=== PATIENT | female | born 1955 | race Caucasian/White ===

== ENCOUNTER → 2020-11-06 15:40 | Outpatient (CLI) | payer OTHER, SELFPAY ==
--- NOTE | 2020-11-06 15:43 | BI_ITS ---
MAMMOGRAPHY - BILATERAL SCREENING REASON FOR EXAM: Female, 65 years old. Routine annual screening examination. PERTINENT HISTORY: Non-contributory. TECHNIQUE: Digital bilateral breast jose (3D mammographic acquisition) in the CC and MLO projections. 2-D mediolateral oblique (MLO) and craniocaudad (CC) views of both breasts were obtained. CAD: Full Field Digital Mammography with Computer Added Detection was performed. COMPARISON: Comparison is made with prior outside examination dated 12/03/2019. FINDINGS: Breast Composition: There are scattered areas of fibroglandular density. There are no dominant masses or suspicious calcifications. No other significant abnormalities are identified. There has been no significant change since the prior study. BI/SCREEN MAMM (CAD) W/JOSE BILAT IMPRESSION: Stable bilateral screening mammogram. Yearly follow-up mammogram recommended. (A) ASSESSMENT CATEGORY: BIRADS Category 1: Negative. A letter regarding these results will be sent to the patient by the facility within 30 days. Approximately 10% of breast cancers are not detected by mammography. A normal mammogram should not delay biopsy of a clinically suspicious abnormality. [id number] Electronically Signed: Mario Paulino, at 13:51 EST , Service support ,
== END ==
PROVIDERS: PCP Family Medicine; Referring Provider Family Medicine; Visit Provider Family Medicine
DX: Z12.31 Encounter for screening mammogram for malignant neoplasm of breast (principal)
CPT/HCPCS: 77063; 77067

== ENCOUNTER → 2020-11-13 13:23 | Outpatient (CLI) | payer OTHER, SELFPAY ==
[2020-11-13 15:48] LABS: Absolute Lymphocyte Count 1.86 X10^3/uL (0.83-4.51); Absolute Neutrophil Count 6.1 X10^3/uL (2.0-7.7); Basophil# 0.06 X10^3/uL; Basophil% 0.7 % (0-1); Eosinophil# 0.23 X10^3/uL; Eosinophils% 2.6 % (0-5); Hematocrit 39.8 % (37-47); Hemoglobin 13.3 g/dL (12.0-15.0); Lymphocyte # 1.86 X10^3/ul (4.0); Lymphocyte % 21.2 % (19-41); Mean Corp Hgb Conc 33.4 g/dL (32-36); Mean Corpuscular Hgb 31.1 pg (27.0-32.0); Mean Corpuscular Volume 93.2 fL (81-99); Mean Platelet Vol. 10.5 fl (6.2-12.0); Monocyte# 0.46 X10^3/uL; Monocyte% 5.2 % (0-10); NRBC Flagged by Analyzer 0 % (0-5); Neutrophil # 6.08 X10^3/uL (2.7-7.7); Neutrophil % 69.3 % (47-70); Platelet Count 228 K/mm3 (150-450); RBC Distribution Width CV 13.2 % (11.6-14.6); RBC Distribution Width SD 43.7 fl (35.1-43.9); Red Blood Count 4.27 M/mm3 (4.2-5.4); White Blood Count 8.8 K/mm3 (4.4-11.0)
[2020-11-13 16:24] LABS: ALB/GLOB Ratio 0.9 RATIO (0.9-2.4); AST(SGOT) 13 U/L (15-37); Alanine Aminotransfer ALT/SGPT 28 U/L (13-56); Albumin, Serum 3.6 g/dL (3.2-5.0); Alkaline Phosphatase 129 U/L (45-117); Anion Gap 5 (5-15); BUN 10 mg/dL (7-18); BUN/Creat Ratio 11.6 RATIO (10-20); Calcium,Total 9.3 mg/dL (8.5-10.1); Chloride 104 mmol/L (98-107); Creatinine, Serum 0.86 mg/dL (0.55-1.02); EST Glomerular Filtration Rate 70 mL/min (>60); Est Glom Filt Rate - Afr Amer 85 mL/min (>60); Free T3 2.1 pg/mL (2.18-3.98); Globulin 4.1 g/dL (2.2-4.2); Glucose 158 mg/dL (74-106); Potassium 3.8 mmol/L (3.5-5.1); Protein, Total 7.7 g/dL (6.4-8.2); Sodium Level 138 mmol/L (136-145); T4 Free Direct 1.56 ng/dL (0.76-1.46); Thyroid Stim Hormone (TSH) 1.39 uIU/mL (0.358-3.74)
== END ==
PROVIDERS: PCP Family Medicine; Visit Provider Family Medicine
DX: E11.9 Type 2 diabetes mellitus without complications (principal); I10 Essential (primary) hypertension; E03.9 Hypothyroidism, unspecified
CPT/HCPCS: 36415; 80053; 84439; 84443; 84481; 85025

== ENCOUNTER → 2021-01-25 09:32 | Outpatient (CLI) | payer OTHER, SELFPAY ==
[2020-12-28 08:31] VITALS: BMI 49.4
[2021-01-25 12:03] LABS: Absolute Lymphocyte Count 1.39 X10^3/uL (0.83-4.51); Absolute Neutrophil Count 6.9 X10^3/uL (2.0-7.7); Basophil# 0.05 X10^3/uL; Basophil% 0.5 % (0-1); Eosinophil# 0.16 X10^3/uL; Eosinophils% 1.7 % (0-5); Hematocrit 42.5 % (37-47); Hemoglobin 13.3 g/dL (12.0-15.0); Lymphocyte # 1.39 X10^3/ul (4.0); Lymphocyte % 15.1 % (19-41); Mean Corp Hgb Conc 31.3 g/dL (32-36); Mean Corpuscular Hgb 28.7 pg (27.0-32.0); Mean Corpuscular Volume 91.6 fL (81-99); Mean Platelet Vol. 10.7 fl (6.2-12.0); Monocyte# 0.57 X10^3/uL; Monocyte% 6.2 % (0-10); NRBC Flagged by Analyzer 0 % (0-5); Neutrophil # 6.93 X10^3/uL (2.7-7.7); Neutrophil % 75.6 % (47-70); Platelet Count 256 K/mm3 (150-450); RBC Distribution Width CV 13.6 % (11.6-14.6); RBC Distribution Width SD 46.1 fl (35.1-43.9); Red Blood Count 4.64 M/mm3 (4.2-5.4); White Blood Count 9.2 K/mm3 (4.4-11.0)
[2021-01-25 12:37] LABS: ALB/GLOB Ratio 0.8 RATIO (0.9-2.4); AST(SGOT) 15 U/L (15-37); Alanine Aminotransfer ALT/SGPT 28 U/L (13-56); Albumin, Serum 3.5 g/dL (3.2-5.0); Alkaline Phosphatase 131 U/L (45-117); Anion Gap 4 (5-15); BUN 12 mg/dL (7-18); BUN/Creat Ratio 13.9 RATIO (10-20); Calcium,Total 9.3 mg/dL (8.5-10.1); Chloride 105 mmol/L (98-107); Creatinine, Serum 0.86 mg/dL (0.55-1.02); EST Glomerular Filtration Rate 70 mL/min (>60); Est Glom Filt Rate - Afr Amer 84 mL/min (>60); Globulin 4.2 g/dL (2.2-4.2); Glucose 95 mg/dL (74-106); Protein, Total 7.7 g/dL (6.4-8.2); Sodium Level 140 mmol/L (136-145); T4 Free Direct 1.36 ng/dL (0.76-1.46); Thyroid Stim Hormone (TSH) 1.23 uIU/mL (0.358-3.74)
== END ==
PROVIDERS: PCP Family Medicine; Visit Provider Family Medicine
DX: E03.9 Hypothyroidism, unspecified (principal); I10 Essential (primary) hypertension; E11.9 Type 2 diabetes mellitus without complications
CPT/HCPCS: 36415; 80053; 84439; 84443; 84481; 85025

== ENCOUNTER 2021-01-25 10:55 | Outpatient (RCR) | payer OTHER, SELFPAY ==
[2020-12-28 08:31] VITALS: BMI 49.4
[2021-01-25] MEDS: COVID-19 VACC, MRNA(PFIZER)/PF 30 MCG/0.3 ML SYRINGE IM (08:46)
[2021-02-15] MEDS: COVID-19 VACC, MRNA(PFIZER)/PF 30 MCG/0.3 ML SYRINGE IM (08:28)
== END 2021-01-25 23:59 ==
LOC: IMMUN 10:55
PROVIDERS: PCP Family Medicine; Visit Provider Family Medicine
DX: Z23 Encounter for immunization (principal)
CPT/HCPCS: 0001A; 0002A

== ENCOUNTER → 2021-11-15 10:42 | Outpatient (CLI) | payer MEDICARE, SELFPAY ==
--- NOTE | 2021-11-15 10:45 | BI_ITS ---
MAMMOGRAPHY - BILATERAL SCREENING REASON FOR EXAM: Female, 66 years old. Routine annual screening examination. PERTINENT HISTORY: Non-contributory. TECHNIQUE: Digital bilateral breast jose (3D mammographic acquisition) in the CC and MLO projections. 2-D mediolateral oblique (MLO) and craniocaudad (CC) views of both breasts were obtained. CAD: Full Field Digital Mammography with Computer Added Detection was performed. COMPARISON: Comparison is made with prior examination of 11/06/2020. FINDINGS: Breast Composition: There are scattered areas of fibroglandular density. There are no dominant masses or suspicious calcifications. Stable small benign-appearing bilateral axillary lymph nodes. No other significant abnormalities are identified. There has been no significant change since the prior study. BI/SCRN MAMM (CAD)W/JOSE BILAT IMPRESSION: Stable bilateral screening mammogram. Yearly follow-up mammogram recommended. (A) ASSESSMENT CATEGORY: BIRADS Category 2: Benign. A letter regarding these results will be sent to the patient by the facility within 30 days. Approximately 10% of breast cancers are not detected by mammography. A normal mammogram should not delay biopsy of a clinically suspicious abnormality. [id number] Electronically Signed: Mario Paulino MD at 11:27 EST , Service support ,
== END ==
PROVIDERS: PCP Family Medicine; Referring Provider Family Medicine; Visit Provider Family Medicine
DX: Z12.31 Encounter for screening mammogram for malignant neoplasm of breast (principal)
CPT/HCPCS: 77063; 77067

== ENCOUNTER 2022-05-16 06:25 | Day surgery (SDC) | payer MEDICARE, SELFPAY ==
[2022-05-16 06:53] VITALS: BP 119/64; PULSE 83; RESP 18; TEMP 36.4; O2SAT 100; BMI 45.1
[2022-05-16] MEDS: Lactated Ringers 1,000 ML 15 ML IV (07:01)
--- NOTE | 2022-05-16 07:11 | H&P.OPEN ---
[facility] - General General Date of Service: 05/16/22 Chief Complaint: Colon surveillance with history of polyps HPI Narrative PARAMJIT ESPINOZA, is a 67 F who presents to the endoscopy suite for open access surveillance colonoscopy. Patient has a history of colonic polyps with her last colonoscopy in 2018. She is unable to state exactly how many were found at that time. She denies any interval change in her bowel habits. She specifically denies any change in caliber, increasing constipation, or observation of blood/tarry stools. She confirms that there is no use of blood thinners. Patient does have a family history of colon cancer in her maternal grandmother. She estimates that her grandmother was diagnosed with colon cancer in her 80s. She also relates that her father had a duodenal ulcer, but is unable to provide further detail as he passed in his mid 50s. Patient has a history of very infrequent reflux episodes. She estimates these occur only 3-4 times a year and she will take Prilosec for a week around the time that they occur with instantaneous relief. Lastly patient's only prior surgical history is a gallbladder. [facility] Medical History (Updated 05/16/22 @ 07:[address] Toan Ignacio MD) Arthritis Back pain Cervical stenosis of spine COVID CPAP (continuous positive airway pressure) dependence Depression Diabetes mellitus Dietary restriction H/O hyperthyroidism Heartburn High cholesterol History of diverticulitis History of hiatal hernia History of stress test HTN (hypertension) hx of gallbladder removal Hx of transesophageal echocardiography (CHIOMA) for monitoring Hypertension Loss of hearing Post-menopausal Restless legs Syncope Thyroid nodule Wears glasses Home Medications amlodipine 5 mg tablet 5 mg PO DAILY 12/28/20 [History Last Taken 05/16/22 05:30] aspirin 81 mg chewable tablet 81 mg PO DAILY 12/28/20 [History Last Taken Unknown] cholecalciferol (vitamin D3) 50 mcg (2,000 unit) capsule 50 mcg PO DAILY 12/28/20 [History Last Taken Unknown] duloxetine 60 mg capsule,delayed release 60 mg PO DAILY 12/28/20 [History Last Taken 05/16/22 05:30] fluticasone propionate 50 mcg/actuation nasal spray,suspension (Allergy Relief (fluticasone)) 2 spray intranasal PRN PRN ALLERGIES 12/28/20 [History Last Taken Unknown] glimepiride 4 mg tablet 4 mg PO QHS 12/28/20 [History Last Taken Unknown] levothyroxine 150 mcg capsule 150 mcg PO DAILY 12/28/20 [History Last Taken 05/16/22 05:30] pravastatin 40 mg tablet 40 mg PO DAILY 12/28/20 [History Last Taken Unknown] semaglutide 1 mg/dose (2 mg/1.5 mL) subcutaneous pen injector (Ozempic) 1 mg subcut TH 12/28/20 [History Last Taken Unknown] losartan 50 mg tablet 50 mg PO DAILY 05/13/22 [History Last Taken 05/16/22 05:30] Allergy/AdvReac Type Severity Reaction Status Date / Time diltiazem [From Cardizem] Allergy Severe FLUSHING Verified 05/16/22 06:51 Penicillins AdvReac Severe issues Verified 05/16/22 06:51 with colon CHAN Inhibitors AdvReac COUGH Verified 05/16/22 06:51 Surgical History (Updated 05/13/22 @ 12:53 by Beatriz Horowitz) Hx of colonoscopy Hx of total knee arthroplasty Hx of tubal ligation Social History Smoking Status: Never smoker Past Medical/Surgical History Planned Operation Planned Operative Procedure/s: CSCOPE OA Previous Hospitalizations/Surgeries HX Hospitalizations: No Any Problems With Anesthesia: No You/Your Family Experience Fever (Hyperthermia) With Anes: No Cholinesterase deficiency: No Cardiovascular Hx Heart Attack: No Hx Hypertension: Yes (CONTROLLED WITH MEDS) Respiratory Hx Chronic Obstructive Pulmonary Disease (COPD): No Hx Asthma: No Hx Emphysema: No Hx Sleep Apnea: Yes CPAP: Yes BIPAP: No Hx Respiratory Tract Infection/Cold (presently): No Result (for STOP score): Positive Smoking Status: Never smoker Neurological Hx Seizures: No Does patient have nerve stimulator: No Reproduction : No Miscellaneous Recent Exposure to Contagious Disease: No Allergies diltiazem [From Cardizem] Allergy (Severe, Verified 05/16/22 06:51) FLUSHING Penicillins Adverse Reaction (Severe, Verified 05/16/22 06:51) issues with colon CHAN Inhibitors Adverse Reaction (Verified 05/16/22 06:51) COUGH Discharge Is Pt Admitted From a Retirement, or a Senior Living: No After D/C, Where Do you Plan to Go: Return Home Vital Signs Vital Signs Vital Signs: 05/16/22 06:52 05/16/22 06:53 Temperature 97.6 F L Temperature Source Temporal Pulse Rate 83 Respiratory Rate 18 Respiratory Pattern Normal Blood Pressure 119/64 Blood Pressure Mean 82 Blood Pressure Source Monitor Blood Pressure Position Semi-Fowlers Blood Pressure Location Left Arm Pulse Ox 100 Oxygen Delivery Method Room Air Weight Weight: 246 lb 9.6 oz Body Mass Index (BMI) 45.1 Physical Exam Const alert, oriented x3 and no apparent distress General Appearance: cooperative GI GI Narrative: Soft, nondistended, nontender x4 quadrants Inspection: central obesity Assessment & Plan Assessment/Plan (1) History of colon polyps: PLAN: Is a 67-year-old female who presents for surveillance colonoscopy after she is found to have colon polyps on a prior endoscopy in 2018. She has unable to provide further details as to how many or what type of polyp. She does deny any interval change to her bowel habits and confirms the history provided from her open access screening. Lastly she confirms that her prep proceeded uneventfully and her output is now a clear yellow. With these responses and exam we will plan to proceed with colonoscopy under local MAC as previously scheduled. Surgery Risks - Colonoscopy Risks Include but are not Limited To: Risks include but are not limited to: Bleeding, perforation requiring further surgery, inability to complete colonoscopy requiring barium enema.
--- NOTE | 2022-05-16 07:30 | COLBX_PTH ---
PATIENT: PARAMJIT ESPINOZA LOC: EN U#:[id number] AGE/SX: 67/F ROOM: RE05/16/[address]: Dr. Toan Ignacio MD : 1955 BED: DIS: 05/16/2022 SPEC #: [id number] RECD: 05/16/22 12:38 STATUS: HAYDEE LETTY #: [id number] TAYLOR: 05/16/22 07:[address]: Toan Ignacio DEPT: SURGICAL PATHOLOGY RECD BY: Nancy Porter ENTERED: 05/16/22 13:24 SP TYPE: COLON BX OTHR DR: Dr. Susanna Coulter MD Tissues: Ascending colon Procedures: Surgery Specimen Level IV HEADER OPERATION: Colonoscopy ? open access (MAC), polypectomy PRE-OP DIAGNOSIS: History of colon polyps TISSUE SUBMITTED: Ascending polyp MICROSCOPIC DIAGNOSIS Ascending colon polyp, polypectomy: Tubular adenoma. SJ:elicia 05/17/2022 MICROSCOPIC DESCRIPTION Slides are reviewed. GROSS DESCRIPTION Received in fixative is one container labeled with the patient's name and designated ascending polyp. The specimen consists of a zimmer-pink polyp measuring 0.4 x 0.4 x 0.2 cm. The specimen is totally submitted in one cassette. / SJ:elicia 05/16/2022 TC:1 CPT: 69684
[2022-05-16 08:00] LABS: Bedside Glucose 114 mg/dL (74-106)
[2022-05-16 08:05] VITALS: BP 119/64; BP 135/70; PULSE 81; RESP 16; TEMP 36.5; O2SAT 96
--- NOTE | 2022-05-16 08:07 | OP.COLON_ITS ---
Patient Name: Janet Ortiz Procedure Date: 05/16/2022 7:19 AM Date of : 1955 Age: 67 Procedure: Colonoscopy Indications: High risk colon cancer surveillance: Personal history of colonic polyps, Family history of colon cancer in a distant relative Providers: Toan Ignacio MD Medicines: See the Anesthesia note for documentation of the administered medications Patient Profile: Last Colonoscopy: more than 3 years ago. Refer to note in patient chart for documentation of history and physical. Complications: No immediate complications. Estimated blood loss: Minimal. Procedure: Pre-Anesthesia Assessment: - The heart rate, respiratory rate, oxygen saturations, blood pressure, adequacy of pulmonary ventilation, and response to care were monitored throughout the procedure. After I obtained informed consent, the scope was passed under direct vision. Throughout the procedure, the patient's blood pressure, pulse, and oxygen saturations were monitored continuously. The Colonoscope was introduced through the anus and advanced to the cecum, identified by appendiceal orifice and ileocecal valve. The colonoscopy was performed without difficulty. The patient tolerated the procedure fairly well. The quality of the bowel preparation was good. The appendiceal orifice was photographed. Scope In: 7:30:53 AM Scope Withdrawal Time 0 hours 17 minutes 4 seconds Scope Out: 7:58:00 AM Total Procedure Duration Time 0 hours 27 minutes 7 seconds Findings: A 7 mm, non-bleeding polyp was found in the ascending colon. The polyp was semi-sessile. The polyp was removed with a hot snare. Resection and retrieval were complete. Estimated blood loss was minimal. Skin tags were found on perianal exam. Multiple medium-mouthed diverticula were found in the sigmoid colon. No biopsies or other specimens were collected for this exam. No additional abnormalities were found on retroflexion. Impression: - One 7 mm, non-bleeding polyp in the ascending colon, removed with a hot snare. Resected and retrieved. - Perianal skin tags found on perianal exam. - Diverticulosis in the sigmoid colon. No specimens collected. Recommendation: - Discharge patient to home (via wheelchair). - High fiber diet today. - Continue present medications. - Await pathology results. - Repeat colonoscopy date to be determined after pending pathology results are reviewed for surveillance based on pathology results. - Telephone my office for pathology results in 1 week. Procedure Code(s): --- Professional --- 26697, Colonoscopy, flexible; with removal of tumor(s), polyp(s), or other lesion(s) by snare technique Diagnosis Code(s): --- Professional --- Z86.010, Personal history of colonic polyps D12.2, Benign neoplasm of ascending colon K64.4, Residual hemorrhoidal skin tags Z80.0, Family history of malignant neoplasm of digestive organs K57.30, Diverticulosis of large intestine without perforation or abscess without bleeding CPT copyright 2017 [employer]. All rights reserved. The codes documented in this report are preliminary and upon category development analyst review may be revised to meet current compliance requirements. Toan Ignacio MD 05/16/2022 8:07:26 AM This report has been signed electronically. Number of Addenda: 0 Note Initiated On: 05/16/2022 7:19 AM
--- NOTE | 2022-05-16 08:08 | OP.CCLET_ITS ---
05/16/2022 Susanna Coulter [facility] [address] [place] [address] Re : Colonoscopy procedure for Janet Ortiz Dear Dr. Coulter This procedure was performed on April. My impressions and recommendations are as follows: Impressions : - One 7 mm, non-bleeding polyp in the ascending colon, removed with a hot snare. Resected and retrieved. - Perianal skin tags found on perianal exam. - Diverticulosis in the sigmoid colon. No specimens collected. Recommendations : - Discharge patient to home (via wheelchair). - High fiber diet today. - Continue present medications. - Await pathology results. - Repeat colonoscopy date to be determined after pending pathology results are reviewed for surveillance based on pathology results. - Telephone my office for pathology results in 1 week. My findings are described in the full procedure note, which is enclosed. If I can be of further assistance, please feel free to contact me at Doctor phone number(s): , Work: . Sincerely, Toan Ignacio MD 05/16/2022 8:07:26 AM This report has been signed electronically.
[2022-05-16 08:10] VITALS: BP 119/64; BP 147/66; PULSE 79; RESP 16; O2SAT 97
[2022-05-16 08:15] VITALS: BP 119/64; BP 136/63; PULSE 76; RESP 18; O2SAT 98
[2022-05-16 08:20] VITALS: BP 119/64; BP 144/74; PULSE 79; RESP 18; TEMP 36.5; O2SAT 98
[2022-05-16 08:28] VITALS: BP 119/64
== END 2022-05-16 08:34 | disposition home or self-care (01) ==
LOC: EN 06:26 → AC 06:28
PROVIDERS: PCP Family Medicine; Referring Provider Family Medicine; Visit Provider Surgery
PROC: 0DJD8ZZ Inspection of Lower Intestinal Tract, Via Natural or Artificial Opening Endoscopic (ICD-10-PCS; CPT 45378; principal; 2022-05-16 07:25)
DX: Z12.11 Encounter for screening for malignant neoplasm of colon (principal); D12.2 Benign neoplasm of ascending colon; K64.4 Residual hemorrhoidal skin tags; K57.30 Diverticulosis of large intestine without perforation or abscess without bleeding; E11.9 Type 2 diabetes mellitus without complications; I10 Essential (primary) hypertension; E78.00 Pure hypercholesterolemia, unspecified; Z79.82 Long term (current) use of aspirin; Z79.84 Long term (current) use of oral hypoglycemic drugs; Z79.890 Hormone replacement therapy; Z79.899 Other long term (current) drug therapy; Z86.010 Personal history of colon polyps; Z80.0 Family history of malignant neoplasm of digestive organs
CPT/HCPCS: 45385; 82962; 88305; J7120

== ENCOUNTER → 2022-09-20 | Outpatient (CLI) | payer MEDICARE, SELFPAY ==
[2022-09-20 12:12] LABS: Absolute Lymphocyte Count 1.54 X10^3/uL (0.83-4.51); Absolute Neutrophil Count 7.1 X10^3/uL (2.0-7.7); Basophil# 0.07 X10^3/uL; Basophil% 0.7 % (0-1); Eosinophils% 2.1 % (0-5); Hematocrit 39.5 % (37-47); Hemoglobin 13.3 g/dL (12.0-15.0); Lymphocyte # 1.54 X10^3/ul (0.83-4.51); Lymphocyte % 16.1 % (19-41); Mean Corp Hgb Conc 33.7 g/dL (32-36); Mean Corpuscular Hgb 30.9 pg (27.0-32.0); Mean Corpuscular Volume 91.9 fL (81-99); Mean Platelet Vol. 10.8 fl (6.2-12.0); Monocyte# 0.57 X10^3/uL; Monocyte% 5.9 % (0-10); NRBC Flagged by Analyzer 0 % (0-5); Neutrophil # 7.13 X10^3/uL (2.7-7.7); Neutrophil % 74.4 % (47-70); Platelet Count 237 K/mm3 (150-450); RBC Distribution Width CV 13.3 % (11.6-14.6); RBC Distribution Width SD 44.9 fl (35.1-43.9); White Blood Count 9.6 K/mm3 (4.4-11.0)
[2022-09-20 12:16] LABS: ALB/GLOB Ratio 0.9 RATIO (0.9-2.4); AST(SGOT) 16 U/L (15-37); Alanine Aminotransfer ALT/SGPT 27 U/L (13-56); Albumin, Serum 3.5 g/dL (3.2-5.0); Alkaline Phosphatase 121 U/L (45-117); Anion Gap 5 (5-15); BUN 12 mg/dL (7-18); Calcium,Total 9.6 mg/dL (8.5-10.1); Chloride 103 mmol/L (98-107); Cholesterol 160 mg/dL (200); EST Glomerular Filtration Rate 76 mL/min (>60); Est Glom Filt Rate - Afr Amer 92 mL/min (>60); Glucose 119 mg/dL (74-106); High Density Lipoprotein 59 mg/dL; Potassium 4.2 mmol/L (3.5-5.1); Protein, Total 7.5 g/dL (6.4-8.2); Sodium Level 138 mmol/L (136-145); Triglycerides 106 mg/dL; Very Low Density Lipoprotein 21 mg/dL (5-40)
== END | disposition home or self-care (01) ==
LOC: BFHLAB 09:19
PROVIDERS: PCP Family Medicine; Visit Provider Family Medicine
DX: I10 Essential (primary) hypertension (principal); E11.9 Type 2 diabetes mellitus without complications
CPT/HCPCS: 36415; 80053; 80061; 85025

== ENCOUNTER → 2022-11-19 | Outpatient (CLI) | payer MEDICARE, SELFPAY ==
--- NOTE | 2022-11-19 16:27 | BI_ITS ---
MAMMOGRAPHY - BILATERAL SCREENING REASON FOR EXAM: Female, 67 years old. Routine annual screening examination. PERTINENT HISTORY: Non-contributory. TECHNIQUE: Digital bilateral breast jose (3D mammographic acquisition) in the CC and MLO projections. 2-D mediolateral oblique (MLO) and craniocaudad (CC) views of both breasts were obtained. CAD: Full Field Digital Mammography with Computer Added Detection was performed. COMPARISON: Mammogram from 11/15/2021, 08/07/2020. FINDINGS: Breast Composition: There are scattered areas of fibroglandular density. There are no dominant masses or suspicious calcifications. Stable benign-appearing bilateral axillary lymph nodes. No other significant abnormalities are identified. There has been no significant change since the prior study. BI/SCRN MAMM (CAD)W/JOSE BILAT IMPRESSION: Stable bilateral screening mammogram. Yearly follow-up mammogram recommended. (A) ASSESSMENT CATEGORY: BIRADS Category 2: Benign. A letter regarding these results will be sent to the patient by the facility within 30 days. Approximately 10% of breast cancers are not detected by mammography. A normal mammogram should not delay biopsy of a clinically suspicious abnormality. Electronically Signed: Pérez Altamirano, at 16:14 EST ,
== END | disposition home or self-care (01) ==
LOC: OPBI 16:25
PROVIDERS: PCP Family Medicine; Visit Provider Family Medicine
DX: Z12.31 Encounter for screening mammogram for malignant neoplasm of breast (principal)
CPT/HCPCS: 77063; 77067

== ENCOUNTER → 2023-02-19 | Outpatient (CLI) | payer MEDICARE, SELFPAY ==
[2023-02-19 12:37] LABS: Absolute Lymphocyte Count 1.69 X10^3/uL (0.83-4.51); Absolute Neutrophil Count 6.7 X10^3/uL (2.0-7.7); Basophil# 0.07 X10^3/uL; Basophil% 0.8 % (0-1); Eosinophil# 0.21 X10^3/uL; Eosinophils% 2.3 % (0-5); Hematocrit 40.8 % (37-47); Hemoglobin 13.5 g/dL (12.0-15.0); Lymphocyte # 1.69 X10^3/ul (0.83-4.51); Lymphocyte % 18.3 % (19-41); Mean Corp Hgb Conc 33.1 g/dL (32-36); Mean Corpuscular Hgb 30.4 pg (27.0-32.0); Mean Corpuscular Volume 91.9 fL (81-99); Mean Platelet Vol. 11.2 fl (6.2-12.0); Monocyte# 0.55 X10^3/uL; NRBC Flagged by Analyzer 0 % (0-5); Neutrophil # 6.65 X10^3/uL (2.7-7.7); Neutrophil % 72.1 % (47-70); Platelet Count 253 K/mm3 (150-450); RBC Distribution Width CV 12.8 % (11.6-14.6); RBC Distribution Width SD 43.4 fl (35.1-43.9); Red Blood Count 4.44 M/mm3 (4.2-5.4); White Blood Count 9.2 K/mm3 (4.4-11.0)
[2023-02-19 13:02] LABS: ALB/GLOB Ratio 0.9 RATIO (0.9-2.4); AST(SGOT) 20 U/L (15-37); Alanine Aminotransfer ALT/SGPT 34 U/L (13-56); Albumin, Serum 3.6 g/dL (3.2-5.0); Alkaline Phosphatase 113 U/L (45-117); Anion Gap 8 (5-15); BUN 11 mg/dL (7-18); BUN/Creat Ratio 12.8 RATIO (10-20); Calcium,Total 9.3 mg/dL (8.5-10.1); Chloride 101 mmol/L (98-107); Cholesterol 138 mg/dL (200); Creatinine, Serum 0.86 mg/dL (0.55-1.02); EST Glomerular Filtration Rate 70 mL/min (>60); Est Glom Filt Rate - Afr Amer 84 mL/min (>60); Globulin 3.9 g/dL (2.2-4.2); Glucose 119 mg/dL (74-106); High Density Lipoprotein 55 mg/dL; Potassium 3.6 mmol/L (3.5-5.1); Protein, Total 7.5 g/dL (6.4-8.2); Sodium Level 138 mmol/L (136-145); Thyroid Stim Hormone (TSH) 1.44 uIU/mL (0.358-3.74); Triglycerides 106 mg/dL; Very Low Density Lipoprotein 21 mg/dL (5-40)
[2023-02-19 13:06] LABS: Microalbumin:Creatinine Ratio 10.5 mg/g CRE (<30 mg/g CRE)
[2023-02-19 13:24] LABS: Hemoglobin A1c 6.1 % (3.8-5.6)
== END | disposition home or self-care (01) ==
PROVIDERS: PCP Family Medicine; Referring Provider Family Medicine; Visit Provider Family Medicine
DX: I10 Essential (primary) hypertension (principal); E11.9 Type 2 diabetes mellitus without complications; E03.9 Hypothyroidism, unspecified
CPT/HCPCS: 36415; 80053; 80061; 82043; 82570; 83036; 84443; 85025

== ENCOUNTER → 2023-11-21 | Outpatient (CLI) | payer MEDICARE, SELFPAY ==
--- NOTE | 2023-11-21 10:40 | BI_ITS ---
MAMMOGRAPHY - BILATERAL SCREENING 3-D TOMOSYNTHESIS REASON FOR EXAM: Female, 68 years old. Routine annual screening mammogram. PERTINENT HISTORY: No significant family history. TECHNIQUE: 2-D mammograms and 3-D Tomosynthesis of the breast (s) were performed. CAD was performed. COMPARISON: November 19, 2022, November 15, 2021 FINDINGS: The breast composition is almost entirely fat. Stable normal lymph nodes and benign calcifications. No dominant masses, suspicious microcalcifications, asymmetries, skin thickening or nipple retraction BI/SCRN MAMM (CAD)W/JOSE BILAT IMPRESSION: No interval change and no mammographic signs of malignancy. Routine yearly mammogram recommended. ASSESSMENT CATEGORY: BIRADS Category 2: Benign. A letter regarding these results will be sent to the patient by the facility within 30 days. FOLLOW UP RECOMMENDATION: Yearly follow up mammogram recommended. (A) Approximately 10% of breast cancers are not detected by mammography. A normal mammogram should not delay biopsy of a clinically suspicious abnormality. Electronically Signed: Alfredo Winston MD at 14:14 EST ,
--- OUTSIDE RECORDS SUMMARY | 2023-11-21 11:14 | XMS RPT_ITS | CCD ---
Author Name Unknown Address [address] [place] [id number] Organization [facility] Care Team Providers Care Lens Gauger Name Role Phone Arnold Frances N Unavailable Unavailable Razo, Rashida Unavailable Unavailable Problems Active Problems Problem Classification Problem Date Documented Da te Episodic/Chronic Unclassified (1 source) Unknown / UNK(Unknown) Onset: 10-31-2017 Past or Other Problems Problem Classification Problem Date Documented Da te Episodic/Chronic Unclassified (1 source) COUGH,SORE THROAT Onset: 10-31-2017 Results Test Name Value Interpretation Reference Range Facil ity Encounters Encounter Date Encounter Type Care Provider Facility Start: 11-15-2017 Ambulatory Rashida Razo Facility :[facility] Start: 10-31-2017 Ambulatory Arnold Frances Facility:[facility] Payers Date Payer Category Payer Unknown [id number] Progress note 01-17-2022 Note Date & Type Note Facility 01-17-2022 Note HNO ID: [id number] Author: Eula Chaparro APRN.PARTS IDENTIFIER Service: ? Author Type: Nurse Practitioner Type: Progress Notes Filed: 01/17/2022 2:01 PM Note Text: Janet Ortiz is a 66 year old female who presents for problem visit Vaginal burning. HPI: Vaginal burning x 2 weeks. Used Monistat x 3 days then symptoms returned a couple of days after finishing treatment. Unsure of discharge due to incontinence. Wears incontinence pad during daytime hours. Diabetes - Last A1c 6.5 2 months ago. Does not check blood sugars unless she feels low. On glymiperide and Ozempic - is rationing Ozempic for vacation so she has not had it for the past 2 weeks. OB History No obstetric history on file. 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 No past surgical history on file. No family history on file. Social History Tobacco Use - Smoking status: Never Smoker - Smokeless tobacco: Never Used Substance Use Topics - Alcohol use: No - Drug use: No Current Outpatient Medications Medication Sig - levothyroxine 150 mcg cap Take by mouth. - amLODIPine (NORVASC) 5 mg tablet Take by mouth. - Cholecalciferol, Vitamin D3, 50 mcg (2,000 unit) cap Take by mouth. - fluticasone (FLONASE) 50 mcg/actuation nasal spray Use in the nose. - glimepiride (AMARYL) 4 mg tablet - losartan (COZAAR) 50 mg tablet - omeprazole (PRILOSEC) 20 mg capsule Take by mouth. - pravastatin (PRAVACHOL) 40 mg tablet Take by mouth. - OZEMPIC 0.25 mg or 0.5 mg(2 mg/1.5 mL) pen injector inject 0.5 milligram subcutaneously every week as directed - duloxetine hcl(CYMBALTA 60 MG CAP) Take one(1) capsule daily. - ASPIRIN 81 MG CHEWABLE TAB - ATENOLOL 50 MG TAB one in am and 1/2 at hs - levothyroxine sodium(SYNTHROID 50 MCG TAB) Take one(1) tablet daily. - ezetimibe/simvastatin(VYTORIN 10-10 10 MG-10 MG TAB) 1/2 tab daily - XANAX 0.5MG TABLET as necessary No current facility-administered medications for this visit. Allergies As of Date: 01/17/2022 Allergen Noted Reaction DILTIAZEM 06/10/2003 PENICILLINS 06/10/2003 Fully Assessed 01/17/2022 REVIEW OF SYSTEMS Abdomen: No bloating, early satiety, indigestion, or increased flatulence. No abdominal pain, nausea, vomiting, diarrhea, or constipation. Bladder: No dysuria, gross hematuria, urinary frequency, urinary urgency. +SI Allergies and current medication updated:Yes EXAM: BP 114/70 Wt 255 lb 9.6 oz (115.9kg) LMP 06/16/2009 GENERAL: pleasant, female in no apparent distress CHEST: Normal inspiratory effort PELVIC: external genitalia normal, normal Bartholin's glands, urethra, Hennessey's glands, no vulvar lesions, no cervical lesions, scant white discharge present, normal appearing perineal body and perianal region. Inner vulva erythematous and swollen NEURO: alert and oriented x3,exam grossly non-focal ASSESSMENT/PLAN: 1. Vaginal burning - ICD9: 625.8, ICD10: N94.9 (primary diagnosis) - suspect resolving vaginal yeast infection. - BACT/JAE VAG GRAM STAIN - CLOTRIMAZOLE-BETAMETHASONE 1 %-0.05 % TOPICAL CREAM Monistat 7 or generic - a applicator full at bedtime every other night or 1/2 applicator every night x 2 weeks. 2. Vulvar burning - ICD9: 625.9, ICD10: N94.89 - yeast vs dermatitis - BACT/JAE VAG GRAM STAIN - CLOTRIMAZOLE-BETAMETHASONE 1 %-0.05 % TOPICAL CREAM - Use only hypoallergenic incontinence products. - Use Aquaphor to protect the skin. - Vulvar hygiene instructions Will notify of results. Follow- up as needed. Pt to call PCP and inform her of urine >1000 glucose result. Eula Chaparro APRN.PARTS IDENTIFIER Medical Decision Making: Problems: Low: Acute, uncomplicated illness or injury Moderate: 1+ chronic illnesses with change Data: Unique test(s) ordered: 1 Risk: Moderate: Drug management Medical Decision Making Level: 4 - Moderate [facility] Summary Purpose Family History No Family History Records FoundNo Family History Records Found Advance Directives No Advanced Directives Records FoundNo Advanced Directives Records Found Additional Source Comments INFORMATION SOURCE (unrecogn ized section and content) DATE CREATED AUTHOR AUTHOR'S ORGANIZ ATION 02/15/2022 [facility] FOR RECORDS PERTAINING TO PATIENTS WHO ARE OR HAVE BEEN ENROLLED IN A CHEMICAL DEPENDENCY/SUBSTANCEABUSE PROGRAM, SOME INFORMATION MAY BE OMITTED. This clinical summary was aggregated from multiple sources. Caution should be exercised in using it in the provision of clinical care. This summary normalizes information from multiple sources, and as a consequence, information in this document may materially change the coding, format and clinical context of patient data. In addition, data may be omitted in some cases. CLINICAL DECISIONS SHOULD BE BASED ON THE PRIMARY CLINICAL RECORDS. [employer] provides no warranty or guarantee of the accuracy or completeness of information in this document.
== END | disposition home or self-care (01) ==
LOC: OPBI 10:38
PROVIDERS: PCP Family Medicine; Referring Provider Family Medicine; Visit Provider Family Medicine
DX: Z12.31 Encounter for screening mammogram for malignant neoplasm of breast (principal)
CPT/HCPCS: 77063; 77067

== ENCOUNTER → 2023-12-18 | Outpatient (CLI) | payer MEDICARE, SELFPAY ==
--- OUTSIDE RECORDS SUMMARY | 2023-12-18 09:52 | XMS RPT_ITS | CCD ---
Author Name Unknown Address [address] [place] [id number] Organization [facility] Care Team Providers Care Client Services Vice President Name Role Phone Arnold Frances N Unavailable [...] Facility Start: 11-15-2017 Ambulatory Rashida Razo Facility :[facility] Start: 10-31-2017 Ambulatory Arnold Frances Facility:[facility] Payers Date Payer Category Payer Unknown [id number] Progress note 01-17-2022 Note Date & Type Note Facility 01-17-2022 Note HNO ID: [id number] Author: Eula Chaparro APRN.SILVER WRAPPER Service: ? Author Type: Nurse Practitioner Type: Progress Notes Filed: 01/17/2022 2:01 PM Note Text: Janet Ortzi is a 66 year old female who [...] OB History No obstetric history on file. 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 Eula Chaparro APRN.SILVER WRAPPER Medical Decision Making: Problems: Low: Acute, uncomplicated illness or injury Moderate: 1+ chronic illnesses with change Data: Unique test(s) ordered: 1 Risk: Moderate: Drug management Medical Decision Making Level: 4 - Moderate [facility] Summary Purpose Family History No Family History Records FoundNo Family History Records Found Advance Directives No Advanced Directives Records FoundNo Advanced Directives Records Found Additional Source Comments INFORMATION SOURCE (unrecogn ized section and content) DATE CREATED AUTHOR AUTHOR'S ORGANIZ ATION 02/15/2022 [facility] FOR RECORDS PERTAINING TO PATIENTS WHO [...] BE BASED ON THE PRIMARY CLINICAL RECORDS. [employer] provides no warranty or guarantee of the accuracy or completeness of information in this document.
[2023-12-18 10:35] LABS: Absolute Lymphocyte Count 1.48 X10^3/uL (0.83-4.51); Absolute Neutrophil Count 6.3 X10^3/uL (2.0-7.7); Basophil# 0.05 X10^3/uL; Basophil% 0.6 % (0-1); Eosinophil# 0.22 X10^3/uL; Eosinophils% 2.5 % (0-5); Hematocrit 39.3 % (37-47); Hemoglobin 12.7 g/dL (12.0-15.0); Lymphocyte # 1.48 X10^3/ul (0.83-4.51); Mean Corp Hgb Conc 32.3 g/dL (32-36); Mean Corpuscular Hgb 29.3 pg (27.0-32.0); Mean Corpuscular Volume 90.8 fL (81-99); Mean Platelet Vol. 10.5 fl (6.2-12.0); Monocyte# 0.58 X10^3/uL; Monocyte% 6.7 % (0-10); NRBC Flagged by Analyzer 0 % (0-5); Neutrophil # 6.33 X10^3/uL (2.7-7.7); Neutrophil % 72.7 % (47-70); Platelet Count 243 K/mm3 (150-450); RBC Distribution Width CV 13.2 % (11.6-14.6); RBC Distribution Width SD 43.8 fl (35.1-43.9); Red Blood Count 4.33 M/mm3 (4.2-5.4); White Blood Count 8.7 K/mm3 (4.4-11.0)
[2023-12-18 11:02] LABS: Hemoglobin A1c 6.5 % (3.8-5.6)
[2023-12-18 11:26] LABS: ALB/GLOB Ratio 0.8 RATIO (0.9-2.4); AST(SGOT) 17 U/L (15-37); Alanine Aminotransfer ALT/SGPT 23 U/L (13-56); Albumin, Serum 3.4 g/dL (3.2-5.0); Alkaline Phosphatase 97 U/L (45-117); Anion Gap 3 (5-15); BUN 16 mg/dL (7-18); BUN/Creat Ratio 18.3 RATIO (10-20); Calcium,Total 9.3 mg/dL (8.5-10.1); Chloride 106 mmol/L (98-107); Cholesterol 179 mg/dL (200); Creatinine, Serum 0.87 mg/dL (0.55-1.02); EST Glomerular Filtration Rate 68 mL/min (>60); Est Glom Filt Rate - Afr Amer 83 mL/min (>60); Globulin 4.2 g/dL (2.2-4.2); Glucose 154 mg/dL (74-106); High Density Lipoprotein 56 mg/dL; Protein, Total 7.6 g/dL (6.4-8.2); Sodium Level 138 mmol/L (136-145); Thyroid Stim Hormone (TSH) 5.03 uIU/mL (0.358-3.74); Triglycerides 91 mg/dL; Very Low Density Lipoprotein 18 mg/dL (5-40)
== END | disposition home or self-care (01) ==
LOC: LAB 09:22
PROVIDERS: PCP Family Medicine; Referring Provider Family Medicine; Visit Provider Family Medicine
DX: I10 Essential (primary) hypertension (principal); E11.9 Type 2 diabetes mellitus without complications; E03.9 Hypothyroidism, unspecified
CPT/HCPCS: 36415; 80053; 80061; 83036; 84443; 85025

== ENCOUNTER → 2024-03-29 | Outpatient (CLI) | payer MEDICARE, SELFPAY ==
[2024-03-29 12:52] LABS: Thyroid Stim Hormone (TSH) 6.47 uIU/mL (0.358-3.74)
== END | disposition home or self-care (01) ==
LOC: MFPLAB 09:25
PROVIDERS: PCP Family Medicine; Visit Provider Family Medicine
DX: E03.9 Hypothyroidism, unspecified (principal)
CPT/HCPCS: 36415; 84443

== ENCOUNTER → 2024-04-12 | Outpatient (CLI) | payer MEDICARE, SELFPAY ==
--- NOTE | 2024-04-12 12:11 | US_ITS ---
STUDY: THYROID ULTRASOUND REASON FOR EXAM: Female, 69 years old. Abnormal thyroid function tests TECHNIQUE: Ultrasound evaluation of the thyroid was performed with real-time and static gordillo-scale imaging. COMPARISON: None. FINDINGS: RIGHT LOBE: The right lobe of the thyroid gland measures 4.0 x 1.6 x 2.1 cm. There is a heterogeneous echotexture. There is a well-defined hypoechoic solid 1.9 x 1.2 x 1.3 cm nodule with some vascularity. This nodule is solid or almost completely solid, hypoechoic, cumyp-rgpu-eyzn, smoothly marginated and contains no echogenic foci. TI-RADS points: 4. TI-RADS category: TR4. This nodule is moderately suspicious. Recommend FNA evaluation. LEFT LOBE: The left lobe of the thyroid gland measures 3.2 x 1.1 x 1.0 cm. There is a heterogeneous echotexture. There is a solid/cystic complex 3 mm nodule. This nodule is mixed cystic and solid, anechoic, fktgp-ykfc-dlzf, smoothly marginated and contains no echogenic foci. TI-RADS points: 1. TI-RADS category: TR1. This nodule is benign and no FNA or follow-up is necessary. ISTHMUS: The isthmus measures 0.3 cm. There is a predominantly solid 2.1 x 2.1 x 1.7 cm mass at the junction of the isthmus and right thyroid lobe. There are some cystic areas within it. This nodule is solid or almost completely solid, hypoechoic, wgtwe-amas-lkkv, smoothly marginated and contains no echogenic foci. TI-RADS points: 4. TI-RADS category: TR4. This nodule is moderately suspicious. Recommend FNA evaluation. The regional lymph nodes are normal. US/Thyroid IMPRESSION: Normal-sized heterogeneous thyroid gland with dominant solid nodules noted in the right lobe and in the junction of the right lobe and isthmus. FNA is recommended for further evaluation Simple cyst in the left thyroid lobe, no specific follow-up needed Electronically Signed: Antione Deluca MD at 15:17 EDT ,
== END | disposition home or self-care (01) ==
LOC: US 12:08
PROVIDERS: PCP Family Medicine; Referring Provider Family Medicine; Visit Provider Family Medicine
DX: E04.1 Nontoxic single thyroid nodule (principal)
CPT/HCPCS: 76536

== ENCOUNTER → 2024-05-04 | Outpatient (CLI) | payer MEDICARE, SELFPAY ==
--- NOTE | 2024-05-04 12:53 | BD_ITS ---
STUDY: DUAL ENERGY X-RAY ABSORPTIOMETRY / DXA REASON FOR EXAM: Female, 69 years old. [id number] TECHNIQUE: Bone Mineral Density (BMD) measurements of lumbar spine and bilateral hips were obtained. COMPARISON: None. FINDINGS: Lumbar Spine (L1-L4): g/cm2 (1.285) / T-score (2.2) / Z-score (4.2) Findings are suggestive of normal bone density with a low fracture risk. Left Femur Total: g/cm2 (1.2-4) / T-score (2.3) / Z-score (3.8) Left Femoral Neck: g/cm2 (1.036) / T-score (1.7) / Z-score (3.4) Right Femur Total: g/cm2 (1.293) / T-score (2.9) / Z-score (4.3) Right Femoral Neck: g/cm2 (1.067) / T-score (2.0) / Z-score (3.7) BD/Dexa Bone Density Study IMPRESSION: The patient is considered normal as outlined below according to World Julien Organization (WHO) criteria with a low fracture risk. Reference Information: The T-score is the number of standard deviations above or below the standard which is normal for young adults at their peak bone mineral density. The World Health Organization (WHO) interprets the T-scores as follows: Above -1 Normal bone density Between -1 and -2.5 Osteopenia Equal to / or below -2.5 Osteoporosis As a practical clinical guideline, osteopenia may be graded as follows: Mild -1 through -1.5 Moderate -1.6 through -2.0 Severe -2.1 through -2.4 The Z-score is the number of standard deviations above or below age-matched controls. A Z-score of less than -1.5 would be considered abnormal. References: 1. NIH Osteoporosis and Related Bone Diseases www osteo.org 2. International Society for Clinical Densitometry www iscd.org 3. National Osteoporosis Foundation www nof.org Electronically Signed: Mario Paulino MD at 13:15 EDT ,
== END | disposition home or self-care (01) ==
LOC: OPBD 12:48
PROVIDERS: PCP Family Medicine; Referring Provider Family Medicine; Visit Provider Family Medicine
DX: Z00.00 Encounter for general adult medical examination without abnormal findings (principal); E04.1 Nontoxic single thyroid nodule; Z78.0 Asymptomatic menopausal state
CPT/HCPCS: 77080

== ENCOUNTER → 2024-05-10 | Outpatient (CLI) | payer MEDICARE, SELFPAY ==
[2024-05-10 13:50] LABS: Thyroid Stim Hormone (TSH) 5.26 uIU/mL (0.358-3.74)
== END | disposition home or self-care (01) ==
LOC: MFPLAB 10:48
PROVIDERS: PCP Family Medicine; Visit Provider Family Medicine
DX: E03.9 Hypothyroidism, unspecified (principal)
CPT/HCPCS: 36415; 84443

== ENCOUNTER → 2024-05-12 | Outpatient (CLI) | payer MEDICARE, SELFPAY ==
--- NOTE | 2024-05-12 14:00 | FLU_PTH ---
PATIENT: PARAMJIT ESPINOZA LOC: [facility] U#:[id number] AGE/SX: 69/F ROOM: RE05/12/[address]: Dr. Toan Ignacio MD : 1955 BED: DIS: 05/12/2024 SPEC #: [id number] RECD: 05/12/24 15:01 STATUS: HAYDEE LETTY #: [id number] TAYLOR: 05/12/24 14:[address]: Toan Ignacio DEPT: CYTOLOGY RECD BY: Nancy Porter ENTERED: 05/13/24 09:37 SP TYPE: Fluid OTHR DR: Radha Chambers MD Tissues: A - Thyroid gland, NOS B - Thyroid gland, NOS C - Thyroid gland, NOS Procedures: Special Stain Group II Surgery Specimen Level IV Cytospin Fluid Cytology Other HEADER OPERATION: Fine needle aspiration of thyroid nodules PRE-OP DIAGNOSIS: Thyroid nodules TISSUE SUBMITTED: A- Right thyroid nodule fluid, B- Right thyroid (slides), C- Isthmic nodule, D- Isthmus (slides) DIAGNOSIS CYTOLOGY A. Fine needle aspiration, right thyroid nodule fluid (cytospin and cellblock): Rare degenerating follicular cells and inflammatory cells. B. Fine needle aspiration, right thyroid nodule (smears): Rare follicular cells are noted. See comment. C. Fine needle aspiration, isthmic nodule (cytospin and cellblock): Consistent with benign follicular nodule [place] Category II). D. Fine needle aspiration, isthmic nodule (smears): Consistent with benign follicular nodule [place] Category II). AM/ 05/14/2024 COMMENT B. The material is insufficient for further evaluation and best fits the [place] System Category I. CYTOLOGY STUDY Slides are reviewed. CYTOLOGY GROSS A. Received is 15 ml of red fluid labeled with the patient's name and and designated per the requisition as Right thyroid nodule. Submitted for cytology preparation including cell block. B. Received are 4 smears labeled with the patient's name and designated per the requisition as Right thyroid nodule. Submitted for staining. C. Received is 15 ml of red fluid labeled with the patient's name and and designated per the requisition as Isthmic nodule. Submitted for cytology preparation including cell block. D. Received are 4 smears labeled with the patient's name and designated per the requisition as Isthmic nodule. Submitted for staining. Mr 05/13/2024 TC:5 CPT: 74278n9,04638c2
== END | disposition home or self-care (01) ==
LOC: LABSPEC 15:43
PROVIDERS: PCP Family Medicine; Referring Provider Surgery; Visit Provider Surgery
DX: E04.1 Nontoxic single thyroid nodule (principal)
CPT/HCPCS: 88108; 88161; 88305; 88313

== ENCOUNTER → 2024-06-08 | Outpatient (CLI) | payer MEDICARE, SELFPAY ==
--- NOTE | 2024-06-08 08:00 | ASPSI_PTH ---
PATIENT: PARAMJIT ESPINOZA LOC: [facility] U#:[id number] AGE/SX: 69/F ROOM: RE06/08/[address]: Dr. Toan Ignacio MD : 1955 BED: DIS: 06/08/2024 SPEC #: [id number] RECD: 06/08/24 11:17 STATUS: HAYDEE LETTY #: [id number] TAYLOR: 06/08/24 08:[address]: Toan Ignacio DEPT: CYTOLOGY RECD BY: Eliana Chan ENTERED: 06/08/24 11:18 SP TYPE: ASP [place] DONALD DR: Radha Chambers MD Tissues: A - Thyroid gland, NOS B - Thyroid gland, NOS Procedures: Surgery Specimen Level IV Cytospin Fluid Cytology Other HEADER OPERATION: Fine needle aspiration right thyroid nodule PRE-OP DIAGNOSIS: Right thyroid nodule TISSUE SUBMITTED: A- Right thyroid nodule fluid, B- Right thyroid nodule slides DIAGNOSIS CYTOLOGY A. Right thyroid nodule, fine needle aspiration (cytospin and cellblock): Negative for malignant cells. See comment. B. Right thyroid nodule, fine needle aspiration (smears): A few clusters of benign follicular cells noted. See comment. JORGE/mr 06/09/2024 COMMENT A. This specimen consists of bloody fluid. Follicular cells are not identified. B. This specimen is paucicellular and insufficient for further evalluaton due to lack of adequate number of follicular cells. The specimen is also difficult to evaluate due to obscuring blood. The specimen is best classified as non-diagnostic, [place] category I. Please make reference to previous specimen [id number] fine needle aspiration right thyroid nodule fluid rare degenerating follicular cell and inflammatory cells and fine needle aspiration right thyroid nodule smears rare follicular cells noted; and fine needle aspiration isthmic nodule fluid and smears with diagnosis of consistent benign follicular nodule, [place] Category II. Correlation with clinical, radiologic findings and appropriate follow up are necessary. CYTOLOGY STUDY Slides are reviewed. CYTOLOGY GROSS A, Received is 30 ml of colorless-hazy fluid labeled with the patient's name and and designated per the requisition as Right thyroid nodule. Submitted for cytology preparation including cell block. B. Received are 4 smears labeled with the patient's name and designated per the requisition as Right thyroid. Submitted for staining. Mr 06/08/2024 TC: Can not code CPT: 45730q2,48473
== END | disposition home or self-care (01) ==
LOC: LABSPEC 10:52
PROVIDERS: PCP Family Medicine; Referring Provider Surgery; Visit Provider Surgery
DX: E04.1 Nontoxic single thyroid nodule (principal)
CPT/HCPCS: 88108; 88161; 88305

== ENCOUNTER → 2024-08-24 | Outpatient (CLI) | payer MEDICARE, SELFPAY ==
[2024-08-24 13:27] LABS: ALB/GLOB Ratio 0.9 RATIO (0.9-2.4); AST(SGOT) 14 U/L (15-37); Alanine Aminotransfer ALT/SGPT 19 U/L (13-56); Albumin, Serum 3.5 g/dL (3.2-5.0); Alkaline Phosphatase 95 U/L (45-117); Anion Gap 6 (5-15); BUN 10 mg/dL (7-18); BUN/Creat Ratio 11.4 RATIO (10-20); Calcium,Total 9.2 mg/dL (8.5-10.1); Chloride 106 mmol/L (98-107); Creatinine, Serum 0.88 mg/dL (0.55-1.02); EST Glomerular Filtration Rate 68 mL/min (>60); Est Glom Filt Rate - Afr Amer 82 mL/min (>60); Glucose 161 mg/dL (74-106); Potassium 3.7 mmol/L (3.5-5.1); Protein, Total 7.5 g/dL (6.4-8.2); Sodium Level 138 mmol/L (136-145)
[2024-08-30 19:07] LABS: Aldosterone, Serum 2.7 ng/dL (0.0-30.0); Renin, Plasma 1.134 ng/mL/hr (0.167-5.380)
== END | disposition home or self-care (01) ==
PROVIDERS: PCP Family Medicine; Referring Provider Internal Medicine Endocrinology, Diabetes & Metabolism; Visit Provider Internal Medicine Endocrinology, Diabetes & Metabolism
DX: E11.9 Type 2 diabetes mellitus without complications (principal); E03.8 Other specified hypothyroidism; E24.9 Cushing's syndrome, unspecified
CPT/HCPCS: 36415; 80053; 82088; 84244; 84443

== ENCOUNTER → 2024-08-27 | Outpatient (CLI) | payer MEDICARE, SELFPAY | END | disposition home or self-care (01) | LOC: MTLAB 08:50 | PROVIDERS: PCP Family Medicine; Referring Provider Internal Medicine Endocrinology, Diabetes & Metabolism; Visit Provider Internal Medicine Endocrinology, Diabetes & Metabolism | DX: E24.9 Cushing's syndrome, unspecified (principal) | CPT/HCPCS: 36415; 82533 ==

== ENCOUNTER → 2024-11-15 | Outpatient (CLI) | payer MEDICARE, SELFPAY ==
[2024-11-15 12:33] LABS: ALB/GLOB Ratio 0.8 RATIO (0.9-2.4); AST(SGOT) 19 U/L (15-37); Alanine Aminotransfer ALT/SGPT 23 U/L (13-56); Albumin, Serum 3.2 g/dL (3.2-5.0); Alkaline Phosphatase 96 U/L (45-117); Anion Gap 6 (5-15); BUN 12 mg/dL (7-18); BUN/Creat Ratio 13.5 RATIO (10-20); Calcium,Total 8.8 mg/dL (8.5-10.1); Chloride 106 mmol/L (98-107); Cholesterol 158 mg/dL (200); Creatinine, Serum 0.89 mg/dL (0.55-1.02); EST Glomerular Filtration Rate 67 mL/min (>60); Est Glom Filt Rate - Afr Amer 81 mL/min (>60); Globulin 4.2 g/dL (2.2-4.2); Glucose 175 mg/dL (74-106); High Density Lipoprotein 55 mg/dL; Potassium 4.3 mmol/L (3.5-5.1); Protein, Total 7.4 g/dL (6.4-8.2); Sodium Level 136 mmol/L (136-145); Thyroid Stim Hormone (TSH) 0.959 uIU/mL (0.358-3.740); Triglycerides 116 mg/dL; Very Low Density Lipoprotein 23 mg/dL (5-40)
[2024-11-15 12:56] LABS: Microalbumin:Creatinine Ratio 40.6 mg/g CRE (<30 mg/g CRE)
== END | disposition home or self-care (01) ==
LOC: MTLAB 09:26
PROVIDERS: PCP Family Medicine; Referring Provider Internal Medicine Endocrinology, Diabetes & Metabolism; Visit Provider Internal Medicine Endocrinology, Diabetes & Metabolism
DX: E11.9 Type 2 diabetes mellitus without complications (principal); E03.8 Other specified hypothyroidism; E78.2 Mixed hyperlipidemia
CPT/HCPCS: 36415; 80053; 80061; 82043; 82570; 83036; 84443

== ENCOUNTER → 2024-11-30 | Outpatient (CLI) | payer MEDICARE, SELFPAY ==
--- NOTE | 2024-11-30 12:07 | BI_ITS ---
MAMMOGRAPHY - BILATERAL SCREENING REASON FOR EXAM: Female, 69 years old. Routine annual screening examination. PERTINENT HISTORY: Non-contributory. TECHNIQUE: Digital bilateral breast jose (3D mammographic acquisition) in the CC and MLO projections. 2-D mediolateral oblique (MLO) and craniocaudad (CC) views of both breasts were obtained. CAD: Full Field Digital Mammography with Computer Added Detection was performed. COMPARISON: Comparison is made with prior study dated November 21, 2023 and November 19, 2022. FINDINGS: Breast Composition: There are scattered areas of fibroglandular density. There are no dominant masses or suspicious calcifications. Stable bilateral fat-containing axillary lymph nodes. No other significant abnormalities are identified. There has been no significant change since the prior study. BI/SCRN MAMM (CAD)W/JOSE BILAT IMPRESSION: Stable bilateral screening mammogram. Yearly follow-up mammogram recommended. (A) ASSESSMENT CATEGORY: BIRADS Category 2: Benign. A letter regarding these results will be sent to the patient by the facility within 30 days. Approximately 10% of breast cancers are not detected by mammography. A normal mammogram should not delay biopsy of a clinically suspicious abnormality. [id number] Electronically Signed: Mario Paulino MD at 12:40 EST ,
== END | disposition home or self-care (01) ==
PROVIDERS: PCP Family Medicine; Referring Provider Family Medicine; Visit Provider Family Medicine
DX: Z12.31 Encounter for screening mammogram for malignant neoplasm of breast (principal)
CPT/HCPCS: 77063; 77067

== ENCOUNTER → 2025-02-15 | Outpatient (CLI) | payer MEDICARE, SELFPAY ==
[2025-02-15 17:23] LABS: ALB/GLOB Ratio 1.1 RATIO (0.9-2.4); AST(SGOT) 24 U/L (<=31); Alanine Aminotransfer ALT/SGPT 20 U/L (<=34); Albumin, Serum 3.9 g/dL (3.4-4.8); Alkaline Phosphatase 108 U/L (35-104); Anion Gap 11 (5-15); BUN 12 mg/dL (4-19); BUN/Creat Ratio 13.7 RATIO (10-20); Calcium,Total 9.5 mg/dL (7.6-11.0); Carbon Dioxide 24.2 mmol/L (21.0-32.0); Chloride 102 mmol/L (98-108); Creatinine, Serum 0.85 mg/dL (0.70-1.20); EST Glomerular Filtration Rate 74 (>60); Globulin 3.5 g/dL (2.2-4.2); Glucose 125 mg/dL (70-99); Potassium 4.1 mmol/L (3.3-5.1); Protein, Total 7.5 g/dL (5.9-8.4); Sodium Level 137 mmol/L (133-145); Total Bilirubin 0.48 mg/dL (0.00-1.30)
[2025-02-15 17:27] LABS: Vitamin D,25 Hydroxy 36.1 ng/mL (30-100)
[2025-02-15 21:51] LABS: Hemoglobin A1c 6.3 % (<=5.6)
== END | disposition home or self-care (01) ==
LOC: MTLAB 10:24
PROVIDERS: PCP Family Medicine; Referring Provider Physician Assistant Medical; Visit Provider Physician Assistant Medical
DX: E11.21 Type 2 diabetes mellitus with diabetic nephropathy (principal); E55.9 Vitamin D deficiency, unspecified; E03.8 Other specified hypothyroidism
CPT/HCPCS: 36415; 80053; 82043; 82306; 83036; 84443

== ENCOUNTER → 2025-06-02 | Outpatient (CLI) | payer MEDICARE, SELFPAY ==
--- OUTSIDE RECORDS SUMMARY | 2025-06-02 08:58 | XMS RPT_ITS | CCD ---
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 Role Phone Arnold Frances Unavailable Unavailable Razo, Kharis Unavailable Unavailable Trish, Chalon Primary Care Unavailable Trish, Chalon Attending Unavailable Trish, Chalon Primary Care Unavailable Bortz, Toan Attending Unavailable Trish, Chalon Referring Unavailable Trish, Chalon Primary Care Unavailable Bortz, Toan Attending Unavailable Trish, Chalon Referring Unavailable EVERARDO, KAZ Attending Unavailable EVERARDO, KAZ Referring Unavailable Runer, Kisha Consulting Unavailable Trish, Chalon Primary Care Unavailable Trish, Mananon Attending Unavailable Trish, Chalon Referring Unavailable Trish, Chalon Primary Care Unavailable Runer, Kisha Referring Unavailable Runer, Kisha Attending Unavailable Trish, Chalon Primary Care Unavailable Runer, Kisha Referring Unavailable Runer, Kisha Attending Unavailable Trish, Chalon Primary Care Unavailable Trish, Chalon Primary Care Unavailable Runer, Kisha Referring Unavailable Runer, Kisha Attending Unavailable Trish, Chalon Primary Care Unavailable Bortz, Toan Attending Unavailable Bortz, Toan Referring Unavailable Trish, Chalon Primary Care Unavailable Bortz, Taon Attending Unavailable Bortz, Toan Referring Unavailable Trish, Chalon Primary Care Unavailable Trish, Chalon Attending Unavailable Trish, Chalon Primary Care Unavailable Trish, Chalon Attending Unavailable Trish, Chalon Referring Unavailable Trish, Chalon Primary Care Unavailable Trish, Chalon Attending Unavailable Trish, Chalon Referring Unavailable Trish , Radha Primary Care Provider Guille ULLOA, Dr. Beard Attending Provider Guille ULLOA, Dr. Beard Referring Provider Radha Chambers MD Attending Provider Radha Chambers MD Referring Provider KAZ DOUGLAS Attending Provider KAZ DOUGLAS Referring Provider [phone] Guille ULLOA, Dr. Beard Other Provider Allergies Allergy Classification Reported Allergen(s) Allergy Type Date of Onset Reaction(s) Facility (7 sources) Angiotensin Converting Enzyme (Chan) Inhibitors Propensity to adverse reactions 2 COUGH [facility] (7 sources) dilTIAZem Drug Allergy 2 FLUSHING [facility] (7 sources) Penicillins Propensity to adverse reactions 2 issues with colon [facility] (1 source) Angiotensin Converting Enzyme (Chan) Inhibitors Drug allergy (disorder) 4 [facility] Repository (1 source) dilTIAZem Drug Allergy 4 [facility] Repository (1 source) Penicillins Drug allergy (disorder) 4 [facility] Repository Medications Current Medications Medication Drug Class(es) Dates Sig (Normalized) Sig (Original) aspirin 81 mg chewable tablet (7 sources) Platelet Aggregation Inhibitor, Nonsteroidal Anti-inflammatory Drug Start: 12-28-2020 take 1 tablet by mouth once daily Aspirin 81 mg tablet,chewable Active 81 mg PO DAILY December 28, 2020 1:00am fluconazole 150 mg oral tablet (8 sources) Azole Antifungal Start: 05-12-2024 Fluconazole 150 mg tablet Active 150 mg PO Every 3 Days May 12, 2024 12:00am Start: 12-28-2020 End: 03-14-2022 take 1 tablet by mouth once daily Fluconazole 150 mg tablet Discontinued 150 mg PO DAILY December 28, 2020 1:00am March 14, 2022 11:18am levothyroxine sodium 0.025 mg oral tablet (8 sources) l-Thyroxine Start: 05-12-2024 Levothyroxine 25 mcg tablet Active ug PO May 12, 2024 12:00am Start: 12-28-2020 End: 05-12-2024 take 1 capsule by mouth once daily Levothyroxine 150 mcg capsule Discontinued 150 ug PO DAILY December 28, 2020 1:00am May 12, 2024 1:36pm losartan potassium 100 mg oral tablet (8 sources) Angiotensin 2 Receptor Lola Start: 05-12-2024 take 1 tablet by mouth once daily Losartan 100 mg tablet Active 100 mg PO daily May 12, 2024 12:00am Start: 05-13-2022 End: 05-12-2024 take 1 tablet by mouth once daily Losartan 50 mg Tablet Discontinued 50 mg PO DAILY May 13, 2022 12:00am May 12, 2024 1:36pm metoprolol tartrate 50 mg oral tablet (1 source) beta-Adrenergic Lola Start: 05-12-2024 take 1 tablet by mouth twice daily Metoprolol Tartrate 50 mg tablet Active 50 mg PO TWICE A DAY May 12, 2024 12:00am 1 mg dose 1.5 ml semaglutide 1.34 mg/ml pen injector (6 sources) Start: 12-28-2020 Semaglutide (Ozempic) 1 mg/dose (2 mg/1.5 mL) pen injector Active 1 MG SC TH December 28, 2020 1:00am SITagliptin 100 mg oral tablet (1 source) Dipeptidyl Peptidase 4 Inhibitor Start: 05-12-2024 Sitagliptin Phosphate (Januvia) 100 mg tablet Active mg PO May 12, 2024 12:00am Completed/Discontinued Medications Medication Drug Class(es) Dates Sig (Normalized) Sig (Original) amLODIPine 5 mg oral tablet (7 sources) Dihydropyridine Calcium Channel Lola Start: 12-28-2020 End: 05-12-2024 take 1 tablet by mouth once daily Amlodipine 5 mg tablet Discontinued 5 mg PO DAILY December 28, 2020 1:00am May 12, 2024 1:30pm cholecalciferol 0.05 mg oral capsule (7 sources) Vitamin D Start: 12-28-2020 End: 05-12-2024 take 1 capsule by mouth once daily Cholecalciferol (Vitamin D3) 50 mcg (2,000 unit) capsule Discontinued 50 ug PO DAILY December 28, 2020 1:00am May 12, 2024 1:30pm DULoxetine 60 mg delayed release oral capsule (7 sources) Serotonin and Norepinephrine Reuptake Inhibitor Start: 12-28-2020 End: 05-12-2024 take 1 capsule by mouth once daily Duloxetine 60 mg capsule,delayed release(DR/EC) Discontinued 60 mg PO DAILY December 28, 2020 1:00am May 12, 2024 1:30pm fluticasone propionate 0.05 mg/actuat metered dose nasal spray (7 sources) Corticosteroid Start: 12-28-2020 End: 05-12-2024 Fluticasone Propionate (Allergy Relief (Fluticasone)) 50 mcg/actuation spray,suspension Discontinued 2 NMA INTRANASAL NEEDED as needed for ALLERGIES December 28, 2020 1:00am May 12, 2024 1:30pm administer into each nostril Start: 12-28-2020 Fluticasone Pr opionate (Allergy Relief (Fluticasone)) 50 mcg/actuation spray,suspension Active 2 SPRAY INTRANASAL NEEDED December 28, 2020 1:00am administer into each nostril glimepiride 4 mg oral tablet (7 sources) Sulfonylurea Start: 12-28-2020 End: 05-12-2024 take 1 tablet by mouth at bedtime Glimepiride 4 mg tablet Discontinued 4 mg PO AT BEDTIME December 28, 2020 1:00am May 12, 2024 1:36pm pravastatin sodium 40 mg oral tablet (7 sources) HMG-CoA Reductase Inhibitor Start: 12-28-2020 End: 05-12-2024 take 1 tablet by mouth once daily Pravastatin 40 mg tablet Discontinued 40 mg PO DAILY December 28, 2020 1:00am May 12, 2024 1:36pm Semaglutide (Ozempic) 1 mg/dose (2 mg/1.5 mL) pen injector (1 source) Start: 12-28-2020 End: 05-12-2024 Semaglutide (Ozempic) 1 mg/dose (2 mg/1.5 mL) pen injector Discontinued 1 mg SC TH December 28, 2020 1:00am May 12, 2024 1:36pm Problems Active Problems Problem Classification Problem Date Documented Date Episodic/Chronic Diabetes mellitus with complications (1 source) Type 2 diabetes mellitus with diabetic nephropathy; Translations: [Type 2 diabetes mellitus with diabetic nephropathy] Onset: 02-20-2025 Chronic Diabetes mellitus without complication (1 source) Type 2 diabetes mellitus without complications; Translations: [Type 2 diabetes mellitus without complications] Onset: 12-16-2024 Chronic Essential hypertension (7 sources) Hypertensive disorder; Translations: [Essential (primary) hypertension] 03-14-2022 Chronic Other and unspecified benign neoplasm (7 sources) History of polyp of colon; Translations: [Personal history of colonic polyps] 05-16-2022 Episodic Other endocrine disorders (1 source) Henry's syndrome, unspecified; Translations: [Henry's syndrome, unspecified] Onset: 09-25-2024 Chronic Other screening for suspected conditions (not mental disorders or infectious disease) (8 sources) Patient encounter status; Translations: [Encounter for screening for malignant neoplasm of colon] Onset: 12-22-2024 03-14-2022 Episodic Thyroid disorders (11 sources) Hypothyroidism; Translations: [Hypothyroidism, unspecified] Onset: 05-17-2024 03-14-2022 Chronic Comment on above: Patient presents for repeat thyroid biopsy after nondiagnostic result from right-sided thyroid nodule on FNA biopsy performed last month. This biopsy procedure remain challenged by depth of the nodule location, proximity to critical anatomy, and difficulty obtaining material despite taking longer than normal to try doing back aspirate on the syringe. I did try to prioritize patient's smears and from a collection when allocating the specimen for processing. Patient was also informed of these challenges. Postprocedural wound care instructions were provided. Will plan to follow-up with patient regarding results once known, however, if this remains nondiagnostic I may favor a surveillance approach rather than consider repeat biopsy due to the procedural challenges. Patient is a 69-year -old female, with known history of hypothyroidism and thyroid nodules, who presents for her first surgical consultation in this office related to her diagnosis of thyroid nodules. She shares that these nodules were previously biopsied some 15 years ago and she was given a benign result. She also reports surveillance with serial thyroid ultrasounds, but is unfortunately unable to recall the size of her nodules either at the time of biopsy or through her surveillance. Thus, I frankly addressed this shortcoming in our understanding of patient's history with both patient and her . I offered that we could wait for results and looking for patient's historical information or simply proceed with the information at hand given her recent ultrasound study. It is patient's inclination to proceed now. Patient is potentially mildly symptomatic from these nodules with some described compressive symptomology. I held a lengthy conversation with patient and her regarding the prevalence of thyroid nodules and their triage using the TI-RADS grading system. An overview of the system was provided as part of this explanation. Ultimately I recommended proceeding with fine-needle aspiration of both the right inferior and right isthmic thyroid nodules using ultrasound guidance. Patient was receptive of this recommendation procedure was undertaken in uncomplicated fashion during today's visit. Full details are given in the procedures section of this note. Unclassified (1 source) Unknown / UNK(Unknown) Onset: 10-31-2017 Past or Other Problems Problem Classification Problem Date Documented Da te Episodic/Chronic Unclassified (1 source) COUGH,SORE THROAT Onset: 10-31-2017 Unclassified (7 sources) hx of gallbladder removal 06-14-2022 Results Test Name Value Interpretation Reference Range Facility Albumin DL <= 20 mg/L (U) [M ass/Vol]Ordered By: KAZ MCGEE on 02-15-2025 Urine Random Microalbumin 73.0 mg/L NO RANGE EST. [facility] Anion gap in Serum or Plasma Ordered By: KAZ MCGEE on 02-15-2025 Anion gap [Moles/Vol] 11 mmol/L 5-15 [facility] BUN/creatinine ratioOrdered By: KAZ MCGEE on 02-15-2025 Urea nitrogen/Creatinine [Mass ratio] 13.7 mg/mg 10-20 [facility] Bilirubin, totalOrdered By: KAZ MCGEE on 02-15-2025 Bilirubin [Mass/Vol] 0.48 mg/dL 0.00-1.30 [facility] Carbon dioxide, total [Moles /volume] in Central venous bloodOrdered By: KAZ MCGEE on 02-15-2025 CO2 [Moles/Vol] 24.2 mmol/L 21.0-32.0 [facility] Chloride assayOrdered By: BIPIN MCGEE on 02-15-2025 Chloride [Moles/Vol] 102 mmol/L 98-108 [facility] Comprehensive Metabolic Prof ilon 02-15-2025 Albumin [Mass/Vol] 3.9 g/dL Normal 3.4-4.8 [facility] Comment on above: Performed By: #### L 500.4050, L506.1001, L501.5920, L501.9985, L502.0500 ####[facility] [address] [place], [address] Albumin/Globulin [Mass ratio] 1.1 {ratio} Normal 0.9-2.4 [facility] Comment on above: Performed By: #### L 500.4050, L506.1001, L501.9520, L501.9985, L502.0500 ####[facility] [address] [place], [address] ALK PHOS 108 U/L High 35-104 [facility] Comment on above: Performed By: #### L 500.4050, L506.1001, L501.9520, L501.9985, L502.0500 ####[facility] [address] [place], [address] ALT [Catalytic activity/Vol] 20 U/L Normal <=34 [facility] Comment on above: Performed By: #### L 500.4050, L506.1001, L501.9520, L501.9985, L502.0500 ####[facility] [address] [place], [address] AST [Catalytic activity/Vol] 24 U/L Normal <=31 [facility] Comment on above: Performed By: #### L 500.4050, L506.1001, L501.9520, L501.9985, L502.0500 ####[facility] [address] [place], [address] Bilirubin [Mass/Vol] 0.48 mg/dL Normal 0.00-1.30 [facility] Comment on above: Performed By: #### L 500.4050, L506.1001, L501.9520, L501.9985, L502.0500 ####[facility] [address] [place], [address] BUN/CRE 13.7 RATIO Normal 10-20 [facility] Comment on above: Performed By: #### L 500.4050, L506.1001, L501.9520, L501.9985, L502.0500 ####[facility] [address] [place], [address] Calcium [Mass/Vol] 9.5 mg/dL Normal 7.6-11.0 [facility] Comment on above: Performed By: #### L 500.4050, L506.1001, L501.9520, L501.9985, L502.0500 ####[facility] [address] [place], [address] Chloride [Moles/Vol] 102 mmol/L Normal 98-108 [facility] Comment on above: Performed By: #### L 500.4050, L506.1001, L501.9520, L501.9985, L502.0500 ####[facility] [address] [place], [address] CO2 [Moles/Vol] 24.2 mmol/L Normal 21.0-32.0 [facility] Comment on above: Performed By: #### L 500.4050, L506.1001, L501.9520, L501.9985, L502.0500 ####[facility] [address] [place], [address] Creatinine [Mass/Vol] 0.85 mg/dL Normal 0.70-1.20 [facility] Comment on above: Performed By: #### L 500.4050, L506.1001, L501.9520, L501.9985, L502.0500 ####[facility] [address] [place], [address] GAP 11 Normal 5-15 [facility] Comment on above: Performed By: #### L 500.4050, L506.1001, L501.9520, L501.9985, L502.0500 ####[facility] [address] [place], [address] GFR/1.73 sq M.predicted among non-blacks MDRD (S/P/Bld) [Vol rate/Area] 74 mL/min/{1.73_m2} Normal >60 [facility] Comment on above: Result Comment: mL/m in/1.73m2 CKD-EPI Creatinine Equation (2020) Performed By: #### L 500.4050, L506.1001, L501.9520, L501.9985, L502.0500 ####[facility] [address] [place], [address] Globulin (S) [Mass/Vol] 3.5 g/dL Normal 2.2-4.2 [facility] Comment on above: Performed By: #### L 500.4050, L506.1001, L501.9520, L501.9985, L502.0500 ####[facility] [address] [place], [address] Glucose [Mass/Vol] 125 mg/dL High 70-99 [facility] Comment on above: Performed By: #### L 500.4050, L506.1001, L501.9520, L501.9985, L502.0500 ####[facility] [address] [place], [address] Potassium [Moles/Vol] 4.1 mmol/L Normal 3.3-5.1 [facility] Comment on above: Performed By: #### L 500.4050, L506.1001, L501.9520, L501.9985, L502.0500 ####[facility] [address] [place], [address] Sodium [Moles/Vol] 137 mmol/L Normal 133-145 [facility] Comment on above: Performed By: #### L 500.4050, L506.1001, L501.9520, L501.9985, L502.0500 ####[facility] [address] [place], [address] T PROT 7.5 g/dL Normal 5.9-8.4 [facility] Comment on above: Performed By: #### L 500.4050, L506.1001, L501.9520, L501.9985, L502.0500 ####[facility] [address] [place], [address] Urea nitrogen [Mass/Vol] 12 mg/dL Normal 4-19 [facility] Comment on above: Performed By: #### L 500.4050, L506.1001, L501.9520, L501.9985, L502.0500 ####[facility] [address] [place], [address] GFR/1.73 sq M.predicted daniela g non-blacks MDRD (S/P/Bld) [Vol rate/Area]Ordered By: KAZ MCGEE on 02-15-2025 Estimated GFR (MDRD) Non-Af Amer 74 >60 [facility] Comment on above: mL/min/1.73m2 CKD-EP I Creatinine Equation (2020) Hemoglobin A1con 02-15-2025 HbA1c (Bld) [Mass fraction] 6.3 % Normal <=5.6 [facility] Comment on above: Performed By: #### L 500.4050, L506.1001, L501.9520, L501.9985, L502.0500 ####[facility] [address] [place], [address] Hemoglobin A1c percentageOrd ered By: KAZ MCGEE on 02-15-2025 HbA1c (Bld) [Mass fraction] 6.3 % >5.7 [facility] L506.1001on 02-15-2025 Vitamin D 25-OH 36.1 ng/mL Normal 30-100 [facility] Comment on above: Result Comment: Elena min D Status Deficiency: <20 ng/mL (50nmol/L) Insufficiency: 20-30 ng/mL (50-75 nmol/L) Sufficiency: 30-100 ng/mL (75-250 nmol/L) Toxicity: >100 ng/mL (>250 nmol/L) Performed By: #### L 500.4050, L506.1001, L501.9520, L501.9985, L502.0500 ####[facility] [address] [place], [place], [address] Laboratory - Chemistry and C hemistry - challengeOrdered By: KAZ MCGEE on 02-15-2025 AST [Catalytic activity/Vol] 24 U/L <32 [facility] Microalbumin,Random Urineon 02-15-2025 MICROALBUMIN,UR 73.0 mg/L Normal NO RANGE EST. [facility] Comment on above: Performed By: #### L 500.4050, L506.1001, L501.9520, L501.9985, L502.0500 ####[facility] [address] [facility] [place], [place], [id number] Potassium (Unsp spec) [Mass/ Vol]Ordered By: KAZ MCGEE on 02-15-2025 Potassium [Moles/Vol] 4.1 mmol/L 3.3-5.1 [facility] Serum creatinine measurement (mass/volume)Ordered By: KAZ MCGEE on 02-15-2025 Creatinine [Mass/Vol] 0.85 mg/dL 0.70-1.20 [facility] Serum globulin measurementOr dered By: KAZ MCGEE on 02-15-2025 Globulin (S) [Mass/Vol] 3.5 g/dL 2.2-4.2 [facility] Serum glucose measurement (m ass/volume)Ordered By: KAZ MCGEE on 02-15-2025 Glucose [Mass/Vol] 125 mg/dL High 70-99 [facility] Serum or plasma alanine rosa otransferase (ALT) measurementOrdered By: KAZ MCGEE on 02-15-2025 ALT [Catalytic activity/Vol] 20 U/L <35 [facility] Serum or plasma albumin mini urement (mass/volume)Ordered By: KAZ MCGEE on 02-15-2025 Albumin [Mass/Vol] 3.9 g/dL 3.4-4.8 [facility] Serum or plasma albumin/glob ulin mass ratioOrdered By: KAZ MCGEE on 02-15-2025 Albumin/Globulin [Mass ratio] 1.1 {ratio} 0.9-2.4 [facility] Serum or plasma alkaline dann sphatase measurementOrdered By: KAZ MCGEE on 02-15-2025 ALP [Catalytic activity/Vol] 108 U/L High 35-104 [facility] Serum or plasma calcium mini urement (mass/volume)Ordered By: KAZ MCGEE on 02-15-2025 Calcium [Mass/Vol] 9.5 mg/dL 7.6-11.0 [facility] Serum or plasma urea nitroge n measurement (mass/volume)Ordered By: KAZ MCGEE on 02-15-2025 Urea nitrogen [Mass/Vol] 12 mg/dL 4-19 [facility] Sodium levelOrdered By: RODRIGO MCGEE on 02-15-2025 Sodium [Moles/Vol] 137 mmol/L 133-145 [facility] TSH DL <= 0.005 mIU/L QnOrde red By: KAZ MCGEE on 02-15-2025 Thyroid Stimulating Hormone (TSH) 2.050 uIU/mL 0.300-4.200 [facility] Thyroid Stim Hormone (TSH)on 02-15-2025 TSH 2.050 uIU/mL Normal 0.300-4.200 [facility] Comment on above: Performed By: #### L 500.4050, L506.1001, L501.9520, L501.9985, L502.0500 ####[facility] [address] [place], [address] Total proteinOrdered By: DOMINGO MCGEE on 02-15-2025 Protein [Mass/Vol] 7.5 g/dL 5.9-8.4 [facility] Vitamin D, 25-hydroxyOrdered By: KAZ MCGEE on 02-15-2025 Vitamin D 25-Hydroxy 36.1 ng/mL 30-[address] [facility] Comment on above: Vitamin D StatusDefi ciency: <20 ng/mL (50nmol/L)Insufficiency: 20-30 ng/mL (50-75 nmol/L)Sufficiency: 30-100 ng/mL (75-250 nmol/L)Toxicity: >100 ng/mL (>250 nmol/L) SCRN MAMM (CAD)W/JOSE BILATo n 11-30-2024 SCRN MAMM (CAD)W/JOSE BILAT [facility] [address], [place] [address] SCRN MAMM (CAD)W/JOSE BILAT MR#: [id number] Acct: [id number] Name: JANET ESPINOZA Rep #: [id number] : 1955 F 69 From: Mario muro MD PCP: Dr. Radha Chambers MD Status: [facility] Study: SCRN MAMM (CAD)W/JOSE BILAT Date of Exam: 06/17 Exam# [id number] Ordering Dr: Radha Chambers MD [id number] MAMMOGRAPHY - BILATERAL SCREENING REASON FOR EXAM: Female, 69 years old. Routine annual screening examination. PERTINENT HISTORY: Non-contributory. TECHNIQUE: Digital bilateral breast jose (3D mammographic acquisition) in the CC and MLO projections. 2-D mediolateral oblique (MLO) and craniocaudad (CC) views of both breasts were obtained. CAD: Full Field Digital Mammography with Computer Added Detection was performed. COMPARISON: Comparison is made with prior study dated November 21, 2023 and November 19, 2022. FINDINGS: Breast Composition: There are scattered areas of fibroglandular density. There are no dominant masses or suspicious calcifications. Stable bilateral fat-containing axillary lymph nodes. No other significant abnormalities are identified. There has been no significant change since the prior study. BI/SCRN MAMM (CAD)W/JOSE BILAT IMPRESSION: Stable bilateral screening mammogram. Yearly follow-up mammogram recommended. (A) ASSESSMENT CATEGORY: BIRADS Category 2: Benign. A letter regarding these results will be sent to the patient by the facility within 30 days. Approximately 10% of breast cancers are not detected by mammography. A normal mammogram should not delay biopsy of a clinically suspicious abnormality. [id number] Electronically Signed: Mario Paulino MD at 12:40 EST , CC: Dr. Radha Chambers MD Patient Day Coordinator: Signed Normal [facility] Albumin to globulin ratioOrd ered By: Kisha Han on 11-15-2024 Albumin/Globulin [Mass ratio] 0.8 {ratio} Low 0.9-2.4 [facility] Bilirubin, totalOrdered By: Kisha Han on 11-15-2024 Bilirubin [Mass/Vol] 0.40 mg/dL 0.20-1.00 [facility] Comment on above: For patients on eltr ombopag therapy, use of Dimension [place] TBIL is not recommended. Blood urea nitrogen (BUN)/cr eatinine ratioOrdered By: Kisha Han on 11-15-2024 Urea nitrogen/Creatinine [Mass ratio] 13.5 mg/mg 10-20 [facility] Carbon dioxide measurementOr dered By: Kisha Han on 11-15-2024 CO2 [Moles/Vol] 24.0 mmol/L 21.0-32.0 [facility] Chloride measurementOrdered By: Kisha Han on 11-15-2024 Chloride [Moles/Vol] 106 mmol/L 98-107 [facility] Comprehensive Metabolic Prof ilon 11-15-2024 Albumin [Mass/Vol] 3.2 g/dL Normal 3.2-5.0 [facility] Comment on above: Performed By: #### L 502.0250, L500.4100, L500.4050, L501.9985, L501.9520 ####[facility] [address] [place], [address] Albumin/Globulin [Mass ratio] 0.8 {ratio} Low 0.9-2.4 [facility] Comment on above: Performed By: #### L 502.0250, L500.4100, L500.4050, L501.9985, L501.9520 ####[facility] [address] [place], [address] ALK P 96 U/L Normal 45-117 [facility] [facility] Comment on above: Performed By: #### L 502.0250, L500.4100, L500.4050, L501.9985, L501.9520 ####[facility] [address] [place], [address] ALT [Catalytic activity/Vol] 23 U/L Normal 13-56 [facility] Comment on above: Performed By: #### L 502.0250, L500.4100, L500.4050, L501.9985, L501.9520 ####[facility] [address] [place], [address] AST [Catalytic activity/Vol] 19 U/L Normal 15-37 [facility] Comment on above: Result Comment: Mode rate Hemolysis, Result may be falsely increased. Performed By: #### L 502.0250, L500.4100, L500.4050, L501.9985, L501.9520 ####[facility] [address] [place], [address] Bilirubin [Mass/Vol] 0.40 mg/dL Normal 0.20-1.00 [facility] Comment on above: Result Comment: For patients on eltrombopag therapy, use of Dimension [place] TBIL is not recommended. Performed By: #### L 502.0250, L500.4100, L500.4050, L501.9985, L501.9520 ####[facility] [address] [place], [address] BUN/CRE 13.5 RATIO Normal 10-20 [facility] Comment on above: Performed By: #### L 502.0250, L500.4100, L500.4050, L501.9985, L501.9520 ####[facility] [address] [place], [address] CA,Total 8.8 mg/dL Normal 8.5-10.1 [facility] Comment on above: Performed By: #### L 502.0250, L500.4100, L500.4050, L501.9985, L501.9520 ####[facility] [address] [place], [address] Chloride [Moles/Vol] 106 mmol/L Normal 98-107 [facility] Comment on above: Performed By: #### L 502.0250, L500.4100, L500.4050, L501.9985, L501.9520 ####[facility] [address] [place], [address] CO2 [Moles/Vol] 24.0 mmol/L Normal 21.0-32.0 [facility] Comment on above: Performed By: #### L 502.0250, L500.4100, L500.4050, L501.9985, L501.9520 ####[facility] [address] [place], [address] Creatinine [Mass/Vol] 0.89 mg/dL Normal 0.55-1.02 [facility] Comment on above: Result Comment: The validity of the calculated GFR GFRAA in patients over 70 years has not been determined. Clinical correlation is essential. Performed By: #### L 502.0250, L500.4100, L500.4050, L501.9985, L501.9520 ####[facility] [address] [place], [address] EST GFR - AA 81 mL/min Normal >60 [facility] Comment on above: Result Comment: Afri can Belarusian GFR Calc Performed By: #### L 502.0250, L500.4100, L500.4050, L501.9985, L501.9520 ####[facility] [address] [place], [address] GAP 6 Normal 5-15 [facility] Comment on above: Performed By: #### L 502.0250, L500.4100, L500.4050, L501.9985, L501.9520 ####[facility] [address] [place], [address] GFR/1.73 sq M.predicted among non-blacks MDRD (S/P/Bld) [Vol rate/Area] 67 mL/min/{1.73_m2} Normal >60 [facility] Comment on above: Result Comment: Non- GFR Calc Performed By: #### L 502.0250, L500.4100, L500.4050, L501.9985, L501.9520 ####[facility] [address] [place], [address] Globulin (S) [Mass/Vol] 4.2 g/dL Normal 2.2-4.2 [facility] Comment on above: Performed By: #### L 502.0250, L500.4100, L500.4050, L501.9985, L501.9520 ####[facility] [address] [place], [address] Glucose [Mass/Vol] 175 mg/dL High 74-106 [facility] Comment on above: Result Comment: Fast ing Glucose result greater than or equal to 126 mg/dL suggests DIABETES MELLITUS per A.D.A. criteria. Performed By: #### L 502.0250, L500.4100, L500.4050, L501.9985, L501.9520 ####[facility] [address] [place], [address] Potassium [Moles/Vol] 4.3 mmol/L Normal 3.5-5.1 [facility] Comment on above: Result Comment: Mode rate Hemolysis, Result may be falsely increased. Performed By: #### L 502.0250, L500.4100, L500.4050, L501.9985, L501.9520 ####[facility] [address] [place], [address] Sodium [Moles/Vol] 136 mmol/L Normal 136-145 [facility] Comment on above: Performed By: #### L 502.0250, L500.4100, L500.4050, L501.9985, L501.9520 ####[facility] [address] [place], [address] T PROT 7.4 g/dL Normal 6.4-8.2 [facility] Comment on above: Performed By: #### L 502.0250, L500.4100, L500.4050, L501.9985, L501.9520 ####[facility] [address] [place], [address] Urea nitrogen [Mass/Vol] 12 mg/dL Normal 7-18 [facility] Comment on above: Performed By: #### L 502.0250, L500.4100, L500.4050, L501.9985, L501.9520 ####[facility] [address] [place], [address] Estimated glomerular filtrat ion rate (GFR) AmericanOrdered By: Kisha Han on 11-15-2024 Estimated GFR (MDRD) Amer 81 mL/min >60 [facility] Comment on above: GFR Calc Glomerular filtration rate ( GFR) estimationOrdered By: Kishawil Han on 11-15-2024 Estimated GFR (MDRD) Non-Af Amer 67 mL/min >60 [facility] Comment on above: Non- GFR Calc Glucose measurementOrdered B y: Kisha Kendrickdiana on 11-15-2024 Glucose [Mass/Vol] 175 mg/dL High 74-106 [facility] Comment on above: Fasting Glucose resu lt greater than or equal to 126 mg/dL suggests DIABETES MELLITUS per A.D.A. criteria. Hemoglobin [id number] By: Xuan wil Guille on 11-15-2024 HbA1c (Bld) [Mass fraction] 7.0 % High 3.8-5.6 [facility] Comment on above: Result Comment: Norm al < 5.7 % Prediabetic 5.7 - 6.4 % Diabetic >or= 6.5 % Please note range changes. Performed By: #### L 502.0250, L500.4100, L500.4050, L501.9985, L501.9520 ####[facility] [address] [place], [address] Normal < 5.7 % Predi abetic 5.7 - 6.4 % Diabetic >or= 6.5 % Please note range changes. High density lipoprotein (HD L) measurementOrdered By: Kisha Han on 11-15-2024 Cholesterol in HDL [Mass/Vol] 55 mg/dL >40 [facility] Comment on above: The drugs N-Acetylcy steine and Metamizole may falsely depress this assay. Reference Range HDL <40 mg/dL Low HDL Cholesterol HDL >or= 60 mg/dL High HDL Cholesterol Laboratory - Chemistry and C hemistry - challengeOrdered By: Kisha Han on 11-15-2024 AST [Catalytic activity/Vol] 19 U/L 15-37 [facility] Comment on above: Moderate Hemolysis, Result may be falsely increased. Lipid Profileon 11-15-2024 Cholesterol [Mass/Vol] 158 mg/dL Normal 200 [facility] Comment on above: Result Comment: <200 mg/dL Desirable 200-240 mg/dL Borderline >240 mg/dL High Risk Performed By: #### L 502.0250, L500.4100, L500.4050, L501.9985, L501.9520 ####[facility] [address] [place], [address] Cholesterol in HDL [Mass/Vol] 55 mg/dL Normal [facility] Comment on above: Result Comment: The drugs N-Acetylcysteine and Metamizole may falsely depress this assay. Reference Range HDL <40 mg/dL Low HDL Cholesterol HDL >or= 60 mg/dL High HDL Cholesterol Performed By: #### L 502.0250, L500.4100, L500.4050, L501.9985, L501.9520 ####[facility] [address] [place], [address] Cholesterol in LDL [Mass/Vol] 80 mg/dL Normal 0-130 [facility] Comment on above: Performed By: #### L 502.0250, L500.4100, L500.4050, L501.9985, L501.9520 ####[facility] [address] [place], [address] Cholesterol in VLDL [Mass/Vol] 23 mg/dL Normal 5-40 [facility] Comment on above: Performed By: #### L 502.0250, L500.4100, L500.4050, L501.9985, L501.9520 ####[facility] [address] [place], [address] Triglyceride [Mass/Vol] 116 mg/dL Normal [facility] Comment on above: Result Comment: The drugs N-Acetylcysteine and Metamizole may falsely depress this assay. Serum Triglycerides Reference Interval Normal <150 mg/dL Borderline high 150 - 199 mg/dL High 200 - 499 mg/dL Very High > or = 500 mg/dL Performed By: #### L 502.0250, L500.4100, L500.4050, L501.9985, L501.9520 ####[facility] [address] [place], [address] Low density lipoprotein (LDL ) cholesterol measurementOrdered By: Kisha Han on 11-15-2024 Cholesterol in LDL [Mass/Vol] 80 mg/dL 0-130 [facility] Microalb:Creat Ratio,Random URon 11-15-2024 Creatinine [Mass/Vol] 254.00 mg/dL Normal NO RAN GE EST. [facility] Comment on above: Performed By: #### L 502.0250, L500.4100, L500.4050, L501.9985, L501.9520 ####[facility] [address] [place], [address] MALB:CRE 40.6 mg/g CRE High <30 mg/g CRE [facility] Comment on above: Performed By: #### L 502.0250, L500.4100, L500.4050, L501.9985, L501.9520 ####[facility] [address] [place], [address] MICROALBUMIN,UR 103.0 mg/L Normal NO RANGE EST. [facility] Comment on above: Performed By: #### L 502.0250, L500.4100, L500.4050, L501.9985, L501.9520 ####[facility] [address] [place], [address] Potassium measurementOrdered By: Kisha Han on 11-15-2024 Potassium [Moles/Vol] 4.3 mmol/L 3.5-5.1 [facility] Comment on above: Moderate Hemolysis, Result may be falsely increased. Random urine microalbumin me asurementOrdered By: Kisha Han on 11-15-2024 Urine Random Microalbumin 103.0 mg/L NO RANGE EST. [facility] Serum anion gap measurementO rdered By: Kisha Han on 11-15-2024 Anion gap [Moles/Vol] 6 mmol/L 5-15 [facility] Serum globulin measurementOr dered By: Kisha Han on 11-15-2024 Globulin (S) [Mass/Vol] 4.2 g/dL 2.2-4.2 [facility] Serum or plasma alanine rosa otransferase (ALT) measurementOrdered By: Kisha Han on 11-15-2024 ALT [Catalytic activity/Vol] 23 U/L 13-56 [facility] Serum or plasma albumin mini urement (mass/volume)Ordered By: Kisha Han on 11-15-2024 Albumin [Mass/Vol] 3.2 g/dL 3.2-5.0 [facility] Serum or plasma alkaline dann sphatase measurementOrdered By: Kisha Han on 11-15-2024 ALP [Catalytic activity/Vol] 96 U/L 45-117 [facility] Serum or plasma calcium mini urement (mass/volume)Ordered By: Kisha Han on 11-15-2024 Calcium [Mass/Vol] 8.8 mg/dL 8.5-10.1 [facility] Serum or plasma cholesterol measurement (mass/volume)Ordered By: Kisha Han on 11-15-2024 Cholesterol [Mass/Vol] 158 mg/dL <200 [facility] Comment on above: <200 mg/dL Desirable 200-240 mg/dL Borderline >240 mg/dL High Risk Serum or plasma creatinine m easurement (mass/volume)Ordered By: Kisha Han on 11-15-2024 Creatinine [Mass/Vol] 0.89 mg/dL 0.55-1.02 [facility] Comment on above: The validity of the calculated GFR & GFRAA in patients over 70 years has not been determined. Clinical correlation is essential. Serum or plasma urea nitroge n measurement (mass/volume)Ordered By: Kisha Han on 11-15-2024 Urea nitrogen [Mass/Vol] 12 mg/dL 7-18 [facility] Sodium levelOrdered By: Obdulio Han on 11-15-2024 Sodium [Moles/Vol] 136 mmol/L 136-145 [facility] TSH QnOrdered By: Kisha ortiz on 11-15-2024 Thyroid Stimulating Hormone (TSH) 0.959 uIU/mL 0.358-3.740 [facility] Thyroid Stim Hormone (TSH)on 11-15-2024 TSH 0.959 uIU/mL Normal 0.358-3.740 [facility] Comment on above: Performed By: #### L 502.0250, L500.4100, L500.4050, L501.9985, L501.9520 ####[facility] [address] [place], [place], [address] Total proteinOrdered By: Lilly Han on 11-15-2024 Protein [Mass/Vol] 7.4 g/dL 6.4-8.2 [facility] Triglycerides measurementOrd ered By: Kisha Han on 11-15-2024 Triglyceride [Mass/Vol] 116 mg/dL <199 [facility] Comment on above: The drugs N-Acetylcy steine and Metamizole may falsely depress this assay.Serum Triglycerides Reference Interval Normal <150 mg/dL Borderline high 150 - 199 mg/dL High 200 - 499 mg/dL Very High > or = 500 mg/dL Urine albumin/creatinine rat io for detection of microalbuminuriaOrdered By: Kisha Han on 11-15-2024 Urine Microalbumin/Creatinine Ratio 40.6 mg/g CRE High <30 [facility] Urine creatinine measurement (mass/volume)Ordered By: Kisha Han on 11-15-2024 Creatinine (U) [Mass/Vol] 254.00 mg/dL NO RANGE EST. [facility] Very low density lipoprotein (VLDL) cholesterol measurementOrdered By: Kisha Han on 11-15-2024 VLDL Cholesterol 23 mg/dL 5-40 [facility] Aldosterone, Serumon 024 ALDOSTERONE,S 2.7 ng/dL Normal 0.0-30.0 [facility] Comment on above: Order Comment: Test( s) [id number] Activity, Plasma was developed and its performance characteristics determined by [facility]. It has not been cleared or approved by the Food and Drug Administration. Result Comment: Perf ormed at: - [address] [id number] Dean Of Education: Davis Strickland MD, Phone: [phone] Performed By: #### L 501.9520, L3400.4000, L3300.1100, L801.1541, L500.4050 #### [facility] [address] [place], [address] Miscellaneous Lab Procedureo n 08-30-2024 MISC LAB TEST Normal [facility] Comment on above: Order Comment: METAN PHRINES/FRAC/FREE 384267 RF EDTA Result Comment: TEST RESULTS LIMITS Metanephrines, Frac., Pl. Free Normetanephrine, Pl, 64.2 pg/mL 0.0-285.2 Metanephrine, Pl, <25.0 pg/mL 0.0-88.0 TESTING PERFORMED AT [facility]. ORIGINAL REPORT ON FILE IN LAB CONTAINS ADDITIONAL TEST SITE INFORMATION. Performed By: #### L 501.9520, L3400.4000, L3300.1100, L801.1541, L500.4050 #### [facility] [address] [place], [place], [id number] Renin, Plasmaon 08-30-2024 RENIN, PLASMA 1.134 ng/mL/hr Normal 0.167-5.380 [facility] Comment on above: Order Comment: Test( s) [id number] Activity, Plasma was developed and its performance characteristics determined by [facility]. It has not been cleared or approved by the Food and Drug Administration. Performed By: #### L 501.9520, L3400.4000, L3300.1100, L801.1541, L500.4050 #### [facility] [address] [place], [address] CORTISOL SERUMon 08-27-2024 CORTISOL 0.90 ug/dL Low 3.44-22.45 [facility] Comment on above: Result Comment: Adul t (AM) 5.27 - 22.45 ug/dL Adult (PM) 3.44 - 16.76 ug/dL Performed By: #### L 509.6000 #### [facility] [address] [place], [address] Comprehensive Metabolic Prof ilon 08-24-2024 Albumin [Mass/Vol] 3.5 g/dL Normal 3.2-5.0 [facility] Comment on above: Performed By: #### L 501.9520, L3400.4000, L3300.1100, L801.1541, L500.4050 #### [facility] [address] [place], [address] Albumin/Globulin [Mass ratio] 0.9 {ratio} Normal 0.9-2.4 [facility] Comment on above: Performed By: #### L 501.9520, L3400.4000, L3300.1100, L801.1541, L500.4050 #### [facility] [address] [place], [address] ALK P 95 U/L Normal 45-117 [facility] Comment on above: Performed By: #### L 501.9520, L3400.4000, L3300.1100, L801.1541, L500.4050 #### [facility] [address] [place], [address] ALT [Catalytic activity/Vol] 19 U/L Normal 13-56 [facility] Comment on above: Performed By: #### L 501.9520, L3400.4000, L3300.1100, L801.1541, L500.4050 #### [facility] [address] [place], [address] AST [Catalytic activity/Vol] 14 U/L Low 15-37 [facility] Comment on above: Performed By: #### L 501.9520, L3400.4000, L3300.1100, L801.1541, L500.4050 #### [facility] [address] [place], [address] Bilirubin [Mass/Vol] 0.90 mg/dL Normal 0.20-1.00 [facility] Comment on above: Result Comment: For patients on eltrombopag therapy, use of Dimension [place] TBIL is not recommended. Performed By: #### L 501.9520, L3400.4000, L3300.1100, L801.1541, L500.4050 #### [facility] [address] [place], [address] BUN/CRE 11.4 RATIO Normal 10-20 [facility] Comment on above: Performed By: #### L 501.9520, L3400.4000, L3300.1100, L801.1541, L500.4050 #### [facility] [address] [place], [address] CA,Total 9.2 mg/dL Normal 8.5-10.1 [facility] Comment on above: Performed By: #### L 501.9520, L3400.4000, L3300.1100, L801.1541, L500.4050 #### [facility] [address] [place], [address] Chloride [Moles/Vol] 106 mmol/L Normal 98-107 [facility] Comment on above: Performed By: #### L 501.9520, L3400.4000, L3300.1100, L801.1541, L500.4050 #### [facility] [address] [place], [address] CO2 [Moles/Vol] 26.0 mmol/L Normal 21.0-32.0 [facility] Comment on above: Performed By: #### L 501.9520, L3400.4000, L3300.1100, L801.1541, L500.4050 #### [facility] [address] [place], [address] Creatinine [Mass/Vol] 0.88 mg/dL Normal 0.55-1.02 [facility] Comment on above: Result Comment: The validity of the calculated GFR GFRAA in patients over 70 years has not been determined. Clinical correlation is essential. Performed By: #### L 501.9520, L3400.4000, L3300.1100, L801.1541, L500.4050 #### [facility] [address] [place], [address] EST GFR - AA 82 mL/min Normal >60 [facility] Comment on above: Result Comment: Afri can Belarusian GFR Calc Performed By: #### L 501.9520, L3400.4000, L3300.1100, L801.1541, L500.4050 #### [facility] [address] [place], [address] GAP 6 Normal 5-15 [facility] Comment on above: Performed By: #### L 501.9520, L3400.4000, L3300.1100, L801.1541, L500.4050 #### [facility] [address] [place], [address] GFR/1.73 sq M.predicted among non-blacks MDRD (S/P/Bld) [Vol rate/Area] 68 mL/min/{1.73_m2} Normal >60 [facility] Comment on above: Result Comment: Non- GFR Calc Performed By: #### L 501.9520, L3400.4000, L3300.1100, L801.1541, L500.4050 #### [facility] [address] [place], [address] Globulin (S) [Mass/Vol] 4.0 g/dL Normal 2.2-4.2 [facility] Comment on above: Performed By: #### L 501.9520, L3400.4000, L3300.1100, L801.1541, L500.4050 #### [facility] [address] [place], [address] Glucose [Mass/Vol] 161 mg/dL High 74-106 [facility] Comment on above: Result Comment: Fast ing Glucose result greater than or equal to 126 mg/dL suggests DIABETES MELLITUS per A.D.A. criteria. Performed By: #### L 501.9520, L3400.4000, L3300.1100, L801.1541, L500.4050 #### [facility] [address] [place], [address] Potassium [Moles/Vol] 3.7 mmol/L Normal 3.5-5.1 [facility] Comment on above: Performed By: #### L 501.9520, L3400.4000, L3300.1100, L801.1541, L500.4050 #### [facility] [address] [place], [address] Sodium [Moles/Vol] 138 mmol/L Normal 136-145 [facility] Comment on above: Performed By: #### L 501.9520, L3400.4000, L3300.1100, L801.1541, L500.4050 #### [facility] [address] [place], [address] T PROT 7.5 g/dL Normal 6.4-8.2 [facility] Comment on above: Performed By: #### L 501.9520, L3400.4000, L3300.1100, L801.1541, L500.4050 #### [facility] [address] [place], [address] Urea nitrogen [Mass/Vol] 10 mg/dL Normal 7-18 [facility] Comment on above: Performed By: #### L 501.9520, L3400.4000, L3300.1100, L801.1541, L500.4050 #### [facility] [address] [place], [place], [address] Thyroid Stim Hormone (TSH)on 08-24-2024 TSH 1.840 uIU/mL Normal 0.358-3.740 [facility] Comment on above: Performed By: #### L 501.9520, L3400.4000, L3300.1100, L801.1541, L500.4050 #### [facility] [address] [place], [place], [address] Surgery Specimen Level Doug 06-08-2024 Surgery Specimen Level IV ------ Patient Age/Sex Location Account Attending Physician JANET ESPINOZA 69/F [facility] [id number] Dr. Toan Ignacio MD Specimen: [id number] Received: 06/08/24 Status: HAYDEE Jack Num: [id number] Spec Type: NEELIMA Holland Dr: Dr. Toan Ignacio MD HEADER OPERATION: Fine needle aspiration right thyroid nodule PRE-OP DIAGNOSIS: Right thyroid nodule TISSUE SUBMITTED: A- Right thyroid nodule fluid, B- Right thyroid nodule slides DIAGNOSIS CYTOLOGY A. Right thyroid nodule, fine needle aspiration (cytospin and cellblock): Negative for malignant cells. See comment. B. Right thyroid nodule, fine needle aspiration (smears): A few clusters of benign follicular cells noted. See comment. / 06/09/2024 COMMENT A. This specimen consists of bloody fluid. Follicular cells are not identified. B. This specimen is paucicellular and insufficient for further evalluaton due to lack of adequate number of follicular cells. The specimen is also difficult to evaluate due to obscuring blood. The specimen is best classified as non-diagnostic, [place] category I. Please make reference to previous specimen [id number] fine needle aspiration right thyroid nodule fluid rare degenerating follicular cell and inflammatory cells and fine needle aspiration right thyroid nodule smears rare follicular cells noted; and fine needle aspiration isthmic nodule fluid and smears with diagnosis of consistent benign follicular nodule, [place] Category II. Correlation with clinical, radiologic findings and appropriate follow up are necessary. CYTOLOGY STUDY Slides are reviewed. CYTOLOGY GROSS A, Received is 30 ml of colorless-hazy fluid labeled with the patient's name and and designated per the requisition as Right thyroid nodule. Submitted for cytology preparation including cell block. B. Received are 4 smears labeled with the patient's name and designated per the requisition as Right thyroid. Submitted for staining. 06/08/2024 TC: Can not code Patient Age/Sex Location Account Attending Physician JANET ESPINOZA 69/F [facility] [id number] Dr. Toan Ignacio MD CPT: 56455n6,24194 Signed (signature on file) Dr. Jack Narvaez MD 06/09/24 1211 Normal [facility] Comment on above: Performed By: #### P SUIV ####[facility] [address], [address] Surgery Visit Reporton 06-08 Surgery Visit Report [place] [address] [place] [address] OFFICE VISIT Date of Service: 06/08/24 MR#: [id number] Acct: [id number] Name: JANET ESPINOZA Rep #: [id number] : 1955 Provider: Dr. Toan jarrell MD Age/Sex: 69/F Location: [facility] Status: Signed Intake Vital Signs 05/12/24 13:28 06/08/24 07:58 Height 5 ft 2 in Weight: 268 lb BMI 49.0 BP 134/81 H 129/78 H Blood Pressure Location Rt brachial Rt brachial Position Sitting Sitting Respiration 18 18 Pulse 72 71 Pulse Source Monitor Monitor Temp 97.5 F L Temp Source Temporal Pulse Oximetry (%) 96 97 Oxygen Delivery Method room air room air Intake Visit Reasons: Repeat a biopsy of R thyroid nodule Chief Complaint: repeat biopsy of right thyroid nodule Is patient in pain?: No Allergies diltiazem (From Cardizem) Allergy (Severe, Verified 06/08/24 07:59) FLUSHING Penicillins Adverse Reaction (Severe, Verified 06/08/24 07:59) issues with colon CHAN Inhibitors Adverse Reaction (Verified 06/08/24 07:59) COUGH Medications ???Medication ???Instructions ???Recorded ???Confirmed ???Type aspirin 81 mg chewable tablet 81 mg PO DAILY 12/28/20 06/08/24 History fluconazole 150 mg tablet 150 mg PO Q3D 05/12/24 06/08/24 History levothyroxine 25 mcg tablet mcg PO 05/12/24 06/08/24 History losartan 100 mg tablet 100 mg PO QDAY 05/12/24 06/08/24 History metoprolol tartrate 50 mg tablet 50 mg PO BID 05/12/24 06/08/24 History sitagliptin phosphate 100 mg mg PO 05/12/24 06/08/24 History tablet (Januvia) Have you fallen in the past year?: No PFSH Medical History Loss of hearing Wears glasses Post-menopausal Arthritis Restless legs Back pain COVID Syncope Dietary restriction History of diverticulitis History of hiatal hernia Heartburn CPAP (continuous positive airway pressure) dependence History of stress test Hx of transesophageal echocardiography (CHIOMA) for monitoring Hypertension Thyroid nodule hx of gallbladder removal High cholesterol H/O hyperthyroidism Depression Cervical stenosis of spine HTN (hypertension) Diabetes mellitus Surgical History (Updated 05/12/24 @ 13:28 by Emily Moore LPN) Hx of cholecystectomy Hx of colonoscopy Hx of total knee arthroplasty Hx of tubal ligation Social History (Updated 05/12/24 @ 13:28 by Emily Moore LPN) Smoking Status: Never smoker alcohol intake: never substance use type: does not use HPI HPI HPI: Patient is a 69-year-old female who presents for evaluation of right-sided thyroid nodules. They are referred for surgical consultation from Dr. Chambers. Patient presents today for consideration of repeat biopsy of right-sided thyroid nodule that was deemed nondiagnostic due to the paucity of follicular material. She denies any interval health updates and confirms that her biopsy site healed well from before. She is anxious about undergoing repeat biopsy today. Below is recapitulated from patient's prior visit for ease of review: Patient states that she was first diagnosed with a thyroid disorder 15 years ago (hypothyroidism) and approximately the same time was informed she had thyroid nodules. She shares that just recently she began supplementing her thyroid hormone after some years on a lower dose because her TSH was found to be elevated and she had experienced some weight gain and fatigue. She states when her thyroid nodule was first biopsied it was clearly benign and she underwent annual surveillance thyroid ultrasound through [facility] endocrinology in [facility] for a number of years. Patient known to me from a prior colonoscopy 05/16/2022. They do experience sporadic difficulty with swallowing certain foods and give sandwiches as an example. They do not complain of a new cough. They do appreciate new voice changes with hoarseness particularly in the AM. Patient does acknowledge a history of allergies and has not fully excluded this as a possibility. They do have a history of snoring/sleep apnea. Additionally, their weight has been increasing and they do have a history of weight gain of 5 pounds. There is a history of recent fatigue which they find curious because they believe they sleep well using CPAP, however, they acknowledge that they have been unable to return to sleep after awakening in the night. They also do have a history of heat and cold intolerance. Other symptoms include: Sweating (patient describes sweating simply after sweeping floors), dry skin (chronic problem), and hair loss (chronic problem not recently accelerated). They do not have a family history of thyroid disorders or endocrinopathies. There is no history of prior radiation exposure. Previous (more content not included)... Normal [facility] Special Stain Group IIon Special Stain Group II --- Patient Age/Sex Location Account Attending Physician JANET ESPINOZA 69/F LABSPEC [id number] Dr. Toan Ignacio MD Specimen: [id number] Received: 05/12/24 Status: HAYDEE Balderramarinku Num: [id number] Spec Type: Fluid Subm Dr: Dr. Toan Ignacio MD HEADER OPERATION: Fine needle aspiration of thyroid nodules PRE-OP DIAGNOSIS: Thyroid nodules TISSUE SUBMITTED: A- Right thyroid nodule fluid, B- Right thyroid (slides), C- Isthmic nodule, D- Isthmus (slides) DIAGNOSIS CYTOLOGY A. Fine needle aspiration, right thyroid nodule fluid (cytospin and cellblock): Rare degenerating follicular cells and inflammatory cells. B. Fine needle aspiration, right thyroid nodule (smears): Rare follicular cells are noted. See comment. C. Fine needle aspiration, isthmic nodule (cytospin and cellblock): Consistent with benign follicular nodule Solano Category II). D. Fine needle aspiration, isthmic nodule (smears): Consistent with benign follicular nodule Solano Category II). AM/mr 05/14/2024 COMMENT B. The material is insufficient for further evaluation and best fits the Solano System Category I. CYTOLOGY STUDY Slides are reviewed. CYTOLOGY GROSS A. Received is 15 ml of red fluid labeled with the patient's name and and designated per the requisition as Right thyroid nodule. Submitted for cytology preparation including cell block. B. Received are 4 smears labeled with the patient's name and designated per the requisition as Right thyroid nodule. Submitted for staining. C. Received is 15 ml of red fluid labeled with the patient's name and and designated per the requisition as Isthmic nodule. Submitted for cytology preparation including cell block. D. Received are 4 smears labeled with the patient's name and designated per the requisition as Isthmic nodule. Submitted for staining. Mr 05/13/2024 TC:5 CPT: 94413x2,85124s4 Signed (signature on file) Dr. James Miner, DO 05/14/24 1352 Normal [facility] Comment on above: Performed By: #### P SSII ####[facility] [id number] [place], [address] Surgery Visit Reporton 05-12 Surgery Visit Report [facility] [address] [place] [address] OFFICE VISIT Date of Service: 05/12/24 MR#: [id number] Acct: [id number] Name: JANET ESPINOZA Rep #: [id number] : 1955 Provider: Dr. Toan jarrell MD Age/Sex: 69/F Location: [facility] Status: Signed Intake Vital Signs 05/16/22 06:53 05/12/24 13:28 Height 5 ft 2 in 5 ft 2 in Weight: 268 lb BMI 49.0 BP 134/81 H Blood Pressure Location Rt brachial Position Sitting Respiration 18 Pulse 72 Pulse Source Monitor Temp 97.5 F L Temp Source Temporal Pulse Oximetry (%) 96 Oxygen Delivery Method room air Intake Visit Reasons: Thyroid nodule Chief Complaint: thyroid nodules Accompanied by: Is patient in pain?: No Allergies diltiazem (From Cardizem) Allergy (Severe, Verified 05/12/24 13:29) FLUSHING Penicillins Adverse Reaction (Severe, Verified 05/12/24 13:29) issues with colon CHAN Inhibitors Adverse Reaction (Verified 05/12/24 13:29) COUGH Medications ???Medication ???Instructions ???Recorded ???Confirmed ???Type aspirin 81 mg chewable tablet 81 mg PO DAILY 12/28/20 05/12/24 History fluconazole 150 mg tablet 150 mg PO Q3D 05/12/24 05/12/24 History levothyroxine 25 mcg tablet mcg PO 05/12/24 05/12/24 History losartan 100 mg tablet 100 mg PO QDAY 05/12/24 05/12/24 History metoprolol tartrate 50 mg tablet 50 mg PO BID 05/12/24 05/12/24 History sitagliptin phosphate 100 mg mg PO 05/12/24 05/12/24 History tablet (Januvia) [facility] Medical History (Updated 05/12/24 @ 19:[address] Toan Ignacio MD) Loss of hearing Wears glasses Post-menopausal Arthritis Restless legs Back pain COVID Syncope Dietary restriction History of diverticulitis History of hiatal hernia Heartburn CPAP (continuous positive airway pressure) dependence History of stress test Hx of transesophageal echocardiography (CHIOMA) for monitoring Hypertension Thyroid nodule hx of gallbladder removal High cholesterol H/O hyperthyroidism Depression Cervical stenosis of spine HTN (hypertension) Diabetes mellitus Surgical History (Updated 05/12/24 @ 13:28 by Emily Moore LPN) Hx of cholecystectomy Hx of colonoscopy Hx of total knee arthroplasty Hx of tubal ligation Social History (Updated 05/12/24 @ 13:28 by Emily Moore LPN) Smoking Status: Never smoker alcohol intake: never substance use type: does not use HPI HPI HPI: Patient is a 69-year-old female who presents for evaluation of right-sided thyroid nodules. They are referred for surgical consultation from Dr. Chambers. Patient states that she was first diagnosed with a thyroid disorder 15 years ago (hypothyroidism) and approximately the same time was informed she had thyroid nodules. She shares that just recently she began supplementing her thyroid hormone after some years on a lower dose because her TSH was found to be elevated and she had experienced some weight gain and fatigue. She states when her thyroid nodule was first biopsied it was clearly benign and she underwent annual surveillance thyroid ultrasound through [facility] endocrinology in [facility] for a number of years. Patient known to me from a prior colonoscopy 05/16/2022. They do experience sporadic difficulty with swallowing certain foods and give sandwiches as an example. They do not complain of a new cough. They do appreciate new voice changes with hoarseness particularly in the AM. Patient does acknowledge a history of allergies and has not fully excluded this as a possibility. They do have a history of snoring/sleep apnea. Additionally, their weight has been increasing and they do have a history of weight gain of 5 pounds. There is a history of recent fatigue which they find curious because they believe they sleep well using CPAP, however, they acknowledge that they have been unable to return to sleep after awakening in the night. They also do have a history of heat and cold intolerance. Other symptoms include: Sweating (patient describes sweating simply after sweeping floors), dry skin (chronic problem), and hair loss (chronic problem not recently accelerated). They do not have a family history of thyroid disorders or endocrinopathies. There is no history of prior radiation exposure. Previous work-up has included thyroid ultrasound. This study was performed on 04/12/2024 and showed a right thyroid lobe measuring 4.0 x 1.6 x 2.1 cm. Within this lobe radiology identified a nodule measuring 1.9 x 1.2 x 1.3 cm and was further described as solid, hypoechoic, wider than tall, smoothly marginated, and containing no echogenic foci???ultimately yielding a TI-RADS rating of 4 by radiology. The left thyroid lobe measured 3.2 x 1.1 x 1.0 cm. Within this lobe radiology identi (more content not included)... Normal [facility] Thyroid Stim Hormone (TSH)on 05-10-2024 TSH 5.26 uIU/mL High 0.358-3.74 [facility] Comment on above: Order Comment: Order Date: 04/07/24Order Info: [id number] - TSH Performed By: #### L [id number] ####[facility] [id number] [facility]. [place], [place], [address] Dexa Bone Density Studyon Dexa Bone Density Study [facility] Imaging Services [address] [place], [place] [address] Dexa Bone Density Study MR#: [id number] Acct: [id number] Name: JANET ESPINOZA Rep #: [id number] : 1955 F 69 From: Mario muro MD PCP: Dr. Radha Chambers MD Status: [facility] Study: Dexa Bone Density Study Date of Exam: 05/04/24 Exam# [id number] Ordering Dr: Radha Chambers MD [id number] STUDY: DUAL ENERGY X-RAY ABSORPTIOMETRY / DXA REASON FOR EXAM: Female, 69 years old. [id number] TECHNIQUE: Bone Mineral Density (BMD) measurements of lumbar spine and bilateral hips were obtained. COMPARISON: None. FINDINGS: Lumbar Spine (L1-L4): g/cm2 (1.285) / T-score (2.2) / Z-score (4.2) Findings are suggestive of normal bone density with a low fracture risk. Left Femur Total: g/cm2 (1.2-4) / T-score (2.3) / Z-score (3.8) Left Femoral Neck: g/cm2 (1.036) / T-score (1.7) / Z-score (3.4) Right Femur Total: g/cm2 (1.293) / T-score (2.9) / Z-score (4.3) Right Femoral Neck: g/cm2 (1.067) / T-score (2.0) / Z-score (3.7) BD/Dexa Bone Density Study IMPRESSION: The patient is considered normal as outlined below according to World Julien Organization (WHO) criteria with a low fracture risk. Reference Information: The T-score is the number of standard deviations above or below the standard which is normal for young adults at their peak bone mineral density. The World Health Organization (WHO) interprets the T-scores as follows: Above -1 Normal bone density Between -1 and -2.5 Osteopenia Equal to / or below -2.5 Osteoporosis As a practical clinical guideline, osteopenia may be graded as follows: Mild -1 through -1.5 Moderate -1.6 through -2.0 Severe -2.1 through -2.4 The Z-score is the number of standard deviations above or below age-matched controls. A Z-score of less than -1.5 would be considered abnormal. References: 1. NIH Osteoporosis and Related Bone Diseases www osteo.org 2. International Society for Clinical Densitometry www iscd.org 3. National Osteoporosis Foundation www nof.org Electronically Signed: Mario Paulino MD at 13:15 EDT , CC: Dr. Radha Chambers MD Patient Day Coordinator: Signed Normal [facility] Thyroidon 04-12-2024 Thyroid [facility] Imaging Services [address] [place] [address] Thyroid MR#: [id number] Acct: [id number] Name: JANET ESPINOZA Rep #: [id number] : 1955 F 69 From: Freddie Deluca MD PCP: Dr. Radha Chambers MD Status: REG CLI Study: Thyroid Date of Exam: 04/12/24 Exam# [id number] Ordering Dr: Radha Chambers MD [id number] STUDY: THYROID ULTRASOUND REASON FOR EXAM: Female, 69 years old. Abnormal thyroid function tests TECHNIQUE: Ultrasound evaluation of the thyroid was performed with real-time and static gordillo-scale imaging. COMPARISON: None. FINDINGS: RIGHT LOBE: The right lobe of the thyroid gland measures 4.0 x 1.6 x 2.1 cm. There is a heterogeneous echotexture. There is a well-defined hypoechoic solid 1.9 x 1.2 x 1.3 cm nodule with some vascularity. This nodule is solid or almost completely solid, hypoechoic, miptu-lyth-klqq, smoothly marginated and contains no echogenic foci. TI-RADS points: 4. TI-RADS category: TR4. This nodule is moderately suspicious. Recommend FNA evaluation. LEFT LOBE: The left lobe of the thyroid gland measures 3.2 x 1.1 x 1.0 cm. There is a heterogeneous echotexture. There is a solid/cystic complex 3 mm nodule. This nodule is mixed cystic and solid, anechoic, khskj-zwgd-wfti, smoothly marginated and contains no echogenic foci. TI-RADS points: 1. TI-RADS category: TR1. This nodule is benign and no FNA or follow-up is necessary. ISTHMUS: The isthmus measures 0.3 cm. There is a predominantly solid 2.1 x 2.1 x 1.7 cm mass at the junction of the isthmus and right thyroid lobe. There are some cystic areas within it. This nodule is solid or almost completely solid, hypoechoic, grybz-mars-ujwl, smoothly marginated and contains no echogenic foci. TI-RADS points: 4. TI-RADS category: TR4. This nodule is moderately suspicious. Recommend FNA evaluation. The regional lymph nodes are normal. US/Thyroid IMPRESSION: Normal-sized heterogeneous thyroid gland with dominant solid nodules noted in the right lobe and in the junction of the right lobe and isthmus. FNA is recommended for further evaluation Simple cyst in the left thyroid lobe, no specific follow-up needed Electronically Signed: Antione Deluca MD at 15:17 EDT , CC: Dr. Radha Chambers MD Patient Day Coordinator: Signed Normal [facility] Serum or plasma thyroid stim ulating hormone (TSH) measurement (units/volume)Ordered By: Radha Chambers on 03-29-2024 TSH Qn 6.47 uIU/mL 0.358-3.74 [facility] Thyroid Stim Hormone (TSH)on 03-29-2024 TSH 6.47 uIU/mL High 0.358-3.74 [facility] Comment on above: Order Comment: Order Date: 01/09/24Order Info: [id number] - TSH Performed By: #### L [id number] ####[facility] [id number] [place], [address] Absolute lymphocyte countOrd ered By: Radha Chambers on 12-18-2023 Lymphocytes Auto (Unsp spec) [#/Vol] 1.48 10*3/uL 0.83-4.51 [facility] Automated lymphocyte count a s percentage of total leukocytesOrdered By: Radha Chambers on 12-18-2023 Lymphocytes/100 WBC Auto (Unsp spec) 17.0 % 19-41 [facility] Basophil percentageOrdered B y: Radha Chambers on 12-18-2023 Basophils/100 WBC (Bld) 0.6 % 0-1 [facility] Bilirubin [Mass/Vol] 0.30 mg/dL 0.20-1.00 [facility] Comment on above: For patients on eltr ombopag therapy, use of Dimension [place] TBIL is not recommended. Chloride [Moles/Vol] 106 mmol/L 98-107 [facility] Cholesterol [Mass/Vol] 179 mg/dL <200 [facility] Comment on above: <200 mg/dL Desirable 200-240 mg/dL Borderline >240 mg/dL High Risk Eosinophils/100 WBC (Bld) 2.5 % 0-5 [facility] Glucose [Mass/Vol] 154 mg/dL 74-106 [facility] Comment on above: Fasting Glucose resu lt greater than or equal to 126 mg/dL suggests DIABETES MELLITUS per A.D.A. criteria. Hemoglobin (Bld) [Mass/Vol] 12.7 g/dL 12.0-15.0 [facility] Monocytes/100 WBC (Bld) 6.7 % 0-10 [facility] Neutrophils (Bld) [#/Vol] 6.3 10*3/uL 2.0-7.7 [facility] Neutrophils/100 WBC (Bld) 72.7 % 47-70 [facility] Potassium [Moles/Vol] 4.0 mmol/L 3.5-5.1 [facility] Protein [Mass/Vol] 7.6 g/dL 6.4-8.2 [facility] Sodium [Moles/Vol] 138 mmol/L 136-145 [facility] Triglyceride [Mass/Vol] 91 mg/dL <199 [facility] Comment on above: The drugs N-Acetylcy steine and Metamizole may falsely depress this assay.Serum Triglycerides Reference Interval Normal <150 mg/dL Borderline high 150 - 199 mg/dL High 200 - 499 mg/dL Very High > or = 500 mg/dL WBC (Bld) [#/Vol] 8.7 10*3/uL 4.4-11.0 [facility] Determination of erythrocyte mean corpuscular volume (MCV)Ordered By: Radha Chambers on 12-18-2023 MCV (RBC) [Entitic vol] 90.8 fL 81-99 [facility] Erythrocyte distribution wid th ratioOrdered By: [facility] on 12-18-2023 Erythrocyte distribution width (RBC) [Ratio] 13.2 % 11.6-14.6 [facility] Erythrocyte distribution wid th standard deviationOrdered By: Radha Trish on 12-18-2023 Erythrocyte distribution width (RBC) [Entitic vol] 43.8 fL 35.1-43.9 [facility] Hematocrit Auto (Bld) [Volum e fraction]Ordered By: Radha Chambers on 12-18-2023 Hematocrit (Bld) [Volume fraction] 39.3 % 37-47 [facility] High density lipoprotein (HD L) measurementOrdered By: [facility] on 12-18-2023 Cholesterol in HDL (Body fld) [Mass/Vol] 56 mg/dL >40 [facility] Comment on above: The drugs N-Acetylcy steine and Metamizole may falsely depress this assay. Reference Range HDL <40 mg/dL Low HDL Cholesterol HDL >or= 60 mg/dL High HDL Cholesterol Immature granulocytes/100 WB C Auto (Bld)Ordered By: Radha Chambers on 12-18-2023 Immature granulocytes/100 WBC (Bld) 0.500 % 0.0-0.9 [facility] Comment on above: IG% - Immature Granu locytes (promyelocytes, myelocytes and metamyelocytes) > 1% indicates that a LEFT SHIFT is Present. Laboratory - Chemistry and C hemistry - challengeOrdered By: Radha Chambers on 12-18-2023 Albumin/Globulin [Mass ratio] 0.8 {ratio} 0.9-2.4 [facility] ALP [Catalytic activity/Vol] 97 U/L 45-117 [facility] ALT [Catalytic activity/Vol] 23 U/L 13-56 [facility] CO2 [Moles/Vol] 29.0 mmol/L 21.0-32.0 [facility] Globulin (S) [Mass/Vol] 4.2 g/dL 2.2-4.2 [facility] Urea nitrogen/Creatinine [Mass ratio] 18.3 mg/mg 10-20 [facility] Laboratory - Hematology and Cell countsOrdered By: Radha Chambers on 12-18-2023 MCH (RBC) [Entitic mass] 29.3 pg 27.0-32.0 [facility] MCHC (RBC) [Mass/Vol] 32.3 g/dL 32-36 [facility] Nucleated RBC/100 WBC (Bld) [Ratio] 0 % 0-5 [facility] Platelets (Bld) [#/Vol] 243 10*3/uL 150-450 [facility] Low density lipoprotein (LDL ) cholesterol measurementOrdered By: Radha Chambers on 12-18-2023 Cholesterol in LDL (Body fld) [Moles/Vol] 105 mg/dL 0-130 [facility] No Panel InformationOrdered By: Radha Chambers on 12-18-2023 Estimated GFR (MDRD) Amer 83 mL/min >60 [facility] Comment on above: GFR Calc Estimated GFR (MDRD) Non-Af Amer 68 mL/min >60 [facility] Comment on above: Non- GFR Calc Platelet mean volume Greg-Ec ker (Bld) [Entitic vol]Ordered By: Radha Chambers on 12-18-2023 Platelet mean volume (Bld) [Entitic vol] 10.5 fL 6.2-12.0 [facility] RBC Auto (Bld) [#/Vol]Ordere d By: Radha Chambers on 12-18-2023 RBC (Bld) [#/Vol] 4.33 10*6/uL 4.2-5.4 [facility] Serum or plasma calcium mini urement (mass/volume)Ordered By: Radha Chambers on 12-18-2023 Calcium [Mass/Vol] 9.3 mg/dL 8.5-10.1 [facility] Serum or plasma creatinine m easurement (mass/volume)Ordered By: Radha Chambers on 12-18-2023 Creatinine [Mass/Vol] 0.87 mg/dL 0.55-1.02 [facility] Comment on above: The validity of the calculated GFR & GFRAA in patients over 70 years has not been determined. Clinical correlation is essential. Serum or plasma thyroid stim ulating hormone (TSH) measurement (units/volume)Ordered By: Radha Chambers on 12-18-2023 TSH Qn 5.03 uIU/mL 0.358-3.74 [facility] Serum or plasma urea nitroge n measurement (mass/volume)Ordered By: Radha Chambers on 12-18-2023 Urea nitrogen [Mass/Vol] 16 mg/dL 7-18 [facility] Thin prep Papanicolaou smear with manual screeningOrdered By: [facility] on 12-18-2023 Thin prep Papanicolaou smear with manual screening 3.4 g/dL 3.2-5.0 [facility] Thin prep Papanicolaou smear with manual screening 17 U/L 15-37 [facility] Thin prep Papanicolaou smear with manual screening 3 5-15 [facility] Very low density lipoprotein (VLDL) cholesterol measurementOrdered By: [facility] on 12-18-2023 Cholesterol in VLDL Calc [Moles/Vol] 18 mg/dL 5-40 [facility] Whole blood hemoglobin A1c/t otal hemoglobin ratio (mass fraction)Ordered By: Radha Chambers on 12-18-2023 HbA1c (Bld) [Mass fraction] 6.5 % 3.8-5.6 [facility] Comment on above: Normal < 5.7 % Predi abetic 5.7 - 6.4 % Diabetic >or= 6.5 % Please note range changes. Absolute lymphocyte countOrd ered By: Dr. Coulter on 02-19-2023 Lymphocytes Auto (Unsp spec) [#/Vol] 1.69 10*3/uL 0.83-4.51 [facility] Basophil percentageOrdered B y: Dr. Coulter on 02-19-2023 Basophils/100 WBC (Bld) 0.8 % 0-1 [facility] Bilirubin [Mass/Vol] 0.40 mg/dL 0.20-1.00 [facility] Comment on above: For patients on eltr ombopag therapy, use of Dimension [place] TBIL is not recommended. Chloride [Moles/Vol] 101 mmol/L 98-107 [facility] Cholesterol [Mass/Vol] 138 mg/dL <200 [facility] Comment on above: <200 mg/dL Desirable 200-240 mg/dL Borderline >240 mg/dL High Risk Eosinophils/100 WBC (Bld) 2.3 % 0-5 [facility] Glucose [Mass/Vol] 119 mg/dL 74-106 [facility] Comment on above: Fasting Glucose resu lt from 100 to 125 mg/dL suggests IMPAIRED HOMEOSTASIS per A.D.A. criteria. Neutrophils (Bld) [#/Vol] 6.7 10*3/uL 2.0-7.7 [facility] Neutrophils/100 WBC (Bld) 72.1 % 47-70 [facility] Potassium [Moles/Vol] 3.6 mmol/L 3.5-5.1 [facility] Protein [Mass/Vol] 7.5 g/dL 6.4-8.2 [facility] Sodium [Moles/Vol] 138 mmol/L 136-145 [facility] Triglyceride [Mass/Vol] 106 mg/dL <199 [facility] Comment on above: The drugs N-Acetylcy steine and Metamizole may falsely depress this assay.Serum Triglycerides Reference Interval Normal <150 mg/dL Borderline high 150 - 199 mg/dL High 200 - 499 mg/dL Very High > or = 500 mg/dL WBC (Bld) [#/Vol] 9.2 10*3/uL 4.4-11.0 [facility] Blood erythrocytes count (nu mber/volume)Ordered By: Dr. Coulter on 02-19-2023 RBC (Bld) [#/Vol] 4.44 10*6/uL 4.2-5.4 [facility] Blood hemoglobin measurement (mass/volume)Ordered By: Dr. Coulter on 02-19-2023 Hemoglobin (Bld) [Mass/Vol] 13.5 g/dL 12.0-15.0 [facility] Blood lymphocytes/100 leukoc ytesOrdered By: Dr. Coulter on 02-19-2023 Lymphocytes/100 WBC (Bld) 18.3 % 19-41 [facility] Blood monocytes/100 leukocyt esOrdered By: Dr. Coulter on 02-19-2023 Monocytes/100 WBC (Bld) 6.0 % 0-10 [facility] Blood platelet mean volumeOr dered By: Dr. Coulter on 02-19-2023 Platelet mean volume (Bld) [Entitic vol] 11.2 fL 6.2-12.0 [facility] Determination of erythrocyte mean corpuscular volume (MCV)Ordered By: Dr. Coulter on 02-19-2023 MCV (RBC) [Entitic vol] 91.9 fL 81-99 [facility] Hematocrit Auto (Bld) [Volum e fraction]Ordered By: Dr. Coulter on 02-19-2023 Hematocrit (Bld) [Volume fraction] 40.8 % 37-47 [facility] Laboratory - Chemistry and C hemistry - challengeOrdered By: Dr. Coulter on 02-19-2023 ALP [Catalytic activity/Vol] 113 U/L 45-117 [facility] ALT [Catalytic activity/Vol] 34 U/L 13-56 [facility] CO2 [Moles/Vol] 29.0 mmol/L 21.0-32.0 [facility] Globulin (S) [Mass/Vol] 3.9 g/dL 2.2-4.2 [facility] Urea nitrogen/Creatinine [Mass ratio] 12.8 mg/mg 10-20 [facility] Laboratory - Hematology and Cell countsOrdered By: Dr. Coulter on 02-19-2023 Erythrocyte distribution width (RBC) [Entitic vol] 43.4 fL 35.1-43.9 [facility] Erythrocyte distribution width (RBC) [Ratio] 12.8 % 11.6-14.6 [facility] Immature granulocytes/100 WBC (Bld) 0.500 % 0.0-0.9 [facility] Comment on above: IG% - Immature Granu locytes (promyelocytes, myelocytes and metamyelocytes) > 1% indicates that a LEFT SHIFT is Present. MCH (RBC) [Entitic mass] 30.4 pg 27.0-32.0 [facility] Nucleated RBC/100 WBC (Bld) [Ratio] 0 % 0-5 [facility] MCHC Auto (RBC) [Mass/Vol]Or dered By: Dr. Coulter on 02-19-2023 MCHC (RBC) [Mass/Vol] 33.1 g/dL 32-36 [facility] No Panel InformationOrdered By: Dr. Coulter on 02-19-2023 Estimated GFR (MDRD) Amer 84 mL/min >60 [facility] Comment on above: GFR Calc Estimated GFR (MDRD) Non-Af Amer 70 mL/min >60 [facility] Comment on above: Non- GFR Calc Thyroid Stimulating Hormone (TSH) 1.44 uIU/mL 0.358-3.74 [facility] Urine Microalbumin/Creatinine Ratio 10.5 mg/g CRE <30 [facility] Platelets bldOrdered By: Dr. Coulter on 02-19-2023 Platelets (Bld) [#/Vol] 253 10*3/uL 150-450 [facility] Serum or plasma albumin mini urement (mass/volume)Ordered By: Dr. Coulter on 02-19-2023 Albumin [Mass/Vol] 3.6 g/dL 3.2-5.0 [facility] Serum or plasma albumin/glob ulin mass ratioOrdered By: Dr. Coulter on 02-19-2023 Albumin/Globulin [Mass ratio] 0.9 {ratio} 0.9-2.4 [facility] Serum or plasma calcium mini urement (mass/volume)Ordered By: Dr. Coulter on 02-19-2023 Calcium [Mass/Vol] 9.3 mg/dL 8.5-10.1 [facility] Serum or plasma cholesterol in HDL measurement (mass/volume)Ordered By: Dr. Coulter on 02-19-2023 Cholesterol in HDL [Mass/Vol] 55 mg/dL >40 [facility] Comment on above: The drugs N-Acetylcy steine and Metamizole may falsely depress this assay. Reference Range HDL <40 mg/dL Low HDL Cholesterol HDL >or= 60 mg/dL High HDL Cholesterol Serum or plasma cholesterol in VLDL measurement (mass/volume)Ordered By: Dr. Coulter on 02-19-2023 Cholesterol in VLDL [Mass/Vol] 21 mg/dL 5-40 [facility] Serum or plasma creatinine m easurement (mass/volume)Ordered By: Dr. Coulter on 02-19-2023 Creatinine [Mass/Vol] 0.86 mg/dL 0.55-1.02 [facility] Comment on above: The validity of the calculated GFR & GFRAA in patients over 70 years has not been determined. Clinical correlation is essential. Serum or plasma low density lipoprotein (LDL) cholesterol measurement (mass/volume)Ordered By: Dr. Coulter on 02-19-2023 Cholesterol in LDL [Mass/Vol] 62 mg/dL 0-130 [facility] Serum or plasma urea nitroge n measurement (mass/volume)Ordered By: Dr. Coulter on 02-19-2023 Urea nitrogen [Mass/Vol] 11 mg/dL 7-18 [facility] Thin prep Papanicolaou smear with manual screeningOrdered By: Dr. Coulter on 02-19-2023 Thin prep Papanicolaou smear with manual screening 20 U/L 15-37 [facility] Thin prep Papanicolaou smear with manual screening 8 5-15 [facility] Thin prep Papanicolaou smear with manual screening 28.0 mg/L NO RANGE EST. [facility] Urine creatinine measurement (mass/volume)Ordered By: Dr. Coulter on 02-19-2023 Creatinine (U) [Mass/Vol] 266.00 mg/dL NO RANGE EST. [facility] Whole blood hemoglobin A1c/t otal hemoglobin ratio (mass fraction)Ordered By: Dr. Coulter on 02-19-2023 HbA1c (Bld) [Mass fraction] 6.1 % 3.8-5.6 [facility] Comment on above: Normal < 5.7 % Predi abetic 5.7 - 6.4 % Diabetic >or= 6.5 % Please note range changes. Absolute lymphocyte counton 09-20-2022 Lymphocytes Auto (Unsp spec) [#/Vol] 1.54 10*3/uL 0.83-4.51 [facility] Work Phone: Basophil percentageon 2021 Basophils/100 WBC (Bld) 0.7 % 0-1 [facility] Work Phone: Bilirubin [Mass/Vol] 0.40 mg/dL 0.20-1.00 [facility] Work Phone: Comment on above: For patients on eltr ombopag therapy, use of Dimension [place] TBIL is not recommended. Chloride [Moles/Vol] 103 mmol/L 98-107 [facility] Work Phone: Cholesterol [Mass/Vol] 160 mg/dL <200 [facility] Work Phone: Comment on above: <200 mg/dL Desirable 200-240 mg/dL Borderline >240 mg/dL High Risk Eosinophils/100 WBC (Bld) 2.1 % 0-5 [facility] Work Phone: Glucose [Mass/Vol] 119 mg/dL 74-106 [facility] Work Phone: Comment on above: Fasting Glucose resu lt from 100 to 125 mg/dL suggests IMPAIRED HOMEOSTASIS per A.D.A. criteria. Neutrophils (Bld) [#/Vol] 7.1 10*3/uL 2.0-7.7 [facility] Work Phone: Neutrophils/100 WBC (Bld) 74.4 % 47-70 [facility] Work Phone: Potassium [Moles/Vol] 4.2 mmol/L 3.5-5.1 [facility] Work Phone: Protein [Mass/Vol] 7.5 g/dL 6.4-8.2 [facility] Work Phone: Sodium [Moles/Vol] 138 mmol/L 136-145 [facility] Work Phone: Triglyceride [Mass/Vol] 106 mg/dL <199 [facility] Work Phone: Comment on above: The drugs N-Acetylcy steine and Metamizole may falsely depress this assay.Serum Triglycerides Reference Interval Normal <150 mg/dL Borderline high 150 - 199 mg/dL High 200 - 499 mg/dL Very High > or = 500 mg/dL WBC (Bld) [#/Vol] 9.6 10*3/uL 4.4-11.0 [facility] Work Phone: Blood erythrocytes count (nu mber/volume)on 09-20-2022 RBC (Bld) [#/Vol] 4.30 10*6/uL 4.2-5.4 [facility] Work Phone: Blood hemoglobin measurement (mass/volume)on 09-20-2022 Hemoglobin (Bld) [Mass/Vol] 13.3 g/dL 12.0-15.0 [facility] Work Phone: Blood lymphocytes/100 leukoc yteson 09-20-2022 Lymphocytes/100 WBC (Bld) 16.1 % 19-41 [facility] Work Phone: [phone] Blood monocytes/100 leukocyt eson 09-20-2022 Monocytes/100 WBC (Bld) 5.9 % 0-10 [facility] Work Phone: [phone] Blood platelet mean volumeon 09-20-2022 Platelet mean volume (Bld) [Entitic vol] 10.8 fL 6.2-12.0 [facility] Work Phone: Determination of erythrocyte mean corpuscular volume (MCV)on 09-20-2022 MCV (RBC) [Entitic vol] 91.9 fL 81-99 [facility] Work Phone: Hematocrit Auto (Bld) [Volum e fraction]on 09-20-2022 Hematocrit (Bld) [Volume fraction] 39.5 % 37-47 [facility] Work Phone: Laboratory - Chemistry and C hemistry - challengeon 09-20-2022 ALP [Catalytic activity/Vol] 121 U/L 45-117 [facility] Work Phone: ALT [Catalytic activity/Vol] 27 U/L 13-56 [facility] Work Phone: [phone] CO2 [Moles/Vol] 30.0 mmol/L 21.0-32.0 [facility] Work Phone: Globulin (S) [Mass/Vol] 4.0 g/dL 2.2-4.2 [facility] Work Phone: Urea nitrogen/Creatinine [Mass ratio] 15.0 mg/mg 10-20 [facility] Work Phone: Laboratory - Hematology and Cell countson 09-20-2022 Erythrocyte distribution width (RBC) [Entitic vol] 44.9 fL 35.1-43.9 [facility] Work Phone: [phone] Erythrocyte distribution width (RBC) [Ratio] 13.3 % 11.6-14.6 [facility] Work Phone: [phone] Immature granulocytes/100 WBC (Bld) 0.800 % 0.0-0.9 [facility] Work Phone: [phone] Comment on above: IG% - Immature Granu locytes (promyelocytes, myelocytes and metamyelocytes) > 1% indicates that a LEFT SHIFT is Present. MCH (RBC) [Entitic mass] 30.9 pg 27.0-32.0 [facility] Work Phone: [phone] Nucleated RBC/100 WBC (Bld) [Ratio] 0 % 0-5 [facility] Work Phone: [phone] MCHC Auto (RBC) [Mass/Vol]on 09-20-2022 MCHC (RBC) [Mass/Vol] 33.7 g/dL 32-36 [facility] Work Phone: No Panel Informationon 09-20 Estimated GFR (MDRD) Amer 92 mL/min >60 [facility] Work Phone: Comment on above: GFR Calc Estimated GFR (MDRD) Non-Af Amer 76 mL/min >60 [facility] Work Phone: [phone] Comment on above: Non- GFR Calc Platelets bldon 09-20-2022 Platelets (Bld) [#/Vol] 237 10*3/uL 150-450 [facility] Work Phone: [phone] Serum or plasma albumin miin urement (mass/volume)on 09-20-2022 Albumin [Mass/Vol] 3.5 g/dL 3.2-5.0 [facility] Work Phone: [phone] Serum or plasma albumin/glob ulin mass ratioon 09-20-2022 Albumin/Globulin [Mass ratio] 0.9 {ratio} 0.9-2.4 [facility] Work Phone: Serum or plasma calcium mini urement (mass/volume)on 09-20-2022 Calcium [Mass/Vol] 9.6 mg/dL 8.5-10.1 [facility] Work Phone: Serum or plasma cholesterol in HDL measurement (mass/volume)on 09-20-2022 Cholesterol in HDL [Mass/Vol] 59 mg/dL >40 [facility] Work Phone: Comment on above: The drugs N-Acetylcy steine and Metamizole may falsely depress this assay. Reference Range HDL <40 mg/dL Low HDL Cholesterol HDL >or= 60 mg/dL High HDL Cholesterol Serum or plasma cholesterol in VLDL measurement (mass/volume)on 09-20-2022 Cholesterol in VLDL [Mass/Vol] 21 mg/dL 5-40 [facility] Work Phone: Serum or plasma creatinine m easurement (mass/volume)on 09-20-2022 Creatinine [Mass/Vol] 0.80 mg/dL 0.55-1.02 [facility] Work Phone: Comment on above: The validity of the calculated GFR & GFRAA in patients over 70 years has not been determined. Clinical correlation is essential. Serum or plasma low density lipoprotein (LDL) cholesterol measurement (mass/volume)on 09-20-2022 Cholesterol in LDL [Mass/Vol] 80 mg/dL 0-130 [facility] Work Phone: Serum or plasma urea nitroge n measurement (mass/volume)on 09-20-2022 Urea nitrogen [Mass/Vol] 12 mg/dL 7-18 [facility] Work Phone: [phone] Thin prep Papanicolaou smear with manual screeningon 09-20-2022 Thin prep Papanicolaou smear with manual screening 16 U/L 15-37 [facility] Work Phone: [phone] Thin prep Papanicolaou smear with manual screening 5 5-15 [facility] Work Phone: [phone] Bact/Cand Vag Grm Ston 01-17 Bact/Cand Vag Grm St Sp. Request/Comment : - Swab Smear Result - BACTERIAL VAGINOSIS RESULT: Stain results consistent with normal vaginal maryellen. No Yeast observed No Polymorphonuclear Leukocytes Normal [facility] Comment on above: Performed By: #### B [facility] #### [facility] [address] [place], [place] [address] CNOVon 01-17-2022 CNOV Office Visit (OBGYWM) OLGAJANET Jewel ([id number]) 1955 F Date Time Provider Department 01/17/22 11:30 AM EULA CHAPARRO During your visit today, we recorded the following information about you: Blood pressure Weight 114/70 115.9 kg Eula Chaparro APRN.[employer]AY [employer] PRESS OPERATOR 01/17/2022 2:01 PM Signed Janet Espinoza is a 66 year old female who [...] OB History No obstetric history on file. 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 - ezetimibe/simvastati n(VYTORIN 10-10 10 MG-10 MG TAB) 1/2 tab daily - XANAX 0.5MG TABLET as necessary No current facility-administere d medications for this visit. Allergies As of [...] external genitalia normal, normal Bartholin's glands, urethra, [place]'s glands, no vulvar lesions, no cervical lesions, scant white discharge present, normal appearing perineal body and perianal region. Inner vulva erythematous and swollen NEURO: alert and oriented x3,exam grossly non-focal ASSESSMENT/PLAN: 1. Vaginal burning - ICD9: 625.8, ICD10: N94.9 (primary diagnosis) - suspect resolving vaginal yeast infection. - BACT/JAE VAG GRAM STAIN - CLOTRIMAZOLE-BETAMET HASONE 1 %-0.05 % TOPICAL CREAM Monistat 7 or generic - a applicator full at bedtime every other night or 1/2 applicator every night x 2 weeks. 2. Vulvar burning - ICD9: 625.9, ICD10: N94.89 - yeast vs dermatitis - BACT/JAE VAG GRAM STAIN - CLOTRIMAZOLE-BETAMET HASONE 1 %-0.05 % TOPICAL CREAM - Use only hypoallergenic incontinence products. - Use Aquaphor to protect the skin. - Vulvar hygiene instructions Will notify of results. Follow- up as needed. Pt to call PCP and inform her of urine >1000 glucose result. Eula Chaparro APRN.CNP Medical Decision Making: Problems: Low: Acute, uncomplicated illness or injury Moderate: 1+ chronic illnesses with change Data: Unique test(s) ordered: 1 Risk: Moderate: Drug management Medical Decision Making Level: 4 - Moderate Eula Chaparro APRN.CNP 01/17/2022 12:00 PM Signed Monistat 7 or generic - a applicator full at bedtime every other night or 1/2 applicator every night x 2 weeks. Use only hypoallergenic incontinence products. Use Aquaphor to protect the skin. Minimizing irritation of the vulva (area around the vagina) Wear white cotton underwear. Avoid synthetic fabrics and tight clothing. Sleep wearing shorts or pajama bottoms without underwear. Shower as soon as possible after exercise. Avoid clothing detergents and soaps with perfumes or dyes. Use warm (not hot) water to wash the vulva and if you use soap use a product designed for sensitive skin (like Dove or Cetaphil). Use Dove (more content not included)... Normal [facility] CHEST PA/AP AND LATERALon CHEST PA/AP AND LATERAL CHEST PA/AP & LATERALOrdering Physician: Rashida Razo MD11/15/2017 5:16 PMPA AND LATERAL CHEST:Comparison: NoneClinical Statement: CoughFINDINGS: Chest examination reveals no abnormality of the lungs,heart, mediastinum or bony thorax. No acute upper abdominal findings.IMPRESSION: Radiographically normal chest. ---- Electronic Signature on File ----Signed By: Alrfed Mariatp://[email or web address] Radiology/PACS/PACs. htmDictated: 11/15/2017 8:57 PMSigned: 11/15/2017 8:57 PM Reported By: CARLOS CEVALLOS M.D. Signed By: CARLOS CEVALLOS M.D. [facility] Normal [facility] DATE OF SERVICE: 11/15/2017CHIEF COMPLAINT: Cough, congestion.HISTORY OF PRESENT ILLNESS: Apparently, that has been going on since September. Johannahas apparently been on Ceftin. Somebody had given her a Z-Roni 2 weeks ago. She sawDr. Frances, and Dr. Frances apparently just prescribed some cough medicines. There are nox-rays. She is still hacking. Sometimes there is mucus, sometimes there is not.She just does not feel good. Has not gotten any relief.Has a family history of COPD, but herself does not smoke, just secondhand. Historyof diabetes, high blood pressure, arthritis. History of thyroid disease, gallbladdersurgery.C URRENT MEDICATIONS:1. Synthroid.2. Cymbalta.3. Januvia.4. Glimepiride.5. Atenolol.6. Losartan.7. Hydrochlorothiazide. ALLERGIES: PENICILLIN.REVIEW OF SYSTEMS: Denies fever, chills. No weight loss. She has a cough,congestion.PHY SICAL EXAMINATION: Vital Signs: Blood pressure 142/80, pulse 81, [id number], temperature 98.9, pulse oximetry 100% on room air. Pain level 2/10.HEENT: Nasal congestion. Normal TMs. Normal pharynx.Lungs: Decreased air entry, but no crackles or rales. Just harsh cough onexamination.X-rays read by myself did reveal a slight loss of the left heart border at the apex.Could not rule out lingular pneumonia. There may be some fluffy findings on thelateral x-ray. Await radiologist read.DIAGNOSIS: Cough, possible left-sided pneumonia.PLAN: I did consult her to follow up with her doctor to see if she needs breathingtests to rule out COPD or asthma. The patient will have a trial of doxycycline andprednisone taper. Should this not improve, she should definitely see her primarycare doctor. [facility] PATIENT NAME: JANET ESPINOZA A132Harshil Misty Palencia MEDICAL REC #: [id number], [place] [address] [facility] REPORT STATCARE PHYSICIAN Rashida Bryanahim, MDKI/[id number]: 11/15/2017 17:36DT: 11/18/2017 07:07SSI File#: [id number] #: [id number]/Revie wed by11/19/17 0816 [facility] PATIENT NAME: JANET ESPINOZA Misty Palencia MEDICAL REC #: [id number], [place] [address] STATC[facility] REPORT [facility]ARE PHYSICIAN [facility] Normal [facility] DATE OF SERVICE: 10/31/2017HISTORY OF PRESENT ILLNESS: Mrs. Espinoza is a 62-year-old [facility]ep[facility] with a complaint of a nonproductive cough andsore throat. The symptoms started 5 weeks ago and the patient was seen by the urgentcare doctor on October 18 in [place]. The patient was treated with Ceftin for 10days. The patient just finished the antibiotic on Friday and on October 27,the patient developed a sore throat and the patient therefore is concerned and cominghere for further evaluation and treatment. The patient still complains of postnasaldrip, nasal congestion. Patient denies any fever or chills. Denies any difficultybreathing. Denies any wheezing. Denies any difficulty swallowing. Denies anynausea, vomiting. Denies any nausea or vomiting. Denies abdominal pain. [facility] physician is Dr. Batista.MEDICATIONS: Please see the patient's list.ALLERGIES: Patient lists PENICILLIN.SOCIAL HISTORY: The patient is a nonsmoker, non-alcohol drinker. 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 Pain level 5/10. The patient weighs 273 pounds.General: This is a 62-year-old female. Does not appear sickly,well-hydrated .HEENT: Unremarkable except for bilateral nasal mucosa congestion. No drainage ordischarge appreciated. Oropharynx clear.Neck: Supple, full range of motion, no lymphadenopathy.Lung s: Clear to auscultation bilaterally.Heart: Regular rhythm and rate. Normal heart sounds.Abdomen: Soft, nontender.IMPRESSION :1. Acute bronchitis, viral.2. Acute pharyngitis, viral.PLAN: Discussed the findings with patient. Reassured. Encouraged the patient todrink a lot of fluids. May take Tylenol as needed. I will start the patient onBromfed DM 2 teaspoons p.o. every 4-6 hours p.r.n., 4 ounces. Follow up with afamily doctor for a recheck if not better. [facility] PATIENT NAME: ESPINOZA,JANET [id number] Misty Palencia MEDICAL REC #: [id number], [place] [address] STATCARE REPORT STATCARE PHYSICIAN NITZA IbrahimD/[id number]: 10/31/2017 17:52DT: 11/04/2017 14:15SSI File#: [id number] #: [id number]/Revie wed 12/17/17 1802 [facility] PATIENT NAME: OLGAJANET [id number] Misty Palencia MEDICAL REC #: [id number], [place] [address] STATCARE REPORT STATCARE PHYSICIAN Normal [facility] Encounters Encounter Date Encounter Type Care Provider Facility Start: 02-15-2025 End: 02-15-2025 ambulatory Radha Chambers MD Work Phone: [facility] Work Phone: Start: 02-15-2025 End: 02-15-2025 [facility] Start: 02-15-2025 End: 02-15-2025 ambulatory KAZ MCGEE Facility:[facility] Start: 11-30-2024 End: 11-30-[address] Radha Chambers MD -[facility]patient [facility] Work Phone: Start: 11-30-2024 End: 11-30-2024 ambulatory Radha Chambers Facility:[facility] Start: 11-15-2024 End: 11-15-[address] [facility] Start: 11-15-2024 End: 11-15-2024 ambulatory Kisha Han Facility:[facility] Start: 08-27-2024 End: 08-27-2024 ambulatory Kisha Markser Facility:[facility] Start: 08-24-2024 End: 08-24-2024 ambulatory Chalon Trish Facility:[facility] Start: 06-08-2024 End: 06-08-2024 ambulatory Chalon Trish Facility:[facility] [place] Start: 06-08-2024 End: 06-08-2024 ambulatory Chalon Trish Facility:[facility] Start: 05-12-2024 End: 05-12-2024 ambulatory Chalon Trish Facility:[facility] [place] [facility] Start: 05-12-2024 End: 05-12-2024 ambulatory Chalon Trish Facility:[facility] Start: 05-10-2024 Encounter for genera l adult medical examination without abnormal findings Chalon Trish [facility] Start: 05-10-2024 End: 05-10-2024 ambulatory Chalon Trish Facility:[facility] Start: 05-04-2024 End: 05-04-2024 ambulatory Chalon Trish Facility:[facility] Start: 04-12-2024 End: 04-12-2024 ambulatory Chalon Trish Facility:[facility] Start: 03-29-2024 End: 03-29-2024 ambulatory [facility] Work Phone: Start: 03-29-2024 End: 03-29-2024 [facility] Start: 03-29-2024 End: 03-29-2024 ambulatory Chalon Trish Facility:[facility] Start: 12-18-2023 End: 12-18-2023 ambulatory [facility] Work Phone: Start: 12-18-2023 End: 12-18-2023 Patient encounter procedure [facility] Work Phone: Start: 11-21-2023 End: 11-21-2023 ambulatory [facility] Work Phone: Start: 11-21-2023 End: 11-21-2023 Patient encounter procedure [facility] Work Phone: Start: 02-19-2023 End: 02-19-2023 ambulatory [facility] Work Phone: Start: 02-19-2023 End: 02-19-2023 [facility] Start: 11-19-2022 End: 11-19-2022 ambulatory [facility] Work Phone: Start: 11-19-2022 End: 11-19-2022 Patient encounter procedure [facility] Start: 09-20-2022 End: 09-20-2022 ambulatory [facility] Work Phone: Start: 09-20-2022 End: 09-20-2022 [facility] Start: 11-15-2017 Ambulatory Kharis Razo Facility :[facility] Start: 10-31-2017 Ambulatory Arnold Frances Facility:[facility] Procedures Date Procedure Procedure Detail Performing Clinician Start: 11-30-2024 Screening mammography Raymond Chambers MD Work Phone: Start: 11-21-2023 Screening mammography Start: 11-19-2022 Screening mammography Immunizations Immunization Date Immunization Notes Care Provider Dara narvaez 02-15-2021 Covid (Pfizer) [facility] 01-25-2021 Covid (Pfizer) [facility] Payers Date Payer Category Payer Medicare [id number] 2024 Medicare [id number] 2024 Self-pay [id number] 2017 Unknown [id number] Unknown BC OUT OF STATE [id number] Unknown [id number] Unknown [id number] 2.16.8 [id number] Unknown [id number] 2.16.8 [id number] Unknown [id number] 2.16.8 [id number] Unknown [id number] 2.16.8 [id number] Unknown [id number] 2.16.8 [id number] Unknown [id number] 2.16.8 [id number] Unknown [id number] 2.16.8 [id number] Unknown [id number] 2.16.8 [id number] Unknown [id number] 2.16.8 [id number] Unknown [id number] 2.16.8 [id number] Unknown [id number] 2.16.8 [id number] Unknown [id number] 2.16.8 [id number] Unknown [id number] 2.16.8 [id number] Social History Date Type Detail Facility Start: 05-16-2022 End: 05-16-2022 Tobacco smoking status NHIS Unknown if ever smoked [facility] Start: 1955 Sex Assigned At Female W [facility] Start: 05-12-2024 Tobacco smoking stat us DCIS Never smoked tobacco (finding) [facility] Start: 02-20-2025 Sex Female (finding) [facility] Progress note 01-17-2022 Note Date & Type Note Facility 01-17-2022 Note HNO ID: [id number] Author: Eula Chaparro APRN.[employer] OPERATOR Service: ? Author Type: Nurse Practitioner Type: Progress Notes Filed: 01/17/2022 2:01 PM Note Text: Janet Espinoza is a 66 year old female who [...] OB History No obstetric history on file. 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 Eula Chaparro APRN.[employer] PR[employer] OPERATOR Medical Decision Making: Problems: Low: Acute, uncomplicated illness or injury Moderate: 1+ chronic illnesses with change Data: Unique test(s) ordered: 1 Risk: Moderate: Drug management Medical Decision Making Level: 4 - Moderate [facility] Evaluation note Note Date & Type Note Facility Evaluation note No assessment information availa ble [facility] Work Phone: Reason for referral (narrative) Note Date & Type Note Facility Reason for referral (narrative) No reason for referral information available [facility] Work Phone: Summary Purpose Family History No Family History Records FoundNo Family History Records FoundNo Family History Records Found Advance Directives Advance Directive Response Recorded Date/ Time Living Will No May 13, 2022 12:45pm Power of Laborer [place] No May 13 12:45pm Advance Directive Response Recorded Date/ Time Living Will No May 13, 2022 11:45am Power of Laborer [place] No May 13 11:45am Chief Complaint and Reason for Visit Chief Complaint SCREENING Chief Complaint SCREENING Chief Complaint SCREENING E-ORDER AND PAPER ORDER Chief Complaint E-ORDER AND PAPER OR [place] Chief Complaint Admit Date SCREENING November 30, 2024 11 :58am DIABETES,THYROID, VIT D DEF. LABS February 15, 2025 10:23am Additional Source Comments INFORMATION SOURCE (unrecogn ized section and content) DATE CREATED AUTHOR 05/18/2018 [facility] pedro pablo Hernandez DATE CREATED AUTHOR AUTHOR'S ORGANIZ ATION 02/15/2022 [facility] DATE CREATED AUTHOR AUTHOR'S ORGANIZ ATION 02/20/2025 [facility] Goals (unrecognized section and content) Goals may be documented in a n alternate sectionGoals may be documented in an alternate sectionGoals may be documented in an alternate sectionGoals may be documented in an alternate sectionGoals may be documented in an alternate sectionGoals may be documented in an alternate sectionGoals may be documented in an alternate section Care Teams (unrecognized sec tion and content) Team Status: Active Member Role Status Dates Dr. Rah Aldrich III, MD Family Provider Active Dr. Susanna Coulter MD Primary Care Provider Active Team Status: Inactive Member Role Status Dates Dr. Susanna Coulter MD Primary Care Provider, Attendin g Provider Active Team Status: Inactive Member Role Status Dates Dr. Susanna Coulter MD Primary Care Prov ider, Attending Provider, Referring Provider Active Team Status: Active Member Role Status Dates Dr. Rah Aldrich III, MD Family Provider Active Radha Chambers MD Primary Care Provider Active Team Status: Inactive Member Role Status Dates Radha Chambers , MD Primary Care Provide r, Attending Provider, Referring Provider Active Team Status: Inactive Member Role Status Adelina Chambers MD Primary Care Provider, Attending Prov ider Active Team Status: Inactive Member Role Status Adelina Chambers MD Primary Care Provider Active St art: November 15, 2024 End: November 15, 2024 Dr. Kisha Han MD Attending Provider Active Start: November 15, 2024 End: November 15, 2024 Dr. Kisha Han MD Referring Provider Active Start: November 15, 2024 End: November 15, 2024 Team Status: Inactive Member Role Status Adelina Chambers MD Primary Care Provider Active St art: November 30, 2024 End: November 30, 2024 Radha Chambers MD Attending Provider Active Start : November 30, 2024 End: November 30, 2024 Radha Chambers MD Referring Provider Active Start : November 30, 2024 End: November 30, 2024 Team Status: Inactive Member Role Status Adelina Chambers MD Primary Care Provider Active St art: February 15, 2025 End: February 15, 2025 ROSIE RAY Attending Provider Active St art: February 15, 2025 End: February 15, 2025 ROSIE RAY Referring Provider Active St art: February 15, 2025 End: February 15, 2025 Dr. Kisha Han MD Other Provider Active Star t: February 15, 2025 End: February 15, 2025 FOR RECORDS PERTAINING TO PATIENTS WHO ARE [...] BE BASED ON THE PRIMARY CLINICAL RECORDS. [employer] provides no warranty or guarantee of the accuracy or completeness of information in this document.
[2025-06-02 11:33] LABS: AST(SGOT) 21 U/L (<=31); Alanine Aminotransfer ALT/SGPT 18 U/L (<=34); Albumin, Serum 3.9 g/dL (3.4-4.8); Alkaline Phosphatase 96 U/L (35-104); Anion Gap 12 (5-15); BUN 9 mg/dL (4-19); BUN/Creat Ratio 10.3 RATIO (10-20); Calcium,Total 9.2 mg/dL (7.6-11.0); Carbon Dioxide 23.3 mmol/L (21.0-32.0); Chloride 104 mmol/L (98-108); Cholesterol 142 mg/dL (<=200); Globulin 3.2 g/dL (2.2-4.2); Glucose 117 mg/dL (70-99); Low Density Lipoprotein Calc. 68 mg/dL; Potassium 3.9 mmol/L (3.3-5.1); Triglycerides 145 mg/dL; Very Low Density Lipoprotein 29 mg/dL (5-40); cholesterol:hdl ratio screen 3.12
== END | disposition home or self-care (01) ==
LOC: MTLAB 08:28
PROVIDERS: PCP Family Medicine; Referring Provider Internal Medicine Endocrinology, Diabetes & Metabolism; Visit Provider Internal Medicine Endocrinology, Diabetes & Metabolism
DX: E11.21 Type 2 diabetes mellitus with diabetic nephropathy (principal); E04.2 Nontoxic multinodular goiter; E78.2 Mixed hyperlipidemia; E03.8 Other specified hypothyroidism; Z79.85 Long-term (current) use of injectable non-insulin antidiabetic drugs
CPT/HCPCS: 36415; 80053; 80061; 83036; 84439; 84443

== ENCOUNTER → 2025-10-21 | Outpatient (CLI) | payer MEDICARE, SELFPAY ==
--- OUTSIDE RECORDS SUMMARY | 2025-10-21 09:28 | XMS RPT_ITS | CCD ---
Author Organization [facility] CliniSysd Care Team Providers Care Drug Safety Physician Name Role Phone Arnold Frances Unavailable Unavailable Razo, Kharis Unavailable Unavailable Yahaira ULLOA, Radha Primary Care Provider Guille ULLOA, Dr. Beard Attending Provider [phone] Guille ULLOA, Dr. Beard Referring Provider [phone] Yahaira ULLOA, Radha Attending Provider [phone] Yahaira ULLOA, Radha Referring Provider [phone] KAZ DOUGLAS Attending Provider KAZ DOUGLAS Referring Provider Guille ULLOA, Dr. Beard Other Provider Yahaira ULLOA, Radha Primary Care Provider Guille ULLOA, Dr. Beard Attending Provider Guille ULLOA, Dr. Beard Referring Provider [phone] Yahaira, Chalon Primary Care Unavailable Yahaira, Chalon Attending Unavailable Yahaira, Chalon Referring Unavailable Runer, Kisha Referring Unavailable Yahaira, Chalon Primary Care Unavailable Runer, Kisha Attending Unavailable Runer, Kisha Referring Unavailable Yahaira, Chalon Primary Care Unavailable Runer, Kisha Attending Unavailable Runer, Kisha Referring Unavailable Yahaira, Chalon Primary Care Unavailable Runer, Kisha Attending Unavailable Runer, Kisha Attending Unavailable Yahaira, Chalon Primary Care Unavailable Runer, Kisha Referring Unavailable Yahaira, Chalon Primary Care Unavailable Runer, Kisha Consulting Unavailable EVERARDOKAZ Attending Unavailable EVERARDOKAZ Referring Unavailable Yfn ULLOA, Susanna E Primary Care Provider MIEDEL, SUSANNA E Primary Care Unavailable ABBEY PADILLA Attending Unavailable MIEDEL, SUSANNA E Primary Care Unavailable ABBEY PADILLA Referring Unavailable [facility], DIGNA Holloway Admitting Unavailable [facility], DIGNA A Attending Unavailable [facility], DIGNA A Referring Unavailable YAHAIRA, CHALON Primary Care Unavailable [facility] A Attending Unavailable ABBEY PADILLA Referring Unavailable MIEDEL, SUSANNA E Primary Care Unavailable [facility] Referring Unavailable MIEDEL, SUSANNA E Primary Care Unavailable [facility] Attending Unavailable [facility] Unavailable TAMMY GÓMEZ Attending Unavailabl e YAHAIRA, CHALON Primary Care Unavailable TAMMY GÓMEZ Referring Unavailabl e YAHAIRA, CHALON Primary Care Unavailable Allergies Allergy Classification Reported Allergen(s) Allergy Type Date of Onset Reaction(s) Facility (8 sources) Angiotensin Converting Enzyme (Dale) Inhibitors Propensity to adverse reactions [address] [facility] (16 sources) dilTIAZem; Translations: [DILTIAZEM] Drug Allergy [address] [facility] (10 sources) Penicillins; Translations: [PENICILLINS] Propensity to adverse reactions [address] [facility] (1 source) Angiotensin Converting Enzyme (Dale) Inhibitors Drug allergy (disorder) 4 [facility] (1 source) dilTIAZem Drug Allergy 4 [facility] (1 source) Penicillins Drug allergy (disorder) 4 [facility] (6 sources) Penicillins Propensity to adverse reactions 3 [facility] Medications Current Medications Medication Drug Class(es) Dates Sig (Normalized) Sig (Original) aspirin 81 mg chewable tablet (14 sources) Platelet Aggregation Inhibitor, Nonsteroidal Anti-inflammatory Drug Start: 07-07-2009 ASPIRIN 81 MG CHEWABLE TAB 0 07/07/2009 Active fluconazole 150 mg oral tablet (16 sources) Azole Antifungal Start: 05-12-2024 Fluconazole 150 mg tablet Active 150 mg PO Every 3 Days May 12, 2024 12:00am Start: 12-28-2020 End: 03-14-2022 take 1 tablet by mouth once daily Fluconazole 150 mg tablet Discontinued 150 mg PO DAILY December 28, 2020 1:00am March 14, 2022 11:18am fluticasone propionate 0.05 mg/actuat metered dose nasal spray (14 sources) Corticosteroid Start: 12-28-2020 fluticasone (F LONASE) 50 mcg/actuation nasal spray Use in the nose. 12/28/2020 Active Start: 12-28-2020 End: 05-12-2024 Fluticasone Propionate (Isacc rgy Relief (Fluticasone)) 50 mcg/actuation spray,suspension Discontinued 2 NMA INTRANASAL NEEDED as needed for ALLERGIES December 28, 2020 1:00am May 12, 2024 1:30pm administer into each nostril Start: 12-28-2020 Fluticasone Pr opionate (Allergy Relief (Fluticasone)) 50 mcg/actuation spray,suspension Active 2 SPRAY INTRANASAL NEEDED December 28, 2020 1:00am administer into each nostril glimepiride 4 mg oral tablet (14 sources) Sulfonylurea Start: 11-14-2021 glimepiride (A MARYL) 4 mg tablet 2 mg. 11/14/2021 Active Start: 12-28-2020 End: 05-12-2024 take 1 tablet by mouth at bedtime Glimepiride 4 mg tablet Discontinued 4 mg PO AT BEDTIME December 28, 2020 1:00am May 12, 2024 1:36pm levothyroxine sodium 0.025 mg oral tablet (17 sources) l-Thyroxine Start: 05-12-2024 Levothyroxine 25 mcg tablet Active ug PO May 12, 2024 12:00am Start: 12-28-2020 End: 05-12-2024 levothyroxine 150 mcg cap Ta ke by mouth. 12/28/2020 Active Start: 07-07-2009 End: 06-22-2025 levothyroxine sodium(SYNTHRO ID 50 MCG TAB) Take one(1) tablet daily. 0 07/07/2009 06/22/2025 Discontinued (Other) losartan potassium 100 mg oral tablet (16 sources) Angiotensin 2 Receptor Lola Start: 05-12-2024 take 1 tablet by mouth once daily Losartan 100 mg tablet Active 100 mg PO daily May 12, 2024 12:00am Start: 05-13-2022 End: 05-12-2024 take 1 tablet by mouth once daily Losartan 50 mg Tablet Discontinued 50 mg PO DAILY May 13, 2022 12:00am May 12, 2024 1:36pm Start: 11-14-2021 losartan (COZA AR) 50 mg tablet 100 mg. 11/14/2021 Active metoprolol tartrate 25 mg oral tablet (8 sources) beta-Adrenergic Lola Start: 05-23-2025 metopr olol tartrate, short acting, (LOPRESSOR) 25 mg tablet 05/23/2025 Active Start: 05-12-2024 take 1 tablet by jhoan th twice daily Metoprolol Tartrate 50 mg tablet Active 50 mg PO TWICE A DAY May 12, 2024 12:00am omeprazole 20 mg delayed release oral capsule (6 sources) Proton Pump Inhibitor Start: 12-28-2020 omeprazo le (PRILOSEC) 20 mg capsule Take by mouth. 12/28/2020 Active pravastatin sodium 40 mg oral tablet (14 sources) HMG-CoA Reductase Inhibitor Start: 09-14-2019 End: 05-12-2024 pravastatin (PRAVACHOL) 40 mg tablet Take by mouth. 09/14/2019 Active SITagliptin 100 mg oral tablet (2 sources) Dipeptidyl Peptidase 4 Inhibitor Start: 05-12-2024 Sitagliptin Phosphat e (Januvia) 100 mg tablet Active mg PO May 12, 2024 12:00am Completed/Discontinued Medications Medication Drug Class(es) Dates Sig (Normalized) Sig (Original) ALPRAZolam 0.5 mg oral tablet (1 source) Benzodiazepine Start: 06-10-2003 End: 06-22-2025 XANAX 0.5MG TABLET as necessary 0 06/10/2003 06/22/2025 Discontinued (Other) amLODIPine 5 mg oral tablet (9 sources) Dihydropyridine Calcium Channel Lola Start: 11-24-2019 End: 06-22-2025 take 1 tablet by mouth once daily Amlodipine 5 mg tablet Discontinued 5 mg PO DAILY December 28, 2020 1:00am May 12, 2024 1:30pm atenolol 50 mg oral tablet (1 source) beta-Adrenergic Lola Start: 07-07-2009 End: 06-22-2025 ATENOLOL 50 MG TAB one in am and 1/2 at hs 0 07/07/2009 06/22/2025 Discontinued (Other) betamethasone 0.5 mg/ml / clotrimazole 10 mg/ml topical cream (1 source) Azole Antifungal, Corticosteroid Start: 01-17-2022 End: 06-22-2025 clotrimazole-beta methasone (LOTRISONE) cream Indications: Vaginal burning , Vulvar burning Apply 1 application to affected area twice daily. 15 g 2 01/17/2022 06/22/2025 Discontinued (Other) cholecalciferol 0.05 mg oral capsule (9 sources) Vitamin D Start: 12-28-2020 End: 06-22-2025 Cholecalciferol, Vitamin D3, 50 mcg (2,000 unit) cap Take by mouth. 12/28/2020 06/22/2025 Discontinued (Other) DULoxetine 60 mg delayed release oral capsule (14 sources) Serotonin and Norepinephrine Reuptake Inhibitor Start: 12-28-2020 End: 05-12-2024 take 1 capsule by mouth once daily Duloxetine 60 mg capsule,delayed release(DR/EC) Discontinued 60 mg PO DAILY December 28, 2020 1:00am May 12, 2024 1:30pm Start: 07-07-2009 duloxetine hcl (CYMBALTA 60 MG CAP) Take 30 mg by mouth. 0 07/07/2009 Active ezetimibe 10 mg / simvastatin 10 mg oral tablet (1 source) HMG-CoA Reductase Inhibitor, Dietary Cholesterol Absorption Inhibitor Start: 07-07-2009 End: 06-22-2025 ezetimibe/simvastatin(VYTORI N 10-10 10 MG-10 MG TAB) 1/2 tab daily 0 07/07/2009 06/22/2025 Discontinued (Other) 0.25 mg, 0.5 mg dose 1.5 ml semaglutide 1.34 mg/ml pen injector (13 sources) Start: 12-17-2021 End: 06-22-2025 OZEMPIC 0.25 mg or 0.5 mg(2 mg/1.5 mL) pen injector 0.5 mg. 12/17/2021 06/22/2025 Discontinued (Other) Start: 12-28-2020 inject 1 mg by subcu taneous injection every week semaglutide (OZEMPIC) 1 mg/0.75 ml subcutaneous pen injector Semaglutide (Ozempic) 1 mg/dose (2 mg/1.5 mL) pen injector Active 1 MG SC EVERY WEEK December 28, 2020 9:42am 12/28/2020 Active Semaglutide (Ozempic) 1 mg/d ose (2 mg/1.5 mL) pen injector (2 sources) Start: 12-28-2020 End: 05-12-2024 Semaglutide (Ozempic) 1 mg/d ose (2 mg/1.5 mL) pen injector Discontinued 1 mg SC December 28, 2020 1:00am May 12, 2024 1:36pm Problems Active Problems Problem Classification Problem Date Documented Date Episodic/Chronic Cancer of uterus (1 source) Malignant neoplasm of endometrium; Translations: [Endometrial cancer (HCC)] Onset: 08-18-2025 Chronic Diabetes mellitus with complications (1 source) Type 2 diabetes mellitus with diabetic nephropathy; Translations: [Type 2 diabetes mellitus with diabetic nephropathy] Onset: 06-08-2025 Chronic Diabetes mellitus without complication (7 sources) Type 2 diabetes mellitus without complications; Translations: [Diabetes mellitus] Onset: 12-16-2024 06-22-2025 Chronic Disorders of lipid metabolism (6 sources) Hypercholesterolemia; Translations: [Pure hypercholesterolemia, unspecified] Onset: 06-22-2025 06-22-2025 Chronic Esophageal disorders (6 sources) Gastroesophageal reflux disease; Translations: [Gastro-esophageal reflux disease without esophagitis] Onset: 06-22-2025 06-22-2025 Chronic Essential hypertension (14 sources) Hypertensive disorder; Translations: [Essential (primary) hypertension] Onset: 06-22-2025 03-14-2022 Chronic Genitourinary symptoms and ill-defined conditions (1 source) Genuine stress incontinence; Translations: [Stress incontinence (female) (male)] 06-22-2025 Chronic Genitourinary symptoms and ill-defined conditions (1 source) Dysuria; Translations: [Dysuria] Onset: 08-10-2025 Episodic Mood disorders (6 sources) Major depression, single episode; Translations: [Major depressive disorder, single episode, unspecified] Onset: 06-22-2025 06-22-2025 Chronic Mycoses (1 source) Candidal vulvovaginitis; Translations: [Vulvovaginal candidiasis] 06-22-2025 Episodic Other and unspecified benign neoplasm (8 sources) History of polyp of colon; Translations: [Personal history of colonic polyps] 05-16-2022 Episodic Other endocrine disorders (1 source) [place]'s syndrome, unspecified; Translations: [[place]'s syndrome, unspecified] Onset: 09-25-2024 Chronic Other female genital disorders (1 source) Vaginal bleeding; Translations: [Abnormal uterine and vaginal bleeding, unspecified] 06-22-2025 Chronic Other female genital disorders (1 source) Abnormal uterine and vaginal bleeding, unspecified; Translations: [Vaginal bleeding] Onset: 06-22-2025 Chronic Other female genital disorders (6 sources) Endometrial intraepithelial neoplasia; Translations: [Endometrial intraepithelial neoplasia [EIN]] Onset: 07-21-2025 07-21-2025 Chronic Other female genital disorders (1 source) Endometrial intraepithelial neoplasia [EIN]; Translations: [EIN (endometrial intraepithelial neoplasia)] Onset: 07-21-2025 Chronic Other nervous system disorders (1 source) Other acute postprocedural pain; Translations: [Postoperative pain] Onset: 08-04-2025 Episodic Other upper respiratory disease (6 sources) Allergic rhinitis; Translations: [Allergic rhinitis, unspecified] Onset: 06-22-2025 06-22-2025 Chronic Residual codes; unclassified (1 source) Other specified postprocedural states; Translations: [Post-operative state] Onset: 08-10-2025 Episodic Systemic lupus erythematosus and connective tissue disorders (6 sources) Dermatomyositis; Translations: [Other dermatomyositis without myopathy] Onset: 06-22-2025 06-22-2025 Chronic Thyroid disorders (20 sources) Hypothyroidism; Translations: [Hypothyroidism, unspecified] Onset: 06-22-2025 03-14-2022 Chronic Comment on above: Patient presents [...] visit. Full details are given in the "procedures" section of this note. Unclassified (1 source) Unknown / UNK(Unknown) Onset: 10-31-2017 Unclassified (1 source) Autogenerated Problem Onset: 07-26-2025 07-26-2025 Past or Other Problems Problem Classification Problem Date Documented Date Episodic/Chronic Menopausal disorders (10 sources) Postmenopausal bleeding; Translations: [Postmenopausal bleeding] Onset: 06-22-2025 Resolved: 07-21-2025 06-22-2025 Chronic Other screening for suspected conditions (not mental disorders or infectious disease) (6 sources) Endometrium thickened; Translations: [Abnormal findings on diagnostic imaging of other specified body structures] Onset: 07-07-2025 Resolved: 07-21-2025 07-07-2025 Chronic Other screening for suspected conditions (not mental disorders or infectious disease) (15 sources) Patient encounter status; Translations: [Encounter for screening for malignant neoplasm of colon] Onset: 12-22-2024 Resolved: 07-21-2025 03-14-2022 Episodic Unclassified (1 source) COUGH,SORE THROAT Onset: 10-31-2017 Unclassified (8 sources) hx of gallbladder removal 06-14-2022 Results Test Name Value Interpretation Reference Range 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 Patient reported improvement of her dysuria with the Bactrim. No vaginal bleeding or pelvic/abd pain. Reports incision is healing well. Denies fever, chills, CP, SOB, nausea, vomiting, changes to bladder habits. Oncology History: 08/04/25: RA-TLH/BSO/SLND. Grade 1, 10 % myoinvasion, no cervical stromal involvement, no LVSI. [place] nodes negative. ROS: 14 point ROS negative unless indicated in above HPI. Medical history: PAST MEDICAL HISTORY Diagnosis Date - Cervical spinal stenosis c5-c6 - Depression - Diabetes mellitus (HCC) - EIN (endometrial intraepithelial neoplasia) - Essential hypertension - High cholesterol - Hypothyroidism - PCOS (polycystic ovarian syndrome) - Sleep apnea Surgical history: PAST SURGICAL HISTORY Procedure Laterality Date - COLONOSCOPY 2021 5 year return - DANDC, DIAG AND/OR THERAPEUTIC 1990 - LIGATE FALLOPIAN TUBE 1990 - REMOVAL GALLBLADDER - REMV CATARACT EXTRACAP,INSERT LENS Bilateral 2023 - TOTAL KNEE REPLACEMENT Right 2016 Chief Administrative Officer history: , SVDx3, Sab x1 Family history: Family History Problem Relation Age of Onset - Heart Disease before age 55 Mother - Hypertension Mother - Lung fibrosis (HCC) Mother - Heart Disease before age 55 Father - Hypertension Father - Lung fibrosis (HCC) Father - Colon Cancer Maternal Grandmother 80 - Uterine Cancer No Family History - Ovarian cancer No Family History - Breast Cancer No Family History Social history: 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 Medications: Current Outpatient Medications Medication Sig Dispense Refill - metoprolol tartrate, short acting, (LOPRESSOR) 25 mg tablet - semaglutide (OZEMPIC) 1 mg/0.75 ml subcutaneous pen injector Semaglutide (Ozempic) 1 mg/dose (2 mg/1.5 mL) pen injector Active 1 MG SC EVERY WEEK December 28, 2020 9:42am - fluconazole (DIFLUCAN) 150 mg tablet TAKE 1 TABLET BY MOUTH EVERY 3 DAYS NEEDED - levothyroxine 150 mcg cap Take by mouth. - fluticasone (FLONASE) 50 mcg/actuation nasal spray Use in the nose. - glimepiride (AMARYL) 4 mg tablet 2 mg. - losartan (COZAAR) 50 mg tablet 100 mg. - omeprazole (PRILOSEC) 20 mg capsule Take by mouth. - pravastatin (PRAVACHOL) 40 mg tablet Take by mouth. - duloxetine hcl(CYMBALTA 60 MG CAP) Take 30 mg by mouth. 0 - ASPIRIN 81 MG CHEWABLE TAB 0 No current facility-administered medications for this visit. Healthcare maintenance: Colonoscopy: 2021, due 2026 Mammogram: normal 2024 Pap smear: 05/2025 BRYN, hx of abnormal paps PE: EGOG PS 0 BP 131/80 (BP Site: Left Arm, BP Position: Sitting, BP Cuff Size: Extra Large Adult) Pulse 93 Temp 36.8 ?C (98.2 ?F) (Oral) Wt 111.6 kg (246 lb) LMP 06/16/2009 SpO2 97% BMI 44.99 kg/m? Gen: well appearing, pleasant, in NAD Card: well perfused Resp: non-labored breathing on room air Abd: well healed laparoscopic incisions, soft, non-tender, no masses Pelvic: deferred Labs/Imagin08/04/25 Surgical Pathology: A. Uterus, cervix, bilateral fallopian tubes and bilateral ovaries, hysterectomy and bilateral salpingo-oophorectomy: Cervix: Nabothian cysts, negative for neoplasm. Lower uterine segment: Negative for carcinoma. Endometrium: Endometrial adenocarcinoma, endometrioid type, FIGO grade 1. Myometrium: - Superficial myometrial invasion by endometrial endometrioid adenocarcinoma (10% myoinvasion). - Leiomyomata (2.5 cm in greatest dimension) with degenerative changes including dystrophic calcifications. - Adenomyosis. Serosa: Unremarkable serosal surface. Right and left fallopian tubes: Fallopian tube with benign paratubal cysts. Right and left ovaries: Ovaries with endosalpingosis and associated dystrophic calcifications. B. Cullom lymph node, right pelvic, excision: - 2 lymph nodes, negative for carcinoma (0/2). See comment. C. [place]om lymph node, left pelvic, excision: - 1 lymph node, negative for carcinoma (0/1). See comment. A/P: This is a 70 year old with stage IA2 FIGO grade 1 EAC of the uterus here for postop check. Postop: - Meeting goals - Pathology reviewed and provided Endometrial cancer: - POLE and MMR pending. - Would defer genetic testing unless MMR suggestive of Quinteros - No adjuv (more content not included)... [facility] Bacteria Ur Culton 5 Bacteria identified Cx Nom (U) ORGANISM ID: 1 10,000 -<50,000 CFU/ml Escherichia coli Insignificant colony count. No further workup. ORGANISM ID: 2 <10,000 CFU/ml Enterococcus faecalis Insignificant colony count. No further workup. Cephalosporins, clindamycin, and TMP-SMX are not effective for the treatment of enterococcal infections. [facility] Comment on above: Performed By: #### 6 30-4 ####[facility] LABORATORYCLIA [id number] [address] [place] CNOVSPon 08-10-2025 CNOVSP [facility] ([id number]) 1955 F Date Time Provider Department 08/10/25 2:30 PM TAMMY GÓMEZ During your visit today, we recorded the following information about you: Temperature Pulse Blood pressure Weight 97.9 degrees 93/minute 144/85 112.9 kg Tammy Gómez, SENIOR GAMEMASTER.[employer]ORES LABORER 08/10/2025 3:23 PM Signed DATE OF SERVICE: 08/10/2025 PROBLEM: Janet Ortiz presents for incision check. SURGERY AND DATE: 08/04/2025 RALSTLH/BSO, SLN, cystoscopy PATHOLOGY: in process SUBJECTIVE/INTERVAL HISTORY: Janet Ortiz reports that she feel well just tired. No abdominal pain. No fever or chills. No shortness of breath, cough, or chest pain. She reports that her incisions look fine. No drainage . Patient reports that her appetite is good. No abdominal pain, nausea, vomiting, diarrhea, or constipation. She reports dysuria, no frequency, no pressure, no hematuria. She also reports burning which feels vaginal at rest. Her ECOG performance status is zero (fully active, able to carry on all pre-disease performance without restriction). OBJECTIVE: BP 144/85 Pulse 93 Temp (Src) 97.9 (Oral) Wt 249 lb (112.9kg) SpO2 97% LMP 06/16/2009 OBGyn Exam GENERAL: here alone, NAD LUNGS: unlabored on RA. ABDOMEN: laparoscopic Incisions healing well. Pelvic: vulva, no lesions, no opens sores, no erythema no edema LOWER EXTREMITIES: No pitting edema, no palpable cords, and no skin changes. Participation of a fellow, resident, medical student, or advanced practice provider student in performing the sensitive examination was discussed with the patient or authorized field support representative. The patient or authorized field support representative has agreed to proceed with the sensitive examination. ASSESSMENT: 70 yo s/p JEANNETTE lemus/BSO for atypical hyperplasia here for dysuira PLAN: Dysuria -ua/uc -start bactrim -advise barrier ointment on vulva, AANDD, aquaphor or zinc oxide. -call if worsening or no improvement Post op -incisions healing well -pathology still in process rtc for post op on 08/[address] Chandra Gómez APRN.SHAY Medical Decision Making: Problems: Low: Acute, uncomplicated illness or injury Data: Unique source(s) for external note(s) reviewed: 3+ Unique test result(s) reviewed: 3+ Unique test(s) ordered: 3+ Risk: Moderate: Drug management Medical Decision Making Level: 4 - Moderate Allergies As of Date: 08/10/2025 Noted Allergy Reaction DILTIAZEM 06/10/2003 Comments: cardizem PENICILLINS 06/10/2003 Comments: slough of colon Date Reviewed: 08/10/2025 Reviewed by: Tammy Gómez APRN.[employer]OR[employer] LABORER - Fully Assessed Reason for Visit: Wound Check [133] Primary Visit Diagnosis:Dysuria [R30.0] Other Visit Diagnosis:Post-operati ve state [Z98.890] Order(s):URINALYSIS, WITH MICROSCOPIC [SQUAWMIC] Order #: [id number] FUTURE BACTERIAL CULTURE, URINE [SQURCUL] Order #: [id number] FUTURE sulfamethoxazole-trime thoprim (BACTRIM DS) 800-160 mg per tabletTake 1 tablet by mouth two times a day for 5 days.Disp: 10 tabletRfl: 0 Prescriptions as of 08/10/2025 - sulfamethoxazole-trime thoprim (BACTRIM DS) 800-160 mg per tablet Take 1 tablet by mouth two times a day for 5 days. - metoprolol tartrate, short acting, (LOPRESSOR) 25 mg tablet - semaglutide (OZEMPIC) 1 mg/0.75 ml subcutaneous pen injector Semaglutide (Ozempic) 1 mg/dose (2 mg/1.5 mL) pen injector Active 1 MG SC EVERY WEEK December 28, 2020 9:42am - fluconazole (DIFLUCAN) 150 mg tablet TAKE 1 TABLET BY MOUTH EVERY 3 DAYS NEEDED - levothyroxine 150 mcg cap Take by mouth. - fluticasone (FLONASE) 50 mcg/actuation nasal spray Use in the nose. - glimepiride (AMARYL) 4 mg tablet 2 mg. - losartan (COZAAR) 50 mg tablet 100 mg. - omeprazole (PRILOSEC) 20 mg capsule Take by mouth. - pravastatin (PRAVACHOL) 40 mg tablet Take by mouth. - duloxetine hcl(CYMBALTA 60 MG CAP) Take 30 mg by mouth. - ASPIRIN 81 MG CHEWABLE TAB Problem List As Of Date 08/10/2025 Noted Resolved DM (diabetes mellitus) ([facility]) [E11.9] 06/22/2025 DM (dermatomyositis) (HCC) [M33.13] 06/22/2025 Allergic rhinitis [J30.9] 06/22/2025 Essential (primary) hypertension [I10] 06/22/2025 GERD (gastroesophageal reflux disease) [K21.9] 06/22/2025 Hypercholesterolemia [E78.00] 06/22/2025 Hypothyroidism, unspecified [E03.9] 06/22/2025 Major depressive disorder, single episode, unsp*06/22/2025 Nontoxic multinodular goiter [E04.2] 06/22/2025 Thickened endometrium [R93.89] 07/07/2025 07/21/2025 Abnormal ultrasound of endometrium [R93.5] 07/07/2025 07/21/2025 PMB (postmenopausal bleeding) [N95.0] 07/07/2025 07/21/2025 EIN (endometrial intraepithelial neoplasia) [N8*07/21/2025 Obesity, Class III, BMI >= 40 [E66.813] 08/03/2025 Encounter Status:Closed by TAMMY GÓMEZ on 08/10/25 [facility] Urinalysis complete panel (U )on 08-10-2025 Bilirubin Ql (U) Negative Normal Negative [facility] Comment on above: Order Comment: Speci men Type: URINE SPECIMENOrdering Facility: [facility] Address: [address] [place] [id number] Performed By: #### 2 [id number] ####[facility] LABORATORYCLIA [id number] [place] [address] [place] Clarity (Unsp spec) Clear Normal Clear [facility] Comment on above: Order Comment: Speci men Type: URINE SPECIMENOrdering Facility: [facility] Address: [address] [place] [address] Performed By: #### 2 4356-8 ####[facility]ORATORYCLIA [id number] [address] [place] Color (U) Light Yellow Normal yellow [facility] Comment on above: Order Comment: Speci men Type: URINE SPECIMENOrdering Facility: [facility] Address: [address] [place] [address] Performed By: #### 2 4356-8 ####[facility]ORATORYCLIA [id number] [address] Epithelial cells LM.HPF (Urine sed) [#/Area] Few Normal [facility] Comment on above: Order Comment: Speci men Type: URINE SPECIMENOrdering Facility: [facility] Address: [address] [place] [address] Result Comment: Few Performed By: #### 2 4356-8 ####[facility]ORATORYCLIA [id number] [address] Glucose Test strip (U) [Mass/Vol] Negative Normal Trace, Negative [facility] Comment on above: Order Comment: Speci men Type: URINE SPECIMENOrdering Facility: [facility] Address: [address] [place] [address] Performed By: #### 2 4356-8 ####[facility]ATORYCLIA [id number] [place] [address] [place] Hemoglobin Ql (U) Negative Normal Negative, Trace [facility] Comment on above: Order Comment: Speci men Type: URINE SPECIMENOrdering Facility: [facility] Address: [address] [place] [address] Performed By: #### 2 4356-8 ####[facility]ATORYCLIA [id number] [address] [place] Ketones Ql (U) Negative Normal Negative, Trace [facility] Comment on above: Order Comment: Speci men Type: URINE SPECIMENOrdering Facility: [facility] Address: [address] [place] [address] Performed By: #### 2 4356-8 ####[facility]ATORYCLIA [id number] [address] Leukocyte esterase Test strip Ql (U) 500 Patrice/uL Abnormal Negative, 25 Patrice/uL [facility] Comment on above: Order Comment: Speci men Type: URINE SPECIMENOrdering Facility: [facility] Address: [address] [place] [address] Performed By: #### 2 4356-8 ####[facility]ATORYCLIA [id number] [address] Nitrite Ql (U) Negative Normal Negative [facility] Comment on above: Order Comment: Speci men Type: URINE SPECIMENOrdering Facility: [facility] Address: [address] [place] [address] Performed By: #### 2 4356-8 ####[facility]ATORYCLIA [id number] [address] STATES [facility] pH (U) 6.5 [pH] Normal 5.0-8.0 [facility] Comment on above: Order Comment: Speci men Type: URINE SPECIMENOrdering Facility: [facility] Address: [address] [place] [address] Performed By: #### 2 4356-8 ####[facility]ATORYCLIA [id number] [address] Protein (U) [Mass/Vol] Negative Normal Trace , Negative [facility] Comment on above: Order Comment: Speci men Type: URINE SPECIMENOrdering Facility: [facility] Address: [address] [place] [address] Performed By: #### 2 4356-8 ####[facility]ATORYCLIA [id number] [address] [place] RBC LM.HPF (Urine sed) [#/Area] 0-3 /HPF Normal 0-3 /HPF [facility] Comment on above: Order Comment: Speci men Type: URINE SPECIMENOrdering Facility: [facility] Address: [address] [place] [address] Performed By: #### 2 4356-8 ####[facility]ORATORYCLIA [id number] [place] [id number] [place] Specific gravity (U) [Rel density] 1.010 Normal 1.005-1.030 [facility] Comment on above: Order Comment: Speci men Type: URINE SPECIMENOrdering Facility: [facility] Address: [address] [place] [address] Performed By: #### 2 4356-8 ####[facility]ATORYCLIA [id number] [address] Urobilinogen Ql (U) Normal Normal Normal [facility] Comment on above: Order Comment: Speci men Type: URINE SPECIMENOrdering Facility: [facility] Address: [address] [place] [address] Performed By: #### 2 4356-8 ####[facility]ATORYCLIA [id number] [address] [place] WBC LM.HPF (Urine sed) [#/Area] 11-25 /HPF Abnormal 0-5 /HPF [facility] Comment on above: Order Comment: Speci men Type: URINE SPECIMENOrdering Facility: [facility] Address: [address] [place] [address] Performed By: #### 2 4356-8 ####[facility]ATORYCLIA [id number] [address] [place] ANES POSTPROC EVALon 025 ANES POSTPROC EVAL HNO ID: [id number] Author: SHAYLA JARRELL MD Service: Anesthesiology Author Type: Anesthesiologist Type: Anesthesia Postprocedure Evaluation Filed: 08/04/2025 18:17 Note Text: POST ANESTHESIA EVALUATION NOTE : 1955 Procedure Summary Date: 08/04/25 Room / Location: [place] [address] / [place] Anesthesia Start: 0703 Anesthesia Stop: 1019 Procedures: ROBOTIC LAPAROSCOPIC TOTAL HYSTERECTOMY W/ BSO UTERUS=<250G (Bilateral: Pelvis) EXAM UNDER ANESTHESIA PELVIC / VAGINAL (Pelvis) CYSTOSCOPY (Bladder) ROBOTIC LAPAROSCOPY SURGICAL W/ RETROPERITONEAL LYMPH NODE SAMPLING SINGLE OR MULTIPLE (Bilateral: Pelvis) Diagnosis: EIN (endometrial intraepithelial neoplasia) (EIN (endometrial intraepithelial neoplasia) [N85.02]) Surgeons: Digna Santoyo MD Responsible Provider: Shayla Jarrell MD Anesthesia Type: general ASA Status: 3 Anesthesia Type: general Airway Type: ETT Last Vitals Vitals Value Taken Time BP 136/72 08/04/25 12:05 Temp 36.3 ?C (97.3 ?F) 08/04/25 12:00 Pulse 74 08/04/25 12:05 Resp 19 08/04/25 12:05 SpO2 94 % 08/04/25 12:05 Vitals shown include unfiled device data. Post Anesthesia Patient Status Patient Evaluation: PACU. PACU/ICU Patient Condition: stable. Anticipated Disposition: phase 2 then home. Neurological Status: aware and responsive. Pulmonary Status: breathing comfortably on room air Airway Control: returned to baseline unsupported. Cardiovascular Status: stable. Pain Management: clinically adequate Postoperative Hydration: acceptable. Intraoperative Events: no significant anesthesia events Post Operative Nausea/Vomiting Status: no significant post operative nausea or vomiting Recommendation: continue current plan of care. Anesthesia Observations No Documentation SIGNATURE: Shayla Jarrell MD PATIENT NAME: Janet Ortiz DATE: August 04, 2025 TIME: 6:17 PM CSN: [id number] Normal [facility] ANES PRE-OPon 08-04-2025 ANES PRE-OP HNO ID: [id number] Author: DINA COOK DO Service: Anesthesiology Author Type: Physician Type: Anesthesia Preprocedure Evaluation Filed: 08/04/2025 06:23 Note Text: ANESTHESIOLOGY DAY OF SURGERY NOTE : 1955 Procedure Information Date/Time: 08/04/25 0700 Procedures: ROBOTIC LAPAROSCOPIC TOTAL HYSTERECTOMY W/ BSO UTERUS=<250G (Bilateral: Pelvis) EXAM UNDER ANESTHESIA PELVIC / VAGINAL (Pelvis) CYSTOSCOPY (Bladder) ROBOTIC LAPAROSCOPY SURGICAL W/ RETROPERITONEAL LYMPH NODE SAMPLING SINGLE OR MULTIPLE (Pelvis) Location: [place] [facility] [place] Surgeons: Digna Santoyo MD Estimated body mass index is 46.09 kg/m? as calculated from the following: Height as of 07/21/25: 157.5 cm (5' 2"). Weight as of 07/21/25: 114.3 kg (252 lb). Most recent hematocrit and potassium results: Hematocrit 41.2 07/21/2025 Potassium 4.0 07/21/2025 Relevant Problems CARDIO (+) Essential (primary) hypertension ENDO (+) Hypothyroidism, unspecified GI (+) GERD (gastroesophageal reflux disease) I - PHYSICAL EVALUATION AIRWAY Patient intubated: No. Tracheostomy tube not present Mallampati: II. TM distance: >3 FB. Neck ROM: full ROM without neurological symptoms. Mouth openin FB. Short neck: no. Thick neck: no Additional exam findings: no II - ANESTHESIA PLAN ASA Score: 3 Anesthetic Plan: general Airway type: ETT The patient is not a current smoker. NPO Status: adequate Monitoring Plan Monitoring plan: standard ASA. Post Procedure Analgesic Plan Postoperative analgesic plan: multimodal analgesia and parenteral or oral opioids. Informed Consent Anesthetic risks, benefits, alternatives, personnel and consent discussed: yes. Patient / Responsible Libertarian agrees to proceed: yes Patient / Surrogate agrees to blood products: blood products not planned Significant changes in the patient condition since the History and Physical, not otherwise documented in primary service progress note: no. Potential Anesthesia issues that may suggest increased risk of complications or contraindication to planned procedure: none. Vitals Value Taken Time BP 161/94 08/04/25 05:52 Pulse Resp 18 08/04/25 05:52 Temp 36.7 ?C (98.1 ?F) 08/04/25 05:52 SpO2 98 % 08/04/25 05:52 Facility-Administered Medications as of 08/04/2025 Medication Dose Route Frequency lidocaine (PF) 10 mg/mL (1 %) 1-2 mg injection (XYLOCAINE) 0.1-0.2 mL INTRADERMAL PRN lactated ringers iv infusion 5-30 mL/hr INTRAVENOUS CONTINUOUS NaCl 0.9% iv flush bag 20 mL INTRAVENOUS PRN [COMPLETED] heparin 5,000 Units injection 5,000 Units SUBCUTANEOUS Pre-Op Once [COMPLETED] acetaminophen 975 mg tab(s) (TYLENOL) 975 mg ORAL Pre-Op Once [COMPLETED] celecoxib 400 mg cap(s) (CeleBREX) 400 mg ORAL Pre-Op Once metroNIDAZOLE iv piggyback 500 mg in NaCl (iso-osmotic) 100 mL (FLAGYL) 500 mg INTRAVENOUS Pre-Op Once And aztreonam 2 g in D5W 100 mL Vial-Bag (AZACTAM) 2 g INTRAVENOUS Pre-Op Once [COMPLETED] phenazopyridine 200 mg tab(s) (PYRIDIUM) 200 mg ORAL Pre-Op Once Outpatient Medications as of 08/04/2025 Medication Sig metoprolol tartrate, short acting, (LOPRESSOR) 25 mg tablet levothyroxine 150 mcg cap Take by mouth. glimepiride (AMARYL) 4 mg tablet 2 mg. losartan (COZAAR) 50 mg tablet 100 mg. duloxetine hcl(CYMBALTA 60 MG CAP) Take 30 mg by mouth. ASPIRIN 81 MG CHEWABLE TAB semaglutide (OZEMPIC) 1 mg/0.75 ml subcutaneous pen injector Semaglutide (Ozempic) 1 mg/dose (2 mg/1.5 mL) pen injector Active 1 MG SC EVERY WEEK December 28, 2020 9:42am fluconazole (DIFLUCAN) 150 mg tablet TAKE 1 TABLET BY MOUTH EVERY 3 DAYS NEEDED fluticasone (FLONASE) 50 mcg/actuation nasal spray Use in the nose. omeprazole (PRILOSEC) 20 mg capsule Take by mouth. pravastatin (PRAVACHOL) 40 mg tablet Take by mouth. I have interviewed and examined the patient. I have reviewed the medical record and/or the pre-anesthesia evaluation, pertinent labs, and test results. This contains updated information obtained within 48 hours of Surgery/Procedure. SIGNATURE: Dina Cook DO PATIENT NAME: Janet Ortiz DATE: August 04, 2025 TIME: 6:23 AM CSN: [id number] [facility] BRIEF OP NOTon 08-04-2025 BRIEF OP NOT HNO ID: [id number] Author: DIGNA SANTOYO MD Service: Gynecology Oncology Author Type: Resident Type: Brief Op Note Filed: 08/04/2025 16:50 Note Text: Attestation signed by Digna Santoyo MD at 08/04/2025 4:50 PM Attending Note I personally saw and examined the patient. I reviewed the resident's note. I agree with the resident's assessment and plan unless otherwise noted. Signature: Digna Santoyo MD Date: 08/04/2025 Time: 4:50 PM BRIEF OPERATIVE / PROCEDURE NOTE LOG ID: [id number] SURGERY/PROCEDURE DATE: 08/04/2025 INCISION/PROCEDURE START TIME: 7:39 AM INCISION CLOSE/PROCEDURE END TIME: 10:07 AM SURGEON(S)/PROCEDURALI ST(S) AND NEWSPAPER ILLUSTRATOR(S): Surgeons and Role: * Digna Santoyo MD - Primary * Jacque Lao MD - Resident - Assisting Lathe Turner: Chris Vasquez SA Preoperative Concerns /Risks: None SURGERY/PROCEDURE(S): Procedure(s): ROBOTIC LAPAROSCOPIC TOTAL HYSTERECTOMY W/ BSO UTERUS=<250G EXAM UNDER ANESTHESIA PELVIC / VAGINAL CYSTOSCOPY ROBOTIC LAPAROSCOPY SURGICAL W/ RETROPERITONEAL LYMPH NODE SAMPLING SINGLE OR MULTIPLE ANESTHESIA: General FINDINGS: Normal female external genitalia No entry trauma Upper abdominal survey without evidence of gross disease Bilateral ovaries normal Bilateral fallopian tubes normal with evidence of prior tubal. Clips peritonealized bilaterally. Uterus normal size and shape. Two small fibroids on the right lateral uterus. [place] lymph nodes mapping to the obturator space bilaterally. Vaginal cuff intact and hemostatic upon examination at conclusion of case Cystoscopy without evidence of foreign body or injury to bladder. Strong efflux of urine visualized from the bilateral ureteral orifices. ESTIMATED BLOOD LOSS: 50 mls SPECIMENS: ID Type Source Tests Collected by Time Destination A : Tissue Uterus, Cervix, Bilateral Fallopian Tubes, and Bilateral Ovaries SURGICAL PATHOLOGY Digna Santoyo MD 08/04/2025 9:20 AM B : RIGHT SENTINEL PELVIC LYMPH NODE Tissue Lymph Node, Right, [place] SURGICAL PATHOLOGY Digna Santoyo MD 08/04/2025 8:20 AM C : LEFT SENTINEL PELVIC LYMPH NODE Tissue Lymph Node, Left, [place] SURGICAL PATHOLOGY Digna Santoyo MD 08/04/2025 8:48 AM Intraoperative Complication/Events: None CLOSURE TECHNIQUE: Primary PRE-OP/PRE-PROCEDURE DIAGNOSIS: EIN POST-OP/POST-PROCEDURE DIAGNOSIS: Same as Preop Patient was accompanied to the next level of care by a licensed practitioner from the surgical team pending completion of this brief op note (or operative note) SIGNATURE: Jacque Lao MD PATIENT NAME: Janet Ortiz DATE: August 04, 2025 TIME: 9:56 AM [facility] HISTORY PHYSICALon HISTORY PHYSICAL HNO ID: [id number] Author: DIGNA SANTOYO MD Service: Gynecology Oncology Author Type: Resident Type: H&P Filed: 08/04/2025 06:48 Note Text: Attestation signed by Digna Santoyo MD at 08/04/2025 6:48 AM Attending Note I personally saw and examined the patient. I reviewed the resident's note. I agree with the resident's assessment and plan unless otherwise noted. Signature: Digna Santoyo MD Date: 08/04/2025 Time: 6:48 AM UPDATED HISTORY AND PHYSICAL EXAMINATION SERVICE DATE: 08/04/2025 SERVICE TIME: 6:15 AM PHYSICAL EXAM MUST BE COMPLETED ON ADMISSION The History and Physical (completed in the past 30 days) has been reviewed and the patient has been examined. The contents accurately reflect the patient's condition with the following additions or revisions since the HANDP was completed. Examination indicates no changes. LUNGS: Lungs clear to auscultation, Good diaphragmatic excursion CARDIAC: Normal S1 and S2; no rubs, murmurs, or gallops Provisional Diagnosis/Treatment Plan: Procedure(s) (LRB): ROBOTIC LAPAROSCOPIC TOTAL HYSTERECTOMY W/ BSO UTERUS=<250G (Bilateral) EXAM UNDER ANESTHESIA PELVIC / VAGINAL (N/A) CYSTOSCOPY (N/A) ROBOTIC LAPAROSCOPY SURGICAL W/ RETROPERITONEAL LYMPH NODE SAMPLING SINGLE OR MULTIPLE (N/A) This HANDP can be found in the Electronic Medical Record dated 07/21/25. SIGNATURE: Jacque Lao MD PATIENT NAME: Janet Ortiz DATE: August 04, 2025 TIME: 6:15 AM Normal [facility] MISMATCH REPAIR PROTEINS BY IHCon 08-04-2025 AP BIOMARKER DISCLAIMER Normal [facility] Comment on above: Order Comment: Speci men Type: TISSUE SPECIMENOrdering Facility: [facility] Address: [address] [place] [address] Result Comment: Marysol hadley Developed Test (LDT) Disclaimer: Performance characteristics of immunohistochemical, immunofluorescent, and chromogenic in-situ hybridization tests have been determined by the performing laboratory within the [facility] Department of Pathology and Laboratory Medicine ([facility], [facility], [facility], [facility], [facility], [facility], or [facility]) in a manner consistent with CLIA requirements. One or more of these tests may not have been cleared or approved by the FDA. The [facility] Department of Pathology and Laboratory Medicine is regulated under CLIA as qualified to perform high-complexity testing. These tests are used for clinical purposes. These should not be regarded as investigational or for research. Positive and negative controls stain appropriately. Performed By: #### L [id number] ####[facility] LABCLIA [id number] [address] [place] AP BLOCK ID [id number] Normal [facility] Comment on above: Order Comment: Speci men Type: TISSUE SPECIMENOrdering Facility: [facility] Address: [address] [place] [address] Performed By: #### L [id number] ####[facility] LABCLIA [id number] [address] BIOMARKER INTERPRETATION COMMENT AND REFERENCE RANGE Normal [facility] Comment on above: Order Comment: Speci men Type: TISSUE SPECIMENOrdering Facility: [facility] Address: [address] [place] [address] Result Comment: Inta ct expression of MMR (mismatch repair) proteins by immunohistochemistry is highly correlated with a microsatellite stable result by MSI (microsatellite instability) PCR analysis, and the results from these tests are viewed as clinically equivalent by the FDA. This result excludes at least 90-95% of Quinteros syndrome. These tests are an imperfect screen because some mutations may not produce loss of immunohistochemical expression. MSI molecular testing can be performed upon request in cases with a high clinical suspicion and appropriate family history. In a phase 2 study of patients with metastatic carcinoma, Lizzeth et al. ([facility] 2015;372:4629-99) reported that clinical benefit of pembrolizumab, an anti-programmed 1 (PD-1) immune checkpoint inhibitor, was predicted by the tumor's mismatch repair status; mismatch repair deficient (dMMR) tumors are more responsive to PD-1 blockade than mismatch repair proficient tumors. Pembrolizumab is FDA-approved for treating adult and pediatric patients with unresectable or metastatic solid tumors that display microsatellite instability-high (MSI-H) by PCR assay or dMMR by immunohistochemistry (IHC). The FDA does not distinguish between PCR and IHC-based assays, as these are considered equivalent and complimentary tests. As clinically indicated, and in the appropriate setting of genetic counseling with informed patient consent, further genetic testing may be helpful. For more information or questions about this result, please call the [facility] for [place] at [phone]. Performed By: #### L [id number] ####[facility] LABCLIA [id number] [address] BIOMARKER METHOD Immunohistochemistry was performed on formalin-fixed paraffin-embedded tissue using the FDA-approved MMR IHC Panel with the following clones: MLH1 (clone M1 mouse monoclonal); PMS2 (A16-4 mouse monoclonal); MSH2 ([id number] mouse monoclonal); MSH6 (SP93 rabbit monoclonal). The OptiView DAB IHC Detection Kit is used with MLH1, MSH2, and MSH6, and the OptiView DAB IHC Detection Kit with OptiView Amplification Kit is used for PMS2 detection. [[employer], [place]] [facility] Comment on above: Order Comment: Speci men Type: TISSUE SPECIMENOrdering Facility: [facility] Address: [address] [place] [address] Performed By: #### L [id number] ####[facility] LABCLIA [id number] [address] CASE NUMBER MMR [id number] [facility] Comment on above: Order Comment: Speci men Type: TISSUE SPECIMENOrdering Facility: [facility] Address: [address] [place] [address] Performed By: #### L [id number] ####[facility] LABCLIA [id number] [address] FINAL PERFORMING LAB [facility] Comment on above: Order Comment: Speci men Type: TISSUE SPECIMENOrdering Facility: [facility] Address: [address] [place] [address] Result Comment: Diag nostic interpretation performed at: [facility], [address] [place] [address] CLIA# [id number] Hog Feeder: Som Pastor MD Electronically signed out by: Adri Winchester MD Performed By: #### L [id number] ####[facility] LABCLIA [id number] [address] [place] [address] [place] FIXATIVE Formalin, 10% Neutra l Buffered Normal [facility] Comment on above: Order Comment: Speci men Type: TISSUE SPECIMENOrdering Facility: [facility] Address: [address] [place], [place] [address] Performed By: #### L [id number] ####[facility] LABCLIA [id number] [address], [facility] [place] MLH1 IMMUNOHISTOCHEMICAL RESULTS Normal/Intact Nuclear Expression Normal [facility] Comment on above: Order Comment: Speci men Type: TISSUE SPECIMENOrdering Facility: [facility] Address: [address] [place] [address] Performed By: #### L [id number] ####[facility] LABCLIA [id number] [address], [place] [address] [place] MLH1 PROMOTER METHYLATION ASSAY No Normal [facility] Comment on above: Order Comment: Speci men Type: TISSUE SPECIMENOrdering Facility: [facility] Address: [address] [place] [address] Performed By: #### L [id number] ####[facility] LABCLIA [id number] [address], [place] [address] [place] MMR INTERPRETATION Proficient (Microsatellite Stable) Normal [facility] Comment on above: Order Comment: Speci men Type: TISSUE SPECIMENOrdering Facility: [facility] Address: [address] [place] [address] Performed By: #### L [id number] ####[facility] LABCLIA [id number] [address], [facility] [place] MSH2 IMMUNOHISTOCHEMICAL RESULTS Normal/Intact Nuclear Expression Normal [facility] Comment on above: Order Comment: Speci men Type: TISSUE SPECIMENOrdering Facility: [facility] Address: [address] [place], [place] [address] Performed By: #### L [id number] ####[facility] LABCLIA [id number] [address] [place] MSH6 IMMUNOHISTOCHEMICAL RESULTS Normal/Intact Nuclear Expression Normal [facility] Comment on above: Order Comment: Speci men Type: TISSUE SPECIMENOrdering Facility: [facility] Address: [address] [place] [address] Performed By: #### L [id number] ####[facility] LABCLIA [id number] [address] [place] PMS2 IMMUNOHISTOCHEMICAL RESULTS Normal/Intact Nuclear Expression Normal [facility] Comment on above: Order Comment: Speci men Type: TISSUE SPECIMENOrdering Facility: [facility] Address: [address] [place] [address] Performed By: #### L [id number] ####[facility] LABCLIA [id number] [place] [address] [place] TUMOR TYPE MMR Primary Uterine Endometrial Adenocarcinoma Normal [facility] Comment on above: Order Comment: Speci men Type: TISSUE SPECIMENOrdering Facility: [facility] Address: [address] [place] [address] Performed By: #### L [id number] ####[facility] LABCLIA [id number] [address] [place] OPERATIVE NOon 08-04-2025 OPERATIVE NO HNO ID: [id number] Author: DIGNA SANTOYO MD Service: Gynecology Oncology Author Type: Physician Type: Operative Report Filed: 08/04/2025 21:02 Note Text: OPERATIVE/PROCEDURE REPORT LOG ID: [id number] SURGERY/PROCEDURE DATE: 08/04/2025 INCISION/PROCEDURE START TIME: 7:39 AM INCISION CLOSE/PROCEDURE END TIME: 10:07 AM SURGEON(S)/PROCEDURALI ST(S) AND NEWSPAPER ILLUSTRATOR(S): Surgeons and Role: * Digna Santoyo MD - Primary * Jacque Lao MD - Resident - Assisting Lathe Turner: Chris Vasquez SA PREOPERATIVE DIAGNOSIS: At least EIN Morbid obesity BMI 46 POSTOPERATIVE DIAGNOSIS: Same SURGERY/PROCEDURE: Exam under anesthesia Cervical injection of ICG Robotic assisted total laparoscopic hysterectomy, bilateral salpingo-oophorectomy [place] pelvic lymph node dissection Cystoscopy FINDINGS: Grossly normal upper abdomen. 6 week sized uterus, normal as were bilateral adnexa. Bilateral sentinel nodes mapped to obturator spaces. Intact and hemostatic vaginal cuff. Intact bladder with brisk efflux from bilateral ureteral orifices. SPECIMENS: Right and left sentinel pelvic lymph nodes, uterus, cervix, bilateral fallopian tubes and ovaries EBL: 50 cc COMPLICATIONS: None INDICATIONS FOR PROCEDURE: This is a 70 yo with at least EIN on endometrial biopsy. We discussed surgery as definitive therapy and consideration of sentinel nodes given up to 40 % risk of concurrent endometrial cancer. After discussion of risks/benefits, she agreed to proceed. SURGERY DETAILS: Huddle was performed in preop. We confirmed administration of heparin. She was brought to the OR, where general anesthesia was induced. She was placed in dorsal lithotomy position via yellow fin stirrups and arms were carefully tucked alongside her body. She was prepped and draped in the usual sterile fashion. Timeout was performed. Johnson was placed. We confirmed OG tube placement and administration of antibiotics. A 8 mm incision was made at Lopez's point. A veress needle was introduced with an opening pressure of 6. Once a pressure of 15 was reached, a 8 mm Airseal port was introduced using Optiview technique. 4 8 mm robotic ports were placed in the following positions: supraumbilical, two in the right lateral abdomen, and one in the left lateral abdomen. She was placed in Trendelenburg. Next, speculum was inserted in the vagina, cervix grasped with tenaculum, and uterus sounded. 4 cc of 1.25 mg/dl ICG was injected at 3 and 9 oclock. The cervix was dilated, and a BECCA II uterine manipulator was easily placed. Robot was brought it, targeted, docked, and instruments inserted. We then transected the right round, developed the retroperitoneum, visualized the ureter, and created a window between it and the IP. The IP was serially coagulated, and ligated and then the posterior peritoneum was incised to the level of the ring. Firefly was engaged and node was seen in the obturator space. The paravesical space was developed and obturator nerve visualized. The node was carefully removed with blunt and electrocautery dissection and passed off for permanent. This was repeated in the left side - the node was in the same location on the left. We then developed the vesico-uterine peritoneum with electrocautery and blunt dissection until we confirmed it was caudal to the ring. This was repeated on the patient's left side. After the round was transected, the peritoneum was incised to the posterior ring. We then coagulated and ligated bilateral uterine vessels and lateralized off the ring. A colpotomy was made anteriorly and carried around in a clockwise manner and specimen easily delivered through the vagina and sent for permanent. The vaginal cuff was closed with 0 Vlock in a running two layered fashion. Bimanual and visual inspection confirmed an intact and hemostatic cuff. Johnson was removed and cystoscopy performed with findings as noted above. Abdomen and pelvis were irrigated and vascular pedicles confirmed to be hemostatic. Kev was placed on dissection beds. Instruments were removed, robot undocked, ports removed, and skin closed with 4-0 Monocryl. All counts were correct. A digital "sweep" of the vaginal canal was performed by Dr. Lao and it was ascertained that no instruments or other foreign bodies are retained within the cavity. PARTICIPATION IN SURGERY/PROCEDURE: I/primary surgeon/proceduralist performed the procedure with assistance. Digna Santoyo MD, MPH Gynecologic Oncologist [facility] POLE MUTATION DETECTION BY D OLI DIGITAL PCRon 08-04-2025 POLE MUTATION DETECTION BY DROPLET DIGITAL PCR RESULT POLE ddPCR [facility] Comment on above: Order Comment: Speci men Type: TISSUE SPECIMENOrdering Facility: [facility] Address: [address] [place] [address] Result Comment: Laboratory Accession Number: [id number] Case #: [id number] Part/Block ID: A9 Sample Type: FFPET Result: No variant detected. Interpretation: No POLE variant is present. POLE encodes for the DNA polymerase episolon catalytic subunit, an enzyme with a crucial role in DNA replication and repair. Pathogenic missense somatic mutations in the POLE exonuclease domain (codons 268-471) lead to genomic instability and ultra-high tumor mutational burden. Pathogenic POLE mutations leading to ultramutated phenotype are most frequently observed in colorectal and endometrial cancer, and POLE mutations define a molecular subtype of endometrial carcinoma, POLE-mutated endometrial cancer, which confers a more favorable prognosis. Patients whose tumors contain these mutations may be candidates for treatment with anti-PD-1 antibodies, such as nivolumab pembrolizumab and dostarlimab. The clinically significant mutations detected by this assay are associated with POLE enzyme loss of function and hypermutator phenotype. Methodology: Formalin-fixed, paraffin-embedded tissue (FFPE) is microdissected to enrich for tumor cells, with a goal of enriching to greater than 40 percent tumor purity. Genomic DNA is extracted and inerrogated for sixteen missense mutations located in the exonuclease domain using droplet digital polymerase chain reaction (ddPCR). Droplet digital PCR includes partitioning of DNA into droplets, droplet independent PCR, interrogation using allele specific hydrolysis probes, and analysis of droplets using Poisson distribution to calculate the variant allele fraction of POLE variants and wild-type POLE. The reference genome used is GRCh38/hg38. Variant signal less than 10% is reported as a negative result; signals greater than 10% are reported as a positive result. Exon 9: P286R (c.857C>G) P286L (c.857C>T) M295R (c.884T>G) S297F (c.890C>T) Exon 11: F367S (c.1100T>C) F367C (c.1100T>G) D368Y (c.1102G>T) D368N (c.1102G>A) Exon 13: V411L (c.1231G>C and c.1231G>T) L424I (c.1270C>A) P436R (c.1307C>G) M444K (c.1331T>A) Exon 14: A456P (c.1366G>C) S459F (c.1376C>T) S459Y (c.1376C>A) Limitations: This test is designed to detect only the sixteen variants described above in the POLE gene. Other variants in POLE will not be identified by this test. Uncommon variants or single nucleotide polymorphisms may affect binding of PCR and sequencing primers and may rarely result in a false negative or false positive. The lower limit of detection (LOD) of this assay is approximately 10% variant allele fraction for all analyzed variants at 85% sensitivity; the assay has 95% sensitivity. A minimum of 40% tumor purity is recommended for this assay; the assay has decreased sensitivity when tumor purity is below this and may result in false negative or indeterminate results. A negative result does not preclude the possibility of an alternative hotspot variant. Tumor heterogeneity, tumor burden, specimen degradation or other limitations of technology may affect sensitivity and LOD. Interfering substances, specifically formalin, decalcification agents, fixation agents containing heavy metals can potentially affect assay performance. References: Richard Sherwood, et al. A panoply of errors: polymerase proofreading domain mutations in cancer. Jazmyn Rev Cancer. 2016 Dec;16(2):71-81. 2. Ed K, et al. Molecular profiling and sequential somatic mutation shift in hypermutator tumours harbouring POLE mutations. Sci Rep. 2018 Apr 7;8(1):8700. 3. Raymond Blair, et al. Somatic POLE exonuclease domain mutations are early events in sporadic endometrial and colorectal carcinogenesis, determining hole digger truck driver mutational landscape, clonal neoantigen burden and immune response. J Pathol. 2018 May;245(3):283-296. 4. Jose Daniel C, et al. Immune profiling of microsatellite instability-high and polymerase (POLE)-mutated metastatic colorectal tumors identifies predictors of response to anti-PD-1 therapy. J Gastrointest Oncol. 2018 Apr;9(3):404-415. 5. Checo KP, et al. POLE Mutation Spectra Are Shaped by the Mutant Allele Identity, Its Abundance, and Mismatch Repair Status. Mol Cell. 2020;78(6). 6. Edis-Pasha A, et al. Interpretation of somatic POLE mutations in endometrial carcinoma. J Pathol. 2020;250(3):323-335. 7. Kamala YYuko et al. POLE/POLD1 mutation in non-exonuclease domain matters for predicting efficacy of eqwumr-hjotrvhvpe-pohnplugh therapy. Clin Transl Med. 2020;11(9):e524. 8. Moira X, et al. POLE/POLD1 mutation and tumor immunotherapy. J Exp Clin Cancer Res. 2021;41(1):216. 9. Nery Winkler et al. PD-1 Blockade in Solid Tumors with Defects in Polymerase Epsilon. Cancer Discov. 2021 2;12(6):5830-5420. 10. Jenifer M et al. Immune checkpoint inhibitors for POLE or POLD1 proofreading-deficient metastatic colorectal cancer. Rani Oncol. 2023;35(7):643-655. 11. Jerome (more content not included)... Performed By: #### P OLEDD ####CLARITY JACOB HANNAH [id number] [facility] [id number] [id number] [place] OF [facility] Pathology biopsy report Nikhil (Tiss)on 08-04-2025 AMENDED REPORT DETAIL [facility] Comment on above: Order Comment: Speci men Type: TISSUE SPECIMENOrdering Facility: [facility] Address: [address] [place] [address] Result Comment: Amen ded: 08/15/2025 8:59 AM This report is being amended to reflect a change in the FIGO 2022 staining field. The change is as follows: The stage is corrected from IA1 to IA2. Dr. Santoyo was notified of this change by [facility] message on 08/15/2025. Edited results: Previously reported on 08/12/2025 at 11:14 AM EDT. Performed By: #### 6 6121-5 ####[facility] [id number] [place], [place] [id number] [place] [address] AP DISCLAIMER [facility] Comment on above: Order Comment: Speci men Type: TISSUE SPECIMENOrdering Facility: [facility] Address: [address] [place] [address] Result Comment: Marysol Barriga Test (LDT) Disclaimer: Performance characteristics of immunohistochemical, immunofluorescent, and chromogenic in-situ hybridization tests have been determined by the performing laboratory within the [facility] Department of Pathology and Laboratory Medicine ([facility], [facility], [facility], [facility], [facility], [facility], or [facility]) in a manner consistent with CLIA requirements. One or more of these tests may not have been cleared or approved by the FDA. The [facility] Department of Pathology and Laboratory Medicine is regulated under CLIA as qualified to perform high-complexity testing. These tests are used for clinical purposes. These should not be regarded as investigational or for research. Positive and negative controls stain appropriately. Performed By: #### 6 6121-5 ####[facility] [id number] [address] BLOCK FOR ADDITIONAL BIOMARKERS/MOLECULAR STUDIES A9 [facility] Comment on above: Order Comment: Speci men Type: TISSUE SPECIMENOrdering Facility: [facility] Address: [address] [place] [address] Performed By: #### 6 6121-5 ####[facility]ORY[facility] [id number] [address] CASE REPORT [facility] Comment on above: Order Comment: Speci men Type: TISSUE SPECIMENOrdering Facility: [facility] Address: [address] [place] [address] Result Comment: Surg ical Pathology Report Case: [id number] Authorizing Provider: Digna Santoyo MD Collected: 08/04/2025 08:20 AM Ordering Location: [facility] Received: 08/04/2025 12:16 PM Pathologist: Lazaro Hurley DO Specimens: A) - Uterus, Cervix, Bilateral Fallopian Tubes, and Bilateral Ovaries B) - Lymph Node, Right, [place], RIGHT SENTINEL PELVIC LYMPH NODE C) - Lymph Node, Left, [place], LEFT SENTINEL PELVIC LYMPH NODE Performed By: #### 6 6121-5 ####[facility]ORYCL[facility] [id number] [address] CLINICAL HISTORY [facility] Comment on above: Order Comment: Speci men Type: TISSUE SPECIMENOrdering Facility: [facility] Address: [address] [place] [address] Result Comment: Pre- op diagnosis: 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 A p53 immunostain shows wild-type staining. Estrogen receptors positive (20%, weak intensity) and progesterone receptor is positive (70%, moderate intensity). B, C. The sentinel lymph nodes were examined using the endometrial carcinoma sentinel lymph node protocol including deeper H&E sections and 6 cytokeratin AE1/AE3 immunostains which are negative. Testing for mismatch repair proteins and POLE will be performed. Dr. Renetta Davis has reviewed select slides of part A and agrees with the above diagnosis. Performed By: #### 6 6121-5 ####[facility]ATORYCLIA [id number] [place] [id number] [facility] FINAL DIAGNOSIS [facility] Comment on above: Order Comment: Speci men Type: TISSUE SPECIMENOrdering Facility: [facility] Address: [address] [place] [address] Result Comment: A. U terus, cervix, bilateral fallopian tubes and bilateral ovaries, hysterectomy and bilateral salpingo-oophorectomy: Cervix: - Nabothian cysts, negative for neoplasm. Lower uterine segment: - Negative for carcinoma. Endometrium: - Endometrial adenocarcinoma, endometrioid type, FIGO grade 1. Myometrium: - Superficial myometrial invasion by endometrial endometrioid adenocarcinoma (10% myoinvasion). - Leiomyomata (2.5 cm in greatest dimension) with degenerative changes including dystrophic calcifications. - Adenomyosis. Serosa: - Unremarkable serosal surface. Right and left fallopian tubes: - Fallopian tube with benign paratubal cysts. Right and left ovaries: - Ovaries with endosalpingosis and associated dystrophic calcifications. B. Cullom lymph node, right pelvic, excision: - 2 lymph nodes, negative for carcinoma (0/2). See comment. C. Cullom lymph node, left pelvic, excision: - 1 lymph node, negative for carcinoma (0/1). See comment. Amendment electronically signed by Lazaro Hurley DO on 08/15/2025 at 0902 EDT at 1114 EDT Performed By: #### 6 6121-5 ####[facility]ATORYCLIA [id number] [place] [address] [facility] FINAL PERFORMING LAB [facility] Comment on above: Order Comment: Speci men Type: TISSUE SPECIMENOrdering Facility: [facility] Address: [address] [place] [address] Result Comment: Diag nostic interpretation performed at: [facility], [address] [place] [address] CLIA# [id number] Hog Feeder: Chetan Maurice MD Performed By: #### 6 6121-5 ####[facility]ATORYCLIA [id number] [address] STATES OF [place] DESCRIPTION [facility] Comment on above: Order Comment: Speci men Type: TISSUE SPECIMENOrdering Facility: [facility] Address: [address] [place] [address] Result Comment: A. U terus, Cervix, Bilateral Fallopian Tubes, and Bilateral Ovaries Received in formalin labeled as "uterus, cervix, bilateral fallopian tubes and bilateral ovaries" is a hysterectomy specimen consisting of uterus with attached cervix (9.5 x 5.5 x 5.5 cm) and attached bilateral fallopian tubes and ovaries, altogether weighing 114.9 g. The pink-zimmer ectocervical mucosa has a slitlike os. The outer surface of the anterior versus posterior cervix is inked blue and black, respectively. The pink-zimmer serosa is smooth and glistening. The specimen is opened to reveal a 3.7 cm endocervical canal. The red-zimmer, hemorrhagic endometrial cavity is 4 cm in length by 3.5 cm in width. It is particularly granular, remarkable for a red-zimmer, slightly papillary possible lesion towards the right cornu of the anterior and posterior aspects measuring 1.5 x 1.5 x 0.3 cm. This possible lesion is located 6.5 cm from the anterior and 5.8 cm from the posterior cervical mucosa. Sectioning reveals this lesion does not grossly extend below the mucosa, located 1.7 cm from the posterior and 2.5 cm from the anterior serosa. The remaining endometrium has a 0.1 cm wall thickness. Multiple rubbery intramural nodules are identified within the myometrium ranging from 0.5 x 0.4 x 0.3 cm to 2.5 x 2.5 x 2.4 cm. The intramural nodules have zimmer whorled cut surfaces. One of the nodules is remarkable for calcified cut surfaces. The uninvolved pink-zimmer mildly trabeculated myometrium with an average wall thickness of 2 cm. The right and left fimbriated fallopian tube segments are 5 and 4.8 cm in length with a diameter ranging from 0.6 to 0.8 cm. Tubal ligation devices are present in both the right and left fallopian tube segments. The pink-zimmer purple serosa is slightly congested, smooth and glistening with multiple paratubal cystic structures on both segments ranging from 0.1 x 0.1 x 0.1 cm to 0.5 x 0.4 x 0.4 cm. Sectioning reveals a lumen ranging from 0.1 to 0.3 cm. The right and left cerebroid ovaries are 1.8 x 1.3 x 0.8 cm, with a 1.1 g and 1.7 x 1.5 x 0.7 cm, weighing 1 g, respectively. The 10 outer surface does not contain any specimens. Sectioning reveals multiple white-zimmer possible corpora albicantia and both possible ovaries. The adnexal tissue are sectioned to reveal unremarkable cut surfaces. A1 anterior cervix bisected; A2 anterior lower uterine segment; A3 posterior cervix bisected; A4 posterior lower uterine segment; A5-A7 entire lesion from posterior aspect full-thickness section (A6-A7 to include intramural nodule); A8-A 10 entire lesion (remainder of) from anterior aspect endometrial slivers; A11 uninvolved posterior uterus full-thickness section; A12-A15 remaining posterior endometrium submitted fundus to lower uterine segment; A 16-A18 remaining anterior endometrium submitted fundus to lower uterine segment (A17-A18 to include second largest intramural nodule); A19 largest intramural nodule; A20 nodule with calcified area after light decalcification in HCl); A21 third largest intramural nodule; A22-A23 entire right fallopian tube to include entire fimbria; A24-A25 entire left fallopian tube to include entire fimbria; A26 entire right ovary; A27 entire left ovary. B. Lymph Node, Right, Cullom Received in formalin labeled as "right sentinel pelvic lymph node" is a zimmer, soft fibroadipose tissue segment measuring 4 x 1.8 x 0.8 cm. Palpation reveals 1 possible lymph node measuring 3.4 x 1.4 x 0.8 cm. The specimen is totally submitted as follows: B1 entire possible lymph node serially sectioned; B2 all remaining soft tissue. C. Lymph Node, Left, Cullom Received in formalin labeled as "left sentinel pelvic lymph node" is a zimmer, soft fibroadipose tissue segment measuring 2.7 x 2.2 x 1 cm. Palpation reveals 1 possible lymph node measuring 2.7 x 0.9 x 0.5 cm. Totally submitted as follows: C1 entire possible lymph node serially section; C2 all remaining soft tissue. Gross examination performed at [facility], [address] [place] [id number] RSA August 05, 2025 9:04 AM Performed By: #### 6 6121-5 ####[facility]ORATORYCLIA [id number] [place] [id number] [place] SYNOPTIC REPORT ENDOMETRIUM [facility] Comment on above: Order Comment: Speci men Type: TISSUE SPECIMENOrdering Facility: [facility] Address: [address] [place] [address] [place] [address] Result Comment: UTER US, ENDOMETRIUM, CARCINOMA: RESECTION - All Specimens AJCC 8 - Protocol posted: 11/03/2024 SPECIMEN Procedure: Total hysterectomy Procedure: Bilateral salpingo-oophorectomy TUMOR Histologic Type: Endometrioid carcinoma Histologic Grade: FIGO grade 1 Molecular Type: p53 Immunohistochemistry: Normal (wild-type) expression TP53 Mutation Testing: Not performed Myometrial Invasion: Present, inner half (less than 50%) Percentage: 10 % Adenomyosis: Present, uninvolved by carcinoma Uterine Serosal Involvement: Not identified Lower Uterine Segment Involvement: Not identified Cervical Involvement: Not identified Other Tissue / Organ Involvement: Not identified (other tissues / organs submitted and not involved) Peritoneal / Pelvic Washings / Ascitic Fluid: Not submitted Lymphatic and / or Vascular Invasion: Not identified REGIONAL LYMPH NODES Regional Lymph Node Status: : All regional lymph nodes negative for tumor cells Lymph Nodes Examined: Total Number of Pelvic Nodes Examined: 3 Number of Pelvic Cullom Nodes Examined: 3 Total Number of Para-aortic Nodes Examined: 0 pTNM CLASSIFICATION (AJCC 8th Edition) Reporting of pT, pN, and (when applicable) pM categories is based on information available to the pathologist at the time the report is issued. As per the AJCC (Chapter 1, 8th Ed.) it is the managing physician's responsibility to establish the final pathologic stage based upon all pertinent information, including but potentially not limited to this pathology report. pT Category: pT1a pN Category: pN0 N Suffix: (sn) FIGO STAGE FIGO Stage (FIGO 2009 Staging / 2018 FIGO Cancer Report): IA FIGO Stage (2022 Staging for Cancer of the Endometrium): IA2 ADDITIONAL FINDINGS Additional Findings: Atypical hyperplasia / endometrioid intraepithelial neoplasia (EIN) Performed By: #### 6 6121-5 ####[facility]ATORYCLIA [id number] [address] 08-02-2025 CNPN Telephone (KRISH Winkler) JANET ORTIZ ([id number]) 1955 F Date Time Provider Department 08/02/25 DIGNA SANTOYO During your visit today, we recorded the following information about you: Costa Evangelista MA 08/02/2025 3:04 PM Signed Left a message to remind patient of surgery 08-04-25 arrival time as 5 am and procedure as 7 am. No eating or drinking after midnight. Costa Evangelista MA Allergies As of Date: 08/02/2025 Noted Allergy Reaction DILTIAZEM 06/10/2003 Comments: cardizem PENICILLINS 06/10/2003 Comments: slough of colon Date Reviewed: 07/21/2025 Reviewed by: Digna Santoyo MD - Fully Assessed Reason for Visit: Preparations For Surgery [898] Prescriptions as of 08/02/2025 - metoprolol tartrate, short acting, (LOPRESSOR) 25 mg tablet - semaglutide (OZEMPIC) 1 mg/0.75 ml subcutaneous pen injector Semaglutide (Ozempic) 1 mg/dose (2 mg/1.5 mL) pen injector Active 1 MG SC EVERY WEEK December 28, 2020 9:42am - fluconazole (DIFLUCAN) 150 mg tablet TAKE 1 TABLET BY MOUTH EVERY 3 DAYS NEEDED - levothyroxine 150 mcg cap Take by mouth. - fluticasone (FLONASE) 50 mcg/actuation nasal spray Use in the nose. - glimepiride (AMARYL) 4 mg tablet 2 mg. - losartan (COZAAR) 50 mg tablet 100 mg. - omeprazole (PRILOSEC) 20 mg capsule Take by mouth. - pravastatin (PRAVACHOL) 40 mg tablet Take by mouth. - duloxetine hcl(CYMBALTA 60 MG CAP) Take 30 mg by mouth. 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] 06/22/2025 Allergic rhinitis [J30.9] 06/22/2025 Essential (primary) hypertension [I10] 06/22/2025 GERD (gastroesophageal reflux disease) [K21.9] 06/22/2025 Hypercholesterolemia [E78.00] 06/22/2025 Hypothyroidism, unspecified [E03.9] 06/22/2025 Major depressive disorder, single episode, unsp*06/22/2025 Nontoxic multinodular goiter [E04.2] 06/22/2025 Thickened endometrium [R93.89] 07/07/2025 07/21/2025 Abnormal ultrasound of endometrium [R93.5] 07/07/2025 07/21/2025 PMB (postmenopausal bleeding) [N95.0] 07/07/2025 07/21/2025 EIN (endometrial intraepithelial neoplasia) [N8*07/21/2025 Encounter Status:Closed by COSTA EVANGELISTA on 08/02/25 [facility] Calli 07-28-2025 SHAYN Telephone (KRISH Winkler) JANET ORTIZ ([id number]) 1955 F Date Time Provider Department 07/28/25 DIGNA SANTOYO During your visit today, we recorded the following information about you: Costa Evangelista MA 07/28/2025 1:55 PM Signed Spoke to patient to remind of surgery 08-04-25 arrival time as 5 am and procedure at 7 am. No eating or drinking after midnight. Patient understood. Costa Evangelista MA Allergies As of Date: 07/28/2025 Noted Allergy Reaction DILTIAZEM 06/10/2003 Comments: cardizem PENICILLINS 06/10/2003 Comments: slough of colon Date Reviewed: 07/21/2025 Reviewed by: Digna Santoyo MD - Fully Assessed Reason for Visit: Preparations For Surgery [898] Prescriptions as of 07/28/2025 - metoprolol tartrate, short acting, (LOPRESSOR) 25 mg tablet - semaglutide (OZEMPIC) 1 mg/0.75 ml subcutaneous pen injector Semaglutide (Ozempic) 1 mg/dose (2 mg/1.5 mL) pen injector Active 1 MG SC EVERY WEEK December 28, 2020 9:42am - fluconazole (DIFLUCAN) 150 mg tablet TAKE 1 TABLET BY MOUTH EVERY 3 DAYS NEEDED - levothyroxine 150 mcg cap Take by mouth. - fluticasone (FLONASE) 50 mcg/actuation nasal spray Use in the nose. - glimepiride (AMARYL) 4 mg tablet 2 mg. - losartan (COZAAR) 50 mg tablet 100 mg. - omeprazole (PRILOSEC) 20 mg capsule Take by mouth. - pravastatin (PRAVACHOL) 40 mg tablet Take by mouth. - duloxetine hcl(CYMBALTA 60 MG CAP) Take 30 mg by mouth. - ASPIRIN 81 MG CHEWABLE TAB Problem List As Of Date 07/28/2025 Noted Resolved DM (diabetes mellitus) (HCC) [E11.9] 06/22/2025 DM (dermatomyositis) (HCC) [M33.13] 06/22/2025 Allergic rhinitis [J30.9] 06/22/2025 Essential (primary) hypertension [I10] 06/22/2025 GERD (gastroesophageal reflux disease) [K21.9] 06/22/2025 Hypercholesterolemia [E78.00] 06/22/2025 Hypothyroidism, unspecified [E03.9] 06/22/2025 Major depressive disorder, single episode, unsp*06/22/2025 Nontoxic multinodular goiter [E04.2] 06/22/2025 Thickened endometrium [R93.89] 07/07/2025 07/21/2025 Abnormal ultrasound of endometrium [R93.5] 07/07/2025 07/21/2025 PMB (postmenopausal bleeding) [N95.0] 07/07/2025 07/21/2025 EIN (endometrial intraepithelial neoplasia) [N8*07/21/2025 Encounter Status:Closed by COSTA EVANGELISTA on 07/28/25 Normal [facility] Basic metabolic 2000 panelon 07-21-2025 Anion gap [Moles/Vol] 8 mmol/L 8 - 15 mmol/L [facility] Calcium [Mass/Vol] 9.6 mg/dL 8.5 - 10. 2 mg/dL [facility] Chloride [Moles/Vol] 105 mmol/L 98 - 10 7 mmol/L [facility] CO2 [Moles/Vol] 27 mmol/L 22 - 30 mmol/L [facility] Creatinine [Mass/Vol] 0.90 mg/dL 0.58 - 0.96 mg/dL [facility] GFR/1.73 sq M.predicted among non-blacks MDRD (S/P/Bld) [Vol rate/Area] 69 mL/min/{1.73_m2} - [facility] Comment on above: Estimated Glomerular Filtration Rate (eGFR) is calculated using the 2020 CKD-EPI creatinine equation. This equation utilizes serum creatinine, sex, and age as parameters. The creatinine assay has traceable calibration to isotope dilution-mass spectrometry. Refer to KDIGO guidelines for clinical interpretation. In patients with unstable renal function, e.g. those with acute kidney injury, the eGFR may not accurately reflect actual GFR. Glucose [Mass/Vol] 65 mg/dL Low 74 - 99 mg/dL [facility] Comment on above: The [place] Diab[employer] s Association (ADA) provides guidance for cutoff values for fasting glucose and random glucose. The ADA defines fasting as no caloric intake for at least 8 hours. Fasting plasma glucose results between 100 to 125 mg/dL indicate increased risk for diabetes (prediabetes). Fasting plasma glucose results greater than or equal to 126 mg/dL meet the criteria for diagnosis of diabetes. In the absence of unequivocal hyperglycemia, results should be confirmed by repeat testing. In a patient with classic symptoms of hyperglycemia or hyperglycemic crisis, random plasma glucose results greater than or equal to 200 mg/dL meet the criteria for diagnosis of diabetes. Reference: Standards of Medical Care in Diabetes 2016, [place] Diabetes Association. Diabetes Care. 2016.39(Suppl 1). Interpretation and review of laboratory results Abnormal [facility] Potassium [Moles/Vol] 4.0 mmol/L 3.7 - 5.1 mmol/L [facility] Sodium [Moles/Vol] 140 mmol/L 136 - 144 mmol/L [facility] Urea nitrogen [Mass/Vol] 8 mg/dL 7 - 21 mg/dL [facility] Anion gap [Moles/Vol] 8 mmol/L Normal 8-15 [facility] Comment on above: Order Comment: Speci men Type: BLOOD SPECIMENOrdering Facility: [facility] Address: [address] [place] [address] Performed By: #### 2 4321-2 ####[facility] LABORATORYCLIA [id number] [place] [address] [place] Calcium [Mass/Vol] 9.6 mg/dL Normal 8.5-10.2 [facility] Comment on above: Order Comment: Speci men Type: BLOOD SPECIMENOrdering Facility: [facility] Address: [address] [place] [address] Performed By: #### 2 4321-2 ####[facility] LABORATORYCLIA [id number] [place] [address] [place] Chloride [Moles/Vol] 105 mmol/L Normal 98-107 [facility] Comment on above: Order Comment: Speci men Type: BLOOD SPECIMENOrdering Facility: [facility] Address: [address] [place] [address] Performed By: #### 2 4321-2 ####[facility] LABORATORYCLIA [id number] OF [facility] CO2 [Moles/Vol] 27 mmol/L Normal 22-30 [facility] Comment on above: Order Comment: Speci men Type: BLOOD SPECIMENOrdering Facility: [facility] Address: [address] [place] [address] Performed By: #### 2 4321-2 ####[facility]ORATORYCLIA [id number] [address] [place] Creatinine [Mass/Vol] 0.90 mg/dL Normal 0.58-0.96 [facility] Comment on above: Order Comment: Speci men Type: BLOOD SPECIMENOrdering Facility: [facility] Address: [address] [place] [address] Performed By: #### 2 4321-2 ####[facility] LABORATORYCLIA [id number] [address] [place] eGFRcr SerPlBld CKD-EPI 2020 69 mL/min/1.73m??? Normal >=60 [facility] Comment on above: Order Comment: Speci men Type: BLOOD SPECIMENOrdering Facility: [facility] Address: [address] [place] [address] Result Comment: Sarah mated Glomerular Filtration Rate (eGFR) is calculated using the 2020 CKD-EPI creatinine equation. This equation utilizes serum creatinine, sex, and age as parameters. The creatinine assay has traceable calibration to isotope dilution-mass spectrometry. Refer to KDIGO guidelines for clinical interpretation. In patients with unstable renal function, e.g. those with acute kidney injury, the eGFR may not accurately reflect actual GFR. Performed By: #### 2 4321-2 ####[facility]ORATORYCLIA [id number] [address] [place] Glucose [Mass/Vol] 65 mg/dL Low 74-99 [facility] Comment on above: Order Comment: Lucianoi men Type: BLOOD SPECIMENOrdering Facility: [facility] Address: [address] [place] [address] Result Comment: The [place] Diabetes Association (ADA) provides guidance for cutoff values for fasting glucose and random glucose. The ADA defines fasting as no caloric intake for at least 8 hours. Fasting plasma glucose results between 100 to 125 mg/dL indicate increased risk for diabetes (prediabetes). Fasting plasma glucose results greater than or equal to 126 mg/dL meet the criteria for diagnosis of diabetes. In the absence of unequivocal hyperglycemia, results should be confirmed by repeat testing. In a patient with classic symptoms of hyperglycemia or hyperglycemic crisis, random plasma glucose results greater than or equal to 200 mg/dL meet the criteria for diagnosis of diabetes. Reference: Standards of Medical Care in Diabetes 2016, [place] Diabetes Association. Diabetes Care. 2016.39(Suppl 1). Performed By: #### 2 4321-2 ####[facility]ORATORYCLIA [id number] [address] STATES OF [facility] Potassium [Moles/Vol] 4.0 mmol/L Normal 3.7-5.1 [facility] Comment on above: Order Comment: Speci men Type: BLOOD SPECIMENOrdering Facility: [facility] Address: [address] [place] [address] Performed By: #### 2 1-2 ####[facility] [id number] [address] STATES [facility] Sodium [Moles/Vol] 140 mmol/L Normal 136-144 [facility] Comment on above: Order Comment: Lucianoi malron Type: BLOOD SPECIMENOrdering Facility: [facility] Address: [address] [place] [address] Performed By: #### 2 4321-2 ####[facility] [id number] [address] STATES [facility] Urea nitrogen [Mass/Vol] 8 mg/dL Normal 7-21 [facility] Comment on above: Order Comment: Speci men Type: BLOOD SPECIMENOrdering Facility: [facility] Address: [address] [place] [address] Performed By: #### 2 4321-2 ####[facility] LABORATORYCLIA [id number] [address] [place] CBC panel Auto (Bld)on 07-21 Erythrocyte distribution width (RBC) [Ratio] 13.4 % 11.5 - 15.0 % [facility] Hematocrit (Bld) [Volume fraction] 41.2 % 36.0 - 46.0 % [facility] Hemoglobin (Bld) [Mass/Vol] 13.9 g/dL 11.5 - 15.5 g/dL [facility] Interpretation and review of laboratory results Normal [facility] MCH (RBC) [Entitic mass] 30.8 pg 26. 0 - 34.0 pg [facility] MCHC (RBC) [Mass/Vol] 33.7 g/dL 30.5 - 36.0 g/dL [facility] MCV (RBC) [Entitic vol] 91.4 fL 80.0 - 100.0 fL [facility] Nucleated RBC (Bld) [#/Vol] NINF [facility] Platelet mean volume (Bld) [Entitic vol] 10.1 fL 9.0 - 12.7 fL [facility] Platelets (Bld) [#/Vol] 233 10*3/uL [facility] RBC (Bld) [#/Vol] 4.51 10*6/uL 3.90 - 5.2 0 m/uL [facility] WBC (Bld) [#/Vol] 9.67 10*3/uL [facility] Erythrocyte distribution width (RBC) [Ratio] 13.4 % Normal 11.5-15.0 [facility] Comment on above: Order Comment: Speci men Type: BLOOD SPECIMENOrdering Facility: [facility] Address: [address] [place] [address] Performed By: #### 5 8410-2 ####[facility]ORATORYCLIA [id number] [address] STATES OF [facility] Hematocrit (Bld) [Volume fraction] 41.2 % Normal 36.0-46.0 [facility] Comment on above: Order Comment: Speci men Type: BLOOD SPECIMENOrdering Facility: [facility] Address: [address] [place] [address] Performed By: #### 5 8410-2 ####[facility]ORATORYCLIA [id number] [address] [place] Hemoglobin (Bld) [Mass/Vol] 13.9 g/dL Normal 11.5-15.5 [facility] Comment on above: Order Comment: Speci men Type: BLOOD SPECIMENOrdering Facility: [facility] Address: [address] [place] [address] Performed By: #### 5 8410-2 ####[facility]ORATORYCLIA [id number] [address] MCH (RBC) [Entitic mass] 30.8 pg Normal 26.0-34.0 [facility] Comment on above: Order Comment: Speci men Type: BLOOD SPECIMENOrdering Facility: [facility] Address: [address] [place] [address] Performed By: #### 5 8410-2 ####[facility]ORATORYCLIA [id number] [address] MCHC (RBC) [Mass/Vol] 33.7 g/dL Normal 30.5-36.0 [facility] Comment on above: Order Comment: Speci men Type: BLOOD SPECIMENOrdering Facility: [facility] Address: [address] [place] [address] Performed By: #### 5 8410-2 ####[facility]ORATORYCLIA [id number] [address] MCV (RBC) [Entitic vol] 91.4 fL Normal 80.0-100.0 [facility] Comment on above: Order Comment: Speci men Type: BLOOD SPECIMENOrdering Facility: [facility] Address: [address] [place] [address] Performed By: #### 5 8410-2 ####[facility]ORATORYCLIA [id number] [address] Nucleated RBC (Bld) [#/Vol] 10*3/uL Normal <0.01 [facility] Comment on above: Order Comment: Speci men Type: BLOOD SPECIMENOrdering Facility: [facility] Address: [address] [place] [address] Performed By: #### 5 8410-2 ####[facility]ATORYCLIA [id number] [address] [place] Platelet mean volume (Bld) [Entitic vol] 10.1 fL Normal 9.0-12.7 [facility] Comment on above: Order Comment: Speci men Type: BLOOD SPECIMENOrdering Facility: [facility] Address: [address] [place] [address] Performed By: #### 5 8410-2 ####[facility]ATORYCLIA [id number] [address] [place] Platelets (Bld) [#/Vol] 233 10*3/uL Normal 150-400 [facility] Comment on above: Order Comment: Speci men Type: BLOOD SPECIMENOrdering Facility: [facility] Address: [address] [place] [address] Performed By: #### 5 8410-2 ####[facility]CL[facility] [id number] [address] STATES [facility] RBC (Bld) [#/Vol] 4.51 10*6/uL Normal 3.90-5.20 [facility] Comment on above: Order Comment: Speci men Type: BLOOD SPECIMENOrdering Facility: [facility] Address: [address] [place] [address] Performed By: #### 5 8410-2 ####[facility]ATORYCLIA [id number] [address] [place] WBC (Bld) [#/Vol] 9.67 10*3/uL Normal 3.70-11.00 [facility] Comment on above: Order Comment: Speci men Type: BLOOD SPECIMENOrdering Facility: [facility] Address: [address] [place] [address] Performed By: #### 5 8410-2 ####[facility]ORATORYCLIA [id number] [address] [place] CNOVSPon 07-21-2025 CNOVSP Visit (SP) Office (AJAYYNJANIE) JANET ORTIZ ([id number]) 1955 F Date Time Provider Department 07/21/25 1:00 PM DIGNA COLLADO During your visit today, we recorded the following information about you: Temperature Pulse Blood pressure Weight 97.7 degrees 76/minute 139/85 114.3 kg Height 1.575 m Digna Santoyo MD 07/21/2025 10:56 PM Signed Gynecologic Oncology Consultation Note [facility] Referring provider: Abbey Padilla MD Chief complaint: EIN HPI: This is a 70 year old patient with a history of T2DM, depression, HTN, HLD, cervical stenosis, sleep apnea referred for EIN. Patient initially presented to Dr. Padilla May 2025 for PMB. Had an EMB that showed EIN. TVUS that showed thickened endometrium, 14mm. Now with some spotting on her underwear 1-2 times a week in the morning. Has intermittent cramping that spontaneously resolves. Denies fever, chills, CP, Shortness of Breath, vomiting, changes to bowel or bladder habits. Is losing weight due to ozempic. Presents today with her ROS: 14 point ROS negative unless indicated in above HPI. Medical history: PAST MEDICAL HISTORY Diagnosis Date - Cervical spinal stenosis c5-c6 - Depression - Diabetes mellitus (HCC) - EIN (endometrial intraepithelial neoplasia) - Essential hypertension - High cholesterol - Hypothyroidism - PCOS (polycystic ovarian syndrome) - Sleep apnea Surgical history: PAST SURGICAL HISTORY Procedure Laterality Date - COLONOSCOPY 2021 5 year return - DANDC, DIAG AND/OR THERAPEUTIC 1990 - LIGATE FALLOPIAN TUBE 1990 - REMOVAL GALLBLADDER - REMV CATARACT EXTRACAP,INSERT LENS Bilateral 2023 - TOTAL KNEE REPLACEMENT Right 2016 Chief Administrative Officer history: , SVDx3, Sab x1 Family history: Family History Problem Relation Age of Onset - Heart Disease before age 55 Mother - Hypertension Mother - Lung fibrosis (HCC) Mother - Heart Disease before age 55 Father - Hypertension Father - Lung fibrosis (HCC) Father - Colon Cancer Maternal Grandmother 80 Social history: 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 Medications: Current Outpatient Medications Medication Sig Dispense Refill - metoprolol tartrate, short acting, (LOPRESSOR) 25 mg tablet - semaglutide (OZEMPIC) 1 mg/0.75 ml subcutaneous pen injector Semaglutide (Ozempic) 1 mg/dose (2 mg/1.5 mL) pen injector Active 1 MG SC EVERY WEEK December 28, 2020 9:42am - fluconazole (DIFLUCAN) 150 mg tablet TAKE 1 TABLET BY MOUTH EVERY 3 DAYS NEEDED - levothyroxine 150 mcg cap Take by mouth. - fluticasone (FLONASE) 50 mcg/actuation nasal spray Use in the nose. - glimepiride (AMARYL) 4 mg tablet 2 mg. - losartan (COZAAR) 50 mg tablet 100 mg. - omeprazole (PRILOSEC) 20 mg capsule Take by mouth. - pravastatin (PRAVACHOL) 40 mg tablet Take by mouth. - duloxetine hcl(CYMBALTA 60 MG CAP) Take 30 mg by mouth. 0 - ASPIRIN 81 MG CHEWABLE TAB 0 No current facility-administered medications for this visit. Healthcare maintenance: Colonoscopy: 2021, due 2026 Mammogram: normal 2024 Pap smear: 05/2025 BRYN, hx of abnormal paps PE: EGOG PS 0 BP 139/85 (BP Site: Left Arm, BP Position: Sitting, BP Cuff Size: Extra Large Adult) Pulse 76 Temp 36.5 ?C (97.7 ?F) (Oral) Ht 157.5 cm (5' 2") Wt 114.3 kg (252 lb) LMP 06/16/2009 SpO2 97% BMI 46.09 kg/m? Gen: well appearing, pleasant, in NAD Card: well perfused Resp: non-labored breathing on room air Abd: well healed laparoscopic incisions, soft, non-tender, no masses Pelvic: normal appearing external genitalia, vaginal mucosa and external os, no vulvar or cervical lesions, physiologic discharge present, bimanual without pelvic masses, cervical motion tenderness, adnexal tenderness or masses Performed by Dr. Marshall. 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 Participation of a fellow, resident, medical student, or advanced practice provider student in performing the sensitive examination was discussed with the patient or authorized field support representative. The patient or authorized field support representative has agreed to proceed with the sensitive examination. Labs/Imaging: TVUS 07/05/2025 Impression The uterus is anteverted and measures 80 mm x 45 mm x 51 mm. The endometrium is abnormally thickened and has minimal blood flow and measures 14 mm. The right ovary is not visualized. The left ovary is not visualized. There is no free fluid visualized. FINAL DIAGNOSIS A. Endometrium, biopsy - Atypical endometrial hyperplasia A/P: This is a 70 year old patient here for consultation for EIN. EIN - We reviewed the natural history of endometrial cancer and meaning of grade and stage. Discussed up to 40 % risk of endometrial cancer on final hysterectomy specimen. - Discussed that the gold standard for treatment is surgery although other options including hormone therapy . (more content not included)... Normal [facility] TYPE AND SCREEN,30 DAYon ABO group Nom (Bld) A [facility] Blood group antibody screen Ql Negative [facility] Rh Nom (Bld) Positive [facility] ABO A Normal [facility] Comment on above: Order Comment: Speci men Type: BLOOD SPECIMENOrdering Facility: [facility] Address: [address] [place] [address] Performed By: #### T SCR30 ####[facility] BANKCLIA [id number] [place] [address] [place] Rh Nom (Bld) Positive Normal [facility] Comment on above: Order Comment: Speci men Type: BLOOD SPECIMENOrdering Facility: [facility] Address: [address] [place] [address] Performed By: #### T SCR30 ####[facility] BLOOD BANKCLIA [id number] [place] [address] [place] US Pelvison 07-07-2025 Indication PMB Impression The uterus is anteverted and measures 80 mm x 45 mm x 51 mm. The endometrium is abnormally thickened and has minimal blood flow and measures 14 mm. The right ovary is not visualized. The left ovary is not visualized. There is no free fluid visualized. Recommendations Consider SIS for further evaluation of endometrial cavity if clinically indicated. Recommend endometrial sampling. Menstrual History Contraception: menopausal Method Transabdominal and transvaginal ultrasound examination, 3D ultrasound examination, Color Doppler examination. View: Adequate visualization Uterus Uterus: Visualized Uterus position: anteverted Description of uterine malformations: normally shaped Myometrium: heterogeneous Endometrium: thickened Cervix details: normal Uterus length 80 mm Uterus width 51 mm Uterus height 45 mm Uterus Vol 94.4 cm Endometrial thickness, total 14.0 mm Fibroids: No fibroids identified Polyps: No polyps identified Right Ovary Rt ovary: Not visualized Left Ovary Lt ovary: Not visualized Cul de Sac Visualized. no free fluid visualized Performed By: Noris Marr RDMS Read By: Tim Howell M.D. MATERNAL MEDICINE [facility] US Pelvison 07-05-2025 Radiology Study observation (narrative) [facility] CNPNon 06-28-2025 CNPN Telephone (OBGYWM) JANET ORTIZ ([id number]) 1955 F Date Time Provider Department 06/28/25 ABBEY PADILLA OBGYWM During your visit today, we recorded the following information about you: Abbey Padilla MD 06/28/2025 12:59 PM Signed Let patient know clerical coordinator oncology consult recommended. Keep pelvic US appointment. Dr. Santoyo's office in [place] will contact them to schedule. MD Leticia Beaulieu Jennifer, RN 06/28/2025 5:30 PM Signed Patient notified. [place] already called her and gave her an appointment. Will keep her US appointment. Alka Kelly RN Allergies As of Date: 06/28/2025 Noted Allergy Reaction DILTIAZEM 06/10/2003 Comments: cardizem PENICILLINS 06/10/2003 Comments: slough of colon Date Reviewed: 06/22/2025 Reviewed by: Abbey Padilla MD - Fully Assessed Primary Visit Diagnosis:Complex endometrial hyperplasia with atypia [N85.02] Order(s):CONSULT TO GYNECOLOGIC/ONCOLOGY [1519886] Order #: [id number]: 1 FUTURE Prescriptions as of 06/28/2025 - metoprolol tartrate, short acting, (LOPRESSOR) 25 mg tablet - semaglutide (OZEMPIC) 1 mg/0.75 ml subcutaneous pen injector Semaglutide (Ozempic) 1 mg/dose (2 mg/1.5 mL) pen injector Active 1 MG SC EVERY WEEK December 28, 2020 9:42am - fluconazole (DIFLUCAN) 150 mg tablet TAKE 1 TABLET BY MOUTH EVERY 3 DAYS NEEDED - levothyroxine 150 mcg cap Take by mouth. - fluticasone (FLONASE) 50 mcg/actuation nasal spray Use in the nose. - glimepiride (AMARYL) 4 mg tablet 2 mg. - losartan (COZAAR) 50 mg tablet 100 mg. - omeprazole (PRILOSEC) 20 mg capsule Take by mouth. - pravastatin (PRAVACHOL) 40 mg tablet Take by mouth. - duloxetine hcl(CYMBALTA 60 MG CAP) Take 30 mg by mouth. 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] 06/22/2025 Allergic rhinitis [J30.9] 06/22/2025 Essential (primary) hypertension [I10] 06/22/2025 GERD (gastroesophageal reflux disease) [K21.9] 06/22/2025 Hypercholesterolemia [E78.00] 06/22/2025 Hypothyroidism, unspecified [E03.9] 06/22/2025 Major depressive disorder, single episode, unsp*06/22/2025 Nontoxic multinodular goiter [E04.2] 06/22/2025 Encounter Status:Closed by ALKA KELLY on 06/28/25 Normal [facility] BACTERIAL VAGINOSIS NAATon 0 06-22-2025 Lactobacillus crispatus+gasseri+jensenii + Gardnerella vaginalis + Atopobium vaginae rRNA SOFIA+probe Ql (Vag fld) Not detected Normal Not detected [facility] Comment on above: Order Comment: Speci men Type: SWAB [facility] Address: [address] [place] [address] Performed By: #### C VTV, BVAMP #### [facility] CLIA [id number] [address] [place] [address] [place] JAE/TRICHOMONAS NAATon 0 06-22-2025 C. glabrata RNA SOFIA+probe Ql (Vag fld) Detected Abnormal Not detected [facility] Comment on above: Order Comment: Speci men Type: SWAB [facility] Address: [address] [place] [address] Performed By: #### C VTV, BVAMP #### [facility] CLIA [id number] [address] [place] [address] [place] Jae sp DNA SOFIA+probe Ql (Vag fld) Not detected Normal Not detected [facility] Comment on above: Order Comment: Speci men Type: SWAB [facility] Address: [address] [place] [address] Result Comment: The Jae species group target includes C. albicans, C. tropicalis, C. parapsilosis, and C. dubliniensis. Performed By: #### C VTV, BVAMP #### [facility] CLIA [id number] [address] [place] [address] [place] T. vaginalis DNA SOFIA+probe Ql (Unsp spec) Not detected Normal Not detected [facility] Comment on above: Order Comment: Speci men Type: SWAB [facility] Address: [address] [place] [address] Performed By: #### C VTV, BVAMP #### [facility] CLIA [id number] [address] [place] [address] [place] CNOVon 06-22-2025 CNOV Office Visit (OBGYWM ) OLGAJANET Jewel ([id number]) 1955 F Date Time Provider Department 06/22/25 2:40 PM ABBEY PADILLA OBBYRONWKashif During your visit today, we recorded the following information about you: Blood pressure Weight 132/88 115.7 kg Abbey Padilla MD 06/22/2025 3:44 PM Signed Obstetrics and Gynecology [place] DEPENDENCY COUNSELOR Visit Subjective Recording using [employer] software for draft documentation of the visit was discussed with the patient/authorized field support representative; all questions welcomed and answered. Patient/authorized field support representative agreed to proceed CHIEF COMPLAINT: The patient is a 70-year-old female with a history of chronic yeast infections, diabetes, and PCOS presenting for evaluation of postmenopausal bleeding. HPI: Postmenopausal Bleeding - Onset: Approximately 6 weeks ago - Description: Initially dark spotting on the pad, recently noticed bright red droplets of blood. - Associated Symptoms: Burning sensation, both vulvar and internal. - Denies: Cramping, bloating, or changes similar to menstrual cramps. - Wears a pad constantly due to urinary incontinence. Chronic Yeast Infections - History of chronic vaginal yeast infections for 7-8 years. - Last infection was about a month ago. - Self-treats with fluconazole, usually has about 20 tablets on hand. - Also uses boric acid once or twice a week to maintain vaginal pH balance, though hasn't used it in a couple of months. Urinary Incontinence - Initially started as stress incontinence, has worsened over the years. - Experiences leakage when coughing or sneezing, sometimes feels a trickle of urine. - Wears a pad constantly due to incontinence. - Denies urgency or inability to make it to the bathroom in time. Diabetes - Diagnosed with diabetes, currently well-controlled. - Recent HbA1c: 6.4% (2 weeks ago) - On Ozempic, experiences colon issues with diarrhea and gut ache. Past Medical History - PCOS: Required fertility pills for first . - PID: History of pelvic inflammatory disease off and on in early years. - Gestational Diabetes and Toxemia: During in 1989, baby was 6 weeks premature. - DANDC and Tubal Ligation: Performed in 1990 due to proliferative endometrium. - Cervical Procedure: Had a procedure on the cervix years ago, possibly a polyp removal or biopsy. Past Screenings - Pap Smears: Last Pap smear was 3-4 years ago in [place], performed by a nurse practitioner. Has had abnormal results in the past. 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 No pertinent family history. Social History Tobacco Use Smoking status: Never Smokeless tobacco: Never Vaping Use Vaping status: Never Used Substance Use Topics Alcohol use: No Drug use: No Current Outpatient Medications Medication Sig metoprolol tartrate, short acting, (LOPRESSOR) 25 mg tablet semaglutide (OZEMPIC) 1 mg/0.75 ml subcutaneous pen injector Semaglutide (Ozempic) 1 mg/dose (2 mg/1.5 mL) pen injector Active 1 MG SC EVERY WEEK December 28, 2020 9:42am fluconazole (DIFLUCAN) 150 mg tablet TAKE 1 TABLET BY MOUTH EVERY 3 DAYS NEEDED levothyroxine 150 mcg cap Take by mouth. fluticasone (FLONASE) 50 mcg/actuation nasal spray Use in the nose. glimepiride (AMARYL) 4 mg tablet 2 mg. losartan (COZAAR) 50 mg tablet 100 mg. omeprazole (PRILOSEC) 20 mg capsule Take by mouth. pravastatin (PRAVACHOL) 40 mg tablet Take by mouth. duloxetine hcl(CYMBALTA 60 MG CAP) Take 30 mg by mouth. ASPIRIN 81 MG CHEWABLE TAB amLODIPine (NORVASC) 5 mg tablet Take by mouth. (Patient not taking: Reported on 06/22/2025) Cholecalciferol, Vitamin D3, 50 mcg (2,000 unit) cap Take by mouth. (Patient not taking: Reported on 06/22/2025) OZEMPIC 0.25 mg or 0.5 mg(2 mg/1.5 mL) pen injector 0.5 mg. (Patient not taking: Reported on 06/22/2025) clotrimazole-betametha sone (LOTRISONE) cream Apply 1 application to affected area twice daily. (Patient not taking: Reported on 06/22/2025) ATENOLOL 50 MG TAB one in am and 1/2 at hs (Patient not taking: Reported on 06/22/2025) levothyroxine sodium(SYNTHROID 50 MCG T (more content not included)... Normal [facility] HIGH RISK HUMAN PAPILLOMA HAYLEE (HPV), PCR FOR DETECTION AND GENOTYPINGon 06-22-2025 HPV 16 Ag Ql (Unsp spec) Not detected Normal Not detected [facility] Comment on above: Order Comment: Speci men Type: FLUID SPECIMEN Ordering Facility: [facility] Address: [address] [place] [address] Performed By: #### H PVHRT #### [facility] CLIA [id number] [address] [place] [address] [place] HPV 18 Ag Ql (Unsp spec) Not detected Normal Not detected [facility] Comment on above: Order Comment: Speci men Type: FLUID SPECIMEN Ordering Facility: [facility] Address: [address] [place] [address] Performed By: #### H PVHRT #### [facility] CLIA [id number] [address] [place] [address] [place] HPV 31+33+35+39+45+51+52+56+58 +59+66+68 DNA SOFIA+probe Ql (Cvx) Not detected Normal Not detected [facility] Comment on above: Order Comment: Speci men Type: FLUID SPECIMEN Ordering Facility: [facility] Address: [address] [place] [address] Result Comment: High Risk HPV Other Type includes HPV types 31, 33, 35, 39, 45, 51, 52, 56, 58, 59, 66 and 68. Performed By: #### H PVHRT #### [facility] CLIA [id number] [address] [place] [address] [place] PAP TESTon 06-22-2025 ADEQUACY Satisfactory for interpretation. Normal [facility] Comment on above: Order Comment: Speci men Type: FLUID SPECIMEN Ordering Facility: [facility] Address: [address] [place] [address] Performed By: #### L [id number] #### [facility] CLIA [id number] [address] [place] [address] [place] CASE REPORT Normal [facility] Comment on above: Order Comment: Speci men Type: FLUID SPECIMEN Ordering Facility: [facility] Address: [address] [place] [address] Result Comment: Gyne cologic Cytology Report Case: [id number] Authorizing Provider: Abbey Padilla MD Collected: 06/22/2025 03:40 PM Ordering Location: OB/Gynecology Received: 06/23/2025 07:49 AM First Screen: Svetlana Jarrett, MAGDALENA, ASCP Pathologist: Jessica Beckham MD Specimen: Pap Test, ThinPrep, Cervix Performed By: #### L [id number] #### [facility] CLIA [id number] [address] [place] [address] [place] Order Comment: Speci men Type: TISSUE SPECIMEN Ordering Facility: [facility] Address: [address] [place] [address] Result Comment: Surg ical Pathology Report Case: [id number] Authorizing Provider: Abbey Padilla MD Collected: 06/22/2025 03:40 PM Ordering Location: OB/Gynecology Received: 06/22/2025 04:49 PM Pathologist: Nathaniel Keene MD Specimen: Endometrium, Biopsy Performed By: #### 6 6121-5 #### [facility] CLIA [id number] [address] [id number] [address] [place] CLINICAL HISTORY, CYTOLOGY, DEPENDENCY COUNSELOR Post Menopausal Normal [facility] Comment on above: Order Comment: Speci men Type: FLUID SPECIMEN Ordering Facility: [facility] Address: [address] [place] [address] Result Comment: 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 Performed By: #### L [id number] #### [facility] CLIA [id number] [address] [place] [address] [place] FINAL PERFORMING LAB Normal [facility] Comment on above: Order Comment: Speci men Type: FLUID SPECIMEN Ordering Facility: [facility] Address: [address] [place] [address] Result Comment: Tech nical component, phonograph needle tip maker screening performed at: [facility], [address] [place] [address] CLIA: [id number] Diagnostic interpretation performed at: [facility], [address] [place] [address] CLIA# [id number] Hog Feeder: Som Pastor MD Performed By: #### L [id number] #### [facility] CLIA [id number] [address] [place] [address] STATES [facility] Order Comment: Speci men Type: TISSUE SPECIMEN Ordering Facility: [facility] Address: [address] [place] [address] Result Comment: Diag nostic interpretation performed at: [facility], [address] [place], [place] [id number] CLIA# [id number] Hog Feeder: Som Pastor MD Performed By: #### 6 6121-5 #### [facility] CLIA [id number] [address] [place] [address] [place] INTERPRETATION, CYTOLOGY, DEPENDENCY COUNSELOR Abnormal [facility] Comment on above: Order Comment: Speci men Type: FLUID SPECIMEN Ordering Facility: [facility] Address: [address] [place] [address] Result Comment: Atyp ical glandular cells, endometrial type. at 1211 EDT Performed By: #### L [id number] #### [facility] CLIA [id number] [address] [place] [address] [place] PAP DISCLAIMER COMMENT The Pap Smear is a screening test for cervical cancer. False negative results occur with all screening tests, emphasizing the need for rescreening at recommended intervals, and clinical correlation. Normal [facility] Comment on above: Order Comment: Speci men Type: FLUID SPECIMEN Ordering Facility: [facility] Address: [address] [place] [address] Performed By: #### L [id number] #### [facility] CLIA [id number] [address] [place] [address] [place] PAP GENERAL CATEGORIZATION Epithelial Ce ll Abnormality Normal [facility] Comment on above: Order Comment: Speci men Type: FLUID SPECIMEN Ordering Facility: [facility] Address: [address] [place] [address] Performed By: #### L [id number] #### [facility] CLIA [id number] [address] [place] [address] [place] PAP HYDRAULIC ROCK 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 Following analysis, read of interest on the microscopic slide selected by the algorithm are reviewed by a grocery store associate. If a sample requires hierarchical review, the pathologist will review the same read of interest selected by the algorithm prior to final interpretation. Normal [facility] Comment on above: Order Comment: Speci men Type: FLUID SPECIMEN Ordering Facility: [facility] Address: [address] [place] [address] Performed By: #### L [id number] #### [facility] CLIA [id number] [address] [place] [address] [place] Pathology biopsy report Nikhil (Tiss)on 06-22-2025 AP DISCLAIMER Normal [facility] Comment on above: Order Comment: Speci men Type: TISSUE SPECIMEN Ordering Facility: [facility] Address: [address] [place] [address] Result Comment: Marysol hadley Developed Test (LDT) Disclaimer: Performance characteristics of immunohistochemical, immunofluorescent, and chromogenic in-situ hybridization tests have been determined by the performing laboratory within [facility] Medicine Department ([facility], [facility], [facility], [facility], [facility], [facility], or [facility]) in a manner consistent with CLIA requirements. One or more of these tests may not have been cleared or approved by the FDA. [facility] is regulated under CLIA as qualified to perform high-complexity testing. These tests are used for clinical purposes. These should not be regarded as investigational or for research. Positive and negative controls stain appropriately. 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 Kaela ndometrium, biopsy - Atypical endometrial hyperplasia at 1628 EDT Performed By: #### 6 6121-5 #### [facility] CLIA [id number] [address] [place] [address] [place] GROSS DESCRIPTION [facility] Comment on above: Order Comment: Speci men Type: TISSUE SPECIMEN Ordering Facility: [facility] Address: [address] [place], [place] [address] [place], [place] [address] Result Comment: A. E ndometrium, Biopsy Received in formalin are multiple zimmer-pink to red-brown soft feathery segments of tissue admixed with hemorrhagic and mucinous material aggregating to 2.8 x 2.7 x 0.3 cm. Totally submitted in one cassette. Gross examination performed at [facility], [address] [place] [address], [place] [address] JT 06/22/2025 9:00 PM Performed By: #### 6 6121-5 #### [facility] CLIA [id number] [address] [place] [address] [place] Anion gap in Serum or Plasma Ordered By: Kisha Han on 06-02-2025 Anion gap [Moles/Vol] 12 mmol/L 5-15 [facility] BUN/creatinine ratioOrdered By: Kisha Han on 06-02-2025 Urea nitrogen/Creatinine [Mass ratio] 10.3 mg/mg 10- [facility] Bilirubin, totalOrdered By: Kisha Han on 06-02-2025 Bilirubin [Mass/Vol] 0.37 mg/dL 0.00-1.30 [facility] Calculated very low density lipoprotein (VLDL) cholesterol measurementOrdered By: Kisha Han on 06-02-2025 Calculated very low density lipoprotein (VLDL) cholesterol measurement 29 mg/dL -40 [facility] Carbon dioxide, total [Moles /volume] in Central venous bloodOrdered By: Kisha Han on 06-02-2025 CO2 [Moles/Vol] 23.3 mmol/L 21.0-32.0 [facility] Chloride assayOrdered By: Xuan Han on 06-02-2025 Chloride [Moles/Vol] 104 mmol/L 98-108 [facility] Comprehensive Metabolic Prof ilon 06-02-2025 Albumin [Mass/Vol] 3.9 g/dL Normal 3.4-4.8 [facility] Comment on above: Performed By: #### L 501.9520, L3400.4000, L3300.1100, L801.1541, L500.4050 #### [facility] [address] [place], [address] Albumin/Globulin [Mass ratio] 1.2 {ratio} Normal 0.9-2.4 [facility] Comment on above: Performed By: #### L 501.9520, L3400.4000, L3300.1100, L801.1541, L500.4050 #### [facility] [address] [place], [address] ALK PHOS 96 U/L Normal 35-104 [facility] Comment on above: Performed By: #### L 501.9520, L3400.4000, L3300.1100, L801.1541, L500.4050 #### [facility] [address] [place], [address] ALT [Catalytic activity/Vol] 18 U/L Normal <=34 [facility] Comment on above: Performed By: #### L 501.9520, L3400.4000, L3300.1100, L801.1541, L500.4050 #### [facility] [address] [place], [address] AST [Catalytic activity/Vol] 21 U/L Normal <=31 [facility] Comment on above: Performed By: #### L 501.9520, L3400.4000, L3300.1100, L801.1541, L500.4050 #### [facility] [address] [place], [address] Bilirubin [Mass/Vol] 0.37 mg/dL Normal 0.00-1.30 [facility] Comment on above: Performed By: #### L 501.9520, L3400.4000, L3300.1100, L801.1541, L500.4050 #### [facility] [address] [place], [address] BUN/CRE 10.3 RATIO Normal 10-20 [facility] Comment on above: Performed By: #### L 501.9520, L3400.4000, L3300.1100, L801.1541, L500.4050 #### [facility] [address] [place], [address] Calcium [Mass/Vol] 9.2 mg/dL Normal 7.6-11.0 [facility] Comment on above: Performed By: #### L 501.9520, L3400.4000, L3300.1100, L801.1541, L500.4050 #### [facility] [address] [place], [address] Chloride [Moles/Vol] 104 mmol/L Normal 98-108 [facility] Comment on above: Performed By: #### L 501.9520, L3400.4000, L3300.1100, L801.1541, L500.4050 #### [facility] [address] [place], [address] CO2 [Moles/Vol] 23.3 mmol/L Normal 21.0-32.0 [facility] Comment on above: Performed By: #### L 501.9520, L3400.4000, L3300.1100, L801.1541, L500.4050 #### [facility] [address] [place], [address] Creatinine [Mass/Vol] 0.85 mg/dL Normal 0.70-1.20 [facility] Comment on above: Performed By: #### L 501.9520, L3400.4000, L3300.1100, L801.1541, L500.4050 #### [facility] [address] [place], [address] GAP 12 Normal 5-15 [facility] Comment on above: Performed By: #### L 501.9520, L3400.4000, L3300.1100, L801.1541, L500.4050 #### [facility] [address] [place], [address] GFR/1.73 sq M.predicted among non-blacks MDRD (S/P/Bld) [Vol rate/Area] 73 mL/min/{1.73_m2} Normal >60 [facility] Comment on above: Result Comment: mL/m in/1.73m2 CKD-EPI Creatinine Equation (2020) Performed By: #### L 501.9520, L3400.4000, L3300.1100, L801.1541, L500.4050 #### [facility] [address] [place], [address] Globulin (S) [Mass/Vol] 3.2 g/dL Normal 2.2-4.2 [facility] Comment on above: Performed By: #### L 501.9520, L3400.4000, L3300.1100, L801.1541, L500.4050 #### [facility] [address] [place], [address] Glucose [Mass/Vol] 117 mg/dL High 70-99 [facility] Comment on above: Performed By: #### L 501.9520, L3400.4000, L3300.1100, L801.1541, L500.4050 #### [facility] [address] [place], [address] Potassium [Moles/Vol] 3.9 mmol/L Normal 3.3-5.1 [facility] Comment on above: Performed By: #### L 501.9520, L3400.4000, L3300.1100, L801.1541, L500.4050 #### [facility] [address] [place], [address] Sodium [Moles/Vol] 139 mmol/L Normal 133-145 [facility] Comment on above: Performed By: #### L 501.9520, L3400.4000, L3300.1100, L801.1541, L500.4050 #### [facility] [address] [place], [address] T PROT 7.1 g/dL Normal 5.9-8.4 [facility] Comment on above: Performed By: #### L 501.9520, L3400.4000, L3300.1100, L801.1541, L500.4050 #### [facility] [address] [place], [address] Urea nitrogen [Mass/Vol] 9 mg/dL Normal 4-19 [facility] Comment on above: Performed By: #### L 501.9520, L3400.4000, L3300.1100, L801.1541, L500.4050 #### [facility] [address] [place], [address] Glomerular filtration rate ( GFR) estimation/1.73 sq m using serum, plasma, or whole bOrdered By: Kisha Han on 06-02-2025 GFR/1.73 sq M.predicted among non-blacks MDRD (S/P/Bld) [Vol rate/Area] 73 mL/min/{1.73_m2} >60 [facility] Comment on above: mL/min/1.73m2 CKD-EP I Creatinine Equation (2020) Hemoglobin A1con 06-02-2025 HbA1c (Bld) [Mass fraction] 6.4 % High <=5.6 [facility] Comment on above: Result Comment: Norm al < 5.7 % Prediabetic 5.7 - 6.4 % Diabetic >or= 6.5 % Please note range changes. Performed By: #### L 501.9520, L3400.4000, L3300.1100, L801.1541, L500.4050 #### [facility] [address] [place], [address] Hemoglobin A1c percentageOrd ered By: Kisha Han on 06-02-2025 HbA1c (Bld) [Mass fraction] 6.4 % High <5.7 [facility] Comment on above: Normal < 5.7 % Predi abetic 5.7 - 6.4 % Diabetic >or= 6.5 % Please note range changes. LDL calc ser/plasOrdered By: Kisha Han on 06-02-2025 Cholesterol in LDL [Mass/Vol] 68 mg/dL [facility] Comment on above: Oiizkdhtqr=066-580 m g/dL & Higher Taca=062 mg/dL or greater Laboratory - Chemistry and C hemistry - challengeOrdered By: Kisha Han on 06-02-2025 AST [Catalytic activity/Vol] 21 U/L <32 [facility] Lipid Profileon 06-02-2025 CHOL:HDL 3.[address] [facility] Comment on above: Performed By: #### L 501.9520, L3400.4000, L3300.1100, L801.1541, L500.4050 #### [facility] [address] [place], [address] Cholesterol [Mass/Vol] 142 mg/dL Normal <=200 [facility] Comment on above: Result Comment: Chol esterol level, Desirable <200 mg/dL Borderline high cholesterol 200-239 mg/dL High cholesterol >=240 mg/dL Recommendations of the NCEP Adult Treatment Panel for the following risk-cutoff thresholds for the [place] population. Performed By: #### L 501.9520, L3400.4000, L3300.1100, L801.1541, L500.4050 #### [facility] [address] [place], [address] Cholesterol in HDL [Mass/Vol] 46 mg/dL Normal [facility] Comment on above: Result Comment: [place] onal Cholesterol Education Program (NCEP) guidelines: <40 mg/dL: Low HDL-cholesterol (major risk factor for CHD) >= 60 mg/dL: High HDL-cholesterol (negative risk factor for CHD) HDL-cholesterol is affected by a number of factors, e.g. smoking, exercise, hormones, sex and age. Performed By: #### L 501.9520, L3400.4000, L3300.1100, L801.1541, L500.4050 #### [facility] [address] [place], [address] Cholesterol in LDL [Mass/Vol] 68 mg/dL Normal [facility] Comment on above: Result Comment: Bord rvylvx=283-974 mg/dL Higher Sbtt=500 mg/dL or greater Performed By: #### L 501.9520, L3400.4000, L3300.1100, L801.1541, L500.4050 #### [facility] [address] [place], [address] Cholesterol in VLDL [Mass/Vol] 29 mg/dL Normal 5-40 [facility] Comment on above: Performed By: #### L 501.9520, L3400.4000, L3300.1100, L801.1541, L500.4050 #### [facility] [address] [place], [address] Triglyceride [Mass/Vol] 145 mg/dL Normal [facility] Comment on above: Result Comment: The drugs N-Acetylcysteine and Metamizole may falsely depress this assay. Normal range: <150 mg/dL Borderline High: 150-199 mg/dL High: 200-499 mg/dL Very High: >500 mg/dL Performed By: #### L 501.9520, L3400.4000, L3300.1100, L801.1541, L500.4050 #### [facility] [address] [place], [address] Potassium measurement (mass/ volume)Ordered By: Kisha Han on 06-02-2025 Potassium (Unsp spec) [Mass/Vol] 3.9 mmol/L 3.3-5.1 [facility] Screening total cholesterol/ high density lipoprotein (HDL) cholesterol ratioOrdered By: Kisha Han on 06-02-2025 Cholesterol.total/Choleste rol in HDL [Mass ratio] 3.12 {ratio} [facility] Serum creatinine measurement (mass/volume)Ordered By: Kisha Han on 06-02-2025 Creatinine [Mass/Vol] 0.85 mg/dL 0.70-1.20 [facility] Serum globulin measurementOr dered By: Kisha Han on 06-02-2025 Globulin (S) [Mass/Vol] 3.2 g/dL 2.2-4.2 [facility] [facility] Serum glucose measurement (m ass/volume)Ordered By: Kisha Han on 06-02-2025 Glucose [Mass/Vol] 117 mg/dL High 70-99 [facility] Serum or plasma alanine rosa otransferase (ALT) measurementOrdered By: Kisha Han on 06-02-2025 ALT [Catalytic activity/Vol] 18 U/L <35 [facility] Serum or plasma albumin mini urement (mass/volume)Ordered By: Kisha Han on 06-02-2025 Albumin [Mass/Vol] 3.9 g/dL 3.4-4.8 [facility] Serum or plasma albumin/glob ulin mass ratioOrdered By: Kisha Han on 06-02-2025 Albumin/Globulin [Mass ratio] 1.2 {ratio} 0.9-2.4 [facility] Serum or plasma alkaline dann sphatase measurementOrdered By: Kisha Han on 06-02-2025 ALP [Catalytic activity/Vol] 96 U/L 35-104 [facility] Serum or plasma calcium mini urement (mass/volume)Ordered By: Kisha Han on 06-02-2025 Calcium [Mass/Vol] 9.2 mg/dL 7.6-11.0 [facility] Serum or plasma cholesterol in HDL measurement (mass/volume)Ordered By: Kisha Han on 06-02-2025 Cholesterol in HDL [Mass/Vol] 46 mg/dL >40 [facility] Comment on above: National Cholesterol Education Program (NCEP) guidelines:<40 mg/dL: Low HDL-cholesterol (major risk factor for CHD)>= 60 mg/dL: High HDL-cholesterol (negative risk factor for CHD)HDL-cholesterol is affected by a number of factors, e.g. smoking, exercise, hormones, sex and age. Serum or plasma cholesterol measurement (mass/volume)Ordered By: Kisha Han on 06-02-2025 Cholesterol [Mass/Vol] 142 mg/dL <201 [facility] Comment on above: Cholesterol level, D esirable <200 mg/dLBorderline high cholesterol 200-239 mg/dLHigh cholesterol >=240 mg/dLRecommendations of the NCEP Adult Treatment Panel for the following risk-cutoff thresholds for the [place] population. Serum or plasma urea nitroge n measurement (mass/volume)Ordered By: Kisha Han on 06-02-2025 Urea nitrogen [Mass/Vol] 9 mg/dL 4-19 [facility] Sodium levelOrdered By: Obdulio Han on 06-02-2025 Sodium [Moles/Vol] 139 mmol/L 133-145 [facility] T4 Free Directon 06-02-2025 T4 FREE DIRECT 1.40 ng/dL Normal 0.76-1.46 [facility] Comment on above: Performed By: #### L 501.9520, L3400.4000, L3300.1100, L801.1541, L500.4050 #### [facility] [address] [place], [place], [id number] T4 freeOrdered By: Kisha davidson on 06-02-2025 Free T4 [Mass/Vol] 1.40 ng/dL 0.76-1.46 [facility] TSH DL <= 0.005 mIU/L QnOrde red By: Kisha Han on 06-02-2025 TSH Qn 1.910 uIU/mL 0.300-4.200 [facility] Thyroid Stim Hormone (TSH)on 06-02-2025 TSH 1.910 uIU/mL Normal 0.300-4.200 [facility] Comment on above: Performed By: #### L 501.9520, L3400.4000, L3300.1100, L801.1541, L500.4050 #### [facility] [address] [place], [place], [id number] Total proteinOrdered By: Lilly patrick Guille on 06-02-2025 Protein [Mass/Vol] 7.1 g/dL 5.9-8.4 [facility] Triglycerides measurementOrd ered By: Kisha Guille on 06-02-2025 Triglyceride [Mass/Vol] 145 mg/dL <199 [facility] Comment on above: The drugs N-Acetylcy steine and Metamizole may falsely depress this assay. Normal range: <150 mg/dLBorderline High: 150-199 mg/dLHigh: 200-499 mg/dLVery High: >500 mg/dL Albumin DL <= 20 mg/L (U) [M ass/Vol]Ordered By: KAZ MCGEE on 02-15-2025 Urine Random Microalbumin 73.0 mg/L NO RANGE EST. [facility] Anion gap in Serum or Plasma Ordered By: KAZ MCGEE on 02-15-2025 Anion gap [Moles/Vol] 11 mmol/L 5-15 [facility] BUN/creatinine ratioOrdered By: KAZ MCGEE on 02-15-2025 Urea nitrogen/Creatinine [Mass ratio] 13.7 mg/mg 10-20 [facility] Bilirubin, totalOrdered By: KAZ MCGEE on 02-15-2025 Bilirubin [Mass/Vol] 0.48 mg/dL 0.00-1.30 [facility] Carbon dioxide, total [Moles /volume] in Central venous bloodOrdered By: KAZ MCGEE on 02-15-2025 CO2 [Moles/Vol] 24.2 mmol/L 21.0-32.0 [facility] Chloride assayOrdered By: BIPIN MCGEE on 02-15-2025 Chloride [Moles/Vol] 102 mmol/L 98-108 [facility] Comprehensive Metabolic Prof ilon 02-15-2025 Albumin [Mass/Vol] 3.9 g/dL Normal 3.4-4.8 [facility] Comment on above: Performed By: #### L 501.1127, L3400.4000, L3300.1100, L801.1541, L500.4050 #### [facility] [place], [address] Albumin/Globulin [Mass ratio] 1.1 {ratio} Normal 0.9-2.4 [facility] Comment on above: Performed By: #### L 501.9520, L3400.4000, L3300.1100, L801.1541, L500.4050 #### [facility] [address] [place], [address] ALK PHOS 108 U/L High 35-104 [facility] Comment on above: Performed By: #### L 501.9520, L3400.4000, L3300.1100, L801.1541, L500.4050 #### [facility] [address] [place], [address] ALT [Catalytic activity/Vol] 20 U/L Normal <=34 [facility] Comment on above: Performed By: #### L 501.9520, L3400.4000, L3300.1100, L801.1541, L500.4050 #### [facility] [address] [place], [address] AST [Catalytic activity/Vol] 24 U/L Normal <=31 [facility] Comment on above: Performed By: #### L 501.9520, L3400.4000, L3300.1100, L801.1541, L500.4050 #### [facility] [address] [place], [address] Bilirubin [Mass/Vol] 0.48 mg/dL Normal 0.00-1.30 [facility] Comment on above: Performed By: #### L 501.9520, L3400.4000, L3300.1100, L801.1541, L500.4050 #### [facility] [address] [place], [address] BUN/CRE 13.7 RATIO Normal 10-20 [facility] Comment on above: Performed By: #### L 501.9520, L3400.4000, L3300.1100, L801.1541, L500.4050 #### [facility] [address] [place], [address] Calcium [Mass/Vol] 9.5 mg/dL Normal 7.6-11.0 [facility] Comment on above: Performed By: #### L 501.9520, L3400.4000, L3300.1100, L801.1541, L500.4050 #### [facility] [address] [place], [address] Chloride [Moles/Vol] 102 mmol/L Normal 98-108 [facility] Comment on above: Performed By: #### L 501.9520, L3400.4000, L3300.1100, L801.1541, L500.4050 #### [facility] [address] [place], [address] CO2 [Moles/Vol] 24.2 mmol/L Normal 21.0-32.0 [facility] Comment on above: Performed By: #### L 501.9520, L3400.4000, L3300.1100, L801.1541, L500.4050 #### [facility] [address] [place], [address] Creatinine [Mass/Vol] 0.85 mg/dL Normal 0.70-1.20 [facility] Comment on above: Performed By: #### L 501.9520, L3400.4000, L3300.1100, L801.1541, L500.4050 #### [facility] [address] [place], [address] GAP 11 Normal 5-15 [facility] Comment on above: Performed By: #### L 501.9520, L3400.4000, L3300.1100, L801.1541, L500.4050 #### [facility] [address] [place], [address] GFR/1.73 sq M.predicted among non-blacks MDRD (S/P/Bld) [Vol rate/Area] 74 mL/min/{1.73_m2} Normal >60 [facility] Comment on above: Result Comment: mL/m in/1.73m2 CKD-EPI Creatinine Equation (2020) Performed By: #### L 501.9520, L3400.4000, L3300.1100, L801.1541, L500.4050 #### [facility] [address] [place], [address] Globulin (S) [Mass/Vol] 3.5 g/dL Normal 2.2-4.2 [facility] Comment on above: Performed By: #### L 501.9520, L3400.4000, L3300.1100, L801.1541, L500.4050 #### [facility] [address] [place], [address] Glucose [Mass/Vol] 125 mg/dL High 70-99 [facility] Comment on above: Performed By: #### L 501.9520, L3400.4000, L3300.1100, L801.1541, L500.4050 #### [facility] [address] [place], [address] Potassium [Moles/Vol] 4.1 mmol/L Normal 3.3-5.1 [facility] Comment on above: Performed By: #### L 501.9520, L3400.4000, L3300.1100, L801.1541, L500.4050 #### [facility] [address] [place], [address] Sodium [Moles/Vol] 137 mmol/L Normal 133-145 [facility] Comment on above: Performed By: #### L 501.9520, L3400.4000, L3300.1100, L801.1541, L500.4050 #### [facility] [address] [place], [address] T PROT 7.5 g/dL Normal 5.9-8.4 [facility] Comment on above: Performed By: #### L 501.9520, L3400.4000, L3300.1100, L801.1541, L500.4050 #### [facility] [address] [place], [address] Urea nitrogen [Mass/Vol] 12 mg/dL Normal 4-19 [facility] Comment on above: Performed By: #### L 501.9520, L3400.4000, L3300.1100, L801.1541, L500.4050 #### [facility] [address] [place], [address] GFR/1.73 sq M.predicted daniela g non-blacks MDRD (S/P/Bld) [Vol rate/Area]Ordered By: KAZ MCGEE on 02-15-2025 Estimated GFR (MDRD) Non-Af Amer [address] >60 [facility] Comment on above: mL/min/1.73m2 CKD-EP I Creatinine Equation (2020) Glomerular filtration rate ( GFR) estimation/1.73 sq m using serum, plasma, or whole bOrdered By: KAZ MCGEE on 02-15-2025 GFR/1.73 sq M.predicted among non-blacks MDRD (S/P/Bld) [Vol rate/Area] 74 mL/min/{1.73_m2} >60 [facility] Comment on above: mL/min/1.73m2 CKD-EP I Creatinine Equation (2020) Hemoglobin A1con 02-15-2025 HbA1c (Bld) [Mass fraction] 6.3 % Normal <=5.6 [facility] Comment on above: Performed By: #### L 501.9520, L3400.4000, L3300.1100, L801.1541, L500.4050 #### [facility] [address] [place], [address] Hemoglobin A1c percentageOrd ered By: KAZ MCGEE on 02-15-2025 HbA1c (Bld) [Mass fraction] 6.3 % >5.7 [facility] L506.1001on 02-15-2025 Vitamin D 25-OH 36.1 ng/mL Normal 30-100 [facility] Comment on above: Result Comment: Elena min D Status Deficiency: <20 ng/mL (50nmol/L) Insufficiency: 20-30 ng/mL (50-75 nmol/L) Sufficiency: 30-100 ng/mL (75-250 nmol/L) Toxicity: >100 ng/mL (>250 nmol/L) Performed By: #### L 501.9520, L3400.4000, L3300.1100, L801.1541, L500.4050 #### [facility] [address] [place], [address] Laboratory - Chemistry and C hemistry - challengeOrdered By: KAZ MCGEE on 02-15-2025 AST [Catalytic activity/Vol] 24 U/L <32 [facility] Microalbumin,Random Urineon 02-15-2025 MICROALBUMIN,UR 73.0 mg/L Normal NO RANGE EST. [facility] Comment on above: Performed By: #### L 501.9520, L3400.4000, L3300.1100, L801.1541, L500.4050 #### [facility] [address] [place], [address] Potassium (Unsp spec) [Mass/ Vol]Ordered By: KAZ MCGEE on 02-15-2025 Potassium [Moles/Vol] 4.1 mmol/L 3.3-5.1 [facility] Potassium measurement (mass/ volume)Ordered By: KAZ MCGEE on 02-15-2025 Potassium (Unsp spec) [Mass/Vol] 4.1 mmol/L 3.3-5.1 [facility] Serum creatinine measurement (mass/volume)Ordered By: KAZ MCGEE on 02-15-2025 Creatinine [Mass/Vol] 0.85 mg/dL 0.70-1.20 [facility] Serum globulin measurementOr dered By: KAZ MCGEE on 02-15-2025 Globulin (S) [Mass/Vol] 3.5 g/dL 2.2-4.2 [facility] Serum glucose measurement (m ass/volume)Ordered By: KAZ MCGEE on 02-15-2025 Glucose [Mass/Vol] 125 mg/dL High 70-99 [facility] Serum or plasma alanine rosa otransferase (ALT) measurementOrdered By: KAZ MCGEE on 02-15-2025 ALT [Catalytic activity/Vol] 20 U/L <35 [facility] Serum or plasma albumin mini urement (mass/volume)Ordered By: KAZ MCGEE on 02-15-2025 Albumin [Mass/Vol] 3.9 g/dL 3.4-4.8 [facility] Serum or plasma albumin/glob ulin mass ratioOrdered By: KAZ MCGEE on 02-15-2025 Albumin/Globulin [Mass ratio] 1.1 {ratio} 0.9-2.4 [facility] Serum or plasma alkaline dann sphatase measurementOrdered By: KAZ MCGEE on 02-15-2025 ALP [Catalytic activity/Vol] 108 U/L High 35-104 [facility] Serum or plasma calcium mini urement (mass/volume)Ordered By: KAZ MCGEE on 02-15-2025 Calcium [Mass/Vol] 9.5 mg/dL 7.6-11.0 [facility] Serum or plasma urea nitroge n measurement (mass/volume)Ordered By: KAZ MCGEE on 02-15-2025 Urea nitrogen [Mass/Vol] 12 mg/dL 4-19 [facility] Sodium levelOrdered By: RODRIGO MCGEE on 02-15-2025 Sodium [Moles/Vol] 137 mmol/L 133-145 [facility] TSH DL <= 0.005 mIU/L QnOrde red By: KAZ MCGEE on 02-15-2025 Thyroid Stimulating Hormone (TSH) 2.050 uIU/mL 0.300-4.200 [facility] TSH Qn 2.050 uIU/mL 0.300-4.200 [facility] Thyroid Stim Hormone (TSH)on 02-15-2025 TSH 2.050 uIU/mL Normal 0.300-4.200 [facility] Comment on above: Performed By: #### L 501.9520, L3400.4000, L3300.1100, L801.1541, L500.4050 #### [facility] [address] [place], [address] Total proteinOrdered By: DOMINGO MCGEE on 02-15-2025 Protein [Mass/Vol] 7.5 g/dL 5.9-8.4 [facility] Urine albumin measurement [facility] detection limit of 20 mg/L or less (mass/volume)Ordered By: KAZ MCGEE on 02-15-2025 Albumin DL <= 20 mg/L (U) [Mass/Vol] 73.0 mg/L NO RANGE EST. [facility] Vitamin D, 25-hydroxyOrdered By: KAZ MCGEE on 02-15-2025 Vitamin D 25-Hydroxy 36.1 ng/mL 30-100 [facility] Comment on above: Vitamin D StatusDefi ciency: <20 ng/mL (50nmol/L)Insufficiency: 20-30 ng/mL (50-75 nmol/L)Sufficiency: 30-100 ng/mL (75-250 nmol/L)Toxicity: >100 ng/mL (>250 nmol/L) SCRN MAMM (CAD)W/JOSE BILATo n 11-30-2024 SCRN MAMM (CAD)W/JOSE BILAT [facility] [address] [place] [address] SCRN MAMM (CAD)W/JOSE BILAT MR#: [id number] Acct: [id number] Name: JANET ORTIZ Rep #: [id number] : 1955 F 69 From: Mario muro MD PCP: Dr. Radha Chambers MD Status: REG CL Study: SCRN MAMM (CAD)W/JOSE BILAT Date of Exam: 06/17 Exam# [id number] Ordering Dr: Radha Chambers [place] [id number] MAMMOGRAPHY - BILATERAL SCREENING REASON FOR EXAM: [...] delay biopsy of a clinically suspicious abnormality. [id number] Electronically Signed: Mario Paulino MD at 12:40 EST , CC: Dr. Radha Chambers MD Facetor: Signed Normal [facility] Albumin to globulin ratioOrd ered By: Kisha Han on 11-15-2024 Albumin/Globulin [Mass ratio] 0.8 {ratio} Low 0.9-2.4 [facility] Bilirubin, totalOrdered By: Kisha Han on 11-15-2024 Bilirubin [Mass/Vol] 0.40 mg/dL 0.20-1.00 [facility] Comment on above: For patients on eltr ombopag therapy, use of Dimension Daniel TBIL is not recommended. Blood urea nitrogen (BUN)/cr eatinine ratioOrdered By: Kisha Han on 11-15-2024 Urea nitrogen/Creatinine [Mass ratio] 13.5 mg/mg 10-20 [facility] Carbon dioxide measurementOr dered By: Kisha Han on 11-15-2024 CO2 [Moles/Vol] 24.0 mmol/L 21.0-32.0 [facility] Chloride measurementOrdered By: Kisha Han on 11-15-2024 Chloride [Moles/Vol] 106 mmol/L 98-107 [facility] Comprehensive Metabolic Prof ilon 11-15-2024 Albumin [Mass/Vol] 3.2 g/dL Normal 3.2-5.0 [facility] Comment on above: Performed By: #### L 502.0250, L500.4100, L500.4050, L501.9985, L501.9520 #### [facility] [address] [place], [address] Albumin/Globulin [Mass ratio] 0.8 {ratio} Low 0.9-2.4 [facility] Comment on above: Performed By: #### L 502.0250, L500.4100, L500.4050, L501.9985, L501.9520 #### [facility] [address] [place], [address] ALK P 96 U/L Normal 45-117 [facility] Comment on above: Performed By: #### L 502.0250, L500.4100, L500.4050, L501.9985, L501.9520 #### [facility] [address] [place], [address] ALT [Catalytic activity/Vol] 23 U/L Normal 13-56 [facility] Comment on above: Performed By: #### L 502.0250, L500.4100, L500.4050, L501.9985, L501.9520 #### [facility] [address] [place], [address] AST [Catalytic activity/Vol] 19 U/L Normal 15-37 [facility] Comment on above: Result Comment: Mode rate Hemolysis, Result may be falsely increased. Performed By: #### L 502.0250, L500.4100, L500.4050, L501.9985, L501.9520 #### [facility] [address] [place], [address] Bilirubin [Mass/Vol] 0.40 mg/dL Normal 0.20-1.00 [facility] Comment on above: Result Comment: For patients on eltrombopag therapy, use of Dimension Daniel TBIL is not recommended. Performed By: #### L 502.0250, L500.4100, L500.4050, L501.9985, L501.9520 #### [facility] [address] [place], [address] BUN/CRE 13.5 RATIO Normal 10-20 [facility] Comment on above: Performed By: #### L 502.0250, L500.4100, L500.4050, L501.9985, L501.9520 #### [facility] [address] [place], [address] CA,Total 8.8 mg/dL Normal 8.5-10.1 [facility] Comment on above: Performed By: #### L 502.0250, L500.4100, L500.4050, L501.9985, L501.9520 #### [facility] [address] [place], [address] Chloride [Moles/Vol] 106 mmol/L Normal 98-107 [facility] Comment on above: Performed By: #### L 502.0250, L500.4100, L500.4050, L501.9985, L501.9520 #### [facility] [address] [place], [address] CO2 [Moles/Vol] 24.0 mmol/L Normal 21.0-32.0 [facility] Comment on above: Performed By: #### L 502.0250, L500.4100, L500.4050, L501.9985, L501.9520 #### [facility] [address] [place], [address] Creatinine [Mass/Vol] 0.89 mg/dL Normal 0.55-1.02 [facility] Comment on above: Result Comment: The validity of the calculated GFR GFRAA in patients over 70 years has not been determined. Clinical correlation is essential. Performed By: #### L 502.0250, L500.4100, L500.4050, L501.9985, L501.9520 #### [facility] [address] [place], [address] EST GFR - AA 81 mL/min Normal >60 [facility] Comment on above: Result Comment: Afri can [place] GFR Calc Performed By: #### L 502.0250, L500.4100, L500.4050, L501.9985, L501.9520 #### [facility] [address] [place], [address] GAP 6 Normal 5-15 [facility] Comment on above: Performed By: #### L 502.0250, L500.4100, L500.4050, L501.9985, L501.9520 #### [facility] [address] [place], [address] GFR/1.73 sq M.predicted among non-blacks MDRD (S/P/Bld) [Vol rate/Area] 67 mL/min/{1.73_m2} Normal >60 [facility] Comment on above: Result Comment: Non- GFR Calc Performed By: #### L 502.0250, L500.4100, L500.4050, L501.9985, L501.9520 #### [facility] [address] [place], [address] Globulin (S) [Mass/Vol] 4.2 g/dL Normal 2.2-4.2 [facility] Comment on above: Performed By: #### L 502.0250, L500.4100, L500.4050, L501.9985, L501.9520 #### [facility] [address] [place], [address] Glucose [Mass/Vol] 175 mg/dL High 74-106 [facility] Comment on above: Result Comment: Fast ing Glucose result greater than or equal to 126 mg/dL suggests DIABETES MELLITUS per A.D.A. criteria. Performed By: #### L 502.0250, L500.4100, L500.4050, L501.9985, L501.9520 #### [facility] [address] [place], [address] Potassium [Moles/Vol] 4.3 mmol/L Normal 3.5-5.1 [facility] Comment on above: Result Comment: Mode rate Hemolysis, Result may be falsely increased. Performed By: #### L 502.0250, L500.4100, L500.4050, L501.9985, L501.9520 #### [facility] [address] [place], [address] Sodium [Moles/Vol] 136 mmol/L Normal 136-145 [facility] Comment on above: Performed By: #### L 502.0250, L500.4100, L500.4050, L501.9985, L501.9520 #### [facility] [address] [place], [address] T PROT 7.4 g/dL Normal 6.4-8.2 [facility] Comment on above: Performed By: #### L 502.0250, L500.4100, L500.4050, L501.9985, L501.9520 #### [facility] [address] [place], [address] Urea nitrogen [Mass/Vol] 12 mg/dL Normal 7-18 [facility] Comment on above: Performed By: #### L 502.0250, L500.4100, L500.4050, L501.9985, L501.9520 #### [facility] [address] [place], [place], [address] Estimated glomerular filtrat ion rate (GFR) AmericanOrdered By: Kisha Han on 11-15-2024 Estimated GFR (MDRD) Amer 81 mL/min >60 [facility] Comment on above: GFR Calc Glomerular filtration rate ( GFR) estimationOrdered By: Kisha Han on 11-15-2024 Estimated GFR (MDRD) Non-Af Amer 67 mL/min >60 [facility] Comment on above: Non- GFR Calc Glucose measurementOrdered B y: Kisha Han on 11-15-2024 Glucose [Mass/Vol] 175 mg/dL High 74-106 [facility] Comment on above: Fasting Glucose resu lt greater than or equal to 126 mg/dL suggests DIABETES MELLITUS per A.D.A. criteria. Hemoglobin A1c percentageOrd ered By: Kisha Han on 11-15-2024 HbA1c (Bld) [Mass fraction] 7.0 % High 3.8-5.6 [facility] Comment on above: Normal < 5.7 % Predi abetic 5.7 - 6.4 % Diabetic >or= 6.5 % Please note range changes. Result Comment: Norm al < 5.7 % Prediabetic 5.7 - 6.4 % Diabetic >or= 6.5 % Please note range changes. Performed By: #### L 501.9520, L3400.4000, L3300.1100, L801.1541, L500.4050 #### [facility] [address] [place], [address] High density lipoprotein (HD L) measurementOrdered By: Kisha Han on 11-15-2024 Cholesterol in HDL [Mass/Vol] 55 mg/dL >40 [facility] Comment on above: The drugs N-Acetylcy steine and Metamizole may falsely depress this assay. Reference Range HDL <40 mg/dL Low HDL Cholesterol HDL >or= 60 mg/dL High HDL Cholesterol Laboratory - Chemistry and C hemistry - challengeOrdered By: Kisha Han on 11-15-2024 AST [Catalytic activity/Vol] 19 U/L 15-37 [facility] Comment on above: Moderate Hemolysis, Result may be falsely increased. Lipid Profileon 11-15-2024 Cholesterol [Mass/Vol] 158 mg/dL Normal 200 [facility] Comment on above: Result Comment: <200 mg/dL Desirable 200-240 mg/dL Borderline >240 mg/dL High Risk Performed By: #### L 502.0250, L500.4100, L500.4050, L501.9985, L501.9520 #### [facility] [address] [place], [address] Cholesterol in HDL [Mass/Vol] 55 mg/dL Normal [facility] Comment on above: Result Comment: The drugs N-Acetylcysteine and Metamizole may falsely depress this assay. Reference Range HDL <40 mg/dL Low HDL Cholesterol HDL >or= 60 mg/dL High HDL Cholesterol Performed By: #### L 502.0250, L500.4100, L500.4050, L501.9985, L501.9520 #### [facility] [address] [place], [address] Cholesterol in LDL [Mass/Vol] 80 mg/dL Normal 0-130 [facility] Comment on above: Performed By: #### L 502.0250, L500.4100, L500.4050, L501.9985, L501.9520 #### [facility] [address] [place], [address] Cholesterol in VLDL [Mass/Vol] 23 mg/dL Normal 5-40 [facility] Comment on above: Performed By: #### L 502.0250, L500.4100, L500.4050, L501.9985, L501.9520 #### [facility] [address] [place], [address] Triglyceride [Mass/Vol] 116 mg/dL Normal [facility] Comment on above: Result Comment: The drugs N-Acetylcysteine and Metamizole may falsely depress this assay. Serum Triglycerides Reference Interval Normal <150 mg/dL Borderline high 150 - 199 mg/dL High 200 - 499 mg/dL Very High > or = 500 mg/dL Performed By: #### L 502.0250, L500.4100, L500.4050, L501.9985, L501.9520 #### [facility] [address] [place], [address] Low density lipoprotein (LDL ) cholesterol measurementOrdered By: Kisha Han on 11-15-2024 Cholesterol in LDL [Mass/Vol] 80 mg/dL 0-130 [facility] Microalb:Creat Ratio,Random URon 11-15-2024 Creatinine [Mass/Vol] 254.00 mg/dL Normal NO RAN GE EST. [facility] Comment on above: Performed By: #### L 502.0250, L500.4100, L500.4050, L501.9985, L501.9520 #### [facility] [address] [place], [address] MALB:CRE 40.6 mg/g CRE High <30 mg/g CRE [facility] Comment on above: Performed By: #### L 502.0250, L500.4100, L500.4050, L501.9985, L501.9520 #### [facility] [address] [address] [place], [place], [id number] MICROALBUMIN,UR 103.0 mg/L Normal NO RANGE EST. [facility] Comment on above: Performed By: #### L 502.0250, L500.4100, L500.4050, L501.9985, L501.9533 #### [facility] [address] [place], [address] Potassium measurementOrdered By: Kisha Han on 11-15-2024 Potassium [Moles/Vol] 4.3 mmol/L 3.5-5.1 [facility] Comment on above: Moderate Hemolysis, Result may be falsely increased. Random urine microalbumin me asurementOrdered By: Kisha Han on 11-15-2024 Urine Random Microalbumin 103.0 mg/L NO RANGE EST. [facility] Serum anion gap measurementO rdered By: Kisha Han on 11-15-2024 Anion gap [Moles/Vol] 6 mmol/L 5-15 [facility] Serum globulin measurementOr dered By: Kisha Han on 11-15-2024 Globulin (S) [Mass/Vol] 4.2 g/dL 2.2-4.2 [facility] Serum or plasma alanine rosa otransferase (ALT) measurementOrdered By: Kisha Han on 11-15-2024 ALT [Catalytic activity/Vol] 23 U/L 13-56 [facility] Serum or plasma albumin mini urement (mass/volume)Ordered By: Kisha Han on 11-15-2024 Albumin [Mass/Vol] 3.2 g/dL 3.2-5.0 [facility] Serum or plasma alkaline dann sphatase measurementOrdered By: Kisha Han on 11-15-2024 ALP [Catalytic activity/Vol] 96 U/L 45-117 [facility] Serum or plasma calcium mini urement (mass/volume)Ordered By: Kisha Han on 11-15-2024 Calcium [Mass/Vol] 8.8 mg/dL 8.5-10.1 [facility] Serum or plasma cholesterol measurement (mass/volume)Ordered By: Kisha Han on 11-15-2024 Cholesterol [Mass/Vol] 158 mg/dL <200 [facility] Comment on above: <200 mg/dL Desirable 200-240 mg/dL Borderline >240 mg/dL High Risk Serum or plasma creatinine m easurement (mass/volume)Ordered By: Kisha Han on 11-15-2024 Creatinine [Mass/Vol] 0.89 mg/dL 0.55-1.02 [facility] Comment on above: The validity of the calculated GFR & GFRAA in patients over 70 years has not been determined. Clinical correlation is essential. Serum or plasma urea nitroge n measurement (mass/volume)Ordered By: Kisha Han on 11-15-2024 Urea nitrogen [Mass/Vol] 12 mg/dL 7-18 [facility] Sodium levelOrdered By: Obdulio Han on 11-15-2024 Sodium [Moles/Vol] 136 mmol/L 136-145 [facility] TSH QnOrdered By: Kisha ortiz on 11-15-2024 Thyroid Stimulating Hormone (TSH) 0.959 uIU/mL 0.358-3.740 [facility] Thyroid Stim Hormone (TSH)on 11-15-2024 TSH 0.959 uIU/mL Normal 0.358-3.740 [facility] Comment on above: Performed By: #### L 502.0250, L500.4100, L500.4050, L501.9985, L501.9520 #### [facility] [address] [place] [address]. [place], [place], [id number] Total proteinOrdered By: Lilly Han on 11-15-2024 Protein [Mass/Vol] 7.4 g/dL 6.4-8.2 [facility] Triglycerides measurementOrd ered By: Kisha Han on 11-15-2024 Triglyceride [Mass/Vol] 116 mg/dL <199 [facility] Comment on above: The drugs N-Acetylcy steine and Metamizole may falsely depress this assay.Serum Triglycerides Reference Interval Normal <150 mg/dL Borderline high 150 - 199 mg/dL High 200 - 499 mg/dL Very High > or = 500 mg/dL Urine albumin/creatinine rat io for detection of microalbuminuriaOrdered By: Kisha Han on 11-15-2024 Urine Microalbumin/Creatinine Ratio 40.6 mg/g CRE High <30 [facility] Urine creatinine measurement (mass/volume)Ordered By: Kisha Han on 11-15-2024 Creatinine (U) [Mass/Vol] 254.00 mg/dL NO RANGE EST. [facility] Very low density lipoprotein (VLDL) cholesterol measurementOrdered By: Kisha Han on 11-15-2024 VLDL Cholesterol 23 mg/dL 5-40 [facility] Aldosterone, Serumon 024 ALDOSTERONE,S 2.7 ng/dL Normal 0.0-30.0 [facility] Comment on above: Order Comment: Test( s) 729205-[id number] Activity, Plasma was developed and its performance characteristics determined by [employer]. It has not been cleared or approved by the Food and Drug Administration. Result Comment: Perf ormed at: [address] [id number] Senior Service Technician: Davis Strickland MD, Phone: [phone] Performed By: #### L 501.2401, L3400.4000, L3300.1100, L801.1541, L500.6890 #### [facility] [address] [place], [address] Miscellaneous Lab Procedureo n 08-30-2024 [facility] LAB TEST Normal [facility] Comment on above: Order Comment: METAN PHRINES/FRAC/FREE [id number] RF EDTA Result Comment: TEST RESULTS LIMITS Metanephrines, Frac., Pl. Free Normetanephrine, Pl, 64.2 pg/mL 0.0-285.2 Metanephrine, Pl, <25.0 pg/mL 0.0-88.0 TESTING PERFORMED AT [facility]. ORIGINAL REPORT ON FILE IN LAB CONTAINS ADDITIONAL TEST SITE INFORMATION. Performed By: #### L 501.9520, L3400.4000, L3300.1100, L801.1541, L500.4050 #### [facility] [address] [place], [address] Renin, Plasmaon 08-30-2024 RENIN, PLASMA 1.134 ng/mL/hr Normal 0.167-5.380 [facility] Comment on above: Order Comment: Test( s) [id number] Activity, Plasma was developed and its performance characteristics determined by [employer]. It has not been cleared or approved by the Food and Drug Administration. Performed By: #### L 501.9520, L3400.4000, L3300.1100, L801.1541, L500.4050 #### [facility] [address] [place], [address] CORTISOL SERUMon 08-27-2024 CORTISOL 0.90 ug/dL Low 3.44-22.45 [facility] Comment on above: Result Comment: Adul t (AM) 5.27 - 22.45 ug/dL Adult (PM) 3.44 - 16.76 ug/dL Performed By: #### L 509.6000 #### [facility] [address] [place], [address] Comprehensive Metabolic Prof ilon 08-24-2024 Albumin [Mass/Vol] 3.5 g/dL Normal 3.2-5.0 [facility] Comment on above: Performed By: #### L 501.9520, L3400.4000, L3300.1100, L801.1541, L500.4050 #### [facility] [address] [place], [address] Albumin/Globulin [Mass ratio] 0.9 {ratio} Normal 0.9-2.4 [facility] Comment on above: Performed By: #### L 501.9520, L3400.4000, L3300.1100, L801.1541, L500.4050 #### [facility] [address] [place], [address] ALK P 95 U/L Normal 45-117 [facility] Comment on above: Performed By: #### L 501.9520, L3400.4000, L3300.1100, L801.1541, L500.4050 #### [facility] [address] [place], [address] ALT [Catalytic activity/Vol] 19 U/L Normal 13-56 [facility] Comment on above: Performed By: #### L 501.9520, L3400.4000, L3300.1100, L801.1541, L500.4050 #### [facility] [address] [place], [address] AST [Catalytic activity/Vol] 14 U/L Low 15-37 [facility] Comment on above: Performed By: #### L 501.9520, L3400.4000, L3300.1100, L801.1541, L500.4050 #### [facility] [address] [place], [address] Bilirubin [Mass/Vol] 0.90 mg/dL Normal 0.20-1.00 [facility] Comment on above: Result Comment: For patients on eltrombopag therapy, use of Dimension Daniel TBIL is not recommended. Performed By: #### L 501.9520, L3400.4000, L3300.1100, L801.1541, L500.4050 #### [facility] [address] [place], [address] BUN/CRE 11.4 RATIO Normal 10-20 [facility] Comment on above: Performed By: #### L 501.9520, L3400.4000, L3300.1100, L801.1541, L500.4050 #### [facility] [address] [place], [address] CA,Total 9.2 mg/dL Normal 8.5-10.1 [facility] Comment on above: Performed By: #### L 501.9520, L3400.4000, L3300.1100, L801.1541, L500.4050 #### [facility] [address] [place], [address] Chloride [Moles/Vol] 106 mmol/L Normal 98-107 [facility] Comment on above: Performed By: #### L 501.9520, L3400.4000, L3300.1100, L801.1541, L500.4050 #### [facility] [address] [place], [address] CO2 [Moles/Vol] 26.0 mmol/L Normal 21.0-32.0 [facility] Comment on above: Performed By: #### L 501.9520, L3400.4000, L3300.1100, L801.1541, L500.4050 #### [facility] [address] [place], [address] Creatinine [Mass/Vol] 0.88 mg/dL Normal 0.55-1.02 [facility] Comment on above: Result Comment: The validity of the calculated GFR GFRAA in patients over 70 years has not been determined. Clinical correlation is essential. Performed By: #### L 501.9520, L3400.4000, L3300.1100, L801.1541, L500.4050 #### [facility] [address] [place], [address] EST GFR - AA 82 mL/min Normal >60 [facility] Comment on above: Result Comment: Afri can Niuean GFR Calc Performed By: #### L 501.9520, L3400.4000, L3300.1100, L801.1541, L500.4050 #### [facility] [address] [place], [address] GAP 6 Normal 5-15 [facility] Comment on above: Performed By: #### L 501.9520, L3400.4000, L3300.1100, L801.1541, L500.4050 #### [facility] [address] [place], [address] GFR/1.73 sq M.predicted among non-blacks MDRD (S/P/Bld) [Vol rate/Area] 68 mL/min/{1.73_m2} Normal >60 [facility] Comment on above: Result Comment: Non- GFR Calc Performed By: #### L 501.9520, L3400.4000, L3300.1100, L801.1541, L500.4050 #### [facility] [address] [place], [address] Globulin (S) [Mass/Vol] 4.0 g/dL Normal 2.2-4.2 [facility] Comment on above: Performed By: #### L 501.9520, L3400.4000, L3300.1100, L801.1541, L500.4050 #### [facility] [address] [place], [address] Glucose [Mass/Vol] 161 mg/dL High 74-106 [facility] Comment on above: Result Comment: Fast ing Glucose result greater than or equal to 126 mg/dL suggests DIABETES MELLITUS per A.D.A. criteria. Performed By: #### L 501.9520, L3400.4000, L3300.1100, L801.1541, L500.4050 #### [facility] [address] [place], [address] Potassium [Moles/Vol] 3.7 mmol/L Normal 3.5-5.1 [facility] Comment on above: Performed By: #### L 501.9520, L3400.4000, L3300.1100, L801.1541, L500.4050 #### [facility] [address] [place], [address] Sodium [Moles/Vol] 138 mmol/L Normal 136-145 [facility] Comment on above: Performed By: #### L 501.9520, L3400.4000, L3300.1100, L801.1541, L500.4050 #### [facility] [address] [place], [address] T PROT 7.5 g/dL Normal 6.4-8.2 [facility] Comment on above: Performed By: #### L 501.9520, L3400.4000, L3300.1100, L801.1541, L500.4050 #### [facility] [address] [place], [address] Urea nitrogen [Mass/Vol] 10 mg/dL Normal 7-18 [facility] Comment on above: Performed By: #### L 501.9520, L3400.4000, L3300.1100, L801.1541, L500.4050 #### [facility] [address] [place], [address] Thyroid Stim Hormone (TSH)on 08-24-2024 TSH 1.840 uIU/mL Normal 0.358-3.740 [facility] Comment on above: Performed By: #### L 501.9520, L3400.4000, L3300.1100, L801.1541, L500.4050 #### [facility] [address] [place], [address] Serum or plasma thyroid stim ulating hormone (TSH) measurement (units/volume)Ordered By: Radha Chambers on 03-29-2024 TSH Qn 6.47 uIU/mL 0.358-3.74 [facility] Absolute lymphocyte countOrd ered By: Radha Chambers on 12-18-2023 Lymphocytes Auto (Unsp spec) [#/Vol] 1.48 10*3/uL 0.83-4.51 [facility] Automated lymphocyte count a s percentage of total leukocytesOrdered By: Radha Chambers on 12-18-2023 Lymphocytes/100 WBC Auto (Unsp spec) 17.0 % 19-41 [facility] Basophil percentageOrdered B y: Radha Chambers on 12-18-2023 Basophils/100 WBC (Bld) 0.6 % 0-1 [facility] Bilirubin [Mass/Vol] 0.30 mg/dL 0.20-1.00 [facility] Comment on above: For patients on eltr ombopag therapy, use of Dimension Daniel TBIL is not recommended. Chloride [Moles/Vol] 106 mmol/L 98-107 [facility] Cholesterol [Mass/Vol] 179 mg/dL <200 [facility] Comment on above: <200 mg/dL Desirable 200-240 mg/dL Borderline >240 mg/dL High Risk Eosinophils/100 WBC (Bld) 2.5 % 0-5 [facility] Glucose [Mass/Vol] 154 mg/dL 74-106 [facility] Comment on above: Fasting Glucose resu lt greater than or equal to 126 mg/dL suggests DIABETES MELLITUS per A.D.A. criteria. Hemoglobin (Bld) [Mass/Vol] 12.7 g/dL 12.0-15.0 [facility] Monocytes/100 WBC (Bld) 6.7 % 0-10 [facility] Neutrophils (Bld) [#/Vol] 6.3 10*3/uL 2.0-7.7 [facility] Neutrophils/100 WBC (Bld) 72.7 % 47-70 [facility] Potassium [Moles/Vol] 4.0 mmol/L 3.5-5.1 [facility] Protein [Mass/Vol] 7.6 g/dL 6.4-8.2 [facility] Sodium [Moles/Vol] 138 mmol/L 136-145 [facility] Triglyceride [Mass/Vol] 91 mg/dL <199 [facility] Comment on above: The drugs N-Acetylcy steine and Metamizole may falsely depress this assay.Serum Triglycerides Reference Interval Normal <150 mg/dL Borderline high 150 - 199 mg/dL High 200 - 499 mg/dL Very High > or = 500 mg/dL WBC (Bld) [#/Vol] 8.7 10*3/uL 4.4-11.0 [facility] Determination of erythrocyte mean corpuscular volume (MCV)Ordered By: Radha Chambers on 12-18-2023 MCV (RBC) [Entitic vol] 90.8 fL 81-99 [facility] Erythrocyte distribution wid th ratioOrdered By: Radha Yahaira on 12-18-2023 Erythrocyte distribution width (RBC) [Ratio] 13.2 % 11.6-14.6 [facility] Erythrocyte distribution wid th standard deviationOrdered By: Radha Yahaira on 12-18-2023 Erythrocyte distribution width (RBC) [Entitic vol] 43.8 fL 35.1-43.9 [facility] Hematocrit Auto (Bld) [Volum e fraction]Ordered By: Radha Yahaira on 12-18-2023 Hematocrit (Bld) [Volume fraction] 39.3 % 37-47 [facility] High density lipoprotein (HD L) measurementOrdered By: Radha Chambers on 12-18-2023 Cholesterol in HDL (Body fld) [Mass/Vol] 56 mg/dL >40 [facility] Comment on above: The drugs N-Acetylcy steine and Metamizole may falsely depress this assay. Reference Range HDL <40 mg/dL Low HDL Cholesterol HDL >or= 60 mg/dL High HDL Cholesterol Immature granulocytes/100 WB C Auto (Bld)Ordered By: Radha Chambers on 12-18-2023 Immature granulocytes/100 WBC (Bld) 0.500 % 0.0-0.9 [facility] Comment on above: IG% - Immature Granu locytes (promyelocytes, myelocytes and metamyelocytes) > 1% indicates that a LEFT SHIFT is Present. Laboratory - Chemistry and C hemistry - challengeOrdered By: Radha Chambers on 12-18-2023 Albumin/Globulin [Mass ratio] 0.8 {ratio} 0.9-2.4 [facility] ALP [Catalytic activity/Vol] 97 U/L 45-117 [facility] ALT [Catalytic activity/Vol] 23 U/L 13-56 [facility] CO2 [Moles/Vol] 29.0 mmol/L 21.0-32.0 [facility] Globulin (S) [Mass/Vol] 4.2 g/dL 2.2-4.2 [facility] Urea nitrogen/Creatinine [Mass ratio] 18.3 mg/mg 10-20 [facility] - Hematology and Cell countsOrdered By: Radha Chambers on 12-18-2023 MCH (RBC) [Entitic mass] 29.3 pg 27.0-32.0 [facility] MCHC (RBC) [Mass/Vol] 32.3 g/dL 32-36 [facility] Nucleated RBC/100 WBC (Bld) [Ratio] 0 % 0-5 [facility] Platelets (Bld) [#/Vol] 243 10*3/uL 150-450 [facility] Low density lipoprotein (LDL ) cholesterol measurementOrdered By: Radha Chambers on 12-18-2023 Cholesterol in LDL (Body fld) [Moles/Vol] 105 mg/dL 0-130 [facility] No Panel InformationOrdered By: Radha Chambers on 12-18-2023 Estimated GFR (MDRD) Amer 83 mL/min >60 [facility] Comment on above: GFR Calc Estimated GFR (MDRD) Non-Af Amer 68 mL/min >60 [facility] Comment on above: Non- GFR Calc Platelet mean volume Greg-Ec ker (Bld) [Entitic vol]Ordered By: Radha Chambers on 12-18-2023 Platelet mean volume (Bld) [Entitic vol] 10.5 fL 6.2-12.0 [facility] RBC Auto (Bld) [#/Vol]Ordere d By: Radha Chambers on 12-18-2023 RBC (Bld) [#/Vol] 4.33 10*6/uL 4.2-5.4 [facility] Serum or plasma calcium mini urement (mass/volume)Ordered By: Radha Chambers on 12-18-2023 Calcium [Mass/Vol] 9.3 mg/dL 8.5-10.1 [facility] Serum or plasma creatinine m easurement (mass/volume)Ordered By: Radha Chambers on 12-18-2023 Creatinine [Mass/Vol] 0.87 mg/dL 0.55-1.02 [facility] Comment on above: The validity of the calculated GFR & GFRAA in patients over 70 years has not been determined. Clinical correlation is essential. Serum or plasma thyroid stim ulating hormone (TSH) measurement (units/volume)Ordered By: Radha Chambers on 12-18-2023 TSH Qn 5.03 uIU/mL 0.358-3.74 [facility] Serum or plasma urea nitroge n measurement (mass/volume)Ordered By: Radha Chambers on 12-18-2023 Urea nitrogen [Mass/Vol] 16 mg/dL 7-18 [facility] Thin prep Papanicolaou smear with manual screeningOrdered By: [facility] Yahaira on 12-18-2023 Thin prep Papanicolaou smear with manual screening 3.4 g/dL 3.2-5.0 [facility] Thin prep Papanicolaou smear with manual screening 17 U/L 15-37 [facility] Thin prep Papanicolaou smear with manual screening 3 5-15 [facility] Very low density lipoprotein (VLDL) cholesterol measurementOrdered By: Radha Chambers on 12-18-2023 Cholesterol in VLDL Calc [Moles/Vol] 18 mg/dL 5-40 [facility] Whole blood hemoglobin A1c/t otal hemoglobin ratio (mass fraction)Ordered By: Radha Chambers on 12-18-2023 HbA1c (Bld) [Mass fraction] 6.5 % 3.8-5.6 [facility] Comment on above: Normal < 5.7 % Predi abetic 5.7 - 6.4 % Diabetic >or= 6.5 % Please note range changes. Absolute lymphocyte countOrd ered By: Dr. Coulter on 02-19-2023 Lymphocytes Auto (Unsp spec) [#/Vol] 1.69 10*3/uL 0.83-4.51 [facility] Basophil percentageOrdered B y: Dr. Coulter on 02-19-2023 Basophils/100 WBC (Bld) 0.8 % 0-1 [facility] Bilirubin [Mass/Vol] 0.40 mg/dL 0.20-1.00 [facility] Comment on above: For patients on eltr ombopag therapy, use of Dimension Daniel TBIL is not recommended. Chloride [Moles/Vol] 101 mmol/L 98-107 [facility] Cholesterol [Mass/Vol] 138 mg/dL <200 [facility] Comment on above: <200 mg/dL Desirable 200-240 mg/dL Borderline >240 mg/dL High Risk Eosinophils/100 WBC (Bld) 2.3 % 0-5 [facility] Glucose [Mass/Vol] 119 mg/dL 74-106 [facility] Comment on above: Fasting Glucose resu lt from 100 to 125 mg/dL suggests IMPAIRED HOMEOSTASIS per A.D.A. criteria. Neutrophils (Bld) [#/Vol] 6.7 10*3/uL 2.0-7.7 [facility] Neutrophils/100 WBC (Bld) 72.1 % 47-70 [facility] Potassium [Moles/Vol] 3.6 mmol/L 3.5-5.1 [facility] Protein [Mass/Vol] 7.5 g/dL 6.4-8.2 [facility] Sodium [Moles/Vol] 138 mmol/L 136-145 [facility] Triglyceride [Mass/Vol] 106 mg/dL <199 [facility] Comment on above: The drugs N-Acetylcy steine and Metamizole may falsely depress this assay.Serum Triglycerides Reference Interval Normal <150 mg/dL Borderline high 150 - 199 mg/dL High 200 - 499 mg/dL Very High > or = 500 mg/dL WBC (Bld) [#/Vol] 9.2 10*3/uL 4.4-11.0 [facility] Blood erythrocytes count (nu mber/volume)Ordered By: Dr. Coulter on 02-19-2023 RBC (Bld) [#/Vol] 4.44 10*6/uL 4.2-5.4 [facility] Blood hemoglobin measurement (mass/volume)Ordered By: Dr. Coulter on 02-19-2023 Hemoglobin (Bld) [Mass/Vol] 13.5 g/dL 12.0-15.0 [facility] Blood lymphocytes/100 leukoc ytesOrdered By: Dr. Coulter on 02-19-2023 Lymphocytes/100 WBC (Bld) 18.3 % 19-41 [facility] Blood monocytes/100 leukocyt esOrdered By: Dr. Cuolter on 02-19-2023 Monocytes/100 WBC (Bld) 6.0 % 0-10 [facility] Blood platelet mean volumeOr dered By: Dr. Coulter on 02-19-2023 Platelet mean volume (Bld) [Entitic vol] 11.2 fL 6.2-12.0 [facility] Determination of erythrocyte mean corpuscular volume (MCV)Ordered By: Dr. Coulter on 02-19-2023 MCV (RBC) [Entitic vol] 91.9 fL 81-99 [facility] Hematocrit Auto (Bld) [Volum e fraction]Ordered By: Dr. Coulter on 02-19-2023 Hematocrit (Bld) [Volume fraction] 40.8 % 37-47 [facility] - Chemistry and C hemistry - challengeOrdered By: Dr. Coulter on 02-19-2023 ALP [Catalytic activity/Vol] 113 U/L 45-117 [facility] ALT [Catalytic activity/Vol] 34 U/L 13-56 [facility] CO2 [Moles/Vol] 29.0 mmol/L 21.0-32.0 [facility] Globulin (S) [Mass/Vol] 3.9 g/dL 2.2-4.2 [facility] Urea nitrogen/Creatinine [Mass ratio] 12.8 mg/mg 10-20 [facility] - Hematology and Cell countsOrdered By: Dr. Coulter on 02-19-2023 Erythrocyte distribution width (RBC) [Entitic vol] 43.4 fL 35.1-43.9 [facility] Erythrocyte distribution width (RBC) [Ratio] 12.8 % 11.6-14.6 [facility] Immature granulocytes/100 WBC (Bld) 0.500 % 0.0-0.9 [facility] Comment on above: IG% - Immature Granu locytes (promyelocytes, myelocytes and metamyelocytes) > 1% indicates that a LEFT SHIFT is Present. MCH (RBC) [Entitic mass] 30.4 pg 27.0-32.0 [facility] Nucleated RBC/100 WBC (Bld) [Ratio] 0 % 0-5 [facility] MCHC Auto (RBC) [Mass/Vol]Or dered By: Dr. Coulter on 02-19-2023 MCHC (RBC) [Mass/Vol] 33.1 g/dL 32-36 [facility] No Panel InformationOrdered By: Dr. Coulter on 02-19-2023 Estimated GFR (MDRD) Amer 84 mL/min >60 [facility] Comment on above: GFR Calc Estimated GFR (MDRD) Non-Af Amer 70 mL/min >60 [facility] Comment on above: Non- GFR Calc Thyroid Stimulating Hormone (TSH) 1.44 uIU/mL 0.358-3.74 [facility] Urine Microalbumin/Creatinine Ratio 10.5 mg/g CRE <30 [facility] Platelets bldOrdered By: Dr. Coulter on 02-19-2023 Platelets (Bld) [#/Vol] 253 10*3/uL 150-450 [facility] Serum or plasma albumin mini urement (mass/volume)Ordered By: Dr. Coulter on 02-19-2023 Albumin [Mass/Vol] 3.6 g/dL 3.2-5.0 [facility] Serum or plasma albumin/glob ulin mass ratioOrdered By: Dr. Coulter on 02-19-2023 Albumin/Globulin [Mass ratio] 0.9 {ratio} 0.9-2.4 [facility] Serum or plasma calcium mini urement (mass/volume)Ordered By: Dr. Coulter on 02-19-2023 Calcium [Mass/Vol] 9.3 mg/dL 8.5-10.1 [facility] Serum or plasma cholesterol in HDL measurement (mass/volume)Ordered By: Dr. Coulter on 02-19-2023 Cholesterol in HDL [Mass/Vol] 55 mg/dL >40 [facility] Comment on above: The drugs N-Acetylcy steine and Metamizole may falsely depress this assay. Reference Range HDL <40 mg/dL Low HDL Cholesterol HDL >or= 60 mg/dL High HDL Cholesterol Serum or plasma cholesterol in VLDL measurement (mass/volume)Ordered By: Dr. Coulter on 02-19-2023 Cholesterol in VLDL [Mass/Vol] 21 mg/dL 5-40 [facility] Serum or plasma creatinine m easurement (mass/volume)Ordered By: Dr. Couletr on 02-19-2023 Creatinine [Mass/Vol] 0.86 mg/dL 0.55-1.02 [facility] Comment on above: The validity of the calculated GFR & GFRAA in patients over 70 years has not been determined. Clinical correlation is essential. Serum or plasma low density lipoprotein (LDL) cholesterol measurement (mass/volume)Ordered By: Dr. Coulter on 02-19-2023 Cholesterol in LDL [Mass/Vol] 62 mg/dL 0-130 [facility] Serum or plasma urea nitroge n measurement (mass/volume)Ordered By: Dr. Coulter on 02-19-2023 Urea nitrogen [Mass/Vol] 11 mg/dL 7-18 [facility] Thin prep Papanicolaou smear with manual screeningOrdered By: Dr. Coulter on 02-19-2023 Thin prep Papanicolaou smear with manual screening 20 U/L 15-37 [facility] Thin prep Papanicolaou smear with manual screening 8 5-15 [facility] Thin prep Papanicolaou smear with manual screening 28.0 mg/L NO RANGE EST. [facility] Urine creatinine measurement (mass/volume)Ordered By: Dr. Coulter on 02-19-2023 Creatinine (U) [Mass/Vol] 266.00 mg/dL NO RANGE EST. [facility] Whole blood hemoglobin A1c/t otal hemoglobin ratio (mass fraction)Ordered By: Dr. Coulter on 02-19-2023 HbA1c (Bld) [Mass fraction] 6.1 % 3.8-5.6 [facility] Comment on above: Normal < 5.7 % Predi abetic 5.7 - 6.4 % Diabetic >or= 6.5 % Please note range changes. Absolute lymphocyte counton 09-20-2022 Lymphocytes Auto (Unsp spec) [#/Vol] 1.54 10*3/uL 0.83-4.51 [facility] Work Phone: Basophil percentageon 2021 Basophils/100 WBC (Bld) 0.7 % 0-1 [facility] Work Phone: Bilirubin [Mass/Vol] 0.40 mg/dL 0.20-1.00 [facility] Work Phone: Comment on above: For patients on eltr ombopag therapy, use of Dimension Daniel TBIL is not recommended. Chloride [Moles/Vol] 103 mmol/L 98-107 [facility] Work Phone: Cholesterol [Mass/Vol] 160 mg/dL <200 [facility] Work Phone: Comment on above: <200 mg/dL Desirable 200-240 mg/dL Borderline >240 mg/dL High Risk Eosinophils/100 WBC (Bld) 2.1 % 0-5 [facility] Work Phone: Glucose [Mass/Vol] 119 mg/dL 74-106 [facility] Work Phone: Comment on above: Fasting Glucose resu lt from 100 to 125 mg/dL suggests IMPAIRED HOMEOSTASIS per A.D.A. criteria. Neutrophils (Bld) [#/Vol] 7.1 10*3/uL 2.0-7.7 [facility] Work Phone: Neutrophils/100 WBC (Bld) 74.4 % 47-70 [facility] Work Phone: Potassium [Moles/Vol] 4.2 mmol/L 3.5-5.1 [facility] Work Phone: Protein [Mass/Vol] 7.5 g/dL 6.4-8.2 [facility] Work Phone: [phone] Sodium [Moles/Vol] 138 mmol/L 136-145 [facility] Work Phone: Triglyceride [Mass/Vol] 106 mg/dL <199 [facility] Work Phone: Comment on above: The drugs N-Acetylcy steine and Metamizole may falsely depress this assay.Serum Triglycerides Reference Interval Normal <150 mg/dL Borderline high 150 - 199 mg/dL High 200 - 499 mg/dL Very High > or = 500 mg/dL WBC (Bld) [#/Vol] 9.6 10*3/uL 4.4-11.0 [facility] Work Phone: Blood erythrocytes count (nu mber/volume)on 09-20-2022 RBC (Bld) [#/Vol] 4.30 10*6/uL 4.2-5.4 [facility] Work Phone: Blood hemoglobin measurement (mass/volume)on 09-20-2022 Hemoglobin (Bld) [Mass/Vol] 13.3 g/dL 12.0-15.0 [facility] Work Phone: Blood lymphocytes/100 leukoc yteson 09-20-2022 Lymphocytes/100 WBC (Bld) 16.1 % 19-41 [facility] Work Phone: Blood monocytes/100 leukocyt eson 09-20-2022 Monocytes/100 WBC (Bld) 5.9 % 0-10 [facility] Work Phone: Blood platelet mean volumeon 09-20-2022 Platelet mean volume (Bld) [Entitic vol] 10.8 fL 6.2-12.0 [facility] Work Phone: Determination of erythrocyte mean corpuscular volume (MCV)on 09-20-2022 MCV (RBC) [Entitic vol] 91.9 fL 81-99 [facility] Work Phone: Hematocrit Auto (Bld) [Volum e fraction]on 09-20-2022 Hematocrit (Bld) [Volume fraction] 39.5 % 37-47 [facility] Work Phone: Laboratory - Chemistry and C hemistry - challengeon 09-20-2022 ALP [Catalytic activity/Vol] 121 U/L 45-117 [facility] Work Phone: ALT [Catalytic activity/Vol] 27 U/L 13-56 [facility] Work Phone: CO2 [Moles/Vol] 30.0 mmol/L 21.0-32.0 [facility] Work Phone: Globulin (S) [Mass/Vol] 4.0 g/dL 2.2-4.2 [facility] Work Phone: Urea nitrogen/Creatinine [Mass ratio] 15.0 mg/mg 10-20 [facility] Work Phone: Laboratory - Hematology and Cell countson 09-20-2022 Erythrocyte distribution width (RBC) [Entitic vol] 44.9 fL 35.1-43.9 [facility] Work Phone: Erythrocyte distribution width (RBC) [Ratio] 13.3 % 11.6-14.6 [facility] Work Phone: Immature granulocytes/100 WBC (Bld) 0.800 % 0.0-0.9 [facility] Work Phone: Comment on above: IG% - Immature Granu locytes (promyelocytes, myelocytes and metamyelocytes) > 1% indicates that a LEFT SHIFT is Present. MCH (RBC) [Entitic mass] 30.9 pg 27.0-32.0 [facility] Work Phone: Nucleated RBC/100 WBC (Bld) [Ratio] 0 % 0-5 [facility] Work Phone: MCHC Auto (RBC) [Mass/Vol]on 09-20-2022 MCHC (RBC) [Mass/Vol] 33.7 g/dL 32-36 [facility] Work Phone: No Panel Informationon 09-20 Estimated GFR (MDRD) Amer 92 mL/min >60 [facility] Work Phone: Comment on above: GFR Calc Estimated GFR (MDRD) Non-Af Amer 76 mL/min >60 [facility] Work Phone: Comment on above: Non- GFR Calc Platelets bldon 09-20-2022 Platelets (Bld) [#/Vol] 237 10*3/uL 150-450 [facility] Work Phone: Serum or plasma albumin mini urement (mass/volume)on 09-20-2022 Albumin [Mass/Vol] 3.5 g/dL 3.2-5.0 [facility] Work Phone: Serum or plasma albumin/glob ulin mass ratioon 09-20-2022 Albumin/Globulin [Mass ratio] 0.9 {ratio} 0.9-2.4 [facility] Work Phone: Serum or plasma calcium mini urement (mass/volume)on 09-20-2022 Calcium [Mass/Vol] 9.6 mg/dL 8.5-10.1 [facility] Work Phone: Serum or plasma cholesterol in HDL measurement (mass/volume)on 09-20-2022 Cholesterol in HDL [Mass/Vol] 59 mg/dL >40 [facility] Work Phone: Comment on above: The drugs N-Acetylcy steine and Metamizole may falsely depress this assay. Reference Range HDL <40 mg/dL Low HDL Cholesterol HDL >or= 60 mg/dL High HDL Cholesterol Serum or plasma cholesterol in VLDL measurement (mass/volume)on 09-20-2022 Cholesterol in VLDL [Mass/Vol] 21 mg/dL 5-40 [facility] Work Phone: Serum or plasma creatinine m easurement (mass/volume)on 09-20-2022 Creatinine [Mass/Vol] 0.80 mg/dL 0.55-1.02 [facility] Work Phone: Comment on above: The validity of the calculated GFR & GFRAA in patients over 70 years has not been determined. Clinical correlation is essential. Serum or plasma low density lipoprotein (LDL) cholesterol measurement (mass/volume)on 09-20-2022 Cholesterol in LDL [Mass/Vol] 80 mg/dL 0-130 [facility] Work Phone: Serum or plasma urea nitroge n measurement (mass/volume)on 09-20-2022 Urea nitrogen [Mass/Vol] 12 mg/dL 7-18 [facility] Work Phone: Thin prep Papanicolaou smear with manual screeningon 09-20-2022 Thin prep Papanicolaou smear with manual screening 16 U/L 15-37 [facility] Work Phone: Thin prep Papanicolaou smear with manual screening 5 5-15 [facility] Work Phone: CHEST PA/AP AND LATERALon CHEST PA/AP AND LATERAL CHEST PA/AP & LATERALOrdering Physician: Rashida Razo MD11/15/2017 5:16 PMPA AND LATERAL CHEST:Comparison: NoneClinical Statement: CoughFINDINGS: Chest examination reveals no abnormality of the lungs,heart, mediastinum or bony thorax. No acute upper abdominal findings.IMPRESSION:Ra diographically normal chest. ---- Electronic Signature on File ----Signed By: Carlos Cash [email or web address] ictated: 11/15/2017 8:57 PMSigned: 11/15/2017 8:57 PM Reported By: CARLSO CASH M.D. Signed By: CARLOS CASH M.D. [facility] FUQUAY VARINA STAT[facility]ARE REPORT Normal [facility] DATE OF SERVICE: 11/15/2017CHIEF COMPLAINT: Cough, congestion.HISTORY OF PRESENT ILLNESS: Apparently, that has been going on since September. Shehas apparently been on Ceftin. Somebody had given [...] blood pressure, arthritis. History of thyroid disease, gallbladdersurgery.CUR RENT MEDICATIONS:1. Synthroid.2. Cymbalta.3. Januvia.4. Glimepiride.5. Atenolol.6. Losartan.7. Hydrochlorothiazide.AL LERGIES: PENICILLIN.REVIEW OF SYSTEMS: Denies fever, chills. No weight loss. She has a cough,congestion.PHYSI CHE EXAMINATION: Vital Signs: Blood pressure 142/80, pulse 81, [id number], temperature 98.9, pulse oximetry 100% on room [...] she should definitely see her primarycare doctor. [facility] PATIENT NAME: ORTIZ,JANET MedelBetty Misty Palencia [facility] REC #: [id number], [place] [address] STATCARE REPORT STATCARE PHYSICIAN PELON Barron/[id number]: 11/15/2017 17:36DT: 11/18/2017 07:07SSI File#: [id number] #: [id number]/Reviewe d by11/19/17 0816 [facility] PATIENT NAME: ORTIZ,JANET MedelBtety Misty Palencia MEDICAL REC #: [id number], [place] [address] STATCARE REPORT [facility] KORY [facility] DATE OF SERVICE: 10/31/2017HISTORY OF PRESENT ILLNESS: Mrs. Ortiz is a 62-year-old [facility] a [facility] of a nonproductive cough andsore throat. The symptoms started 5 weeks ago and the patient was seen by the urgentcare doctor on October 18 in [place]. The patient was treated with Ceftin for [...] any nausea or vomiting. Denies abdominal pain. [facility] is Dr[facility] Batista.MEDICATIONS: Please see [...] is a 62-year-old female. Does not appear sickly,well-hydrated.H EENT: Unremarkable except for bilateral nasal mucosa congestion. No drainage ordischarge appreciated. Oropharynx clear.Neck: Supple, full range of motion, no lymphadenopathy.Lungs: Clear to auscultation bilaterally.Heart: Regular rhythm and rate. Normal heart sounds.Abdomen: Soft, nontender.IMPRESSION:1 . Acute bronchitis, viral.2. Acute pharyngitis, viral.PLAN: Discussed the findings with patient. Reassured. Encouraged the patient todrink a lot of fluids. May take Tylenol as needed. I will start the patient onBromfed DM 2 teaspoons p.o. every 4-6 hours p.r.n., 4 ounces. Follow up with afamily doctor for a recheck if not better. [facility] PATIENT NAME: JANET ORTIZ Misty Palencia MEDICAL REC #: [id number], [place] [address] STATCARE REPORT STATCARE PHYSICIAN Son N Yvrose, MDSD/[id number]: 10/31/2017 17:52DT: 11/04/2017 14:15SSI File#: [id number] #: [id number]/Reviewe d 12/17/17 1802 [facility] PATIENT NAME: JANET ORTIZ Misty Palencia MEDICAL REC #: [id number], [place] [address] STATCARE REPORT STATCARE PHYSICIAN Normal [facility] Vital Signs Date Time Vital Sign Value Performing Clinician Amelia torres 07-21-2025 12:59-0400 Body height 157.5 cm Digna Santoyo MD Work Phone: [facility] 07-21-2025 12:59-0400 Body mass index (BMI) [Ratio] 46.09 kg/m2 Digna Santoyo MD Work Phone: [facility] 07-21-2025 12:59-0400 Body temperature 97.7 [degF] Digna Santoyo MD Work Phone: [facility] 07-21-2025 12:59-0400 Body weight 114.31 kg Digna Santoyo MD Work Phone: [facility] 07-21-2025 12:59-0400 Diastolic blood pressure 85 mm[Hg] Digna Santoyo MD Work Phone: [facility] 07-21-2025 12:59-0400 Heart rate 76 /min Digna Santoyo MD Work Phone: [facility] 07-21-2025 12:59-0400 SaO2% (BldA) [Mass fraction] 97 % Digna Santoyo MD Work Phone: [facility] 07-21-2025 12:59-0400 Systolic blood pressure 139 mm[Hg] Digna Santoyo MD Work Phone: [facility] 06-22-2025 14:52-0400 Body weight 115.67 kg Abbey Padilla MD Work Phone: [facility] 06-22-2025 14:52-0400 Diastolic blood pressure 88 mm[Hg] Abbey Padilla MD Work Phone: [facility] 06-22-2025 14:52-0400 Systolic blood pressure 132 mm[Hg] Abbey Padilla MD Work Phone: [facility] Encounters Encounter Date Encounter Type Care Provider Facility Start: 08-18-2025 End: 08-18-2025 ambulatory DIGNA SANTOYO Facility:[facility] Start: 08-10-2025 End: 08-10-2025 ambulatory TAMMY GÓMEZ Facility:[facility] Start: 08-10-2025 End: 08-10-2025 ambulatory TAMMY GÓMEZ Facility:[facility] Start: 08-04-2025 End: 08-04-2025 ambulatory DIGNA SANTOYO Facility:[facility] Start: 08-02-2025 End: 08-02-2025 Telephone encounter Digna Santoyo MD Work Phone: [facility] Gynecology Oncology Comment on above: Preparations For Dhaval jean claude Start: 07-28-2025 End: 07-28-2025 Telephone encounter Digna Santoyo MD Work Phone: [facility] Gynecology Oncology Comment on above: Preparations For Dhaval jean claude Start: 07-22-2025 End: 07-22-2025 Orders Only Digna Santoyo MD Work Phone: [facility] Gynecology Oncology Comment on above: EIN (endometrial int raepithelial neoplasia) (Primary Dx) Start: 07-21-2025 End: 07-21-2025 Patient encounter procedure Digna Santoyo MD Work Phone: [facility] Gynecology Oncology Start: 07-21-2025 End: 07-21-2025 Preprocedural examination done Digna Santoyo MD Work Phone: [facility] Start: 07-21-2025 End: 07-21-2025 ambulatory Digna Santoyo MD Work Phone: [facility] Gynecology Oncology Comment on above: EIN (endometrial int raepithelial neoplasia) (Primary Dx); Preoperative examination Start: 07-21-2025 Encounter for other preprocedural examination DIGNA SANTOYO [facility] Start: 07-05-2025 End: 07-05-2025 Patient encounter procedure [facility]/Gynecology Start: 07-05-2025 End: 07-05-2025 ambulatory Graph[employer] [facility] [employer] [facility] Work Phone: OB/Gynecology Start: 06-22-2025 End: 06-22-2025 Patient encounter procedure Abbey Padilla MD Work Phone: OB/Gynecology Comment on above: Postmenopausal bleed ing (Primary Dx); Vaginal bleeding; Vulvovaginal candidiasis; Stress incontinence Start: 06-22-2025 End: 06-22-2025 ambulatory SUSANNA COULTER Facility:[facility] Start: 06-02-2025 End: 06-02-2025 ambulatory Radha Chambers MD Work Phone: -[facility] [place] Start: 06-02-2025 End: 06-02-[address] Kisha Han MD -[facility] [place] Work Phone: Start: 06-02-2025 End: 06-02-2025 ambulatory Kisha Runer Facility:[facility] Start: 02-15-2025 End: 02-15-2025 ambulatory Radha Chambers MD Work Phone: [facility] Work Phone: Start: 02-15-2025 End: 02-15-2025 [facility] Start: 02-15-2025 End: 02-15-2025 ambulatory Radha Chambers Facility:[facility] Start: 11-30-2024 End: 11-30-[address] Radha Chambers MD -Outpatient Breast Imaging Work Phone: Start: 11-30-2024 End: 11-30-2024 ambulatory Radha Chambers Facility:[facility] Start: 11-15-2024 End: 11-15-[address] Kisha Han MD -Laboratory, [place] Work Phone: Start: 11-15-2024 End: 11-15-2024 ambulatory Kisha Runer Facility:[facility] Start: 08-27-2024 End: 08-27-2024 ambulatory Kisha Runer Facility:[facility] Start: 08-24-2024 End: 08-24-2024 ambulatory Kisha Runer Facility:[facility] Start: 03-29-2024 End: 03-29-[address] [facility] Work Phone: Start: 03-29-2024 End: 03-29-[address] [facility] Start: 12-18-2023 End: 12-18-[address] [facility] Work Phone: Start: 12-18-2023 End: 12-18-[address] [facility] Work Phone: Start: 11-21-2023 End: 11-21-[address] [facility] Work Phone: Start: 11-21-2023 End: 11-21-[address] [facility] Work Phone: Start: 02-19-2023 End: 02-19-[address] [facility] Work Phone: Start: 02-19-2023 End: 02-19-[address] [facility]atory, Samara Servin [facility] Start: 11-19-2022 End: 11-19-[address] [facility] Work Phone: Start: 11-19-2022 End: 11-19-[address] [facility] Start: 09-20-2022 End: 09-20-[address] [facility] Work Phone: Start: 09-20-2022 End: 09-20-[address] [facility]-Laboratory, Samara Servin [facility] Start: 11-15-2017 Ambulatory Kharis Razo Facility :[facility] Start: 10-31-2017 Ambulatory Son Alma Frances Facility:[facility] Procedures Date Procedure Procedure Detail Performing Clinician Start: 07-21-2025 Antibody screen DIGNA OLIVARES Comment on above: Order Comment: Speci men Type: BLOOD SPECIMENOrdering Facility: [facility] Address: [address] [place] [address] Performed By: #### T [id number] ####[facility] BLOOD BANKCLIA [id number] [place] [address] [place] Start: 07-05-2025 Us pelvic nonobstetr ic real-time image complete Abbey Padilla MD Work Phone: Start: 02-15-2025 Vitamin D, 25-hydrox y measurement Radha Chambers MD Work Phone: Comment on above: Vitamin D StatusDefi ciency: <20 ng/mL (50nmol/L)Insufficiency: 20-30 ng/mL (50-75 nmol/L)Sufficiency: 30-100 ng/mL (75-250 nmol/L)Toxicity: >100 ng/mL (>250 nmol/L) Start: 11-30-2024 Screening mammography Raymond Chambers MD Work Phone: Start: 11-21-2023 Screening mammography Start: 11-19-2022 Screening mammography Plan of Treatment Date Care Activity Detail Author Start: 2030 RSV Vaccine (1 - 1-dose 75+ series) RSV Vaccine (1 - 1-dose 75+ series) [facility] Start: 06-22-2026 Screening for malignant neoplasm of cervix Cervical Cancer Screening [facility] Start: 10-31-2025 Pneumococcal Vaccine: 50+ (3 of 3 - PCV20 or PCV21) Pneumococcal Vaccine: 50+ (3 of 3 - PCV20 or PCV21) [facility] Start: 08-18-2025 End: 08-18-2025 ambulatory 08/18/2025 1:00 PM EDT Visit (SP) Office [facility] [address] [place] [address] Digna Santoyo MD [address] [phone] Post Op [facility] Comment on above: Post Op Start: 08-04-2025 End: 08-04-2025 Admission to same day surgery center 08/04/2025 7:00 AM EDT - 08/04/2025 9:45 AM EDT Surgery [address] [address] Digna Santoyo MD [address] [place], [place] [id number] ROBOTIC LAPAROSCOPIC TOTAL HYSTERECTOMY W/ BSO UTERUS=<250G [facility] Comment on above: ROBOTIC LAPAROSCOPIC TOTAL HYSTERECTOMY W/ BSO UTERUS=<250G Start: 08-04-2025 End: 08-04-2025 Cystourethroscopy CYSTOSCOPY EIN (endometrial intraepithelial neoplasia) 08/04/2025 7:00 AM EDT [facility] Start: 08-04-2025 End: 08-04-2025 Laps surg retroperitoneal lymph node bx 1/predatory hunter ROBOTIC LAPAROSCOPY SURGICAL W/ RETROPERITONEAL LYMPH NODE SAMPLING SINGLE OR MULTIPLE EIN (endometrial intraepithelial neoplasia) 08/04/2025 7:00 AM EDT [facility] Start: 08-04-2025 End: 08-04-2025 Laps total hysterect 250 gm/< w/rmvl tube/ovary ROBOTIC LAPAROSCOPIC TOTAL HYSTERECTOMY W/ BSO UTERUS=<250G EIN (endometrial intraepithelial neoplasia) 08/04/2025 7:00 AM EDT [facility] Start: 08-04-2025 End: 08-04-2025 Pelvic examination w/anesthesia other than local EXAM UNDER ANESTHESIA PELVIC / VAGINAL EIN (endometrial intraepithelial neoplasia) 08/04/2025 7:00 AM EDT [facility] Start: 08-04-2025 Subsequent hospital visit by physician [facility] Comment on above: EIN (endometrial intraepithelial neoplas ia) [N85.02] Start: 07-25-2025 Influenza vaccination Influenza Vaccine (#1) [place] Start: 07-21-2025 End: 07-21-2025 ambulatory 07/21/2025 1:00 PM EDT Visit (SP) Office [facility] [address] [place], [place] [phone] Digna Santoyo MD [address] [id number] Complex endometrial hyperplasia with atypia [N85.02] [facility] Comment on above: Complex endometrial hyperplasia with aty brandyn [N85.02] Start: 07-05-2025 End: 07-05-2025 ambulatory 07/05/2025 10:30 AM EDT Procedure OB/Gynecology [address] [place], [place] [phone] Remote, Graphic [facility] [address] [place] [address] Postmenopausal bleeding [N95.0] OB/Gynecology Comment on above: Postmenopausal bleeding [N95.0] Start: 06-22-2025 End: 06-22-2026 US Pelvis PELVIC US [facility] Anc Imaging Routine Postmenopausal bleeding Expected: 06/22/2025, Expires: 06/22/2026 [facility] Work Phone: Comment on above: Expected: 06/22/2025, Expires: Start: 11-24-2024 Advance Directive Discussion Advance Directive Discussion [facility] Start: 11-24-2024 Medicare Advantage Annual Wellness Visit Medicare Advantage Annual Wellness Visit [facility] Start: 12-03-2020 Screening for malignant neoplasm of breast Mammogram Screening [facility] Start: 02-12-2020 Screening for osteoporosis Bone Density Screening [facility] Start: 2015 RSV Vaccine (1 - Risk 60-74 years 1-dose series) RSV Vaccine (1 - Risk 60-74 years 1-dose series) [facility] Start: 2005 Shingrix Vaccine (1 of 2) Shingrix Vaccine (1 of 2) [facility] Start: 02-12-2000 Screening for malignant neoplasm of colon [facility] Start: 1974 Urine microalbumin profile DTaP,Tdap,Td Vaccine (1 - Tdap) [facility] Start: 1973 Annual PCP Team Chronic Disease Visit Annual PCP Team Chronic Disease Visit [facility] Start: 1973 Anxiety Screening Anxiety Screening [facility] Start: 1973 Hepatitis B surface antibody level LDL Cholesterol [facility] Start: 1973 Hepatitis C screening Hepatitis C Screening [facility] Start: 1965 Diabetic foot examination Diabetic Foot Exam [facility] Start: 1965 Glaucoma screening Dilated Retinal Exam [facility] Start: 1965 Hepatitis B screening Urine Albumin:Creatinine Ratio [facility] Start: 02-12-1960 Hemoglobin A1c measurement HbA1C [place] BACTERIAL VAGINOSIS NAAT BACTERI AL VAGINOSIS NAAT Lab Routine Postmenopausal bleeding Vaginal bleeding 06/22/2025 3:40 PM EDT [facility] JAE/TRICHOMONAS NAAT JAE /TRICHOMONAS NAAT Lab Routine Postmenopausal bleeding Vaginal bleeding 06/22/2025 3:40 PM EDT [facility] Cystourethroscopy CYSTOSCOPY EIN (endometrial intraepithelial neoplasia) [facility] Endometrial bx w/wo endocervix bx w/o dilat spx ENDOMETRIAL BIOPSY Procedures Routine Postmenopausal bleeding Ordered: 06/22/2025 [facility] Comment on above: Ordered: 06/22/2025 Laps surg retroperit rai lymph node bx 1/predatory hunter ROBOTIC LAPAROSCOPY SURGICAL W/ RETROPERITONEAL LYMPH NODE SAMPLING SINGLE OR MULTIPLE EIN (endometrial intraepithelial neoplasia) [facility] Laps total hysterect 250 gm/< w/rmvl tube/ovary ROBOTIC LAPAROSCOPIC TOTAL HYSTERECTOMY W/ BSO UTERUS=<250G EIN (endometrial intraepithelial neoplasia) [facility] PAP TEST PAP TEST Lab Rou eric Postmenopausal bleeding Vaginal bleeding Ordered: 06/22/2025 [facility] Comment on above: Ordered: 06/22/2025 Pelvic examination w/anesthesia other than local EXAM UNDER ANESTHESIA PELVIC / VAGINAL EIN (endometrial intraepithelial neoplasia) [facility] Tissue Pathology bio psy report SURGICAL PATHOLOGY Lab Routine Postmenopausal bleeding 06/22/2025 3:40 PM EDT [facility] Immunizations Immunization Date Immunization Notes Care Provider Fa [facility] 09-12-2022 influenza (aIIV4) vaccine, age 65+ yr, quadrivalent, PF (FLUAD QUAD) Abbey Padilla MD Work Phone: [facility] 09-12-2022 influenza virus vacc ine, unspecified formulation Abbey Padilla MD Work Phone: [facility] 07-31-2021 Seasonal, quadrivale nt, recombinant, injectable influenza vaccine, preservative free Abbey Padilla MD Work Phone: [facility] 02-15-2021 Covid (Pfizer) [facility] 01-25-2021 Covid (Pfizer) [facility] 10-31-2020 pneumococcal conjuga te vaccine, 13 valent Abbey Padilla MD Work Phone: [facility] 10-12-2020 influenza (HD-IIV4) vaccine, age 65+ yr, high dose, quadrivalent, PF (FLUZONE HIGH-DOSE) Abbey Padilla MD Work Phone: [facility] 10-08-2020 Seasonal, quadrivale nt, recombinant, injectable influenza vaccine, preservative free Abbey Padilla MD Work Phone: [facility] 09-11-2018 Seasonal, quadrivale nt, recombinant, injectable influenza vaccine, preservative free Abbey Padilla MD Work Phone: [facility] 06-11-2018 pneumococcal polysaccharide vaccine, 23 valent Abbey Padilla MD Work Phone: [facility] 07-23-2017 influenza, injectabl e, quadrivalent, preservative free Abbey Padilla MD Work Phone: [facility] Payers Date Payer Category Payer Medicare (Managed Care) [employer] H[employer] Member Subscriber Plan / Payer (Effective 2024-Present) Name: Janet Ortiz Relation to Subscriber: Self Name: Janet Ortiz Payer ID: Not on file Type: HMO Address: [place] [id number] 2024 Medicare [id number] 2024 Medicare [id number] 2024 Self-pay [id number] 2017 Unknown [id number] Unknown [id number] Unknown [id number] Unknown [id number] Unknown [id number] Unknown [id number] Unknown [id number] Unknown [id number] Unknown [id number] Social History Date Type Detail Facility Start: 05-16-2022 End: 05-16-2022 Tobacco smoking status NHIS Unknown if ever smoked [facility] Start: 1955 Sex Assigned At Female [facility] Start: 01-17-2022 End: 05-12-2024 Tobacco smoking status NHIS Never smoked tobacco (finding) [facility] Start: 02-20-2025 Sex Female (finding) [facility] Start: 01-17-2022 Tobacco use and exposure Smokeless tobacco non-user [facility] Start: 06-22-2025 Alcoholic beverage intake Current non-drinker of alcohol (finding) [facility] Start: 06-22-2025 End: 07-21-2025 History of Social function [facility] Start: 06-22-2025 End: 07-21-2025 Tobacco use panel [facility] Start: 10-25-2012 National Score (1-10 0), lower number is lower risk 58 [facility] Start: 1955 Sex assigned at Not on file [facility] Start: 07-21-2025 Alcoholic beverage intake Current drinker of alcohol (finding) [facility] How often to you hav e a drink containing alcohol? Monthly or less [facility] How many standard drinks containing alcohol do you have on a typical day? 1 or 2 [facility] How often do you hav e 6 or more drinks on 1 occasion? Never [facility] Goals Date Patient Goal Desired Activity /State Personal health goal Functional Status Date Assessment Result Facility 07-21-2025 Total score [AUDIT-C] 1 07/21/20 1:18 PM Anabel Romero DO [facility] Clinical Notes 06-22-2025 to 08-18-2025 Telephone Encounter - Costa Evangelista MA - 08/02/2025 3:00 PM EDTTelephone Encounter - Costa Evangelista MA - 08/02/2025 3:00 PM EDTTelephone Encounter - Costa Evangelista MA - 07/28/2025 1:51 PM EDT Note Date & Type Note Facility 08-18-2025 Note HNO ID: [id number] Author: DIGNA SANTOYO MD Service: ? Author Type: Physician Type: Progress Notes Filed: 08/18/2025 19:16 Note Text: Gynecologic Oncology Progress Note [facility] Referring provider: Abbey Padilla MD Chief complaint: Postop HPI: This is a 70 year old patient s/p RA-TLH/BSO/SLND, cystoscopy for stage IA2 FIGO grade 1 EAC of the uterus here for postop visit. Patient reported improvement of her dysuria with the Bactrim. No vaginal bleeding or pelvic/abd pain. Reports incision is healing well. Denies fever, chills, CP, SOB, nausea, vomiting, changes to bladder habits. Oncology History: 08/04/25: RA-TLH/BSO/SLND. Grade 1, 10 % myoinvasion, no cervical stromal involvement, no LVSI. Cullom nodes negative. ROS: 14 point ROS negative unless indicated in above HPI. Medical history: PAST MEDICAL HISTORY Diagnosis Date - Cervical spinal stenosis c5-c6 - Depression - Diabetes mellitus (HCC) - EIN (endometrial intraepithelial neoplasia) - Essential hypertension - High cholesterol - Hypothyroidism - PCOS (polycystic ovarian syndrome) - Sleep apnea Surgical history: PAST SURGICAL HISTORY Procedure Laterality Date - COLONOSCOPY 2021 5 year return - DANDC, DIAG AND/OR THERAPEUTIC 1990 - LIGATE FALLOPIAN TUBE 1990 - REMOVAL GALLBLADDER - REMV CATARACT EXTRACAP,INSERT LENS Bilateral 2023 - TOTAL KNEE REPLACEMENT Right 2016 Chief Administrative Officer history: , SVDx3, Sab x1 Family history: Family History Problem Relation Age of Onset - Heart Disease before age 55 Mother - Hypertension Mother - Lung fibrosis (HCC) Mother - Heart Disease before age 55 Father - Hypertension Father - Lung fibrosis (HCC) Father - Colon Cancer Maternal Grandmother 80 - Uterine Cancer No Family History - Ovarian cancer No Family History - Breast Cancer No Family History Social history: 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 Medications: Current Outpatient Medications Medication Sig Dispense Refill - metoprolol tartrate, short acting, (LOPRESSOR) 25 mg tablet - semaglutide (OZEMPIC) 1 mg/0.75 ml subcutaneous pen injector Semaglutide (Ozempic) 1 mg/dose (2 mg/1.5 mL) pen injector Active 1 MG SC EVERY WEEK December 28, 2020 9:42am - fluconazole (DIFLUCAN) 150 mg tablet TAKE 1 TABLET BY MOUTH EVERY 3 DAYS NEEDED - levothyroxine 150 mcg cap Take by mouth. - fluticasone (FLONASE) 50 mcg/actuation nasal spray Use in the nose. - glimepiride (AMARYL) 4 mg tablet 2 mg. - losartan (COZAAR) 50 mg tablet 100 mg. - omeprazole (PRILOSEC) 20 mg capsule Take by mouth. - pravastatin (PRAVACHOL) 40 mg tablet Take by mouth. - duloxetine hcl(CYMBALTA 60 MG CAP) Take 30 mg by mouth. 0 - ASPIRIN 81 MG CHEWABLE TAB 0 No current facility-administered medications for this visit. Healthcare maintenance: Colonoscopy: 2021, due 2026 Mammogram: normal 2024 Pap smear: 05/2025 BRYN, hx of abnormal paps PE: EGOG PS 0 BP 131/80 (BP Site: Left Arm, BP Position: Sitting, BP Cuff Size: Extra Large Adult) Pulse 93 Temp 36.8 ?C (98.2 ?F) (Oral) Wt 111.6 kg (246 lb) LMP 06/16/2009 SpO2 97% BMI 44.99 kg/m? Gen: well appearing, pleasant, in NAD Card: well perfused Resp: non-labored breathing on room air Abd: well healed laparoscopic incisions, soft, non-tender, no masses Pelvic: deferred Labs/Imagin08/04/25 Surgical Pathology: A. Uterus, cervix, bilateral fallopian tubes and bilateral ovaries, hysterectomy and bilateral salpingo-oophorectomy: Cervix: Nabothian cysts, negative for neoplasm. Lower uterine segment: Negative for carcinoma. Endometrium: Endometrial adenocarcinoma, endometrioid type, FIGO grade 1. Myometrium: - Superficial myometrial invasion by endometrial endometrioid adenocarcinoma (10% myoinvasion). - Leiomyomata (2.5 cm in greatest dimension) with degenerative changes including dystrophic calcifications. - Adenomyosis. Serosa: Unremarkable serosal surface. Right and left fallopian tubes: Fallopian tube with benign paratubal cysts. Right and left ovaries: Ovaries with endosalpingosis and associated dystrophic calcifications. B. Cullom lymph node, right pelvic, excision: - 2 lymph nodes, negative for carcinoma (0/2). See comment. C. Cullom lymph node, left pelvic, excision: - 1 lymph node, negative for carcinoma (0/1). See comment. A/P: This is a 70 year old with stage IA2 FIGO grade 1 EAC of the uterus here for postop check. Postop: - Meeting goals - Pathology reviewed and provided Endometrial cancer: - POLE and MMR pending. - Would defer genetic testing unless MMR suggestive of Quinteros - No adjuvant treatment recommended - RTC in 3 months Medical Student Attestation: By signing my name below, I, Tiffanie Kaur OMS-4, attest that this documentation has been prepared under the direction and in the presence of Dr. Chandra Forde. Physician Attestation: I have seen and evaluated the gabriella (more content not included)... [facility] 08-10-2025 Note HNO ID: [id number] Author: TAMMY GÓMEZ APRN.STORES LABORER Service: ? Author Type: Nurse Practitioner Type: Progress Notes Filed: 08/10/2025 15:23 Note Text: DATE OF SERVICE: 08/10/2025 PROBLEM: Janet Ortiz presents for incision check. SURGERY AND DATE: 08/04/2025 RALSTLH/BSO, SLN, cystoscopy PATHOLOGY: in process SUBJECTIVE/INTERVAL HISTORY: Janet Ortiz reports that she feel well just tired. No abdominal pain. No fever or chills. No shortness of breath, cough, or chest pain. She reports that her incisions look fine. No drainage . Patient reports that her appetite is good. No abdominal pain, nausea, vomiting, diarrhea, or constipation. She reports dysuria, no frequency, no pressure, no hematuria. She also reports burning which feels vaginal at rest. Her ECOG performance status is zero (fully active, able to carry on all pre-disease performance without restriction). OBJECTIVE: BP 144/85 Pulse 93 Temp (Src) 97.9 (Oral) Wt 249 lb (112.9kg) SpO2 97% LMP 06/16/2009 OBGyn Exam GENERAL: here alone, NAD LUNGS: unlabored on RA. ABDOMEN: laparoscopic Incisions healing well. Pelvic: vulva, no lesions, no opens sores, no erythema no edema LOWER EXTREMITIES: No pitting edema, no palpable cords, and no skin changes. Participation of a fellow, resident, medical student, or advanced practice provider student in performing the sensitive examination was discussed with the patient or authorized field support representative. The patient or authorized field support representative has agreed to proceed with the sensitive examination. ASSESSMENT: 70 yo s/p RALSTLH w/BSO for atypical hyperplasia here for dysuira PLAN: Dysuria -ua/uc -start bactrim -advise barrier ointment on vulva, AANDD, aquaphor or zinc oxide. -call if worsening or no improvement Post op -incisions healing well -pathology still in process rtc for post op on 08/[address] Chandra Gómez APRN.STORES LABORER Medical Decision Making: Problems: Low: Acute, uncomplicated illness or injury Data: Unique source(s) for external note(s) reviewed: 3+ Unique test result(s) reviewed: 3+ Unique test(s) ordered: 3+ Risk: Moderate: Drug management Medical Decision Making Level: 4 - Moderate [facility] 08-04-2025 Note HNO ID: [id number] Author: JAMES JEFFREY RN Service: Nursing Author Type: Registered Nurse Type: Progress Notes Filed: 08/04/2025 12:25 Note Text: Pt feeling a little woozy FSBS checked. [facility] 08-04-2025 Note HNO ID: [id number] Author: JAMES JEFFREY RN Service: Nursing Author Type: Registered Nurse Type: Progress Notes Filed: 08/04/2025 11:49 Note Text: Dr. Connolly to BS to pt. [facility] 08-04-2025 Note HNO ID: [id number] Author: YOUSUF FALLON APRN.CRNA Service: Nursing Author Type: Nurse Firepot Operator And Tender Type: Anesthesia Procedure Notes Filed: 08/04/2025 08:02 Note Text: ANESTHESIOLOGY PROCEDURE NOTE PIV General Information Procedure Start Time/Medication Administration: 08/04/2025 7:12 AM Procedure End Time: 08/04/2025 7:14 AM Patient Location: OR Staffing Anesthesiologist: Dina Cook DO Performed by: anesthesiologist Preparation Sterility Preparation: hand hygiene performed prior to procedure, surgical cap used, mask used, skin prep agent completely dried prior to procedure Site Prep: Chloraprep Procedure Details Indication: need for IV access Needle Size/Type: 18 gauge angiocath Orientation: Right Location: Hand Imaging Guidance Used: No SIGNATURE: Yousuf Fallon APRN.APARTMENT COORDINATOR PATIENT NAME: Janet Ortiz DATE: August 04, 2025 TIME: 8:02 AM CSN: [id number] [facility] 08-04-2025 Note HNO ID: [id number] Author: YOUSUF FALLON APRN.APARTMENT COORDINATOR Service: Nursing Author Type: Nurse Firepot Operator And Tender Type: Anesthesia Procedure Notes Filed: 08/04/2025 07:35 Note Text: ANESTHESIOLOGY PROCEDURE NOTE Airway General Information Procedure Start Time/Medication Administration: 08/04/2025 7:12 AM Procedure End Time: 08/04/2025 7:12 AM Patient location during procedure: OR Timeout Performed Pre-procedure: timeout performed Consent Obtained: Yes Patient identity confirmed: arm band and patient Staffing Anesthesiologist: Dina Cook DO APARTMENT COORDINATOR: Yousuf Fallon APRN.APARTMENT COORDINATOR Performed by: anesthesiologist, APARTMENT COORDINATOR and resident Indications and Patient Condition Indications for airway management: anesthesia Preoxygenated: yes anesthesia circuit Method: modified rapid sequence Difficult Mask: No Airway Accessory: oral airway Final Airway Details Final airway type: endotracheal airwayFinal Endotracheal Airway: ETT Cuffed: yes Successful intubation technique: video laryngoscopy Devices used: intubating stylet and Lawson Endotracheal tube insertion site: oral Blade: Víctor Blade size: #3 ETT size (mm): 7.0 Measured from: lips Measurement (cm): 21 Placement verified by: capnometry Cormack-Lehane Classification: grade I - full view of glottis Number of attempts at approach: 1 Failed airway: no Unrecognized esophageal intubation: no Airway not difficult Comments Medical student performed the intubation while Dr. Cook and Deysi present the whole time. SIGNATURE: Yousuf Fallon APRN.APARTMENT COORDINATOR PATIENT NAME: Janet Ortiz DATE: August 04, 2025 TIME: 7:33 AM CSN: [id number] [facility] 08-02-2025 Telephone encounter Note Left a message to remind patient of surgery 08-04-25 arrival time as 5 am and procedure as 7 am. No eating or drinking after midnight. Costa Evangelista MA [facility] 08-02-2025 Miscellaneous Notes Left a message to remind patient of surgery 08-04-25 arrival time as 5 am and procedure as 7 am. No eating or drinking after midnight. Costa Evangelista MA documented in this encounter [facility] 07-28-2025 Telephone encounter Note Spoke to patient to remind of surgery 08-04-25 arrival time as 5 am and procedure at 7 am. No eating or drinking after midnight. Patient understood. Costa Evangelista MA [facility] 07-28-2025 Miscellaneous Notes Spoke to patient to remind of surgery 08-04-25 arrival time as 5 am and procedure at 7 am. No eating or drinking after midnight. Patient understood. Costa Evangelista MA documented in this encounter [facility] 07-21-2025 History of Presen t illness Narrative Gynecologic Oncology Consultation Note [facility] Referring provider: Abbey Padilla MD Chief complaint: EIN HPI: This is a 70 year old patient with a history of T2DM, depression, HTN, HLD, cervical stenosis, sleep apnea referred for EIN. Patient initially presented to Dr. Padilla May 2025 for PMB. Had an EMB that showed EIN. TVUS that showed thickened endometrium, 14mm. Now with some spotting on her underwear 1-2 times a week in the morning. Has intermittent cramping that spontaneously resolves. Denies fever, chills, CP, Shortness of Breath, vomiting, changes to bowel or bladder habits. Is losing weight due to ozempic. Presents today with her ROS: 14 point ROS negative unless indicated in above HPI. Medical history: PAST MEDICAL HISTORY Diagnosis Date Cervical spinal stenosis c5-c6 Depression Diabetes mellitus (HCC) EIN (endometrial intraepithelial neoplasia) Essential hypertension High cholesterol Hypothyroidism PCOS (polycystic ovarian syndrome) Sleep apnea Surgical history: PAST SURGICAL HISTORY Procedure Laterality Date COLONOSCOPY 2021 5 year return D&C, DIAG AND/OR THERAPEUTIC 1990 LIGATE FALLOPIAN TUBE 1990 REMOVAL GALLBLADDER REMV CATARACT EXTRACAP,INSERT LENS Bilateral 2023 TOTAL KNEE REPLACEMENT Right 2016 Chief Administrative Officer history: , SVDx3, Sab x1 Family history: Family History Problem Relation Age of Onset Heart Disease before age 55 Mother Hypertension Mother Lung fibrosis (HCC) Mother Heart Disease before age 55 Father Hypertension Father Lung fibrosis (HCC) Father Colon Cancer Maternal Grandmother 80 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 fluticasone (FLONASE) 50 mcg/actuation nasal spray Use in the nose. glimepiride (AMARYL) 4 mg tablet 2 mg. losartan (COZAAR) 50 mg tablet 100 mg. omeprazole (PRILOSEC) 20 mg capsule Take by mouth. pravastatin (PRAVACHOL) 40 mg tablet Take by mouth. duloxetine hcl(CYMBALTA 60 MG CAP) Take 30 mg by mouth. 0 ASPIRIN 81 MG CHEWABLE TAB 0 No current facility-administered medications for this visit. Healthcare maintenance: Colonoscopy: 2021, due 2026 Mammogram: normal 2024 Pap smear: 05/2025 BRYN, hx of abnormal paps PE: EGOG PS 0 BP 139/85 (BP Site: Left Arm, BP Position: Sitting, BP Cuff Size: Extra Large Adult) Pulse 76 Temp 36.5 C (97.7 F) (Oral) Ht 157.5 cm (5' 2") Wt 114.3 kg (252 lb) LMP 06/16/2009 SpO2 97% BMI 46.09 kg/m Gen: well appearing, pleasant, in NAD Card: well perfused Resp: non-labored breathing on room air Abd: well healed laparoscopic incisions, soft, non-tender, no masses Pelvic: normal appearing external genitalia, vaginal mucosa and external os, no vulvar or cervical lesions, physiologic discharge present, bimanual without pelvic masses, cervical motion tenderness, adnexal tenderness or masses Performed by Dr. Marshall. 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 Participation of a fellow, resident, medical student, or advanced practice provider student in performing the sensitive examination was discussed with the patient or authorized field support representative. The patient or authorized field support representative has agreed to proceed with the sensitive examination. Labs/Imaging: TVUS 07/05/2025 Impression The uterus is anteverted and measures 80 mm x 45 mm x 51 mm. The endometrium is abnormally thickened and has minimal blood flow and measures 14 mm. The right ovary is not visualized. The left ovary is not visualized. There is no free fluid visualized. FINAL DIAGNOSIS A. Endometrium, biopsy - Atypical endometrial hyperplasia A/P: This is a 70 year old patient here for consultation for EIN. EIN - We reviewed the natural history of endometrial cancer and meaning of grade and stage. Discussed up to 40 % risk of endometrial cancer on final hysterectomy specimen. - Discussed that the gold standard for treatment is surgery although other options including hormone therapy . - Discussed that standard treatment includes removal of the uterus, cervix, bilateral fallopian tubes/ovaries, and possible evaluation of lymph nodes. - Discussed multiple ways to evaluate lymph nodes although current standard of care is sentinel lymph node evaluation. Discussed ipsilateral full node dissection versus frozen section to guide node dissection if non-mapping on one or both sides. Did review up to 20-30 % risk of lymphedema if fully node dissection performed. - She prefers frozen section instead of sentinel node mapping at this time. - Given the above, we will plan on a RATLH, BSO, cystoscopy, possible SLND with mapping and dissection -We reviewed the following risks of surgery: infection, blood loss, need for transfusion, intraoperative injury to other structures, DVT/PE, nerve injuries, anesthesia related risks Preop: - T+S, CBC, BMP - Recent A1c 6.4 per patient report - No PAT - Aztreonam/Flagyl/Heparin/SCDs Anabel Marshall DO OBGYN PGY-2 July 21, 2025 1:07 PM I have seen and evaluated the patient and discussed the case with the resident physician. I agree with the assessment and plan as documented in the resident s note. Digna Santoyo MD, MPH Gynecologic Oncologist Medical Decision Making: Problems: Moderate: New problem with uncertain prognosis Data: Unique source(s) for external note(s) reviewed: 3+ Unique test result(s) reviewed: 3+ Unique test(s) ordered: 3+ Independent interpretation of test from other physician/QHCP Risk: High: Decision on elective major surgery w/ risk factors Medical Decision Making Level: 5 - High [1] Social History Tobacco Use Smoking status: Never Smokeless tobacco: Never Vaping Use Vaping status: Never Used Substance Use Topics Alcohol use: Yes Alcohol/week: 0.0 - 1.0 standard drinks of alcohol Drug use: No documented in this encounter [facility] 07-21-2025 Note HNO ID: [id number] Author: DIGNA SANTOYO MD Service: ? Author Type: Physician Type: Progress Notes Filed: 07/21/2025 22:56 Note Text: Gynecologic Oncology Consultation Note [facility] Referring provider: Abbey Padilla MD Chief complaint: EIN HPI: This is a 70 year old patient with a history of T2DM, depression, HTN, HLD, cervical stenosis, sleep apnea referred for EIN. Patient initially presented to Dr. Padilla May 2025 for PMB. Had an EMB that showed EIN. TVUS that showed thickened endometrium, 14mm. Now with some spotting on her underwear 1-2 times a week in the morning. Has intermittent cramping that spontaneously resolves. Denies fever, chills, CP, Shortness of Breath, vomiting, changes to bowel or bladder habits. Is losing weight due to ozempic. Presents today with her ROS: 14 point ROS negative unless indicated in above HPI. Medical history: PAST MEDICAL HISTORY Diagnosis Date - Cervical spinal stenosis c5-c6 - Depression - Diabetes mellitus (HCC) - EIN (endometrial intraepithelial neoplasia) - Essential hypertension - High cholesterol - Hypothyroidism - PCOS (polycystic ovarian syndrome) - Sleep apnea Surgical history: PAST SURGICAL HISTORY Procedure Laterality Date - COLONOSCOPY 2021 5 year return - DANDC, DIAG AND/OR THERAPEUTIC 1990 - LIGATE FALLOPIAN TUBE 1990 - REMOVAL GALLBLADDER - REMV CATARACT EXTRACAP,INSERT LENS Bilateral 2023 - TOTAL KNEE REPLACEMENT Right 2016 Chief Administrative Officer history: , SVDx3, Sab x1 Family history: Family History Problem Relation Age of Onset - Heart Disease before age 55 Mother - Hypertension Mother - Lung fibrosis (HCC) Mother - Heart Disease before age 55 Father - Hypertension Father - Lung fibrosis (HCC) Father - Colon Cancer Maternal Grandmother 80 Social history: 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 Medications: Current Outpatient Medications Medication Sig Dispense Refill - metoprolol tartrate, short acting, (LOPRESSOR) 25 mg tablet - semaglutide (OZEMPIC) 1 mg/0.75 ml subcutaneous pen injector Semaglutide (Ozempic) 1 mg/dose (2 mg/1.5 mL) pen injector Active 1 MG SC EVERY WEEK December 28, 2020 9:42am - fluconazole (DIFLUCAN) 150 mg tablet TAKE 1 TABLET BY MOUTH EVERY 3 DAYS NEEDED - levothyroxine 150 mcg cap Take by mouth. - fluticasone (FLONASE) 50 mcg/actuation nasal spray Use in the nose. - glimepiride (AMARYL) 4 mg tablet 2 mg. - losartan (COZAAR) 50 mg tablet 100 mg. - omeprazole (PRILOSEC) 20 mg capsule Take by mouth. - pravastatin (PRAVACHOL) 40 mg tablet Take by mouth. - duloxetine hcl(CYMBALTA 60 MG CAP) Take 30 mg by mouth. 0 - ASPIRIN 81 MG CHEWABLE TAB 0 No current facility-administered medications for this visit. Healthcare maintenance: Colonoscopy: 2021, due 2026 Mammogram: normal 2024 Pap smear: 05/2025 BRYN, hx of abnormal paps PE: EGOG PS 0 BP 139/85 (BP Site: Left Arm, BP Position: Sitting, BP Cuff Size: Extra Large Adult) Pulse 76 Temp 36.5 ?C (97.7 ?F) (Oral) Ht 157.5 cm (5' 2") Wt 114.3 kg (252 lb) LMP 06/16/2009 SpO2 97% BMI 46.09 kg/m? Gen: well appearing, pleasant, in NAD Card: well perfused Resp: non-labored breathing on room air Abd: well healed laparoscopic incisions, soft, non-tender, no masses Pelvic: normal appearing external genitalia, vaginal mucosa and external os, no vulvar or cervical lesions, physiologic discharge present, bimanual without pelvic masses, cervical motion tenderness, adnexal tenderness or masses Performed by Dr. Marshall. 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 Participation of a fellow, resident, medical student, or advanced practice provider student in performing the sensitive examination was discussed with the patient or authorized field support representative. The patient or authorized field support representative has agreed to proceed with the sensitive examination. Labs/Imaging: TVUS 07/05/2025 Impression The uterus is anteverted and measures 80 mm x 45 mm x 51 mm. The endometrium is abnormally thickened and has minimal blood flow and measures 14 mm. The right ovary is not visualized. The left ovary is not visualized. There is no free fluid visualized. FINAL DIAGNOSIS A. Endometrium, biopsy - Atypical endometrial hyperplasia A/P: This is a 70 year old patient here for consultation for EIN. EIN - We reviewed the natural history of endometrial cancer and meaning of grade and stage. Discussed up to 40 % risk of endometrial cancer on final hysterectomy specimen. - Discussed that the gold standard for treatment is surgery although other options including hormone therapy . - Discussed that standard treatment includes removal of the uterus, cervix, bilateral fallopian tubes/ovaries, and possible evaluation of lymph nodes. - Discussed multiple ways to evaluate lymph nodes although current standard of care is sentinel lymph node evaluation. Discussed ipsilateral full node dissectio (more content not included)... [facility] 07-07-2025 Note HNO ID: [id number] Author: TIM HOWELL MD Service: ? Author Type: Physician Type: Progress Notes Filed: 07/07/2025 09:09 Note Text: The patient presents for requested ultrasound. Full report available in the "Imaging" tab in [facility]. Tim Howell MD [facility] 07-07-2025 History of Presen t illness Narrative The patient presents for requested ultrasound. Full report available in the "Imaging" tab in Epic. Tim Howell MD documented in this encounter [facility] 06-22-2025 Instructions Sheryl Romero MA - 06/22/2025 2:35 PM EDT Endometrial Biopsy Your provider has recommended an endometrial biopsy. For more information, My [facility] Endometrial Biopsy How do I prepare for an endometrial biopsy? You shouldn t need to do much to prepare for an endometrial biopsy. Let your healthcare provider know what medications or supplements you take and if you have any allergies. They can let you know if you should stop taking certain medications before the biopsy. Some healthcare providers recommend taking a nonsteroidal anti-inflammatory drug (NSAID) like ibuprofen before the biopsy to help with pain. Your provider may recommend a medication to help prepare your cervix for the biopsy, often taken by mouth one and two days before the procedure. Ask your healthcare provider any questions you have before the procedure so you know exactly what to expect. Generally, an endometrial biopsy is very low-risk and safe. documented in this encounter [facility] 06-22-2025 Note HNO ID: [id number] Author: ABBEY PADILLA MD Service: ? Author Type: Physician Type: Progress Notes Filed: 06/22/2025 15:44 Note Text: Obstetrics and Gynecology [place] DEPENDENCY COUNSELOR Visit Subjective Recording using [employer] software for draft documentation of the visit was discussed with the patient/authorized field support representative; all questions welcomed and answered. Patient/authorized field support representative agreed to proceed CHIEF COMPLAINT: The patient is a 70-year-old female with a history of chronic yeast infections, diabetes, and PCOS presenting for evaluation of postmenopausal bleeding. HPI: Postmenopausal Bleeding - Onset: Approximately 6 weeks ago - Description: Initially dark spotting on the pad, recently noticed bright red droplets of blood. - Associated Symptoms: Burning sensation, both vulvar and internal. - Denies: Cramping, bloating, or changes similar to menstrual cramps. - Wears a pad constantly due to urinary incontinence. Chronic Yeast Infections - History of chronic vaginal yeast infections for 7-8 years. - Last infection was about a month ago. - Self-treats with fluconazole, usually has about 20 tablets on hand. - Also uses boric acid once or twice a week to maintain vaginal pH balance, though hasn't used it in a couple of months. Urinary Incontinence - Initially started as stress incontinence, has worsened over the years. - Experiences leakage when coughing or sneezing, sometimes feels a trickle of urine. - Wears a pad constantly due to incontinence. - Denies urgency or inability to make it to the bathroom in time. Diabetes - Diagnosed with diabetes, currently well-controlled. - Recent HbA1c: 6.4% (2 weeks ago) - On Ozempic, experiences colon issues with diarrhea and gut ache. Past Medical History - PCOS: Required fertility pills for first . - PID: History of pelvic inflammatory disease off and on in early years. - Gestational Diabetes and Toxemia: During in 1989, baby was 6 weeks premature. - DANDC and Tubal Ligation: Performed in 1990 due to proliferative endometrium. - Cervical Procedure: Had a procedure on the cervix years ago, possibly a polyp removal or biopsy. Past Screenings - Pap Smears: Last Pap smear was 3-4 years ago in [place], performed by a nurse practitioner. Has had abnormal results in the past. 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 No pertinent family history. Social History Tobacco Use Smoking status: Never Smokeless tobacco: Never Vaping Use Vaping status: Never Used Substance Use Topics Alcohol use: No Drug use: No Current Outpatient Medications Medication Sig metoprolol tartrate, short acting, (LOPRESSOR) 25 mg tablet semaglutide (OZEMPIC) 1 mg/0.75 ml subcutaneous pen injector Semaglutide (Ozempic) 1 mg/dose (2 mg/1.5 mL) pen injector Active 1 MG SC EVERY WEEK December 28, 2020 9:42am fluconazole (DIFLUCAN) 150 mg tablet TAKE 1 TABLET BY MOUTH EVERY 3 DAYS NEEDED levothyroxine 150 mcg cap Take by mouth. fluticasone (FLONASE) 50 mcg/actuation nasal spray Use in the nose. glimepiride (AMARYL) 4 mg tablet 2 mg. losartan (COZAAR) 50 mg tablet 100 mg. omeprazole (PRILOSEC) 20 mg capsule Take by mouth. pravastatin (PRAVACHOL) 40 mg tablet Take by mouth. duloxetine hcl(CYMBALTA 60 MG CAP) Take 30 mg by mouth. ASPIRIN 81 MG CHEWABLE TAB amLODIPine (NORVASC) 5 mg tablet Take by mouth. (Patient not taking: Reported on 06/22/2025) Cholecalciferol, Vitamin D3, 50 mcg (2,000 unit) cap Take by mouth. (Patient not taking: Reported on 06/22/2025) OZEMPIC 0.25 mg or 0.5 mg(2 mg/1.5 mL) pen injector 0.5 mg. (Patient not taking: Reported on 06/22/2025) clotrimazole-betamethasone (LOTRISONE) cream Apply 1 application to affected area twice daily. (Patient not taking: Reported on 06/22/2025) ATENOLOL 50 MG TAB one in am and 1/2 at hs (Patient not taking: Reported on 06/22/2025) levothyroxine sodium(SYNTHROID 50 MCG TAB) Take one(1) tablet daily. (Patient not taking: Reported on 06/22/2025) XANAX 0.5MG TABLET as necessary (Patient not taking: Reported on 06/22/2025) No current facility-administered medications for this visit. ALLERGIES Allergen [place] (more content not included)... [facility] 06-22-2025 History of Presen t illness Narrative Images from the original note were not included. Obstetrics and Gynecology [place] DEPENDENCY COUNSELOR Visit Subjective Recording using [employer] software for draft documentation of the visit was discussed with the patient/authorized field support representative; all questions welcomed and answered. Patient/authorized field support representative agreed to proceed CHIEF COMPLAINT: The patient is a 70-year-old female with a history of chronic yeast infections, diabetes, and PCOS presenting for evaluation of postmenopausal bleeding. HPI: Postmenopausal Bleeding - Onset: Approximately 6 weeks ago - Description: Initially dark spotting on the pad, recently noticed bright red droplets of blood. - Associated Symptoms: Burning sensation, both vulvar and internal. - Denies: Cramping, bloating, or changes similar to menstrual cramps. - Wears a pad constantly due to urinary incontinence. Chronic Yeast Infections - History of chronic vaginal yeast infections for 7-8 years. - Last infection was about a month ago. - Self-treats with fluconazole, usually has about 20 tablets on hand. - Also uses boric acid once or twice a week to maintain vaginal pH balance, though hasn't used it in a couple of months. Urinary Incontinence - Initially started as stress incontinence, has worsened over the years. - Experiences leakage when coughing or sneezing, sometimes feels a trickle of urine. - Wears a pad constantly due to incontinence. - Denies urgency or inability to make it to the bathroom in time. Diabetes - Diagnosed with diabetes, currently well-controlled. - Recent HbA1c: 6.4% (2 weeks ago) - On Ozempic, experiences colon issues with diarrhea and gut ache. Past Medical History - PCOS: Required fertility pills for first . - PID: History of pelvic inflammatory disease off and on in early years. - Gestational Diabetes and Toxemia: During in 1989, baby was 6 weeks premature. - D&C and Tubal Ligation: Performed in 1990 due to proliferative endometrium. - Cervical Procedure: Had a procedure on the cervix years ago, possibly a polyp removal or biopsy. Past Screenings - Pap Smears: Last Pap smear was 3-4 years ago in [place], performed by a nurse practitioner. Has had abnormal results in the past. 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 No pertinent family history. Social History Tobacco Use Smoking status: Never Smokeless tobacco: Never Vaping Use Vaping status: Never Used Substance Use Topics Alcohol use: No Drug use: No Current Outpatient Medications Medication Sig metoprolol tartrate, short acting, (LOPRESSOR) 25 mg tablet semaglutide (OZEMPIC) 1 mg/0.75 ml subcutaneous pen injector Semaglutide (Ozempic) 1 mg/dose (2 mg/1.5 mL) pen injector Active 1 MG SC EVERY WEEK December 28, 2020 9:42am fluconazole (DIFLUCAN) 150 mg tablet TAKE 1 TABLET BY MOUTH EVERY 3 DAYS NEEDED levothyroxine 150 mcg cap Take by mouth. fluticasone (FLONASE) 50 mcg/actuation nasal spray Use in the nose. glimepiride (AMARYL) 4 mg tablet 2 mg. losartan (COZAAR) 50 mg tablet 100 mg. omeprazole (PRILOSEC) 20 mg capsule Take by mouth. pravastatin (PRAVACHOL) 40 mg tablet Take by mouth. duloxetine hcl(CYMBALTA 60 MG CAP) Take 30 mg by mouth. ASPIRIN 81 MG CHEWABLE TAB amLODIPine (NORVASC) 5 mg tablet Take by mouth. (Patient not taking: Reported on 06/22/2025) Cholecalciferol, Vitamin D3, 50 mcg (2,000 unit) cap Take by mouth. (Patient not taking: Reported on 06/22/2025) OZEMPIC 0.25 mg or 0.5 mg(2 mg/1.5 mL) pen injector 0.5 mg. (Patient not taking: Reported on 06/22/2025) clotrimazole-betamethasone (LOTRISONE) cream Apply 1 application to affected area twice daily. (Patient not taking: Reported on 06/22/2025) ATENOLOL 50 MG TAB one in am and 1/2 at hs (Patient not taking: Reported on 06/22/2025) levothyroxine sodium(SYNTHROID 50 MCG TAB) Take one(1) tablet daily. (Patient not taking: Reported on 06/22/2025) XANAX 0.5MG TABLET as necessary (Patient not taking: Reported on 06/22/2025) No current facility-administered medications for this visit. ALLERGIES Allergen Reactions Diltiazem cardizem Penicillins slough of colon REVIEW OF SYSTEMS: Gastrointestinal: (+) abdominal pain, (+) diarrhea, (-) bloating Genitourinary: (+) vaginal bleeding, (+) vaginal burning, (+) external genital pruritus, (+) urinary incontinence, (-) urinary urgency, (-) dysmenorrhea Objective SENSITIVE EXAM: The sensitive examination was discussed with the Patient or Patient's Authorized Laundry Assistant. As applicable, any other physician, advance practice provider, medical student, or other health professional student that will be observing or involved in the sensitive examination for educational or training purposes was discussed with the Patient or Authorized Laundry Assistant. The Patient or Authorized Laundry Assistant has agreed to proceed with the sensitive examination. (Sensitive examination includes inspection and/or palpation of the breasts, pelvis, prostate and anorectal regions). PHYSICAL EXAM: BP 132/88 Wt 255 lb (115.7kg) LMP 06/16/2009 GENERAL: Pleasant; in no apparent distress : - PELVIC: widened introitu, some erythema of skin, no fissures or hyperpigmented lesions, leaking of urine noted, moderate cystoscele and rectocele, flattened pale epithelium, cervix smooth, nonfriable, no lesions with brownish blood in the vaginal canal, normal appearing perineal body and perianal region; bleeding noted from the uterus upon cervical dilation - BIMANUAL: nontender, difficult to deliniate due to habitus- Patient consent for exam received Assessment & Plan ASSESSMENT AND PLAN: 1. Postmenopausal bleeding (N95.0) 2. Vaginal bleeding (N93.9) - Ongoing vaginal bleeding for 6 weeks, initially dark spotting, with recent bright red droplets; confirmed uterine origin on exam. - Endometrial biopsy performed today. - Pelvic ultrasound ordered to assess for polyps and endometrial thickness. - Discussed expected post-biopsy bleeding and when to seek care. - Pathology results expected within 5 business days; will follow up virtually if needed. -Pap done today 3. Vulvovaginal candidiasis (B37.31) - History of chronic vulvovaginal candidiasis; no infection in past month. - Uses Diflucan PRN for self-treatment. - Advised to continue current management as needed. May be a component of irritation due to pads BV/yeast/trich vaginitis swabs done 4. Stress incontinence (N39.3) - Chronic stress incontinence, worsening over the years; uses pads continuously. - Advised use of skin protectant (e.g., A&D ointment) to prevent irritation from chronic pad use. Abbey Padilla MD Janet is a 70 year old who presents today for an endometrial biopsy for PMB. test: n/a UNIVERSAL PROTOCOL / SAFETY CHECKLIST Procedure to be Performed: PMB Sign In: A Moment of CARE was completed. Appropriate PPE (Personal Protective Equipment) worn by all providers involved with the procedure. Special equipment not required. Patient/Surrogate Stated/Verified: Patient name, Date of , Relevant allergies, and The intended procedure Time Out: Relevant labs, photos, and/or imaging studies are not applicable. Intended patient and procedure match the source document(s) (e.g. consent, H&P, associated studies [imaging, pathology]) are not applicable. Consent obtained and matches the intended procedure. Yes. Correct side/site is not applicable. Medications required for this procedure are not applicable. Fire risk assessed and is not applicable. Implants: are not applicable. Sign Out: Specimens are all correctly labeled and sent. All instruments, equipment, possible retained foreign bodies are accounted for. Yes. The post-procedure plan of care has been communicated to the patient or surrogate. PROCEDURE: BIOPSY: Speculum placed into the vagina with excellent visualization of the cervix. Cervix cleaned with betadine. Anterior lip of cervix grasped with single toothed tenaculum. Uterus sounded to 10 cm. Pipelle inserted into the uterus without difficulty and endometrial biopsy obtained. Specimen labeled and sent to pathology. Procedure Summary: Patient tolerated procedure well. ASSESSMENT: post menopausal bleeding PLAN: Specimens labeled and sent to Pathology. Will notify patient of results in 1-2 weeks. Post-procedure instructions reviewed and written material given to the patient. Abbey Padilla MD documented in this encounter [facility] Evaluation note No assessment inform ation available [facility] Work Phone: Evaluation note Diagnosis Postmenopausal bleeding- Primary Vaginal bleeding Other specified noninflammatory disorder of vagina Vulvovaginal candidiasis Candidiasis of vulva and vagina Stress incontinence Female stress incontinence [facility] [place] [facility] Diagnosis Postmenopausal bleeding- Primary Thickened endometrium Nonspecific (abnormal) findings on radiological and other examination of genitourinary organs Abnormal ultrasound of endometrium Nonspecific (abnormal) findings on radiological and other examination of genitourinary organs [facility] [place] [facility] Diagnosis EIN (endometrial intraepithelial neoplasia)- Primary Endometrial intraepithelial neoplasia (EIN) Preoperative examination Preoperative examination, unspecified [facility] Diagnosis EIN (endometrial intraepithelial neoplasia)- Primary Endometrial intraepithelial neoplasia (EIN) [facility] this [facility] (narrative)No reason for referral information [facility]WAd[facility] Work Phone: Reason for visit Narrative* Diagnostic Procedure Only (Routine) - Closed Specialty Diagnoses / Procedures Referred By Contac t Referred To Contact [facility] Diagnoses Postmenopausal bleeding Procedures PELVIC US WHI US PELVIC NONOBSTETRIC REAL-TIME IMAGE COMPLETE Abbey Padilla MD [address] [place] [address] Phone: tel: fax: [address] [phone] Referral ID Status Reason Start Date Expiration Date V isits Requested Visits Authorized [id number] Closed Auto-Generate d Referral 06/22/2025 06/22/2026 1 1 [facility] Summary Purpose Family History No Family History Records FoundNo Family History Records FoundNo Family History Records FoundNo Family History Records Found Advance Directives No Advanced Directives Records Found Advance Directive Response Recorded Date/ Time Living Will No May 13, 2022 12:45pm Power of Plywood Patcher No May 13 12:45pm Advance Directive Response Recorded Date/ Time Living Will No May 13, 2022 11:45am Power of Plywood Patcher No May 13 11:45am Chief Complaint and Reason for Visit Chief Complaint SCREENING Chief Complaint SCREENING Chief Complaint SCREENING E-ORDER AND PAPER ORDER Chief Complaint E-ORDER AND PAPER OR LAZARO Chief Complaint Admit Date SCREENING November 30, 2024 11 :58am DIABETES,THYROID, VIT D DEF. LABS February 15, 2025 10:23am Chief Complaint Admit Date DIABETES,THYROID, VIT D DEF. LABS February 15, 2025 10:23am Additional Source Comments INFORMATION SOURCE (unrecogn ized section and content) DATE CREATED AUTHOR 05/18/2018 [facility] pedro pablo Hernandez DATE CREATED AUTHOR AUTHOR'S ORGANIZ ATION 06/12/2025 [facility] DATE CREATED AUTHOR AUTHOR'S ORGANIZ ATION 07/09/2025 [facility] DATE CREATED AUTHOR AUTHOR'S ORGANIZ ATION 09/02/2025 [facility] Goals (unrecognized section and content) Goals may [...] Inactive Member Role Status Dates Radha Chambers MD Primary Care Provide r, Attending Provider, Referring Provider Active Team Status: Inactive Member Role Status Dates Radha Chambers MD Primary Care Provider, Attending Prov ider Active Team Status: Inactive Member Role Status Dates Radha Chambers MD Primary Care Provider Active St art: November 15, 2024 End: November 15, 2024 Dr. Kisha Han MD Attending Provider Active Start: November 15, 2024 End: November 15, 2024 Dr. Kisha Han MD Referring Provider Active Start: November 15, 2024 End: November 15, 2024 Team Status: Inactive Member Role Status Dates Radha Chambers MD Primary Care Provider Active St art: November 30, 2024 End: November 30, 2024 Radha Chambers MD Attending Provider Active Start : November 30, 2024 End: November 30, 2024 Radha Chambers MD Referring Provider Active Start : November 30, 2024 End: November 30, 2024 Team Status: Inactive Member Role Status Dates Radha Chambers MD Primary Care Provider Active St art: February 15, 2025 End: February 15, 2025 ROSIE RAY Attending Provider Active St art: February 15, 2025 End: February 15, 2025 ROSIE RAY Referring Provider Active St art: February 15, 2025 End: February 15, 2025 Dr. Kisha Han MD Other Provider Active Star t: February 15, 2025 End: February 15, 2025 Team Status: Active Member Role/Relationship Status Dates Dr. Rah Aldrich III, MD Family Provider Active Radha Chambers MD Primary Care Provider Active Team Status: Inactive Member Role/Relationship Status Dates Radha Chambers MD Primary Care Provider Active St art: February 15, 2025 End: February 15, 2025 ROSIE RAY Attending Provider Active St art: February 15, 2025 End: February 15, 2025 ROSIE RAY Referring Provider Active St art: February 15, 2025 End: February 15, 2025 Dr. Kisha Han MD Other Provider Active Star t: February 15, 2025 End: February 15, 2025 Team Status: Inactive Member Role/Relationship Status Dates Radha Chambers MD Primary Care Provider Active St art: June 02, 2025 End: June 02, 2025 Dr. Kisha Han MD Attending Provider Active Start: June 02, 2025 End: June 02, 2025 Dr. Kisha Han MD Referring Provider Active Start: June 02, 2025 End: June 02, 2025 Drug Safety Physician Relationship Specialty Start Date End Date Susanna Coulter MD [address] [place], [place] [id number] PCP - General Family Medicine 01/17/22 Drug Safety Physician Relationship Specialty Start Date End Date Susanna Coulter MD [address] [place], [place] [id number] PCP - General Family Medicine 01/17/22 Drug Safety Physician Relationship Specialty Start Date End Date Susanna Coulter MD [address] [place] [address] PCP - General Family Medicine 01/17/22 Drug Safety Physician Relationship Specialty Start Date End Date Susanna Coulter MD [address] [place] [address] PCP - General Family Medicine 01/17/22 Drug Safety Physician Relationship Specialty Start Date End Date Susanna Coulter MD [address] [place] [address] PCP - General Family Medicine 01/17/22 Drug Safety Physician Relationship Specialty Start Date End Date Susanna Coulter MD [address] [place] [address] PCP - General Family Medicine 01/17/22 Source Comments (unrecognize d section and content) In the event this informatio n is protected by the [facility] Confidentiality of Alcohol and Drug Abuse Patient Records regulations: The Federal rules restrict any use of the information to criminally investigate or prosecute any alcohol or drug abuse patient.[facility] the event this information is protected by the Federal Confidentiality of Alcohol and Drug Abuse Patient Records regulations: The Federal rules restrict any use of the information to criminally investigate or prosecute any alcohol or drug abuse patient.[facility] the event this information is protected by the Federal Confidentiality of Alcohol and Drug Abuse Patient Records regulations: The Federal rules restrict any use of the information to criminally investigate or prosecute any alcohol or drug abuse patient.[facility] the event this information is protected by the Federal Confidentiality of Alcohol and Drug Abuse Patient Records regulations: The Federal rules restrict any use of the information to criminally investigate or prosecute any alcohol or drug abuse patient.[facility] the event this information is protected by the Federal Confidentiality of Alcohol and Drug Abuse Patient Records regulations: The Federal rules restrict any use of the information to criminally investigate or prosecute any alcohol or drug abuse patient.[facility] the event this information is protected by the Federal Confidentiality of Alcohol and Drug Abuse Patient Records regulations: The Federal rules restrict any use of the information to criminally investigate or prosecute any alcohol or drug abuse patient.[facility] Reason for Visit (unrecogniz ed section and content) Reason Comments Post Menopausal Bleeding Spotting 6 week s ago- started dark- today was bright red Specialty Diagnoses / Procedures Referred By Contac t Referred To Contact [facility] Diagnoses Postmenopausal bleeding Procedures ENDOMETRIAL BIOPSY ENDOMETRIAL BX W/WO ENDOCERVIX BX W/O DILAT SPX Abbey Padilla MD [address] [place] [address] Phone: tel: fax: [facility] [address] [place] [address] Referral ID Status Reason Start Date Expiration Date Visits Requested Visits Authorized [id number] New Request Auto-Generat ed Referral 06/22/2025 06/22/2026 1 1 Reason Comments New Patient Reason Comments Preparations For Surgery FOR RECORDS PERTAINING TO PATIENTS WHO ARE [...] BE BASED ON THE PRIMARY CLINICAL RECORDS. [facility] Process Relations [facility]. provides no warranty or guarantee of the accuracy or completeness of information in this document.
[2025-10-21 10:48] LABS: AST(SGOT) 20 U/L (<=31); Alanine Aminotransfer ALT/SGPT 15 U/L (<=34); Albumin, Serum 4.0 g/dL (3.4-4.8); Alkaline Phosphatase 91 U/L (35-104); Anion Gap 12 (5-15); BUN 10 mg/dL (4-19); BUN/Creat Ratio 10.3 RATIO (10-20); Calcium,Total 9.3 mg/dL (7.6-11.0); Carbon Dioxide 26.2 mmol/L (21.0-32.0); Chloride 104 mmol/L (98-108); Globulin 3.1 g/dL (2.2-4.2); Glucose 101 mg/dL (70-99); Potassium 3.6 mmol/L (3.3-5.1)
[2025-10-21 12:40] LABS: Cholesterol 149 mg/dL (<=200); Low Density Lipoprotein Calc. 74 mg/dL; Triglycerides 161 mg/dL; Very Low Density Lipoprotein 32 mg/dL (5-40); cholesterol:hdl ratio screen 3.10
== END | disposition home or self-care (01) ==
LOC: MTLAB 09:11
PROVIDERS: PCP Family Medicine; Referring Provider Internal Medicine Endocrinology, Diabetes & Metabolism; Visit Provider Internal Medicine Endocrinology, Diabetes & Metabolism
DX: E11.21 Type 2 diabetes mellitus with diabetic nephropathy (principal); E78.2 Mixed hyperlipidemia; E03.8 Other specified hypothyroidism
CPT/HCPCS: 36415; 80053; 80061; 83036; 84443